=== PATIENT | female | born 1995 | race Caucasian/White ===

== ENCOUNTER 2023-06-30 10:10 | Outpatient (CLI) | payer OTHER, SELFPAY ==
[2023-06-30 13:11] LABS: Bacterial Vaginosis* NEGATIVE (No Detected); Candida glab/krus NOT DETECTED (No Detected); Candida species NOT DETECTED (No Detected); Trichomonas vaginalis NOT DETECTED (No Detected)
[2023-06-30 13:41] LABS: Chlamydia DNA Amplified* NOT DETECTED (No Detected); GC DNA Amplified* NOT DETECTED (No Detected)
== END 2023-06-30 10:11 | disposition home or self-care (01) ==
PROVIDERS: Visit Provider Registered Nurse
DX: N89.8 Other specified noninflammatory disorders of vagina (principal); Z11.3 Encounter for screening for infections with a predominantly sexual mode of transmission
CPT/HCPCS: 81513; 87102; 87481; 87491; 87591; 87661

== ENCOUNTER 2023-08-11 12:14 | Outpatient (CLI) | payer OTHER, SELFPAY ==
--- NOTE | 2023-08-11 12:15 | US_ITS ---
Patient: SANAZ SAINZ Facility:?[facility] Patient ID:?[id number] Site Patient ID:?[id number]. Site :?1995 Study:?US-OB Pelvis OB ANATOMY-08/11/2023 1:25:28 PM Ordering Physician:VARSHA CARPENTER Final Report: INDICATION: Evaluate anatomy. COMPARISON: none TECHNIQUE: Real time roblero scale imaging of the fetus was performed as well as color Doppler analysis of the umbilical vessels. FINDINGS: Sonographic imaging demonstrates a single living intrauterine gestation. Fetus demonstrates a regular cardiac rate of 145 beats per minute. Fetus has a variable position. The placenta lies anteriorly without evidence of placenta previa. Placental edge 7.0 cm from the internal cervical os. Amniotic fluid volume appears normal. Single deepest vertical pocket: 4.1 cm. The cervix is closed and measures 4.5 cm in length. The composite ultrasound gestational age is calculated at 19 weeks 6 days with an estimated sonographic due date of 12/30/2023. The estimated weight is 316 grams which lies at the 13th %. The following biometric measurements were obtained: Biparietal diameter: 4.4 cm/19 weeks 1 day 6th% Head circumference: 17.1 cm/19 weeks 5 day 11th% Abdominal circumference: 15.2 cm/20 weeks 3 days 38th% Femur length: 3.0 cm/19 weeks 2 days 7th% The HC/AC ratio measures: 1.13 range (1.08-1.26) On anatomic survey, there is a normal appearance of the cerebral ventricles, cavum septi pellucidi, cisterna magna and cerebellum. The nose and lips appear normal. The cervical, thoracic and lumbar spine are well visualized and appear normal. Incomplete visualization of the heart structures and profile due to position. The diaphragm and stomach appear normal. The kidneys and bladder also appear normal. There is a normal three-vessel cord. The placental cord insertion is located 1.4 cm from the edge of the placenta. The four extremities appear normal. IMPRESSION: Concordance of clinical and sonographic dating. Incomplete visualization of the profile and heart structures. Remainder of the anatomic survey normal. Short-term follow-up recommended. Marginal placental cord insertion located 1.4 cm from the placental edge Dictated by Dinesh Cardenas MD @ 08/11/2023 1:35:14 PM Signed by:?Dinesh Cardenas MD @08/11/2023 1:35:14 PM (Electronic Signature)
== END 2023-08-11 12:15 | disposition home or self-care (01) ==
LOC: US 12:14
PROVIDERS: Visit Provider Obstetrics & Gynecology
DX: Z34.92 Encounter for supervision of normal pregnancy, unspecified, second trimester (principal); Z3A.19 19 weeks gestation of pregnancy
CPT/HCPCS: 76805

== ENCOUNTER 2023-09-08 13:00 | Outpatient (CLI) | payer OTHER, SELFPAY ==
--- NOTE | 2023-09-08 13:00 | US_ITS ---
Patient: SANAZ SAINZ Facility:?[facility] Patient ID:?[id number] Site Patient ID:?[id number]. Site :?1995 Study:?US-OB Pelvis OB F/U SUBOPTIMAL VIEWS-09/08/2023 10:24:32 AM Ordering Physician:?RAMO TIPTON M.D. Final Report: INDICATION: Follow-up missed anatomy COMPARISON: 08/11/2023 TECHNIQUE: Real time roblero scale imaging of the fetus was performed as well as color Doppler analysis of the umbilical vessels. FINDINGS: Sonographic imaging demonstrates a single living intrauterine gestation. Fetus demonstrates a regular cardiac rate of 154 beats per minute. Fetus has a transverse/breech position. The placenta lies anteriorly. Amniotic fluid volume appears normal. Single deepest vertical pocket: 4.6 cm. Adequate diastolic flow within the umbilical artery with the SD ratio measuring 3.5. Respiratory activity not visualized, of doubtful significance at this gestational age. The composite ultrasound gestational age is calculated at 23 weeks 0 days with an estimated sonographic due date of 01/05/2024. The estimated weight is 500 grams which lies at the less than 3rd %. The following biometric measurements were obtained: Biparietal diameter: 5.8 cm/23 weeks 5 days 17th% Head circumference: 22.2 cm/24 weeks 2 days 19th% Abdominal circumference: 17.1 cm/22 weeks 0 days less than 3rd% Femur length: 3.8 cm/22 weeks 1 day less than 3rd% The HC/AC ratio measures: 1.30 range (1.05-1.21) Normal LVOT, RVOT, three-vessel view and four-chamber heart. Normal profile. Placental cord insertion 2.2 cm from the placental edge. IMPRESSION: Sonographic gestational age 23 weeks 0 days and sonographic due date 01/05/2024. Sonographic age 11 days behind the clinical age. Estimated weight less than 3rd percentile. AC and FL less than 3rd percentile. Cord insertion into the placenta is located 2.2 cm from the placental edge. Normal profile and heart views. Dictated by Dinesh Cardenas MD @ 09/14/2023 3:41:52 PM Signed by:?Dinesh Cardenas MD @09/14/2023 3:41:52 PM (Electronic Signature)
== END 2023-09-08 13:01 | disposition home or self-care (01) ==
LOC: US 13:01
PROVIDERS: Visit Provider Obstetrics & Gynecology
DX: Z34.92 Encounter for supervision of normal pregnancy, unspecified, second trimester (principal); Z3A.23 23 weeks gestation of pregnancy
CPT/HCPCS: 76816; 76820

== ENCOUNTER 2023-10-01 09:52 | Outpatient (CLI) | payer OTHER, SELFPAY | END 2023-10-01 09:53 | disposition home or self-care (01) | PROVIDERS: Visit Provider Obstetrics & Gynecology | DX: Z34.82 Encounter for supervision of other normal pregnancy, second trimester (principal) | CPT/HCPCS: 86592 ==

== ENCOUNTER 2023-11-05 14:37 | Outpatient (CLI) | payer OTHER, SELFPAY ==
--- OUTSIDE RECORDS SUMMARY | 2023-11-05 14:39 | XMS_ITS | Clinical Summary ---
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 Name Role Phone Evi Colmenares RD Unavailable Cristobal Becerril PA-C Primary Care Provider Cristobal Becerril PA-C Unavailable [phone] Elisa Yoo MD Unavailable [phone] Allergies Active Allergy Reactions Criticality Noted Date Comments Seasonal Allergies Low 06/17/2022 Other reaction(s): Eye Redness Medications Medication Sig Dispensed Refills Start Date End Date Status Vit-Fe Fumarate-FA ( MULTIVITAMIN W/IRON) 27-0.8 MG tabletIndications : Take 1 tablet by mouth daily Active acetaminophen (TYLENOL) 325 MG tabletIndications :Delivery of by section Take 3 tablets (975 mg) by mouth every 6 hours 2 Active ibuprofen (ADVIL/MOTRIN) 800 MG tabletIndications :Delivery of by section Take 1 tablet (800 mg) by mouth every 6 hours 2 Active valACYclovir (VALTREX) 1000 mg tabletIndications :Herpes simplex virus infection Take 1 tablet (1,000 mg) by mouth daily 90 tablet 1 3 Active ondansetron (ZOFRAN) 4 MG tabletIndications :Nausea Take 1 tablet (4 mg) by mouth every 8 hours as needed for nausea 30 tablet 3 Active metFORMIN (GLUCOPHAGE) 500 MG tabletIndications :Morbid obesity (H),Hx of gestational diabetes mellitus, not currently TAKE 1 TABLET BY MOUTH TWICE A DAY WITH FOOD 180 tablet 4 Active insulin aspart (NOVOLOG PEN) 100 UNIT/ML pen Inject 18 Units Subcutaneous At Bedtime 12/27/19 22 Discontinued Active Problems Problem Noted Date Diagnosed Date Morbid obesity 06/17/2022 Indication for care in labor or delivery 022 Encounter for triage in patient 022 Impaired glucose tolerance 05/21/2021 Retained intrauterine contraceptive device (IUD) 09/30/2020 Overview: One arm of copper IUD lateral left of lower uterine segment, could not be removed via D&C w/ hysteroscopy. See operative report 12/11/2019. HSV (herpes simplex virus) anogenital infection 04/13/2018 Overview: Takes acyclovir with outbreaks Takes acyclovir with outbreaks Seasonal allergies Estimated Date of Delivery Comme nts Yes 12/25/2023 Based on last me nstrual period of 03/20/2023 Resolved Problems Problem Noted Date Diagnosed Date Resolved Date Blood in stool 07/01/2013 07/01/2013 Pain in joint, pelvic region and thigh 08/13/2009 06/17/2022 Encounters Date Type Department Care Team Description 11/03/2023 8:30 AM CDT Office Visit [facility] [address] [place] [address] Mike Joseph MD growth restriction antepartum 11/03/2023 7:59 AM CDT - 11/03/2023 11:59 PM CDT Hospital Encounter [facility] Medicine [facility] [address] [facility] [address] [place] [address] Mike Joseph MD growth restriction antepartum Discharge Disposition: Home or Self Care 11/03/2023 Travel 10/29/2023 2:31 PM CDT - 10/29/2023 11:59 PM CDT Hospital Encounter [facility] Maternal Medicine [address] [phone] Mike Joseph MD growth restriction antepartum Discharge Disposition: Home or Self Care 10/29/2023 2:30 PM CDT Office Visit [facility] Medicine [address] [phone] Mike Joseph MD growth restriction antepartum 10/29/2023 Travel 10/20/2023 9:00 AM CDT Office Visit [facility] Maternal Medicine [place] [address] [place] [address] Elisa Yoo MD Rauk, Phillip Neil, MD growth restriction antepartum (Primary Dx) 10/20/2023 8:58 AM CDT - 10/20/2023 11:59 PM CDT Hospital Encounter [facility] [address] [place] [address] Elisa Yoo MD Rauk, Phillip Neil, MD growth restriction antepartum Discharge Disposition: Home or Self Care 10/20/2023 Travel 10/15/2023 3:15 PM CDT - 10/15/2023 11:59 PM CDT Hospital Encounter [facility] [address] [place] [address] Mark Garcia MD growth restriction antepartum Discharge Disposition: Home or Self Care 10/15/2023 3:00 PM CDT Office Visit [facility] Medicine [facility] [address] [place] [address] Mark Garcia MD growth restriction antepartum (Primary Dx) 10/15/2023 Travel 10/12/2023 3:00 PM CDT Office Visit [facility] [address] [place] [address] Mark Garcia MD growth restriction antepartum (Primary Dx) 10/12/2023 2:59 PM CDT - 10/12/2023 11:59 PM CDT Hospital Encounter [facility] Medicine [facility] [address] [facility] [address] [place] [address] Mark Garcia MD growth restriction antepartum Discharge Disposition: Home or Self Care 10/12/2023 Travel 10/08/2023 8:30 AM CDT Office Visit [facility] Maternal Medicine [place] [address] [address] [place] [phone] Kenton Jasso MD growth restriction antepartum (Primary Dx) 10/08/2023 7:58 AM CDT - 10/08/2023 11:59 PM CDT Hospital Encounter [facility] Maternal Medicine [place] [address] [place] [phone] Kenton Jasso MD growth restriction antepartum Discharge Disposition: Home or Self Care 10/08/2023 Travel 10/01/2023 2:30 PM CDT Office Visit [facility] Medicine [place] [address] [place] [phone] Elisa Yoo MD growth restriction antepartum (Primary Dx); Obesity in , antepartum; BMI 40.0-44.9, adult (H) 10/01/2023 2:28 PM CDT - 10/01/2023 11:59 PM CDT Hospital Encounter [facility] Maternal Medicine [place] [address] [place] [phone] Elisa Yoo MD growth restriction antepartum Discharge Disposition: Home or Self Care 10/01/2023 Travel 09/28/2023 Travel 09/22/2023 1:45 PM CDT Office Visit [facility] M[facility] Medicine [place] [address] [place] [phone] Mark Garcia MD growth restriction antepartum (Primary Dx) 09/22/2023 1:42 PM CDT - 09/22/2023 11:59 PM CDT Hospital Encounter [facility] Medicine [place] [address] [facility] [address] [place] [phone] Mark Garcia MD growth restriction antepartum Discharge Disposition: Home or Self Care 09/22/2023 Travel 09/15/2023 3:00 PM CDT Office Visit [facility] Medicine [place] [address] [facility] [address] [place] [phone] Mark Garcia MD growth restriction antepartum (Primary Dx) 09/15/2023 2:54 PM CDT - 09/15/2023 11:59 PM CDT Hospital Encounter [facility] Maternal Medicine [place] [address] [facility] [address] [place] [phone] Mark Garcia MD growth restriction antepartum Discharge Disposition: Home or Self Care 09/15/2023 Travel 09/10/2023 11:30 AM CDT Office Visit [facility] Maternal Medicine [address] [phone] Ghislaine Encinas MD Sabol, Bethany, MD growth restriction antepartum (Primary Dx) 09/10/2023 10:57 AM CDT - 09/10/2023 11:59 PM CDT Hospital Encounter [facility] Maternal Medicine [address] [address] Ghislaine Encinas MD Sabol, Bethany, MD related condition, antepartum Discharge Disposition: Home or Self Care 09/10/2023 Travel 09/09/2023 Medical Correspondence [facility] [address] [phone] Scan, Non-Provider 09/09/2023 PRE VISIT [facility] Maternal Medicine [address] [place] [phone] Bianca Kimball RN Ultrasound (L2: FGR seen on outside [place]) 09/08/2023 Transcribe Orders [facility] Maternal Medicine [place] [address] [address] [place] [phone] Ghislaine Encinas MD related condition, antepartum (Primary Dx) from Last 3 Months Immunizations Name Administration Dates Next Due COVID-19 MONOVALENT 12+ (Pfizer) 07/04/2020,12/2020 HEPA 10/24/2014,03/30/2011 HEPATITIS A (PEDS 12M-18Y) 03/30/2011 HPV Quadrivalent 04/02/2016,10/18/2015 HPV9 04/13/2018 Influenza (IIV3) PF 06/04/2014,04/06/2008,2006 Influenza Vaccine >6 months,quad, PF 06/17/2022, 03/20/2020,03/27/2019 Influenza,INJ,MDCK,PF,Quad >6mo(Flucelvax) 05/21 Meningococcal (Menomune??) 03/30/2011,01/19/2005 Meningococcal ACWY (Menactra??) 01/19/2005 Meningococcal ACWY (Menveo??) 03/30/2011 TD,PF 7+ (Tenivac) 01/19/2005 TDAP (Adacel,Boostrix) 10/22/2021,09/30/2020, Td (Adult), Adsorbed 01/19/2005 Family History Medical History Relation Comments Breast Cancer Mother Relation Status Comments Father Alive Mother Alive Social History Tobacco Use Types Packs/Day Years Used Date Smoking Tobacco: Never Passive Smoke Exposure: Never Smokeless Tobacco: Never Tobacco Cessation:Counseling Given: Not Answered Alcohol Use Standard Drinks/Week Comments Yes 5 (1 standard drink = 0.6 oz pur e alcohol) PHQ-2 Answer Date Recorded PHQ-2 Score 0 06/17/2022 [place] Depression Scale Answer Date Recorded Last EPDS Total Score Not on file 12/26/2021 The thought of harming myself has occurred to me . Never 12/26/2021 Adolescent Education Answer Date Record ed Getting School Help Needed Not on file 03/12 Estimated Date of Delivery Comme nts Yes 12/25/2023 Based on last me nstrual period of 03/20/2023 Sex and Gender Information Value Date Recorded Sex Assigned at Female 08/20/2021 9:26 AM CDT Gender Identity Female 08/20/2021 9:26 AM CDT Sexual Orientation Straight 08/20/2021 9: 26 AM CDT Last Filed Vital Signs Vital Sign Reading Time Taken Comments Blood Pressure 111/67 11/03/2023 8:40 AM CDT Pulse 90 11/03/2023 8:40 AM CDT Temperature 36.8 ??C (98.2 ??F) 06/17/2022 1 0:24 AM PHARMACOVIGILANCE SAFETY EXPERT Respiratory Rate 16 11/03/2023 8:40 AM CDT Oxygen Saturation 97% 10/15/2023 3:50 PM CDT Inhaled Oxygen Concentration - - Weight 100.2 kg (220 lb 12.8 oz) 2022 10:24 AM PHARMACOVIGILANCE SAFETY EXPERT Height 157.5 cm (5' 2) 06/17/2022 10:2 4 AM PHARMACOVIGILANCE SAFETY EXPERT Body Mass Index 40.38 06/17/2022 10:24 AM PHARMACOVIGILANCE SAFETY EXPERT Plan of Treatment Upcoming Encounters Date Type Department Care Team (Late st Contact Info) Description 11/12/2023 10:30 AM CDT Office Visit [facility] [address] [facility] [address] [place] [phone] Mark Garcia MD [address] [place] [address] Kenton Jasso MD [address] [place], [place] [phone] 11/12/2023 11:00 AM CDT Appointment [facility] [place] [address] [place] [address] Mark Garcia MD [address] [place], [place] [address] Kenton Jasso MD [address] [place], [place] [address] 11/19/2023 10:30 AM CDT Office Visit [facility] [address] [place] [phone] Mark Garcia MD [address] [place] [address] 11/19/2023 11:00 AM CDT Appointment [facility] [address] [place] [address] Mark Garcia MD [address] [place], [place] [phone] Health Maintenance Due Date Last Done Comments HEPATITIS B IMMUNIZATION (1 of 3 - 19+ 3-dose series) 2012 MATERNAL SCREENING DISCUSSION 05/29/2023 PHQ-2 (once per calendar year) 2023 06/17/2022, 11/01/2018 ANNUAL REVIEW OF HM ORDERS 06/17/2023 06/17/2022 OBGCT (OB) 09/04/2023 PAP 10/01/2023 09/30/2020, 12/2019, 04/13/2018, Additional history exists YEARLY PREVENTIVE VISIT 03/24/2024 03/24/20, 06/17/2022, 09/30/2020, Additional history exists ADVANCE CARE PLANNING 06/17/2027 06/17/2022 DTAP/TDAP/TD IMMUNIZATION (6 - Td or Tdap) 10/17/2033 10/18/2023, 10/22/2021, 09/30/2020, Additional history exists MENINGITIS IMMUNIZATION Completed 03/30/20 11, 03/30/2011, 01/19/2005, Additional history exists HPV IMMUNIZATION Completed 04/13/2018, , 10/18/2015 INFLUENZA VACCINE Completed 03/24/2023, , 06/17/2022, Additional history exists HEPATITIS C SCREENING Completed 05/19/2023, 022 HIV SCREENING Completed 05/19/2023, 06/07, 11/01/2018 COVID-19 Vaccine Completed 08/11/2023, 09/2021, 07/04/2020, Additional history exists IPV IMMUNIZATION Aged Out No longer e ligible based on patient's age to complete this topic Pneumococcal Vaccine: Pediatrics (0 to 5 Years) and At-Risk Patients (6 to 64 Years) Aged Out No longer eligible based on patient's age to complete this topic RSV MONOCLONAL ANTIBODY Aged Out No l onger eligible based on patient's age to complete this topic RSV VACCINE ( & 60+) (No Doses Required) Completed Procedures Procedure Name Priority Date/Time Associated Diagnosis Comments [facility] OB LIMITED SINGLE/MULTIPLE Routine 11/03/2023 9:36 AM CDT growth restriction antepartum [facility] OB LIMITED SINGLE/MULTIPLE Routine 10/29/2023 3:15 PM CDT growth restriction antepartum [facility] COMPREHENSIVE SINGLE F/U Routine 10/20/2023 10:05 AM CDT growth restriction antepartum NON-STRESS TEST - HIM SCAN 10/20/2023 12:00 AM CDT [facility] OB LIMITED SINGLE/MULTIPLE Routine 10/15/2023 4:10 PM CDT growth restriction antepartum [facility] OB LIMITED SINGLE/MULTIPLE Routine 10/12/2023 4:02 PM CDT growth restriction antepartum [facility] OB LIMITED SINGLE/MULTIPLE Routine 10/08/2023 9:09 AM CDT growth restriction antepartum [facility] US COMPREHENSIVE SINGLE F/U Routine 10/01/2023 4:11 PM CDT growth restriction antepartum [facility] US OB LIMITED SINGLE/MULTIPLE Routine 09/22/2023 2:13 PM CDT growth restriction antepartum [facility] US OB LIMITED SINGLE/MULTIPLE Routine 09/15/2023 4:05 PM CDT growth restriction antepartum [facility] US COMPREHENSIVE SINGLE Routine 09/10/2023 12:00 PM CDT related condition, antepartum HIV ANTIGEN ANTIBODY COMBO Routine 05/19/2023 10:29 AM PHARMACOVIGILANCE SAFETY EXPERT 8 weeks gestation of HEPATITIS C ANTIBODY Routine 05/19/2023 10:29 AM PHARMACOVIGILANCE SAFETY EXPERT 8 weeks gestation of ABSTRACT PAP (HIM EXTERNAL RESULT) Routine 09/30/2020 10:30 AM CDT from Last 3 Months or Most Recently Relevant to Health Maintenance Results * [facility] US OB Limited Single/Multiple (11/03/2023 9:36 AM CDT) Only the most recent of7 resultswithin the time period is included. Anatomical Region Laterality Modality Ultrasound 11/03/2023 8:01 AM CDT Impressions 11/03/2023 9:19 AM CDT IMPRESSION ----- 1. Springer at 32w 4d with growth restriction (EFW 8% on 10/20/23). 2. The amniotic fluid volume appeared normal. 3. The umbilical artery Dopplers were abnormal: Elevated PI but there was no evidence of absent or reversed end diastolic flow. 4. The heart rate monitoring was appropriate for gestational age. Narrative 11/03/2023 9:19 AM CDT ?Limited ----- Pat. Name: SANAZ SAINZ ? Study Date: ??11/03/2023 8:01am Pat. NO: ??[id number] ?Referring ??MD: GHISLAINE ENCINAS Site: ??[facility] ? Publicity Agent: Suzy Hester RDMS : ??1995 ?Age: ?? 28 ----- INDICATION ----- growth restriction (FGR) with abnormal UA Doppler resistance METHOD ----- Transabdominal ultrasound examination. View: Sufficient ----- Springer . Number of fetuses: 1 DATING ----- ? Date ?Details ?Gest. age ?CLARIBEL LMP ?03/20/2023 ? 32 w + 4 d ? 12/25/2023 Prior assessment ? 05/19/2023 ? GA: 8 w + 0 d ?32 w + 0 d ? 12/29/2023 Assigned dating ?Dating performed on 11/03/2023, based on the LMP ?32 w + 4 d ? 12/25/2023 GENERAL EVALUATION ----- Cardiac activity present. FHR 142 bpm. movements visualized. Presentation breech. Placenta Anterior. Umbilical cord previously studied. Amniotic fluid Amount of AF: normal. MVP 8.6 cm. AVIVA 20.6 cm. Q1 3.8 cm, Q2 8.1 cm, Q3 3.9 cm, Q4 4.8 cm. DOPPLER ----- Umbilical Artery: abnormal, Elevated PI but there was no evidence of absent or reversed end diastolic flow PI ?1.38 ?>99% ?Penny HR ?142 ? bpm NON STRESS TEST ----- NST interpretation: reactive. Test duration 30 min. Baseline FHR 145 bpm. Baseline variability: moderate. Accelerations: present. Decelerations: absent. Uterine activity: absent RECOMMENDATION ----- Thank-you for referring your patient for surveillance in the setting of growth restriction. Continue weekly surveillance/UA Dopplers and growth evaluation every 3 weeks. Return to primary provider for continued care. If UA Doppler resistance remains elevated, delivery is recommended at 37 weeks. If you have questions regarding today's evaluation or if we can be of further service, please contact the Maternal- Medicine Center. anomalies may be present but not detected Procedure Note Mike Joseph MD - 11/03/2023 Limited ----- Pat. Name: SANAZ SAINZ Study Date: 11/03/2023 8:01am Pat. NO: [id number] Referring MD: GHISLAINE ENCINAS Site: [facility] Publicity Agent: Suzy Hester RDMS : 1995 Age: 28 ----- INDICATION ----- growth restriction (FGR) with abnormal UA Doppler resistance METHOD ----- Transabdominal ultrasound examination. View: Sufficient ----- Springer . Number of fetuses: 1 DATING ----- DateDetailsGest. age CLARIBEL LMP w + 4 d 12/25/2023 Prior assessment 05/19/2023 GA: 8 w +0 d32 w + 0 d 12/29/2023 Assigned dating Dating performed on 11/03/2023, based onthe LMP 32 w +4 d 12/25/2023 GENERAL EVALUATION ----- Cardiac activity present. FHR 142 bpm. movements visualized. Presentation breech. Placenta Anterior. Umbilical cord previously studied. Amniotic fluid Amount of AF: normal. MVP 8.6 cm. AVIVA 20.6 cm. Q1 3.8 cm,Q2 8.1 cm, Q3 3.9 cm, Q4 4.8 cm. DOPPLER ----- Umbilical Artery: abnormal, Elevated PI but there was no evidence ofabsent or reversed end diastolic flow PI 1.38>99% Penny HR 142 bpm NON STRESS TEST ----- NST interpretation: reactive. Test duration 30 min. Baseline FHR 145 bpm.Baseline variability: moderate. Accelerations: present. Decelerations:absent. Uterine activity: absent RECOMMENDATION ----- Thank-you for referring your patient for surveillance in thesetting of growth restriction. Continue weekly surveillance/UA Dopplers and growth evaluationevery 3 weeks. Return to primary provider for continued care. If UA Doppler resistance remains elevated, delivery is recommended at 37weeks. If you have questions regarding today's evaluation or if we can be offurther service, please contact the Maternal- Medicine Center. anomalies may be present but not detected IMPRESSION ----- 1. Springer at 32w 4d with growth restriction (EFW 8% on10/20/23). 2. The amniotic fluid volume appeared normal. 3. The umbilical artery Dopplers were abnormal: Elevated PI but there wasno evidence of absent or reversed end diastolic flow. 4. The heart rate monitoring was appropriate for gestational age. Mark Garcia MD [place] [facility] US ORDERABL ES * [facility] US Comprehensive Single F/U (10/20/2023 10:05 AM CDT) Only the most recent of2 resultswithin the time period is included. Anatomical Region Laterality Modality Ultrasound 10/20/2023 9:27 AM CDT Impressions 10/20/2023 10:25 AM CDT IMPRESSION ----- 1. Springer at 30w 4d with growth restriction (EFW 3% on 10/01/23). 2. None of the anomalies commonly detected by ultrasound were evident in the limited anatomic survey as described above. 3. EFW was at the 8%ile on today?s ultrasound. Appropriate interval growth was noted. 4. The amniotic fluid volume appeared normal. 5. The umbilical artery Dopplers were abnormal: Elevated PI but there was no evidence of absent or reversed end diastolic flow. 6. Reactive NST without decelerations. Narrative 10/20/2023 10:25 AM CDT ?Comp Follow Up ----- Pat. Name: DOC SAINZICA ? Study Date: ??10/20/2023 9:27am Pat. NO: ??[id number] ?Referring ??: GHISLAINE ENCINAS Site: ??[facility] ? Publicity Agent: Miky Malone RDMS : ??1995 ?Age: ?? 28 ----- INDICATION ----- Growth Restriction (FGR) Elevated Dopplers METHOD ----- Transabdominal ultrasound examination. View: Sufficient ----- Springer . Number of fetuses: 1 DATING ----- ? Date ?Details ?Gest. age ?CLARIBEL LMP ?03/20/2023 ? 30 w + 4 d ? 12/25/2023 Prior assessment ? 05/19/2023 ? GA: 8 w + 0 d ?30 w + 0 d ? 12/29/2023 U/S ? 10/20/2023 ? based upon AC, BPD, Femur, HC ?29 w + 5 d ? 12/31/2023 Assigned dating ?Dating performed on 10/20/2023, based on the LMP ?30 w + 4 d ? 12/25/2023 GENERAL EVALUATION ----- Cardiac activity present. FHR 150 bpm. movements present. Presentation transverse with head to maternal right. Placenta Anterior. Umbilical cord previously studied. Amniotic fluid Amount of AF: normal. MVP 7.2 cm. BIOMETRY ----- Main Biometry: BPD ?75.9 ?mm ? 30w 3d ?Hadlock OFD ?101.9 ?mm ? 30w 0d ? Nicolaides HC ?283.2 ?mm ?31w 0d ?Hadlock Cerebellum tr ?38.0 ? mm ?32w 4d ?Nicolaides AC ?250.4 ?mm ?29w 2d ?12% ?Hadlock Femur ?53.3 ? mm ?28w 2d ?Hadlock Humerus ?48.9 ?mm ? 28w 5d ?Kapil Weight Calculation: EFW ? 1,351 ?g ? 8% ? Hadlock EFW (lb,oz) ? 3 lb 0 ?oz EFW by ?Hadlock ([id number]) Head / Face / Neck Biometry: Leaf Stamper ? 7.8 ? mm CM ?4.3 ? mm ANATOMY ----- The following structures appear normal: Head / Neck ? Cranium. Head size. Head shape. Lateral ventricles. Midline falx. Cavum septi pellucidi. Cerebellum. Cisterna magna. Thalami. Face ? Lips. Profile. Nose. Heart / Thorax ?RVOT view. LVOT view. ? Diaphragm. Abdomen ? Stomach. Kidneys. Bladder. The following structures were documented previously: Heart / Thorax ?4-chamber view. [id number]-wpkjvde view. Spine ?Cervical spine. Thoracic spine. Lumbar spine. Sacral spine. Gender: female. DOPPLER ----- Umbilical Artery: abnormal, Elevated PI but there was no evidence of absent or reversed end diastolic flow PI ?1.43 ?>99% ? Penny HR ?140 ? bpm MATERNAL STRUCTURES ----- Cervix ?Not examined Right Ovary ?Not examined Left Ovary ?Not examined NON STRESS TEST ----- NST interpretation: reactive. Test duration 20 min. Baseline FHR 130 bpm. Baseline variability: moderate. Accelerations: present. Decelerations: absent. Uterine activity: absent. Acoustic stimulation: no RECOMMENDATION ----- We discussed the findings on today's ultrasound with the patient. We will continue weekly FGR surveillance and reassess growth in 3 weeks. Return to primary provider for continued care. Thank-you for the opportunity to participate in the care of this patient. If you have questions regarding today's evaluation or if we can be of further service, please contact the M[facility] Center. anomalies may be present but not detected Procedure Note Mark Garcia MD - 10/20/2023 Comp Follow Up ----- Pat. Name: SANAZ SAINZ Study Date: 10/20/2023 9:27am Pat. NO: [id number] Referring MD: GHISLAINE ENCINAS Site: [facility] Publicity Agent: Miky Malone RDMS : 1995 Age: 28 ----- INDICATION ----- Growth Restriction (FGR) Elevated Dopplers METHOD ----- Transabdominal ultrasound examination. View: Sufficient ----- Springer . Number of fetuses: 1 DATING ----- DateDetailsGest. age CLARIBEL LMP w + 4 d 12/25/2023 Prior assessment 05/19/2023 GA: 8 w +0 d30 w + 0 d 12/29/2023 U/S 10/20/2023ased upon AC, BPD, Femur, HC29 w + 5 d 12/31/2023 Assigned dating Dating performed on 10/20/2023, based onthe LMP 30 w +4 d 12/25/2023 GENERAL EVALUATION ----- Cardiac activity present. FHR 150 bpm. movements present. Presentation transverse with head to maternal right. Placenta Anterior. Umbilical cord previously studied. Amniotic fluid Amount of AF: normal. MVP 7.2 cm. BIOMETRY ----- Main Biometry: BPD 75.9 mm30w 3d Hadlock OFD 101.9 mm30w 0d Nicolaides HC 283.2 mm31w 0d Hadlock Cerebellum tr 38.0 mm32w 4d Nicolaides AC 250.4 mm29w 2d 12% Hadlock Femur 53.3 mm28w 2d Hadlock Humerus 48.9 mm28w 5d Kapil Weight Calculation: EFW 1,351 g8% Hadlock EFW (lb,oz) 3 lb 0 oz EFW by Hadlock ([id number]) Head / Face / Neck Biometry: Leaf Stamper 7.8 mm CM 4.3 mm ANATOMY ----- The following structures appear normal: Head / Neck Cranium. Head size. Head shape.Lateral ventricles. Midline falx. Cavum septi pellucidi. Cerebellum.Cisterna magna. Thalami. Face Lips. Profile. Nose. Heart / Thorax RVOT view. LVOT view. Diaphragm. Abdomen Stomach. Kidneys. Bladder. The following structures were documented previously: Heart / Thorax 4-chamber view. 0-[id number]-uncaccfhhiu. Spine Cervical spine. Thoracic spine.Lumbar spine. Sacral spine. Gender: female. DOPPLER ----- Umbilical Artery: abnormal, Elevated PI but there was no evidence ofabsent or reversed end diastolic flow PI 1.43>99% Penny HR 140 bpm MATERNAL STRUCTURES ----- Cervix Not examined Right Ovary Not examined Left Ovary Not examined NON STRESS TEST ----- NST interpretation: reactive. Test duration 20 min. Baseline FHR 130 bpm.Baseline variability: moderate. Accelerations: present. Decelerations:absent. Uterine activity: absent. Acoustic stimulation: no RECOMMENDATION ----- We discussed the findings on today's ultrasound with the patient. We will continue weekly FGR surveillance and reassess growth in 3weeks. Return to primary provider for continued care. Thank-you for the opportunity to participate in the care of this patient.If you have questions regarding today's evaluation or if we can be offurther service, please contact the [facility]. anomalies may be present but not detected IMPRESSION ----- 1. Springer at 30w 4d with growth restriction (EFW 3% on10/01/23). 2. None of the anomalies commonly detected by ultrasound were evident inthe limited anatomic survey as described above. 3. EFW was at the 8%ile on today?s ultrasound. Appropriate interval growthwas noted. 4. The amniotic fluid volume appeared normal. 5. The umbilical artery Dopplers were abnormal: Elevated PI but there wasno evidence of absent or reversed end diastolic flow. 6. Reactive NST without decelerations. Elisa Yoo MD [facility] US ORDERABLE S * Non-Stress Test - HIM Scan (10/20/2023 12:00 AM CDT) 10/20/2023 Provider Outside PROCEDURES * [facility] Comprehensive Single (09/10/2023 12:00 PM CDT) Anatomical Region Laterality Modality Ultrasound 09/10/2023 10:5 9 AM CDT Impressions 09/10/2023 4:59 PM CDT IMPRESSION ----- 1. Springer at 24w 6d gestational age. 2. No anomalies commonly detected by ultrasound were identified in the detailed anatomic survey within the limits of ultrasound, however some views were suboptimal, as described above. 3. Growth parameters and estimated weight were consistent with a new diagnosis of growth restriction with an EFW at the 3rd% for established dates. 4. The amniotic fluid volume appeared normal. 5. The umbilical artery Dopplers were normal. 6. The heart rate monitoring was appropriate for gestational age. Narrative 09/10/2023 4:59 PM CDT ?Comprehensive ----- Pat. Name: SANAZ SAINZ ? Study Date: ??09/10/2023 10:59am Pat. NO: ??[id number] ?Referring ??MD: GHISLAINE ENCINAS Site: ??[facility] ? Publicity Agent: Margaret Colvin RDMS : ??[id number] ?Age: ?? 28 ----- INDICATION ----- growth restriction (FGR) on outside exam, Low risk NIPT METHOD ----- Transabdominal ultrasound examination. View: Sufficient ----- Springer . Number of fetuses: 1 DATING ----- ? Date ?Details ?Gest. age ?CLARIBEL LMP ?03/20/2023 ? 24 w + 6 d ? 12/25/2023 U/S ? 09/10/2023 ?based upon AC, BPD, Femur, HC ? 23 w + 3 d ? 01/04/2024 Assigned dating ?Dating performed on 09/10/2023, based on the LMP ?24 w + 6 d ? 12/25/2023 GENERAL EVALUATION ----- Cardiac activity present. FHR 157 bpm. movements present. Presentation tranverse with head to maternal left. Placenta Placental site: anterior. No Previa, > 2 cm from internal os. Umbilical cord 3 vessel cord. Amniotic fluid Amount of AF: normal. MVP 5.6 cm. BIOMETRY ----- Main Biometry: BPD ?57.0 ?mm ? 23w 3d ?Hadlock OFD ?79.2 ?mm ? 24w 0d ?Nicolaides HC ?218.4 ?mm ?23w 6d ?Hadlock Cerebellum tr ?28.3 ? mm ?25w 2d ?Nicolaides AC ?182.1 ?mm ?23w 0d ?4% ?Hadlock Femur ?40.7 ? mm ?23w 1d ?Hadlock Humerus ?38.4 ?mm ? 23w 4d ?Kapil Weight Calculation: EFW ? 571 ? g ? 3% ?Hadlock EFW (lb,oz) ? 1 lb 4 ?oz EFW by ?Hadlock ([id number]) Head / Face / Neck Biometry: Leaf Stamper ? 7.3 ? mm CM ?5.9 ? mm Nasal bone ? 7.2 ? mm ANATOMY ----- The following structures appear normal: Head / Neck ? Cranium. Head size. Head shape. Lateral ventricles. Choroid plexus. Midline falx. Cavum septi pellucidi. Cerebellum. Cisterna magna. ? Parenchyma. Thalami. Vermis. ? Neck. Face ? Lips. Profile. Nose. Maxilla. Mandible. Orbits. Lens. Heart / Thorax ?4-chamber view. RVOT view. LVOT view. Situs. Bicaval view. Ductal arch view. Superior vena cava. Inferior vena cava. Cardiac position. Cardiac ? size. Cardiac rhythm. ? Right lung. Left lung. Diaphragm. Abdomen ? Abdominal wall. Cord insertion. Stomach. Bladder. Liver. Bowel. Genitals. Spine ?Cervical spine. Thoracic spine. Extremities / Skeleton ?Right arm. Right hand. Left arm. Left hand. Right leg. Right foot. Left leg. Left foot. The following structures could not be adequately visualized: Heart / Thorax ?Aortic arch view. 3-vessel view. 7-qqmttq-huqwwje view. Abdomen ? Kidneys. Spine ?Lumbar spine. Sacral spine. Gender: female. DOPPLER ----- Umbilical Artery: normal PI ?1.31 ?84% ?Penny HR ?140 ? bpm MATERNAL STRUCTURES ----- Cervix ?Visualized ? Appearance: Appears Closed Right Ovary ?Not visualized Left Ovary ?Not visualized NON STRESS TEST ----- Test duration 20 min. Baseline FHR 145 bpm. Baseline variability: moderate. Accelerations: present. Decelerations: absent. Uterine activity: absent RECOMMENDATION ----- Thank-you for referring your patient for a comprehensive ultrasound. I discussed the findings on today's ultrasound with the patient. The findings on today's ultrasound are consistent with growth restriction (FGR). We reviewed that we consider a to be affected by FGR when the overall EFW is <10th% or if the abdominal circumference (AC) is < 10th% as they have been found to be equally predictive of SGA. We discussed the potential etiologies of FGR including incorrect dating, constitutional, infectious etiologies (specifically CMV), genetic and structural abnormalities as well as placental and umbilical cord abnormalities. Her dating was reviewed (LMP c/w 8 week ultrasound). She had low risk cell free DNA for genetic screening. She is otherwise healthy and has no significant medical problems. There is no family history of congential anomalies or genetic syndromes. Her previous child was followed for FGR and was 5lb9oz at 38 weeks. Her child is now growing normally and meeting all milestones. She denies experiencing any viral symptoms this . Her blood pressure today was 124/79 mmHg. We reviewed the possible/recommended work up for FGR. I reviewed the limitations of ultrasound and we discussed the availability of amniocentesis for the precise diagnosis of chromosomal abnormalities as well as infectious studies including the associated procedure-related risk of loss of approximately 1/400. We also reviewed the availability of cell free DNA. After counseling the patient declined invasive testing but may consider this in the future. CMV serologies are not recommended in the absence of risk factors/ultrasound findings but CMV PCR could be sent if amniocentesis is pursued. Additionally, if a patient delivers at <34 weeks for placental insufficiency, including FGR, testing for antiphospholipid antibody syndrome is recommended with beta 2 glycoprotein IgG & IgM, cardiolipin antibody IgG & IgM and lupus anticoagulant. Lastly, we reviewed that regardless of the etiology of FGR, we recommend additional monitoring due to the increased risk for stillbirth and that the ultimate goal of management rests on balancing the risk of stillbirth with the risks of prematurity. The recommended surveillance and management of pregnancies complicated by FGR includes serial assessment of growth (every 3 weeks) in addition to weekly UA Dopplers and surveillance. Timing of delivery will depend on Doppler findings, amniotic fluid, monitoring, and interval growth; we will make specific recommendations as the progresses. We reviewed kick counts and calling guidelines., Finally, I reviewed the limitations of ultrasound both in detecting aneuploidy and structural abnormalities. Ultrasound can routinely detect 80-90% of structural abnormalities. Follow-up has been scheduled weekly with our office for surveillance/UA Dopplers. We will plan to re-evaluate the suboptimally visualized anatomy and growth in 3 weeks. Return to primary provider for continued care. If you have questions regarding today's evaluation or if we can be of further service, please contact the [facility]. anomalies may be present but not detected I spent a total of 30 minutes on the date of this encounter including preparing to see the patient (reviewing medical records/tests), counseling and discussing the plan of care, documenting the visit in the electronic medical record, and communicating with other health neonatal critical care nurse and/or care coordination. Please see note for details. Procedure Note Elisa Yoo MD - 09/10/2023 Comprehensive ----- Pat. Name: SANAZ SAINZ Study Date: 09/10/2023 10:59am Pat. NO: [id number] Referring MD: GHISLAINE ENCINAS Site: [facility] Publicity Agent: Margaret Colvin RDMS : 1995 Age: 28 ----- INDICATION ----- growth restriction (FGR) on outside exam, Low risk NIPT METHOD ----- Transabdominal ultrasound examination. View: Sufficient ----- Springer . Number of fetuses: 1 DATING ----- DateDetailsGest. age CLARIBEL LMP w + 6 d 12/25/2023 U/S 09/10/2023ased upon AC, BPD, Femur, HC23 w + 3 d 01/04/2024 Assigned dating Dating performed on 09/10/2023, based onthe LMP 24 w+ 6 d 12/25/2023 GENERAL EVALUATION ----- Cardiac activity present. FHR 157 bpm. movements present. Presentation tranverse with head to maternal left. Placenta Placental site: anterior. No Previa, > 2 cm from internal os. Umbilical cord 3 vessel cord. Amniotic fluid Amount of AF: normal. MVP 5.6 cm. BIOMETRY ----- Main Biometry: BPD 57.0 mm23w 3d Hadlock OFD 79.2 mm24w 0d Nicolaides HC 218.4 mm23w 6d Hadlock Cerebellum tr 28.3 mm25w 2d Nicolaides AC 182.1 mm23w 0d 4% Hadlock Femur 40.7 mm23w 1d Hadlock Humerus 38.4 mm23w 4d Kapil Weight Calculation: EFW 571 g3% Hadlock EFW (lb,oz) 1 lb 4 oz EFW by Hadlock ([id number]) Head / Face / Neck Biometry: Leaf Stamper 7.3 mm CM 5.9 mm Nasal bone 7.2 mm ANATOMY ----- The following structures appear normal: Head / Neck Cranium. Head size. Head shape.Lateral ventricles. Choroid plexus. Midline falx. Cavum septi pellucidi.Cerebellum. Cisterna magna. Parenchyma. Thalami. Vermis. Neck. Face Lips. Profile. Nose. Maxilla.Mandible. Orbits. Lens. Heart / Thorax 4-chamber view. RVOT view. LVOT view.Situs. Bicaval view. Ductal arch view. Superior vena cava. Inferior venacava. Cardiac position. Cardiac size. Cardiac rhythm. Right lung. Left lung.Diaphragm. Abdomen Abdominal wall. Cord insertion.Stomach. Bladder. Liver. Bowel. Genitals. Spine Cervical spine. Thoracic spine. Extremities / Skeleton Right arm. Right hand. Left arm. Lefthand. Right leg. Right foot. Left leg. Left foot. The following structures could not be adequately visualized: Heart / Thorax Aortic arch view. 3-vessel view.3-aaldma-cwadhfn view. Abdomen Kidneys. Spine Lumbar spine. Sacral spine. Gender: female. DOPPLER ----- Umbilical Artery: normal PI 1.3184% Penny HR 140 bpm MATERNAL STRUCTURES ----- Cervix Visualized Appearance: Appears Closed Right Ovary Not visualized Left Ovary Not visualized NON STRESS TEST ----- Test duration 20 min. Baseline FHR 145 bpm. Baseline variability:moderate. Accelerations: present. Decelerations: absent. Uterine activity:absent RECOMMENDATION ----- Thank-you for referring your patient for a comprehensive ultrasound. I discussed the findings on today's ultrasound with the patient. Thefindings on today's ultrasound are consistent with growthrestriction (FGR). We reviewed that we consider a to be affected by FGR when the overall EFW is <10th%or if the abdominal circumference (AC) is < 10th% as they have been foundto be equally predictive of SGA. We discussed the potential etiologies of FGR includingincorrect dating, constitutional, infectious etiologies (specificallyCMV), genetic and structural abnormalities as well as placental and umbilical cordabnormalities. Her dating was reviewed (LMP c/w 8 week ultrasound). She had low risk cellfree DNA for genetic screening. She is otherwise healthy and has nosignificant medical problems. There is no family history of congential anomalies or geneticsyndromes. Her previous child was followed for FGR and was 5lb9oz at 38weeks. Her child is now growing normally and meeting all milestones. She denies experiencing anyviral symptoms this . Her blood pressure today was 124/79 mmHg. We reviewed the possible/recommended work up for FGR. I reviewed thelimitations of ultrasound and we discussed the availability ofamniocentesis for the precise diagnosis of chromosomal abnormalities as well as infectious studiesincluding the associated procedure-related risk of loss ofapproximately 1/400. We also reviewed the availability of cell free DNA. After counseling the patientdeclined invasive testing but may consider this in the future. CMVserologies are not recommended in the absence of risk factors/ultrasound findings but CMV PCR could be sentif amniocentesis is pursued. Additionally, if a patient delivers at <34weeks for placental insufficiency, including FGR, testing for antiphospholipid antibodysyndrome is recommended with beta 2 glycoprotein IgG & IgM, cardiolipinantibody IgG & IgM and lupus anticoagulant. Lastly, we reviewed that regardless of the etiology of FGR, we recommendadditional monitoring due to the increased risk for stillbirth and thatthe ultimate goal of management rests on balancing the risk of stillbirth with the risks ofprematurity. The recommended surveillance and management of pregnanciescomplicated by FGR includes serial assessment of growth (every 3 weeks) in addition toweekly UA Dopplers and surveillance. Timing of delivery willdepend on Doppler findings, amniotic fluid, monitoring, and interval growth; we will makespecific recommendations as the progresses. We reviewed fetalkick counts and calling guidelines., Finally, I reviewed the limitations of ultrasound both in detectinganeuploidy and structural abnormalities. Ultrasound can routinely [id number]% of structural abnormalities. Follow-up has been scheduled weekly with our office for antenatalsurveillance/UA Dopplers. We will plan to re-evaluate the suboptimallyvisualized anatomy and growth in 3 weeks. Return to primary provider for continued care. If you have questions regarding today's evaluation or if we can be offurther service, please contact the [facility]. anomalies may be present but not detected I spent a total of 30 minutes on the date of this encounter includingpreparing to see the patient (reviewing medical records/tests), counselingand discussing the plan of care, documenting the visit in the electronic medical record, andcommunicating with other health neonatal critical care nurse and/or carecoordination. Please see note for details. IMPRESSION ----- 1. Springer at 24w 6d gestational age. 2. No anomalies commonly detected by ultrasound were identified inthe detailed anatomic survey within the limits of prenatalultrasound, however some views were suboptimal, as described above. 3. Growth parameters and estimated weight were consistent with a newdiagnosis of growth restriction with an EFW at the 3rd% forestablished dates. 4. The amniotic fluid volume appeared normal. 5. The umbilical artery Dopplers were normal. 6. The heart rate monitoring was appropriate for gestational age. Ghislaine Encinas MD [facility] US O RDERABLES * HIV Antigen Antibody Combo [place] (05/19/2023 10:29 AM PHARMACOVIGILANCE SAFETY EXPERT) HIV Antigen Antibody Combo Nonreactive Nonreactive 05/19/2023 6:15 PM PHARMACOVIGILANCE SAFETY EXPERT [facility] DO Comment:HIV-1 p24 Ag & HIV-1 /HIV-2 Ab Not Detected Blood BLOOD SPECIMEN / Unknown Client Draw / Unknown 05/19/2023 10:29 AM PHARMACOVIGILANCE SAFETY EXPERT 05/19/2023 1:09 PM PHARMACOVIGILANCE SAFETY EXPERT Yulia Galvan TANK TRUCK LOADER ORIGINATION SPECIALIST LAB - BLO OD ORDERABLES [facility]ENDO [facility]Endo [address] [facility], [address] [phone] * Hepatitis C antibody (05/19/2023 10:29 AM PHARMACOVIGILANCE SAFETY EXPERT) Hepatitis C Antibody Nonreactive Nonreactive 05/19/2023 5:06 PM PHARMACOVIGILANCE SAFETY EXPERT [facility] DO Blood BLOOD SPECIMEN / Unknown Client Draw / Unknown 05/19/2023 10:29 AM PHARMACOVIGILANCE SAFETY EXPERT 05/19/2023 1:10 PM PHARMACOVIGILANCE SAFETY EXPERT Narrative [facility] - 05/19/2023 5:06 PM PHARMACOVIGILANCE SAFETY EXPERT Assay performance characteristics have not been established for newborns, infants, and children. Yulia Galvan APRN ORIGINATION SPECIALIST LAB - BLO OD ORDERABLES Performing Organization Address City/[facility]/ZIP Co de Phone Number [facility]ENDO Specialty Core/Prot/Endo [address] [facility], [address] [phone] * Abstract PAP (HIM External Result) (09/30/2020 10:30 AM CDT) PAP-ABSTRACT See Scanned Document [facility] 09/30/2020 10:[address] [facility] - 09/30/2020 10:30 AM CDT PAP info from chart and care everywhere Patient Reported LAB - HIM EXTERNAL R ESULT [facility] [address] [place] [address], [facility] from Last 3 Months or Most Recently Relevant to Health Maintenance Advance Directives For more information, please contact: [phone] * Full Code (Latest Code Status on File) Date Activated Date Inactivated Comments 12/25/2021 8:30 AM 12/26/2021 3:14 PM All basic an d advanced life-sustaining interventions are performed as appropriate Question Answer Comments Code status determined by: Discussion with patie nt/ legal decision maker * Full Code Date Activated Date Inactivated Comments 12/22/2021 8:07 PM 12/23/2021 5:34 PM All basic an d advanced life-sustaining interventions are performed as appropriate Question Answer Comments Code status determined by: Discussion with patie nt/ legal decision maker Care Teams Motorcycle Engine Assembler Relationship Specialty Start Date End Date Cristobal Becerril PA-C [id number] [id number] PCP - General Family Medicine 06/17/[address] [id number] Lamps Tester And Inspector Dietitian, Registered 10/29/21 Cristobal Becerril PA-C [id number] [address] [id number] Assigned PCP 06/27/22 Elisa Yoo MD [address] [address] Assigned OBGYN Provider 09/28/23
--- OUTSIDE RECORDS SUMMARY | 2023-11-05 14:39 | XMS_ITS | Referral Summary ---
Author Organization [facility] Address [address] [place] [address]. [place] [address] Care Team Providers Care End Packer Name Role Phone Evi Colmenares RD Unavailable Cristobal Becerril PA-C Primary Care Provider Cristobal Becerril PA-C Unavailable [phone] Elisa Yoo MD Unavailable [phone] Encounters Date Type Department Care Team Description 11/03/2023 Travel 11/03/2023 7:59 AM CDT - 11/03/2023 11:59 PM CDT Hospital Encounter [facility] M[facility] Medicine [facility] [address] [place] [phone] Mike Joseph MD growth restriction antepartum Discharge Disposition: Home or Self Care 11/03/2023 8:30 AM CDT Office Visit [facility] [address] [place] [phone] Mike Joseph MD growth restriction antepartum 10/29/2023 Travel 10/29/2023 2:31 PM CDT - 10/29/2023 11:59 PM CDT Hospital Encounter [facility] [place] [address] [place] [phone] Mike Joseph MD growth restriction antepartum Discharge Disposition: Home or Self Care 10/29/2023 2:30 PM CDT Office Visit [facility] [place] [address] [place] [phone] Mike Joseph MD growth restriction antepartum 10/20/2023 Travel 10/20/2023 8:58 AM CDT - 10/20/2023 11:59 PM CDT Hospital Encounter [facility] [place] [address] [place] [phone] Elisa Yoo MD Rauk, Phillip Neil, MD growth restriction antepartum Discharge Disposition: Home or Self Care 10/20/2023 9:00 AM CDT Office Visit [facility] [place] [address] [place] [phone] Elisa Yoo MD Rauk, Phillip Neil, MD growth restriction antepartum (Primary Dx) 10/15/2023 Travel 10/15/2023 3:15 PM CDT - 10/15/2023 11:59 PM CDT Hospital Encounter [facility] [place] [address] [place] [phone] Mark Garcia MD growth restriction antepartum Discharge Disposition: Home or Self Care 10/15/2023 3:00 PM CDT Office Visit [facility] [place] [address] [place] [phone] Mark Garcia MD growth restriction antepartum (Primary Dx) 10/12/2023 Travel 10/12/2023 2:59 PM CDT - 10/12/2023 11:59 PM CDT Hospital Encounter [facility] [place] [address] [place] [phone] Mark Garcia MD growth restriction antepartum Discharge Disposition: Home or Self Care 10/12/2023 3:00 PM CDT Office Visit [facility] Medicine [facility] [address] [place] [address] Mark Garcia MD growth restriction antepartum (Primary Dx) 10/08/2023 Travel 10/08/2023 7:58 AM CDT - 10/08/2023 11:59 PM CDT Hospital Encounter [facility] [place] [address] [place] [phone] Kenton Jasso MD growth restriction antepartum Discharge Disposition: Home or Self Care 10/08/2023 8:30 AM CDT Office Visit [facility] Medicine [place] [address] [place] [phone] Kenton Jasso MD growth restriction antepartum (Primary Dx) 10/01/2023 Travel 10/01/2023 2:28 PM CDT - 10/01/2023 11:59 PM CDT Hospital Encounter [facility] Medicine [place] [address] [place] [phone] Elisa Yoo MD growth restriction antepartum Discharge Disposition: Home or Self Care 10/01/2023 2:30 PM CDT Office Visit [facility] Medicine [place] [address] [place] [phone] Elisa Yoo MD growth restriction antepartum (Primary Dx); Obesity in , antepartum; BMI 40.0-44.9, adult (H) 09/28/2023 Travel 09/22/2023 Travel 09/22/2023 1:42 PM CDT - 09/22/2023 11:59 PM CDT Hospital Encounter [facility] [address] [place] [address] Mark Garcia MD growth restriction antepartum Discharge Disposition: Home or Self Care 09/22/2023 1:45 PM CDT Office Visit [facility] [place] [address] [place] [address] Mark Garcia MD growth restriction antepartum (Primary Dx) 09/15/2023 Travel 09/15/2023 2:54 PM CDT - 09/15/2023 11:59 PM CDT Hospital Encounter [facility] [place] [address] [place] [address] Mark Garcia MD growth restriction antepartum Discharge Disposition: Home or Self Care 09/15/2023 3:00 PM CDT Office Visit [facility] [place] [address] [place] [address] Mark Garcia MD growth restriction antepartum (Primary Dx) 09/10/2023 Travel 09/10/2023 11:30 AM CDT Office Visit [facility] [place] [address] [place] [phone] Ghislaine Encinas MD Sabol, Bethany, MD growth restriction antepartum (Primary Dx) 09/10/2023 10:57 AM CDT - 09/10/2023 11:59 PM CDT Hospital Encounter [facility] [place] [address] [place] [phone] Ghislaine Encinas MD Sabol, Bethany, MD related condition, antepartum Discharge Disposition: Home or Self Care 09/09/2023 Medical Correspondence [facility] [address] [facility] [place] [address] Scan, Non-Provider 09/09/2023 PRE VISIT [facility] [place] [address] [place] [phone] Bianca Kimball RN Ultrasound (L2: FGR seen on outside [place]) 09/08/2023 Transcribe Orders [facility] [address] [place] [phone] Ghislaine Encinas MD related condition, antepartum (Primary Dx) from Last 3 Months Allergies Active Allergy Reactions Criticality Noted Date [...] joint, pelvic region and thigh 08/13/2009 06/17/2022 Immunizations Name Administration Dates Next Due COVID-19 MONOVALENT 12+ (Pfizer) 07/04/2020,12/2020 HEPA 10/24/2014,03/30/2011 HEPATITIS A (PEDS 12M-18Y) 03/30/2011 HPV Quadrivalent 04/02/2016,10/18/2015 HPV9 04/13/2018 Influenza (IIV3) PF 06/04/2014,04/06/2008,2006 Influenza Vaccine >6 months,quad, PF 06/17/2022, 03/20/2020,03/27/2019 Influenza,INJ,MDCK,PF,Quad >6mo(Flucelvax) 05/21 Meningococcal (Menomune??) 03/30/2011,01/19/2005 Meningococcal ACWY (Menactra??) 01/19/2005 Meningococcal ACWY (Menveo??) 03/30/2011 TD,PF 7+ (Tenivac) 01/19/2005 TDAP (Adacel,Boostrix) 10/22/2021,09/30/2020, Td (Adult), Adsorbed 01/19/2005 Social History Tobacco Use Types Packs/Day Years Used Date Smoking Tobacco: Never Passive Smoke Exposure: Never Smokeless Tobacco: Never Tobacco Cessation:Counseling Given: Not Answered Alcohol Use Standard Drinks/Week Comments Yes 5 (1 standard drink = 0.6 oz pur e alcohol) PHQ-2 Answer Date Recorded PHQ-2 Score 0 06/17/2022 [place] Depression Scale Answer Date Recorded Last EPDS [...] ??C (98.2 ??F) 06/17/2022 1 0:24 AM [facility] Respiratory Rate 16 11/03/2023 8:40 AM CDT Oxygen Saturation 97% 10/15/2023 3:50 PM CDT Inhaled Oxygen Concentration - - Weight 100.2 kg (220 lb 12.8 oz) 2022 10:24 AM [facility] Height 157.5 cm (5' 2) 06/17/2022 10:2 4 AM [facility] Body Mass Index 40.38 06/17/2022 10:24 AM [facility] Plan of Treatment Upcoming Encounters Date Type Department Care Team (Late st Contact Info) Description 11/12/2023 10:30 AM CDT Office Visit [facility] Medicine [facility] [address] [place] [address] Mark Garcia MD [address] [place] [address] Kenton Jasso MD [address] [place], [place] [phone] 11/12/2023 11:00 AM CDT Appointment [facility] [address] [place] [address] Mark Garcia MD [address] [place] [address] Kenton Jasso MD [address] [place] [address] 11/19/2023 10:30 AM CDT Office Visit [facility] [address] [facility] [address] [facility] [place] [phone] Mark Garcia MD [address] [place] [address] 11/19/2023 11:00 AM CDT Appointment [facility] Medicine [facility] [address] [place] [phone] Mark Garcai MD [address] [place] [address] Procedures Procedure Name Priority Date/Time Associated Diagnosis Comments [facility] OB LIMITED SINGLE/MULTIPLE Routine 11/03/2023 9:36 AM CDT growth restriction antepartum [facility] US OB LIMITED SINGLE/MULTIPLE Routine 10/29/2023 3:15 PM CDT growth restriction antepartum [facility] COMPREHENSIVE SINGLE F/U Routine 10/20/2023 10:05 AM CDT growth restriction antepartum NON-STRESS TEST - HIM SCAN 10/20/2023 12:00 AM CDT [facility] US OB LIMITED SINGLE/MULTIPLE Routine 10/15/2023 4:10 PM CDT growth restriction antepartum [facility] OB LIMITED SINGLE/MULTIPLE Routine 10/12/2023 4:02 PM CDT growth restriction antepartum [facility] US OB LIMITED SINGLE/MULTIPLE Routine 10/08/2023 9:09 AM CDT growth restriction antepartum [facility] US COMPREHENSIVE SINGLE F/U Routine 10/01/2023 4:11 PM CDT growth restriction antepartum [facility] US OB LIMITED SINGLE/MULTIPLE Routine 09/22/2023 2:13 PM CDT growth restriction antepartum [facility] US OB LIMITED SINGLE/MULTIPLE Routine 09/15/2023 4:05 PM CDT growth restriction antepartum [facility] US COMPREHENSIVE SINGLE Routine 09/10/2023 12:00 PM CDT related condition, antepartum HIV ANTIGEN ANTIBODY COMBO Routine 05/19/2023 10:29 AM [facility] 8 weeks gestation of HEPATITIS C ANTIBODY Routine 05/19/2023 10:29 AM [facility] 8 weeks gestation of ABSTRACT PAP (HIM EXTERNAL RESULT) Routine 09/30/2020 10:30 AM CDT from Last 3 Months or Most Recently Relevant to Health Maintenance Results * [facility] US OB Limited Single/Multiple (11/03/2023 9:36 [...] ? Study Date: ??11/03/2023 8:01am Pat. NO: ??[id number] ?Referring ??MD: GHISLAINE ENCINAS Site: ??[facility] ? Commercial Property Administrator: Suzy Hester RDMS : ??1995 ?Age: ?? [...] SAINZ Study Date: 11/03/2023 8:01am Pat. NO: [id number] Referring MD: GHISLAINE ENCINAS Site: [facility] Commercial Property Administrator: Suzy HesterNAEEM : 1995 Age: 28 ----- INDICATION ----- [...] 32w 4d with growth restriction (EFW 8% 10/20/23). 2. The amniotic fluid volume appeared normal. 3. The umbilical artery Dopplers were abnormal: Elevated PI but there wasno evidence of absent or reversed end diastolic flow. 4. The heart rate monitoring was appropriate for gestational age. Mark Garcia MD [place] [facility] US ORDERABL ES * [facility] US Comprehensive Single F/U (10/20/2023 10:05 [...] CDT ?Comp Follow Up ----- Pat. Name: SANAZ SAINZ ? Study Date: ??10/20/2023 9:27am Pat. NO: ??[id number] ?Referring ??MD: GHISLAINE ENCINAS Site: ??[facility] ? Commercial Property Administrator: Miky Malone RDMS : ??1995 ?Age: ?? [...] 3 lb 0 ?oz EFW by ?Hadlock ([id number]) Head / Face / Neck Biometry: Register Of Wills ? 7.8 ? mm CM ?4.3 ? [...] documented previously: Heart / Thorax ?4-chamber view. 9-hxfygm-liauxww view. Spine ?Cervical spine. Thoracic spine. Lumbar [...] SAINZ Study Date: 10/20/2023 9:27am Pat. NO: [id number] Referring MD: GHISLAINE ENCINAS Site: [facility] Commercial Property Administrator: Miky Malone RDMS : 1995 Age: 28 [...] 3 lb 0 oz EFW by Hadlock ([id number]-FL) Head / Face / Neck Biometry: Register Of Wills 7.8 mm CM 4.3 mm ANATOMY ----- The following structures appear normal: Head / Neck Cranium. Head size. Head shape.Lateral ventricles. Midline falx. Cavum septi pellucidi. Cerebellum.Cisterna magna. Thalami. Face Lips. Profile. Nose. Heart / Thorax RVOT view. LVOT view. Diaphragm. Abdomen Stomach. Kidneys. Bladder. The following structures were documented previously: Heart / Thorax 4-chamber view. 4-fcthmr-rxrurzsveoa. Spine Cervical spine. Thoracic spine.Lumbar spine. Sacral [...] Reactive NST without decelerations. Elisa Yoo MD [facility] US ORDERABLE S * Non-Stress Test - HIM Scan (10/20/2023 12:00 AM CDT) 10/20/2023 Provider Outside PROCEDURES * [facility] Single (09/10/2023 12:00 PM CDT) Anatomical Region [...] 4:59 PM CDT ?Comprehensive ----- Pat. Name: ALISTAIR SANAZ ? Study Date: ??09/10/2023 10:59am Pat. NO: ??[id number] ?Referring ??: GHISLAINE ENCINAS Site: ??[facility] ? Commercial Property Administrator: Margaret Colvin RDMS : ??1995 ?Age: ?? [...] ? 1 lb 4 ?oz EFW by ?Pete ([id number]) Head / Face / Neck Biometry: Register Of Wills ? 7.3 ? mm CM ?5.9 ? [...] / Thorax ?Aortic arch view. 3-vessel view. 2-kxiprh-xgsztby view. Abdomen ? Kidneys. Spine ?Lumbar spine. [...] medical record, and communicating with other health career technical education instructor and/or care coordination. Please see note for details. Procedure Note Elisa Yoo MD - 09/10/2023 Comprehensive ----- Pat. Name: SANZA SAINZ Study Date: 09/10/2023 10:59am Pat. NO: [id number] Referring MD: GHISLAINE ENCINAS Site: [facility] Commercial Property Administrator: Margaret Colvin RDMS : 1995 Age: 28 [...] 1 lb 4 oz EFW by Hadlock ([id number]) Head / Face / Neck Biometry: Register Of Wills 7.3 mm CM 5.9 mm Nasal bone [...] Heart / Thorax Aortic arch view. 3-vessel view.4-rergwq-swygcpa view. Abdomen Kidneys. Spine Lumbar spine. Sacral [...] detectinganeuploidy and structural abnormalities. Ultrasound can routinely wpepmh23-02% of structural abnormalities. Follow-up has been scheduled [...] electronic medical record, andcommunicating with other health career technical education instructor and/or carecoordination. Please see note for details. [...] appropriate for gestational age. Ghislaine Encinas MD [facility] US O RDERABLES * HIV Antigen Antibody Combo [place] (05/19/2023 10:29 AM [facility]) HIV Antigen Antibody Combo Nonreactive Nonreactive 05/19/2023 6:15 PM [facility]EN DO Comment:HIV-1 p24 Ag & HIV-1 /HIV-2 Ab Not Detected Blood BLOOD SPECIMEN / Unknown Client Draw / Unknown 05/19/2023 10:29 AM [facility] 05/19/2023 1:09 PM [facility] Yulia Galvan EPILEPSY PHYSICIAN REAL ESTATE SALES AGENT LAB - BLO OD ORDERABLES [facility]/ENDO [facility]/Prot/Endo [address] [facility], [address] [phone] * Hepatitis C antibody (05/19/2023 10:29 AM [facility]) Pathologist [facility] Hepatitis C Antibody Nonreactive Nonreactive 05/19/2023 5:06 PM [facility]PROT/EN DO Blood BLOOD SPECIMEN / Unknown Client Draw / Unknown 05/19/2023 10:29 AM [facility] 05/19/2023 1:10 PM [facility] Narrative [facility]/ENDO - 05/19/2023 5:06 PM [facility] Assay performance characteristics have not been established for newborns, infants, and children. Yulia Galvan EPILEPSY PHYSICIAN REAL ESTATE SALES AGENT LAB - BLO OD ORDERABLES [facility]/PROT/ENDO [facility]/Prot/Endo [address] [facility], [address] [phone] * Abstract PAP (HIM External Result) (09/30/2020 10:30 AM CDT) Pathologist [facility] PAP-ABSTRACT See Scanned Document [facility] [employer] [facility] 09/30/2020 10:3 0 AM CDT Narrative [facility] - 09/30/2020 10:30 AM CDT PAP info from chart and care everywhere Patient Reported LAB - HIM EXTERNAL R ESULT [facility] [place] [facility] [address] [place] [address], [facility] from Last 3 Months or Most Recently Relevant to Health Maintenance Advance Directives For more information, please contact: [phone] * Full Code (Latest Code Status on File) Date Activated Date Inactivated Comments 12/25/2021 8:30 AM 12/26/2021 3:14 PM All basic an d advanced life-sustaining interventions are performed as appropriate Question Answer Comments Code status determined by: Discussion with natalie nt/ legal decision maker * Full Code Date Activated Date Inactivated Comments 12/22/2021 8:07 PM 12/23/2021 5:34 PM All basic an d advanced life-sustaining interventions are performed as appropriate Question Answer Comments Code status determined by: Discussion with natalie nt/ legal decision maker Care Teams End Packer Relationship Specialty Start Date End Date Cristobal Becerril PA-C [phone] [place] [address] PCP - General Family Medicine 06/17/[address] [place] [address] Powertrain Engineer Dietitian, Registered 10/29/21 Cristoabl Becerril PA-C [id number] [address] [place] [address] Assigned PCP 06/27/22 Elisa Yoo MD [address] [id number] Assigned OBGYN Provider 09/28/23
--- OUTSIDE RECORDS SUMMARY | 2023-11-05 14:40 | XMS_ITS | Encounter Summary ---
Author Organization [place] Address [facility]ly [facility], [facility] [place] [address] Care Team Providers Care Senior Field Service Engineer Name Role Phone Evi Colmenares RD Unavailable Cristobal Becerril PA-C Primary Care Provider Cristobal Becerril PA-C Unavailable [phone] Elisa Yoo MD Unavailable [phone] Reason for Referral * Diagnostic Imaging Ultrasound (Routine) - Pending Review Specialty Diagnoses / Procedures Referred By Contac t Referred To Contact Radiology. Diagnoses growth restriction antepartum Procedures [facility] US OB Limited Single/Multiple Elisa Yoo MD [address] [place] [address] Referral ID Status Reason Start Date Expiration Date V isits Requested Visits Authorized [id number] Pending Review 10/01/2023 09/30/2024 1 1 Reason for Visit * Diagnostic Imaging Ultrasound (Routine) - Pending Review Specialty Diagnoses / Procedures Referred By Contac t Referred To Contact Radiology. Diagnoses growth restriction antepartum Procedures [facility] US OB Limited Single/Multiple Elisa Yoo MD [address] [place] [address] Referral ID Status Reason Start Date Expiration Date V isits Requested Visits Authorized [id number] Pending Review 10/01/2023 09/30/2024 1 1 Encounter Details Date Type Department Care Team (Latest Contact Info) Description 10/15/2023 3:15 PM CDT - 10/15/2023 11:59 PM CDT Hospital Encounter [facility] [place] [address] [facility] [address] [place] [address] Mark Garcia MD [address] [place] [address] growth restriction antepartum Discharge Disposition: Home or Self Care Social History Tobacco Use Types Packs/Day Years Used Date Smoking Tobacco: Never Passive Smoke Exposure: Never Smokeless Tobacco: Never Alcohol Use Standard Drinks/Week Comments Yes 5 (1 standard drink = 0.6 oz pur e alcohol) PHQ-2 Answer Date Recorded PHQ-2 Score 0 06/17/2022 [place] Depression Scale Answer Date Recorded Last EPDS [...] Orientation Straight 08/20/2021 9: 26 AM CDT documented as of this encounter Medications at Time of Discharge Medication Sig Dispensed Refills Start Date End Date acetaminophen (TYLENOL) 325 MG tabletIndications:Deliver y of by section Take 3 tablets (975 mg) by mouth every 6 hours 12/26/2021 ibuprofen (ADVIL/MOTRIN) 800 MG tabletIndications:Deliver y of by section Take 1 tablet (800 mg) by mouth every 6 hours 12/26/2021 metFORMIN (GLUCOPHAGE) 500 MG tabletIndications:Morbid obesity (H),Hx of gestational diabetes mellitus, not currently TAKE 1 TABLET BY MOUTH TWICE A DAY WITH FOOD 180 tablet 06/14/2023 ondansetron (ZOFRAN) 4 MG tabletIndications:Nausea Take 1 tablet (4 mg) by mouth every 8 hours as needed for nausea 30 tablet 08/28/2022 Vit-Fe Fumarate-FA ( MULTIVITAMIN W/IRON) 27-0.8 MG tabletIndications:Pregnan cy Take 1 tablet by mouth daily valACYclovir (VALTREX) 1000 mg tabletIndications:Herpes simplex virus infection Take 1 tablet (1,000 mg) by mouth daily 90 tablet 1 06/17/2022 documented as of this encounter Plan of Treatment Upcoming Encounters Date Type Department Care Team (Late st Contact Info) Description 11/12/2023 10:30 AM CDT Office Visit [facility] [place] [address] [facility] [address] [place] [address] [phone] Mark Garcia MD [address] [place] [address] [phone] Kenton Jasso MD [address] [place] [address] [phone] 11/12/2023 11:00 AM CDT Appointment [facility] [place] [address] [facility] [address] [place] [phone] Mark Garcia MD [address] [place] [address] [phone] Kenton Jasso MD [address] [place] [address] [phone] 11/19/2023 10:30 AM CDT Office Visit [facility] [place] [address] [facility] [address] [place] [phone] Mark Garcia MD [address] [place], [place] [address] 11/19/2023 11:00 AM CDT Appointment [facility] [place] [address] [facility] [address] [place] [address] Mark Garcia MD [address] [place], [place] [phone] documented as of this encounter Procedures Procedure Name Priority Date/Time Associated Diagnosis Comments MFM US OB LIMITED SINGLE/MULTIPLE Routine 10/15/2023 4:10 PM CDT growth restriction antepartum documented in this encounter Results * MFM US OB Limited Single/Multiple (10/15/2023 4:10 PM CDT) Anatomical Region Laterality Modality Ultrasound 10/15/2023 3:47 PM CDT Impressions 10/15/2023 4:18 PM CDT IMPRESSION ----- 1. Springer at 29w 6d with growth restriction. 2. The amniotic fluid volume appeared normal. 3. The umbilical artery Dopplers were abnormal: Elevated PI but there was no evidence of absent or reversed end diastolic flow. 4. Reactive NST without decelerations. Narrative 10/15/2023 4:18 PM CDT ?Limited ----- Pat. Name: SANAZ SAINZ ? Study Date: ??10/15/2023 3:47pm Pat. NO: ??[id number] ?Referring ??MD: NICHOLE GANN Site: ??[place] ? Boat Patcher Plastic: Elissa Fritz [facility] : ??1995 ?Age: ?? 28 ----- INDICATION ----- growth restriction (FGR) METHOD ----- Transabdominal ultrasound examination. View: Sufficient ----- Springer . Number of fetuses: 1 DATING ----- ? Date ?Details ?Gest. age ?CLARIBEL LMP ?03/20/2023 ? 29 w + 6 d ? 12/25/2023 Prior assessment ? 05/19/2023 ? GA: 8 w + 0 d ?29 w + 2 d ? 12/29/2023 Assigned dating ?Dating performed on 10/12/2023, based on the LMP ?29 w + 6 d ? 12/25/2023 GENERAL EVALUATION ----- Cardiac activity present. FHR 143 bpm. movements visualized. Presentation cephalic. Placenta Anterior. Umbilical cord previously studied. Amniotic fluid Amount of AF: normal. MVP 6.5 cm. DOPPLER ----- Umbilical Artery: abnormal, Elevated PI but there was no evidence of absent or reversed end diastolic flow PI ?1.35 ?97% ? Penny HR ?144 ? bpm MATERNAL STRUCTURES ----- Right Ovary ?Not examined Left Ovary ?Not examined NON STRESS TEST ----- NST interpretation: reactive. Test duration 20 min. Baseline FHR 140 bpm. Baseline variability: moderate. Accelerations: present. Decelerations: absent. Uterine activity: absent. Acoustic stimulation: no RECOMMENDATION ----- We discussed the findings on today's ultrasound with the patient. The patient is scheduled to return to [facility] on 10/20/23 for FGR surveillance and growth assessment. Return to primary provider for continued care. Thank-you for the opportunity to participate in the care of this patient. If you have questions regarding today's evaluation or if we can be of further service, please contact the Maternal- Medicine Center. anomalies may be present but not detected Procedure Note Mark Garcia MD - 10/15/2023 Limited ----- Pat. Name: SANAZ SAINZ Study Date: 10/15/2023 3:47pm Pat. NO: [id number] Referring MD: NICHOLE GANN Site: [facility] Boat Patcher Plastic: Elissa Fritz RDMS : 1995 Age: 28 ----- INDICATION ----- growth restriction (FGR) METHOD ----- Transabdominal ultrasound examination. View: Sufficient ----- Springer . Number of fetuses: 1 DATING ----- DateDetailsGest. age CLARIBEL LMP w + 6 d 12/25/2023 Prior assessment 05/19/2023 GA: 8 w +0 d29 w + 2 d 12/29/2023 Assigned dating Dating performed on 10/12/2023, based onthe LMP 29 w+ 6 d 12/25/2023 GENERAL EVALUATION ----- Cardiac activity present. FHR 143 bpm. movements visualized. Presentation cephalic. Placenta Anterior. Umbilical cord previously studied. Amniotic fluid Amount of AF: normal. MVP 6.5 cm. DOPPLER ----- Umbilical Artery: abnormal, Elevated PI but there was no evidence ofabsent or reversed end diastolic flow PI 1.3597% Penny HR 144 bpm MATERNAL STRUCTURES ----- Right Ovary Not examined Left Ovary Not examined NON STRESS TEST ----- NST interpretation: reactive. Test duration 20 min. Baseline FHR 140 bpm.Baseline variability: moderate. Accelerations: present. Decelerations:absent. Uterine activity: absent. Acoustic stimulation: no RECOMMENDATION ----- We discussed the findings on today's ultrasound with the patient. The patient is scheduled to return to [facility] on 10/20/23 for FGR surveillanceand growth assessment. Return to primary provider for continued care. Thank-you for the opportunity to participate in the care of this patient.If you have questions regarding today's evaluation or if we can be offurther service, please contact the Maternal- Medicine Center. anomalies may be present but not detected IMPRESSION ----- 1. Springer at 29w 6d with growth restriction. 2. The amniotic fluid volume appeared normal. 3. The umbilical artery Dopplers were abnormal: Elevated PI but there wasno evidence of absent or reversed end diastolic flow. 4. Reactive NST without decelerations. Elisa Yoo MD [facility] documented in this encounter Visit Diagnoses Diagnosis growth restriction antepartum documented in this encounter Care Teams Senior Field Service Engineer Relationship Specialty Start Date End Date Cristobal Becerril PA-C [address] [facility] [place] [address] PCP - General Family Medicine 06/17/[address] [facility] [place] [address] Retanner Dietitian, Registered 10/29/21 Cristobal Becerril PA-C [address] [place] [address] Assigned PCP 06/27/22 Elisa Yoo MD [address] [id number] Assigned OBGYN Provider 09/28/23 documented as of this encounter
--- OUTSIDE RECORDS SUMMARY | 2023-11-05 14:40 | XMS_ITS | Encounter Summary ---
Author Organization [place] Address [address] [place] [address]. [place] [address] Care Team Providers Care Porcelain Turner Name Role Phone Evi Colmenares RD Unavailable Cristobal Becerril PA-C Primary Care Provider Cristobal Becerril PA-C Unavailable [phone] Elisa Yoo MD Unavailable [phone] Encounter Details Date Type Department Care Team (Latest Contact Info) Description 10/08/2023 Travel Social History Tobacco Use Types Packs/Day Years Used Date Smoking Tobacco: Never Passive Smoke Exposure: Never Smokeless Tobacco: Never Alcohol Use Standard Drinks/Week Comments Yes 5 (1 standard drink = 0.6 oz pur e alcohol) PHQ-2 Answer Date Recorded PHQ-2 Score 0 06/17/2022 [place] Depression Scale Answer Date Recorded Last EPDS [...] AM CDT documented as of this encounter Plan of Treatment Upcoming Encounters Date Type Department Care Team (Late st Contact Info) Description 11/12/2023 10:30 AM CDT Office Visit [facility] [place] [address] [facility] [address] [place] [phone] Mark Garcia MD [address] [place], [place] [address] [phone] Kenton Jasso MD [address] [place], [place] [address] 11/12/2023 11:00 AM CDT Appointment [facility] [place] [address] [address] [facility] [address] [place] [phone] Mrak Garcia MD [address] [place], [place] [address] [phone] Kenton Jasso MD [address] [place], [place] [address] 11/19/2023 10:30 AM CDT Office Visit [facility] [place] [address] [address] [facility] [address] [place] [phone] Mark Garcia MD [address] [place], [place] [address] 11/19/2023 11:00 AM CDT Appointment [facility] [place] [address] [address] [facility] [address] [place] [phone] Mark Garcia MD [address] [place], [place] 3[address] documented as of this encounter Visit Diagnoses Not on filedocumented in this encounter Care Teams Porcelain Turner Relationship Specialty Start Date End Date Cristobal Becerril PA-C [address] [place] [address] PCP - General Family Medicine 06/17/[address] [place] [address] Orchid Grower Dietitian, Registered 10/29/21 Cristobal Becerril PA-C [address] [place] [address] Assigned PCP 06/27/22 Elsia Yoo MD [address] 103444 Assigned OBGYN Provider 09/28/23 documented as of this encounter
--- OUTSIDE RECORDS SUMMARY | 2023-11-05 14:40 | XMS_ITS | Encounter Summary ---
Author Organization [place] Address [address] [place] [address]. [place] [address] Care Team Providers Care Door Patcher Name Role Phone Evi Colmenares RD Unavailable Cristobal Becerril PA-C Primary Care Provider Cristobal Becerril PA-C Unavailable [phone] Elisa Yoo MD Unavailable [phone] Encounter Details Date Type Department Care Team (Latest Contact Info) Description 10/20/2023 Travel Social History Tobacco Use Types Packs/Day Years Used Date Smoking Tobacco: Never Passive Smoke Exposure: Never Smokeless Tobacco: Never Alcohol Use Standard Drinks/Week Comments Yes 5 (1 standard drink = 0.6 oz pur e alcohol) PHQ-2 Answer Date Recorded PHQ-2 Score 0 06/17/2022 [place] Depression Scale Answer Date Recorded Last EPDS [...] Description 11/12/2023 10:30 AM CDT Office Visit [facility] [place] [address] [address] [facility] [address] [place] [phone] Mrak Garcia MD [address] [place], [place] [address] [phone] Kenton Jasso MD [address] [place], [place] [address] 11/12/2023 11:[address] [facility] [place] [address] [facility] [address] [place] [phone] Mark Garcia MD [address] [place], [place] [address] [phone] Kenton Jasso MD [address] [place], [place] [address] 11/19/2023 10:30 AM CDT Office Visit [facility] [place] [address] [facility] [address] [place] [phone] Mark Garcia MD [address] [place], [place] [address] 11/19/2023 11:[address] [facility] [place] [address] [facility] [address] [place] [phone] Mark Garcia MD [address] [place], [place] [address] documented as of this encounter Visit Diagnoses Not on filedocumented in this encounter Care Teams Door Patcher Relationship Specialty Start Date End Date Cristobal Becerril PA-C [address] [place] [address] PCP - General Family Medicine 06/17/[address] [place] [address] Grinding And Spraying Supervisor Dietitian, Registered 10/29/21 Cristobal Becerril PA-C [address] [place] [address] Assigned PCP 06/27/22 Elisa Yoo MD [address] 873234 Assigned OBGYN Provider 09/28/23 documented as of this encounter
--- OUTSIDE RECORDS SUMMARY | 2023-11-05 14:40 | XMS_ITS | Encounter Summary ---
Author Organization [place] Address [facility] [place] [address] Care Team Providers Care Bead Flipper Name Role Phone Evi Colmenares RD Unavailable Cristobal Becerril PA-C Primary Care Provider Cristobal Becerril PA-C Unavailable [phone] Elisa Yoo MD Unavailable [phone] Reason for Referral * Diagnostic Imaging Ultrasound (Routine) - Pending Review Specialty Diagnoses / Procedures Referred By Contac t Referred To Contact Radiology. Diagnoses growth restriction antepartum Procedures [facility] US OB Limited Single/Multiple Elisa Yoo MD [address] [place] [address] Referral ID Status Reason Start Date Expiration Date V isits Requested Visits Authorized [id number] Pending Review 10/01/2023 09/30/2024 1 1 Reason for Visit * Diagnostic Imaging Ultrasound (Routine) - Pending Review Specialty Diagnoses / Procedures Referred By Contac t Referred To Contact Radiology. Diagnoses growth restriction antepartum Procedures [facility] US OB Limited Single/Multiple Elisa Yoo MD [address] [place] [address] Referral ID Status Reason Start Date Expiration Date V isits Requested Visits Authorized [id number] Pending Review 10/01/2023 09/30/2024 1 1 Encounter Details Date Type Department Care Team (Latest Contact Info) Description 10/29/2023 2:31 PM CDT - 10/29/2023 11:59 PM CDT Hospital Encounter [facility] [address] [place] [phone] Mike Joseph MD [address] [place] [address] growth restriction antepartum Discharge Disposition: Home or Self Care Social History Tobacco Use Types Packs/Day Years Used Date Smoking Tobacco: Never Passive Smoke Exposure: Never Smokeless Tobacco: Never Alcohol Use Standard Drinks/Week Comments Yes 5 (1 standard drink = 0.6 oz pur e alcohol) PHQ-2 Answer Date Recorded PHQ-2 Score 0 06/17/2022 [place] Depression Scale Answer Date Recorded Last EPDS [...] AM CDT Office Visit [facility] [place] [address] [address] [facility] [address] [place] [phone] Mark Garcia MD [address] [place], [place] [address] Kenton Jasso MD [address] [place], [place] [address] 11/12/2023 11:00 AM CDT Appointment [facility] [place] [address] [facility] [address] [place] [phone] Mark Garcia MD [address] [place], [place] [address] [phone] Kenton Jasso MD [address] [place], [place] [address] 11/19/2023 10:30 AM CDT Office Visit [facility] [place] [address] [address] [facility] [address] [place] [phone] Mark Garcia MD [address] [place], [place] [address] 11/19/2023 11:00 AM CDT Appointment [facility] [place] [address] [facility] [address] [place] [address] Mark Garcia MD [address] [place], [place] [address] documented as of this encounter Procedures Procedure Name Priority Date/Time Associated Diagnosis Comments MFM US OB LIMITED SINGLE/MULTIPLE Routine 10/29/2023 3:15 PM CDT growth restriction antepartum documented in this encounter Results * MFM US OB Limited Single/Multiple (10/29/2023 3:15 PM CDT) Anatomical Region Laterality Modality Ultrasound 10/29/2023 3:06 PM CDT Impressions 10/29/2023 3:21 PM CDT IMPRESSION ----- 1. Springer at 31w 6d with growth restriction (EFW 8% on 10/20/23). 2. The amniotic fluid volume appeared normal. 3. The umbilical artery Dopplers were abnormal: Elevated PI but there was no evidence of absent or reversed end diastolic flow. This is a stable finding over the last 3 weeks. 4. The heart rate monitoring was appropriate for gestational age. Narrative 10/29/2023 3:21 PM CDT ?Limited ----- Pat. Name: SANAZ SAINZ ? Study Date: ??10/29/2023 3:06pm Pat. NO: ??[id number] ?Referring ??MD: NICHOLE GANN Site: ??[place] ? Gear Changer: Meg Stallworth RDMS : ??1995 ?Age: ?? 28 ----- INDICATION ----- growth restriction (FGR) METHOD ----- Transabdominal ultrasound examination. View: Sufficient ----- [place] . Number of fetuses: 1 DATING ----- ? Date ?Details ?Gest. age ?CLARIBEL LMP ?03/20/2023 ? 31 w + 6 d ? 12/25/2023 Prior assessment ? 05/19/2023 ? GA: 8 w + 0 d ?31 w + 2 d ? 12/29/2023 Assigned dating ?Dating performed on 10/20/2023, based on the LMP ?31 w + 6 d ? 12/25/2023 GENERAL EVALUATION ----- Cardiac activity present. FHR 146 bpm. movements visualized. Presentation dian breech. Placenta Anterior. Umbilical cord previously studied. Amniotic fluid Amount of AF: normal. MVP 8.7 cm. AVIVA 15.2 cm. Q1 8.5 cm, Q2 0.0 cm, Q3 0.9 cm, Q4 5.8 cm. DOPPLER ----- Umbilical Artery: abnormal, Elevated PI but there was no evidence of absent or reversed end diastolic flow. Sampling site: midcord PI ?1.67 ?>99% ?Penny HR ?146 ? bpm MATERNAL STRUCTURES ----- Right Ovary ?Not examined Left Ovary ?Not examined NON STRESS TEST ----- NST interpretation: reactive. Test duration 30 min. Baseline FHR 135 bpm. Baseline variability: moderate. Accelerations: present. Decelerations: absent. Uterine activity: absent RECOMMENDATION ----- Thank-you for referring your patient for surveillance in the setting of growth restriction. I discussed the findings on today's ultrasound with the patient. Continue weekly surveillance/UA Dopplers and growth evaluation every 3 weeks. Return to primary provider for continued care. If you have questions regarding today's evaluation or if we can be of further service, please contact the Maternal- Medicine Center. anomalies may be present but not detected Procedure Note Mike Joseph MD - 10/29/2023 Limited ----- Pat. Name: SANAZ SAINZ Study Date: 10/29/2023 3:06pm Pat. NO: [id number] Referring MD: NICHOLE GANN Site: [facility] Gear Changer: Meg Stallworth RDMS : 1995 Age: 28 ----- INDICATION ----- growth restriction (FGR) METHOD ----- Transabdominal ultrasound examination. View: Sufficient ----- Springer . Number of fetuses: 1 DATING ----- DateDetailsGest. age CLARIBEL LMP w + 6 d 12/25/2023 Prior assessment 05/19/2023 GA: 8 w +0 d31 w + 2 d 12/29/2023 Assigned dating Dating performed on 10/20/2023, based onthe LMP 31 w +6 d 12/25/2023 GENERAL EVALUATION ----- Cardiac activity present. FHR 146 bpm. movements visualized. Presentation dian breech. Placenta Anterior. Umbilical cord previously studied. Amniotic fluid Amount of AF: normal. MVP 8.7 cm. AVIVA 15.2 cm. Q1 8.5 cm,Q2 0.0 cm, Q3 0.9 cm, Q4 5.8 cm. DOPPLER ----- Umbilical Artery: abnormal, Elevated PI but there was no evidence ofabsent or reversed end diastolic flow. Sampling site: midcord PI 1.67>99% Penny HR 146 bpm MATERNAL STRUCTURES ----- Right Ovary Not examined Left Ovary Not examined NON STRESS TEST ----- NST interpretation: reactive. Test duration 30 min. Baseline FHR 135 bpm.Baseline variability: moderate. Accelerations: present. Decelerations:absent. Uterine activity: absent RECOMMENDATION ----- Thank-you for referring your patient for surveillance in thesetting of growth restriction. I discussed the findings on today'sultrasound with the patient. Continue weekly surveillance/UA Dopplers and growth evaluationevery 3 weeks. Return to primary provider for continued care. If you have questions regarding today's evaluation or if we can be offurther service, please contact the [facility] Center. anomalies may be present but not detected IMPRESSION ----- 1. Springer at 31w 6d with growth restriction (EFW 8% on10/20/23). 2. The amniotic fluid volume appeared normal. 3. The umbilical artery Dopplers were abnormal: Elevated PI but there wasno evidence of absent or reversed end diastolic flow. This is a stablefinding over the last 3 weeks. 4. The heart rate monitoring was appropriate for gestational age. Elisa Yoo MD [facility] US ORDERABLE S documented in this encounter Visit Diagnoses Diagnosis growth restriction antepartum documented in this encounter Care Teams Bead Flipper Relationship Specialty Start Date End Date Cristobal Becerril PA-C [address] [address] [place], [place] [phone] PCP - General Family Medicine 06/17/[address] [facility] [place] [place], [place] [address] Associate Field Service Engineer Dietitian, Registered 10/29/21 Cristobal Becerril PA-C [address] [place] [address] Assigned PCP 06/27/22 Elisa Yoo MD [address] [address] Assigned OBGYN Provider 09/28/23 documented as of this encounter
--- OUTSIDE RECORDS SUMMARY | 2023-11-05 14:40 | XMS_ITS | Encounter Summary ---
Author Organization [place] Address [facility] [place] [address] Care Team Providers Care Employment Specialist/Program Manager Name Role Phone Evi Colmenares RD Unavailable Cristobal Becerril PA-C Primary Care Provider Cristobal Becerril PA-C Unavailable [phone] Elisa Yoo MD Unavailable [phone] Reason for Visit * Reason Comments Ultrasound Limited/UAR/NST: fet al growth restriction * Consultation (Routine: Next available opening) - Pending Review Specialty Diagnoses / Procedures Referred By Contac t Referred To Contact Diagnoses growth restriction antepartum Mark Garcia MD [address] [place] [address] Referral ID Status Reason Start Date Expiration Date V isits Requested Visits Authorized [id number] Pending Review 10/20/2023 10/19/2024 5 5 Encounter Details Date Type Department Care Team (Late st Contact Info) Description 11/03/2023 8:30 AM CDT Office Visit [facility] [place] [address] [facility] [address] [place] [phone] Mike Joseph MD [phone] [place] [address] growth restriction antepartum Social History Tobacco Use Types Packs/Day Years Used Date Smoking Tobacco: Never Passive Smoke Exposure: Never Smokeless Tobacco: Never Alcohol Use Standard Drinks/Week Comments Yes 5 (1 standard drink = 0.6 oz pur e alcohol) PHQ-2 Answer Date Recorded PHQ-2 Score 0 06/17/2022 [place] Depression Scale Answer Date Recorded Last EPDS [...] AM CDT documented as of this encounter Last Filed Vital Signs Vital Sign Reading Time Taken Comments Blood Pressure 111/67 11/03/2023 8:40 AM CDT Pulse 90 11/03/2023 8:40 AM CDT Temperature - - Respiratory Rate 16 11/03/2023 8:40 AM CDT Oxygen Saturation - - Inhaled Oxygen Concentration - - Weight - - Height - - Body Mass Index - - documented in this encounter Progress Notes * Mike Joseph MD - 11/03/2023 8:30 AM CDT Please see full imaging report from ViewPoint program under imaging tab. Mike Joseph MD Maternal Medicine documented in this encounter Nursing Notes * Bianca Kimball RN - 11/03/2023 8:30 AM CDT Patient presents to [facility] for Limited/UAR at 32w4d due to growth restriction. Positive movement. Denies LOF, vaginal bleeding or cramping/contractions. SBAR given to MFM MD, see their note in Epic. NST performed. Dr. Joseph reviewed efm tracing. See NST/BPP Doc Flowsheet tab. Continue weekly surveillance with MFM. documented in this encounter Plan of Treatment Upcoming Encounters Date Type Department Care Team (Late st Contact Info) Description 11/12/2023 10:30 AM CDT Office Visit [facility] [place] [address] [place] [phone] Mark Garcia MD [address] [place], [place] 8[address]84 Kenton Jasso MD [address] [place], [place] [address] 11/12/2023 11:00 AM CDT Appointment [facility] Medicine [place] [address] [place] [phone] Mark Garcia MD [address] [place], [place] [address] Kenton Jasso MD [address] [place], [place] [address] 11/19/2023 10:30 AM CDT Office Visit [facility] [place] [address] [place] [phone] Mark Garcia MD [address] [place] [address] 11/19/2023 11:00 AM CDT Appointment [facility] [place] [address] [place] [phone] Mark Garcia MD [address] [place], [place] [address] documented as of this encounter Visit Diagnoses Diagnosis growth restriction antepartum documented in this encounter Care Teams Employment Specialist/Program Manager Relationship Specialty Start Date End Date Cristobal Becerril PA-C [address] [address] [address] PCP - General Family Medicine 06/17/[address] [facility] [place] [address] Boot And Shoe Repairman Dietitian, Registered 10/29/21 Cristobal Becerril PA-C [address] [address] [address] Assigned PCP 06/27/22 Elisa Yoo MD [address] [place], [place] [address] Assigned OBGYN Provider 09/28/23 documented as of this encounter
--- OUTSIDE RECORDS SUMMARY | 2023-11-05 14:40 | XMS_ITS | Encounter Summary ---
Author Organization [place] Address [address] [place] [address]. [place] [address] Care Team Providers Care Ash Handler Name Role Phone Evi Colmenares RD Unavailable Cristobal Becerril PA-C Primary Care Provider Cristobal Becerril PA-C Unavailable [phone] Elisa Yoo MD Unavailable [phone] Encounter Details Date Type Department Care Team (Latest Contact Info) Description 10/15/2023 Travel Social History Tobacco Use Types Packs/Day Years Used Date Smoking Tobacco: Never Passive Smoke Exposure: Never Smokeless Tobacco: Never Alcohol Use Standard Drinks/Week Comments Yes 5 (1 standard drink = 0.6 oz pur e alcohol) PHQ-2 Answer Date Recorded PHQ-2 Score 0 06/17/2022 [place] Depression Scale Answer Date Recorded Last EPDS [...] Description 11/12/2023 10:30 AM CDT Office Visit [facility] [place] [address] [facility] [address] [place] [phone] Mark Garcia MD [address] [place], [place] [address]249 [phone] Kenton Jasso MD [address] [place], [place] [address] 11/12/2023 11:00 AM CDT Appointment [facility] [place] [address] [facility] [address] [place] [phone] Mark Garcia MD [address] [place], [place] 6[address]77 [phone] Kenton Jasso MD [address] [place], [place] [address] 11/19/2023 10:30 AM CDT Office Visit [facility] [place] [address] [facility] [address] [place] [phone] Mark Garcia MD [address] [place], [place] [address] 11/19/2023 11:00 AM CDT Appointment [facility] Medicine [place] [address] [facility] [address] [place] [phone] Mark Garcia MD [address] [place], [place] [address] documented as of this encounter Visit Diagnoses Not on filedocumented in this encounter Care Teams Ash Handler Relationship Specialty Start Date End Date Cristobal Becerril PA-C [address] [place] [address] PCP - General Family Medicine 06/17/[address] [place] [address] Lead Generator Dietitian, Registered 10/29/21 Cristobal Becerril PA-C [address] [place] [address] Assigned PCP 06/27/22 Elisa Yoo MD [address] 750[address] Assigned OBGYN Provider 09/28/23 documented as of this encounter
--- OUTSIDE RECORDS SUMMARY | 2023-11-05 14:40 | XMS_ITS | Encounter Summary ---
Author Organization [place] Address [facility] [place] [address] Care Team Providers Care Travel Counselor Name Role Phone Evi Colmenares RD Unavailable Cristobal Becerril PA-C Primary Care Provider Cristobal Becerril PA-C Unavailable [phone] Elisa Yoo MD Unavailable [phone] Reason for Visit * Reason Comments Ultrasound NST/Limited/UAR: fet al growth restriction * Consultation (Routine: Next available opening) - Pending Review Specialty Diagnoses / Procedures Referred By Contac t Referred To Contact Diagnoses growth restriction antepartum Elisa Yoo MD [address] [place] [address] Referral ID Status Reason Start Date Expiration Date V isits Requested Visits Authorized [id number] Pending Review 10/01/2023 09/30/2024 10 10 Encounter Details Date Type Department Care Team (Late st Contact Info) Description 10/29/2023 2:30 PM CDT Office Visit [facility] [address] [phone] Mike Joseph MD [address] [place] [address] growth restriction antepartum Social History Tobacco Use Types Packs/Day Years Used Date Smoking Tobacco: Never Passive Smoke Exposure: Never Smokeless Tobacco: Never Alcohol Use Standard Drinks/Week Comments Yes 5 (1 standard drink = 0.6 oz pur e alcohol) PHQ-2 Answer Date Recorded PHQ-2 Score 0 06/17/2022 [place] Depression Scale Answer Date Recorded Last EPDS [...] Sign Reading Time Taken Comments Blood Pressure 117/75 10/29/2023 2:40 PM CDT Pulse 74 10/29/2023 2:40 PM CDT Temperature - - Respiratory Rate 16 10/29/2023 2:40 PM CDT Oxygen Saturation - - Inhaled Oxygen Concentration - - Weight - - Height - - Body Mass Index - - documented in this encounter Progress Notes * Mike Joseph MD - 10/29/2023 2:30 PM CDT Please see full imaging report from ViewPoint program under imaging tab. Mike Joseph MD Maternal Medicine documented in this encounter Nursing Notes * Bianca Kimball, RN - 10/29/2023 2:30 PM CDT Patient presents to [facility] for Limited/UAR at 31w6d due to growth restriction. Positive movement. Denies LOF, vaginal bleeding or cramping/contractions. SBAR given to ARSENIO BASS, see their note in Epic. NST performed. Dr. Joseph reviewed efm tracing. See NST/BPP Doc Flowsheet tab. Continue weekly surveillance with [facility]. documented in this encounter Plan of Treatment Upcoming Encounters Date Type Department Care Team (Late st Contact Info) Description 11/12/2023 10:30 AM CDT Office Visit [facility] [place] [address] [place] [phone] Mark Garcia MD [address] [place], [place] [phone] Kenton Jasso MD [address] [place], [place] [address] 11/12/2023 11:00 AM CDT Appointment [facility] Medicine [place] [address] [place] [phone] Mark Garcia MD [address] [place], [place] [address]198 [phone] Kenton Jasso MD [address] [place], [place] [address] 11/19/2023 10:30 AM CDT Office Visit [facility] [place] [address] [place] [phone] Mark Garcia MD [address] [place], [place] [address] 11/19/2023 11:00 AM CDT Appointment [facility] [place] [address] [place] [phone] Mark Garcia MD [address] [place], [place] [phone] documented as of this encounter Visit Diagnoses Diagnosis growth restriction antepartum documented in this encounter Care Teams Travel Counselor Relationship Specialty Start Date End Date Cristobal Becerril PA-C [address] [place] [address] PCP - General Family Medicine 06/17/[address] [place] [address] Brim Shaper Dietitian, Registered 10/29/21 Cristobal Becerril PA-C [address] [place] [address] Assigned PCP 06/27/22 Elisa Yoo MD [address] [place], [place] [address] Assigned OBGYN Provider 09/28/23 documented as of this encounter
--- OUTSIDE RECORDS SUMMARY | 2023-11-05 14:40 | XMS_ITS | Encounter Summary ---
Author Organization [place] Address [address] [place] [address]. [place] [address] Care Team Providers Care Choral Director Name Role Phone Evi Colmenares RD Unavailable Cristobal Becerril PA-C Primary Care Provider Cristobal Becerril PA-C Unavailable [phone] Elisa Yoo MD Unavailable [phone] Encounter Details Date Type Department Care Team (Latest Contact Info) Description 10/12/2023 Travel Social History Tobacco Use Types Packs/Day Years Used Date Smoking Tobacco: Never Passive Smoke Exposure: Never Smokeless Tobacco: Never Alcohol Use Standard Drinks/Week Comments Yes 5 (1 standard drink = 0.6 oz pur e alcohol) PHQ-2 Answer Date Recorded PHQ-2 Score 0 06/17/2022 [place] Depression Scale Answer Date Recorded Last EPDS [...] Description 11/12/2023 10:30 AM CDT Office Visit [facility] [place] [address] [place] [phone] Mark Garcia MD [address] [place], [place] [address]67[address] [phone] Kenton Jasso MD [address] [place], [place] [address] 11/12/2023 11:00 AM CDT Appointment [facility] [place] [address] [place] [phone] Mark Garcia MD [address] [place], [place] 036541 [phone] Kenton Jasso MD [address] [place], [place] [address] 11/19/2023 10:30 AM CDT Office Visit [facility] [place] [address] [place] [phone] Mark Garcia MD [address] [place], [place] [address] 11/19/2023 11:00 AM CDT Appointment [facility] [place] [address] [place] [phone] Mark Garcia MD [address] [place], [place] [address] documented as of this encounter Visit Diagnoses Not on filedocumented in this encounter Care Teams Choral Director Relationship Specialty Start Date End Date Cristobal Becerril PA-C [address] [place] [address] PCP - General Family Medicine 06/17/[address] [place] [address] Guardian Ad Litem Dietitian, Registered 10/29/21 Cristobal Becerril PA-C [address] [place] [address] Assigned PCP 06/27/22 Elisa Yoo MD [address] 953684 Assigned OBGYN Provider 09/28/23 documented as of this encounter
--- OUTSIDE RECORDS SUMMARY | 2023-11-05 14:40 | XMS_ITS | Encounter Summary ---
Author Organization [place] Address [address] [place] [address]. [place] [address] Care Team Providers Care Mine Inspector Federal Name Role Phone Evi Colmenares RD Unavailable Cristobal Becerril PA-C Primary Care Provider Cristobal Becerril PA-C Unavailable [phone] Elisa Yoo MD Unavailable [phone] Encounter Details Date Type Department Care Team (Latest Contact Info) Description 10/29/2023 Travel Social History Tobacco Use Types Packs/Day Years Used Date Smoking Tobacco: Never Passive Smoke Exposure: Never Smokeless Tobacco: Never Alcohol Use Standard Drinks/Week Comments Yes 5 (1 standard drink = 0.6 oz pur e alcohol) PHQ-2 Answer Date Recorded PHQ-2 Score 0 06/17/2022 [place] Depression Scale Answer Date Recorded Last EPDS [...] 10:30 AM CDT Office Visit [facility] Medicine [place] [address] [facility] [address] [place] [phone] Mark Garcia MD [address] [place], [place] 8[address] [phone] Kenton Jasso MD [address] [place], [place] [address] 11/12/2023 11:00 AM CDT Appointment [facility] Medicine [place] [address] [facility] [address] [place] [phone] Mark Garcia MD [address] [place], [place] 0[address]165 [phone] Kenton Jasso MD [address] [place], [place] [address] 11/19/2023 10:30 AM CDT Office Visit [facility] Medicine [place] [address] [facility] [address] [place] [phone] Mark Garcia MD [address] [place], [place] [address] 11/19/2023 11:00 AM CDT Appointment [facility] Medicine [place] [address] [facility] [address] [place] [phone] Mark Garcia MD [address] [place], [place] [address] documented as of this encounter Visit Diagnoses Not on filedocumented in this encounter Care Teams Mine Inspector Federal Relationship Specialty Start Date End Date Cristobal Becerril PA-C [address] [place] [address] PCP - General Family Medicine 06/17/[address] [place] [address] Pegger Dobby Looms Dietitian, Registered 10/29/21 Cristobal Becerril PA-C [address] [place] [address] Assigned PCP 06/27/22 Elisa Yoo MD [address] 259[address] Assigned OBGYN Provider 09/28/23 documented as of this encounter
--- OUTSIDE RECORDS SUMMARY | 2023-11-05 14:40 | XMS_ITS | Encounter Summary ---
Author Organization [place] Address [facility] [place] [address] Care Team Providers Care Service Specialist Name Role Phone Evi Colmenares RD Unavailable Cristobal Becerril PA-C Primary Care Provider Cristobal Becerril PA-C Unavailable [phone] Elisa Yoo MD Unavailable [phone] Reason for Referral * Diagnostic Imaging Ultrasound (Routine) - Pending Review Specialty Diagnoses / Procedures Referred By Contac t Referred To Contact Radiology. Diagnoses growth restriction antepartum Procedures [facility] US OB Limited Single/Multiple Kenton Jasso MD [address] [place] [address] Referral ID Status Reason Start Date Expiration Date V isits Requested Visits Authorized [id number] Pending Review 10/08/2023 10/07/2024 1 1 Reason for Visit * Diagnostic Imaging Ultrasound (Routine) - Pending Review Specialty Diagnoses / Procedures Referred By Contac t Referred To Contact Radiology. Diagnoses growth restriction antepartum Procedures [facility] US OB Limited Single/Multiple Kenton Jasso MD [address] [place] [address] Referral ID Status Reason Start Date Expiration Date V isits Requested Visits Authorized [id number] Pending Review 10/08/2023 10/07/2024 1 1 Encounter Details Date Type Department Care Team (Latest Contact Info) Description 10/12/2023 2:59 PM CDT - 10/12/2023 11:59 PM CDT Hospital Encounter [facility] [place] [address] [facility] [address] [place] [address] Mark Garcia MD [address] [place] [address] growth restriction antepartum Discharge Disposition: Home or Self Care Social History Tobacco Use Types Packs/Day Years Used Date Smoking Tobacco: Never Passive Smoke Exposure: Never Smokeless Tobacco: Never Alcohol Use Standard Drinks/Week Comments Yes 5 (1 standard drink = 0.6 oz pur e alcohol) PHQ-2 Answer Date Recorded PHQ-2 Score 0 06/17/2022 [place] Depression Scale Answer Date Recorded Last EPDS [...] Description 11/12/2023 10:30 AM CDT Office Visit [facility] Medicine [place] [address] [facility] [address] [place] [phone] Mark Garcia MD [address] [place] [address] Kenton Jasso MD [address] [place] [phone] 11/12/2023 11:00 AM CDT Appointment [facility] Medicine [facility] [address] [facility] [address] [place] [phone] Mark Garcia MD [address] [place] [address] Kenton Jasso MD [address] [place] [address] 11/19/2023 10:30 AM CDT Office Visit [facility] Medicine [place] [address] [facility] [address] [place] [phone] Mark Garcia MD [address] [place], [place] [address] 11/19/2023 11:00 AM CDT Appointment [facility] [place] [address] [address] [place] [address] Mark Garcia MD [address] [place], [place] [address] documented as of this encounter Procedures Procedure Name Priority Date/Time Associated Diagnosis Comments MFM US OB LIMITED SINGLE/MULTIPLE Routine 10/12/2023 4:02 PM CDT growth restriction antepartum documented in this encounter Results * MFM US OB Limited Single/Multiple (10/12/2023 4:02 PM CDT) Anatomical Region Laterality Modality Ultrasound 10/12/2023 3:35 PM CDT Impressions 10/12/2023 4:06 PM CDT IMPRESSION ----- 1. The amniotic fluid volume appeared normal. 2. The umbilical artery Dopplers were normal. 3. Reactive NST without decelerations. Narrative 10/12/2023 4:06 PM CDT ?Limited ----- Pat. Name: SANAZ SAINZ ? Study Date: ??10/12/2023 3:35pm Pat. NO: ??[id number] ?Referring ??MD: NICHOLE GANN Site: ??[facility] ? Stencil Sprayer: Suzy Hester : ??1995 ?Age: ?? 28 ----- INDICATION ----- growth restriction (FGR) METHOD ----- Transabdominal ultrasound examination. View: Sufficient ----- Springer . Number of fetuses: 1 DATING ----- ? Date ?Details ?Gest. age ?CLARIBEL LMP ?03/20/2023 ? 29 w + 3 d ? 12/25/2023 Prior assessment ? 05/19/2023 ? GA: 8 w + 0 d ?28 w + 6 d ? 12/29/2023 Assigned dating ?Dating performed on 10/12/2023, based on the LMP ?29 w + 3 d ? 12/25/2023 GENERAL EVALUATION ----- Cardiac activity present. FHR 141 bpm. movements visualized. Presentation cephalic. Placenta Anterior. Umbilical cord previously studied. Amniotic fluid Amount of AF: normal. MVP 5.3 cm. DOPPLER ----- Umbilical Artery: normal PI ?1.20 ?87% ? Penny HR ?141 ? bpm NON STRESS TEST ----- NST interpretation: reactive. Test duration 20 min. Baseline FHR 135 bpm. Baseline variability: moderate. Accelerations: present. Decelerations: absent. Uterine activity: absent. Acoustic stimulation: no RECOMMENDATION ----- We discussed the findings on today's ultrasound with the patient. The patient is scheduled to return to [facility] on Wednesday for FGR surveillance. Return to primary provider for continued care. Thank-you for the opportunity to participate in the care of this patient. If you have questions regarding today's evaluation or if we can be of further service, please contact the Maternal- Medicine Center. anomalies may be present but not detected Procedure Note Mark Garcia MD - 10/12/2023 Limited ----- Pat. Name: SANAZ SAINZ Study Date: 10/12/2023 3:35pm Pat. NO: [id number] Referring MD: NICHOLE GANN Site: [facility] Stencil Sprayer: Suzy Hester RDMS : 1995 Age: 28 ----- INDICATION ----- growth restriction (FGR) METHOD ----- Transabdominal ultrasound examination. View: Sufficient ----- Springer . Number of fetuses: 1 DATING ----- DateDetailsGest. age CLARIBEL LMP w + 3 d 12/25/2023 Prior assessment 05/19/2023 GA: 8 w +0 d28 w + 6 d 12/29/2023 Assigned dating Dating performed on 10/12/2023, based onthe LMP 29 w+ 3 d 12/25/2023 GENERAL EVALUATION ----- Cardiac activity present. FHR 141 bpm. movements visualized. Presentation cephalic. Placenta Anterior. Umbilical cord previously studied. Amniotic fluid Amount of AF: normal. MVP 5.3 cm. DOPPLER ----- Umbilical Artery: normal PI 1.2087% Penny HR 141 bpm NON STRESS TEST ----- NST interpretation: reactive. Test duration 20 min. Baseline FHR 135 bpm.Baseline variability: moderate. Accelerations: present. Decelerations:absent. Uterine activity: absent. Acoustic stimulation: no RECOMMENDATION ----- We discussed the findings on today's ultrasound with the patient. The patient is scheduled to return to [facility] on Wednesday for FGRsurveillance. Return to primary provider for continued care. Thank-you for the opportunity to participate in the care of this patient.If you have questions regarding today's evaluation or if we can be offurther service, please contact the Maternal- Medicine Center. anomalies may be present but not detected IMPRESSION ----- 1. The amniotic fluid volume appeared normal. 2. The umbilical artery Dopplers were normal. 3. Reactive NST without decelerations. Kenton Jasso MD [facility] US ORDERABLE S documented in this encounter Visit Diagnoses Diagnosis growth restriction antepartum documented in this encounter Care Teams Service Specialist Relationship Specialty Start Date End Date Cristobal Becerril PA-C [address] [place] [address] PCP - General Family Medicine 06/17/[address] [facility] [place], [place] [address] Solid Waste Facility Supervisor Dietitian, Registered 10/29/21 Cristobal Becerril PA-C [address] [place] [address] Assigned PCP 06/27/22 Elisa Yoo MD [address] 200494 Assigned OBGYN Provider 09/28/23 documented as of this encounter
--- OUTSIDE RECORDS SUMMARY | 2023-11-05 14:40 | XMS_ITS | Encounter Summary ---
Author Organization [place] Address [facility] [place] [address] Care Team Providers Care Child Care Director Name Role Phone Evi Colmenares RD Unavailable Cristobal Becerril PA-C Primary Care Provider Cristobal Becerril PA-C Unavailable [phone] Elisa Yoo MD Unavailable [phone] Reason for Visit * Reason Comments Ultrasound NST/Limited/UAR-FGR * Consultation (Routine: Next available opening) - Pending Review Specialty Diagnoses / Procedures Referred By Contac t Referred To Contact Diagnoses growth restriction antepartum Elisa Yoo MD [address] [place] [address] Referral ID Status Reason Start Date Expiration Date V isits Requested Visits Authorized [id number] Pending Review 10/01/2023 09/30/2024 10 10 Encounter Details Date Type Department Care Team (Late st Contact Info) Description 10/15/2023 3:00 PM CDT Office Visit [facility] Maternal Medicine Center [place] [address] [facility] [address] [place] [phone] Mark Garcia MD [phone] [address] growth restriction antepartum (Primary Dx) Social History Tobacco Use Types Packs/Day Years [...] Sign Reading Time Taken Comments Blood Pressure 123/78 10/15/2023 3:50 PM CDT Pulse 94 10/15/2023 3:50 PM CDT Temperature - - Respiratory Rate - - Oxygen Saturation 97% 10/15/2023 3:50 PM CDT Inhaled Oxygen Concentration - - Weight - - Height - - Body Mass Index - - documented in this encounter Progress Notes * Mark Garcia MD - 10/15/2023 3:00 PM CDT Please see Imaging tab under Chart Review for details of today's US at the [facility]. Mark Garcia MD Maternal- Medicine documented in this encounter Nursing Notes * Simi Wild RN - 10/15/2023 3:00 PM CDT Patient reports good movement, denies contractions, leaking of fluid, or bleeding. SBAR givento [facility] , see their note in Epic. NST Performed due to FGR. reviewed efm tracing. See NST/BPP Doc Flowsheet tab. documented in this encounter Plan of Treatment Upcoming Encounters Date Type Department Care Team (Late st Contact Info) Description 11/12/2023 10:30 AM CDT Office Visit [facility] Maternal Medicine [place] [address] [facility] [address] [place] [phone] Mark Garcia MD [address] [place] [address] Kenton Jasso MD [address] [place], [place] [address] 11/12/2023 11:00 AM CDT Appointment [facility] Medicine [place] [address] [facility] [address] [place] [phone] Mark Garcia MD [address] [place], [place] [phone] Kenton Jasso MD [address] [place], [place] [address] 11/19/2023 10:30 AM CDT Office Visit [facility] Maternal Medicine [place] [address] [place] [phone] Mark Garcia MD [address] [place], [place] [address] 11/19/2023 11:00 AM CDT Appointment [facility] Maternal Medicine [place] [address] [place] [phone] Mark Garcia MD [address] [place], [place] [address] documented as of this encounter Visit Diagnoses Diagnosis growth restriction antepartum- Primary documented in this encounter Care Teams Child Care Director Relationship Specialty Start Date End Date Cristobal Becerril PA-C [address] [place] [address] PCP - General Family Medicine 06/17/[address] [facility] [place] [place] [address] Retail Assistant Store Manager Dietitian, Registered 10/29/21 Cristobal Becerril PA-C [address] [place] [address] Assigned PCP 06/27/22 Elisa Yoo MD [address] [place], [place] [address] Assigned OBGYN Provider 09/28/23 documented as of this encounter
--- OUTSIDE RECORDS SUMMARY | 2023-11-05 14:40 | XMS_ITS | Encounter Summary ---
Author Organization [place] [facility] [place] [address] Care Team Providers Care Mechanical Apprentice Name Role Phone Evi Colmenares RD Unavailable Cristobal Becerril PA-C Primary Care Provider Cristobal Becerril PA-C Unavailable [phone] Elisa Yoo MD Unavailable [phone] Reason for Referral * Consultation (Routine: Next available opening) - Pending Review Specialty Diagnoses / Procedures Referred By Contac t Referred To Contact Diagnoses growth restriction antepartum Mark Garcia MD [phone] [place] [address] Referral ID Status Reason Start Date Expiration Date V isits Requested Visits Authorized [id number] Pending Review 10/20/2023 10/19/2024 5 5 Question Answer CTG/NST Yes Comments Estimated Date of Delivery: Dec 25, 2023 For FGR * Diagnostic Imaging Ultrasound (Routine) - Pending Review Specialty Diagnoses / Procedures Referred By Contac t Referred To Contact Radiology. Diagnoses growth restriction antepartum Procedures MFM US OB Limited Single/Multiple Mark Garcia MD [address] [place] [address] Referral ID Status Reason Start Date Expiration Date V isits Requested Visits Authorized [id number] Pending Review 10/20/2023 10/19/2024 1 1 * Diagnostic Imaging Ultrasound (Routine) - Pending Review Specialty Diagnoses / Procedures Referred By Contac t Referred To Contact Radiology. Diagnoses growth restriction antepartum Procedures M US Comprehensive Single F/U Mark Garcia MD [address] [place] [address] Referral ID Status Reason Start Date Expiration Date V isits Requested Visits Authorized [id number] Pending Review 10/20/2023 10/19/2024 1 1 * Diagnostic Imaging Ultrasound (Routine) - Pending Review Specialty Diagnoses / Procedures Referred By Contac t Referred To Contact Radiology. Diagnoses growth restriction antepartum Procedures M US OB Limited Single/Multiple Mark Garcia MD [address] [place] [address] Referral ID Status Reason Start Date Expiration Date V isits Requested Visits Authorized [id number] Pending Review 10/20/2023 10/19/2024 1 1 Reason for Visit * Reason Comments Ultrasound RL2/UAR/NST: g rowth restriciton, elevated UAR's * Consultation (Routine: Next available opening) - Pending Review Specialty Diagnoses / Procedures Referred By Contac t Referred To Contact Diagnoses growth restriction antepartum Elisa Yoo MD [address] [place] [address] Referral ID Status Reason Start Date Expiration Date V isits Requested Visits Authorized [id number] Pending Review 09/10/2023 09/09/2024 5 5 Encounter Details Date Type Department Care Team (Late st Contact Info) Description 10/20/2023 9:00 AM CDT Office Visit [facility] Maternal Medicine Center [place] [address] [facility] [address] [place] [address] Elisa Yoo MD [address] [place] [address] Mark Garcia MD [address] [place] [address] growth restriction antepartum (Primary Dx) Social History Tobacco Use Types Packs/Day Years Used Date Smoking Tobacco: Never Passive Smoke Exposure: Never Smokeless Tobacco: Never Alcohol Use Standard Drinks/Week Comments Yes 5 (1 standard drink = 0.6 oz pur e alcohol) PHQ-2 Answer Date Recorded PHQ-2 Score 0 06/17/2022 [place] Depression Scale Answer Date Recorded Last EPDS [...] Sign Reading Time Taken Comments Blood Pressure 116/74 10/20/2023 9:00 AM CDT Pulse 69 10/20/2023 9:00 AM CDT Temperature - - Respiratory Rate 16 10/20/2023 9:00 AM CDT Oxygen Saturation - - Inhaled Oxygen Concentration - - Weight - - Height - - Body Mass Index - - documented in this encounter Progress Notes * Mark Garcia MD - 10/20/2023 9:00 AM CDT Please see Imaging tab under Chart Review for details of today's US at the [facility]. Mark Garcia MD Maternal- Medicine documented in this encounter Nursing Notes * Bianca Kimball RN - 10/20/2023 9:00 AM CDT Patient presents to [facility] for RL2/UAR at 30w4d due to growth restriction. Positive movement. Denies LOF, vaginal bleeding or cramping/contractions. SBAR given to [facility] MD, see their note in Epic. NST performed. Dr. Garcia reviewed efm tracing. See NST/BPP Doc Flowsheet tab. documented in this encounter Plan of Treatment Upcoming Encounters Date Type Department Care Team (Late st Contact Info) Description 11/12/2023 10:30 AM CDT Office Visit [facility] Medicine [facility] [address] [facility] [address] [place] [address] Mark Garcia MD [address] [place], [place] [phone] Kenton Jasso MD [address] [place], [place] [address] 11/12/2023 11:00 AM CDT Appointment [facility] Medicine [facility] [address] [facility] [address] [place] [phone] Mark Garcia MD [address] [place], [place] [address] Kenton Jasso MD [address] [place], [place] [id number] 11/19/2023 10:30 AM CDT Office Visit [facility] Maternal Medicine [facility] [address] [facility] [address] [place] [phone] Mark Garcia MD [address] [place], [place] [address] 11/19/2023 11:00 AM CDT Appointment [facility] Maternal Medicine [facility] [address] [facility] [address] [place] [phone] Mark Garcia MD [address] [place], [place] [address] Scheduled Orders Name Type Priority Associated Diagnoses Orde r Schedule [facility] US Comprehensive Single F/U Imaging Routine growth restriction antepartum Expected: 11/10/2023 (Approximate), Expires: 10/19/2024 MFM US OB Limited Single/Multiple Imaging Routine growth restriction antepartum Expected: 11/17/2023 (Approximate), Expires: 08/19/2024 Nonstress Test (MFM Order Only} OB Routine growth restriction antepartum 5 Occurrences starting 10/20/2023 until 10/19/2024 Scheduled Referrals Name Type Priority Associated Diagnoses Orde r Schedule MFM Office Visit Referral Routine: Next available opening growth restriction antepartum Weekly for 5 Occurrences starting 10/20/2023 until 10/19/2024 documented as of this encounter Results * MFM US OB Limited Single/Multiple (11/03/2023 9:36 AM CDT) Anatomical Region Laterality Modality Ultrasound 11/03/2023 8:01 [...] ? Study Date: ??11/03/2023 8:01am Pat. NO: ??[id number] ?Referring ??MD: NICHOLE GANN Site: ??[facility] ? Guest Relations Agent: Suzy Hester RDMS : ??1995 ?Age: [...] SAINZ Study Date: 11/03/2023 8:01am Pat. NO: [id number] Referring MD: NICHOLE GANN Site: [facility] Guest Relations Agent: Suzy Hester RDMS : 1995 Age: [...] appropriate for gestational age. Mark Garcia MD IMG [facility] US ORDERABL ES documented in this encounter Visit Diagnoses Diagnosis growth restriction antepartum- Primary growth restriction antepartum documented in this encounter Care Teams Mechanical Apprentice Relationship Specialty Start Date End Date Cristobal Becerril PA-C [address] [place] [address] PCP - General Family Medicine 06/17/[address] [facility] [place] [place] [address] Roping Tender Dietitian, Registered 10/29/21 Cristoabl Becerril PA-C [address] [place] [address] Assigned PCP 06/27/22 Elisa Yoo MD [address] [address] Assigned OBGYN Provider 09/28/23 documented as of this encounter
--- OUTSIDE RECORDS SUMMARY | 2023-11-05 14:40 | XMS_ITS | Encounter Summary ---
Author Organization [place] Address [facility] [place] [address] Care Team Providers Care Community Service Worker Name Role Phone Evi Colmenares RD Unavailable Cristobal Becerril PA-C Primary Care Provider Cristobal Becerril PA-C Unavailable [phone] Elisa Yoo MD Unavailable [phone] Reason for Referral * Diagnostic Imaging Ultrasound (Routine) - Pending Review Specialty Diagnoses / Procedures Referred By Contac t Referred To Contact Radiology. Diagnoses growth restriction antepartum Procedures [facility] US Comprehensive Single F/U Elisa Yoo MD [address] [place] [address] Referral ID Status Reason Start Date Expiration Date V isits Requested Visits Authorized [id number] Pending Review 10/01/2023 09/30/2024 1 1 Reason for Visit * Diagnostic Imaging Ultrasound (Routine) - Pending Review Specialty Diagnoses / Procedures Referred By Contac t Referred To Contact Radiology. Diagnoses growth restriction antepartum Procedures [facility] US Comprehensive Single F/U Elisa oYo MD [address] [place] [address] Referral ID Status Reason Start Date Expiration Date V isits Requested Visits Authorized [id number] Pending Review 10/01/2023 09/30/2024 1 1 Encounter Details Date Type Department Care Team (Latest Contact Info) Description 10/20/2023 8:58 AM CDT - 10/20/2023 11:59 PM CDT Hospital Encounter [facility] Maternal Medicine Center [place] [address] [facility] [address] [place] [address] Elisa Yoo MD [address] [place] [address] Mark Garcia MD [address] [place] [address] growth restriction antepartum Discharge Disposition: Home or Self Care Social History Tobacco Use Types Packs/Day Years Used Date Smoking Tobacco: Never Passive Smoke Exposure: Never Smokeless Tobacco: Never Alcohol Use Standard Drinks/Week Comments Yes 5 (1 standard drink = 0.6 oz pur e alcohol) PHQ-2 Answer Date Recorded PHQ-2 Score 0 06/17/2022 [place] Depression Scale Answer Date Recorded Last EPDS [...] Office Visit [facility] Maternal Medicine [facility] [address] [facility] [address] [place] [phone] Mark Garcia MD [address] [place] [address] Kenton Jasso MD [address] [place] [address] 11/12/2023 11:00 AM CDT Appointment [facility] Medicine [facility] [address] [facility] [address] [place] [phone] Mark Garcia MD [address] [place], [place] [address] Kenton Jasso MD [address] [place] [address] 11/19/2023 10:30 AM CDT Office Visit [facility] Medicine [facility] [address] [place] [address] Mark Garcia MD [address] [place], [place] [address] 11/19/2023 11:00 AM CDT Appointment [facility] Medicine [facility] [address] [place] [address] Mark Garcia MD [address] [place] [address] documented as of this encounter Procedures Procedure Name Priority Date/Time Associated Diagnosis Comments [facility] US COMPREHENSIVE SINGLE F/U Routine 10/20/2023 10:05 AM CDT growth restriction antepartum NON-STRESS TEST - HIM SCAN 10/20/2023 12:00 AM CDT documented in this encounter Results * [facility] US Comprehensive Single F/U (10/20/2023 10:05 AM CDT) Anatomical Region Laterality Modality Ultrasound 10/20/2023 9:27 [...] ? Study Date: ??10/20/2023 9:27am Pat. NO: ??[id number] ?Referring ??MD: NICHOLE GANN Site: ??[facility] ? Digital Service Engineer: Miky Malone RDMS : ??1995 ?Age: ?? [...] 3 lb 0 ?oz EFW by ?Hadlock ([id number]) Head / Face / Neck Biometry: Child Protection Specialist ? 7.8 ? mm CM ?4.3 ? [...] documented previously: Heart / Thorax ?4-chamber view. 7-jeqwyn-gmlvejn view. Spine ?Cervical spine. Thoracic spine. Lumbar [...] SAINZ Study Date: 10/20/2023 9:27am Pat. NO: [id number] Referring MD: NICHOLE GANN Site: [facility] Digital Service Engineer: Miky Malone RDMS : 1995 Age: 28 [...] 3 lb 0 oz EFW by Hadlock ([id number]) Head / Face / Neck Biometry: Child Protection Specialist 7.8 mm CM 4.3 mm ANATOMY ----- The following structures appear normal: Head / Neck Cranium. Head size. Head shape.Lateral ventricles. Midline falx. Cavum septi pellucidi. Cerebellum.Cisterna magna. Thalami. Face Lips. Profile. Nose. Heart / Thorax RVOT view. LVOT view. Diaphragm. Abdomen Stomach. Kidneys. Bladder. The following structures were documented previously: Heart / Thorax 4-chamber view. 3-hqfgfg-kpbikgdauuw. Spine Cervical spine. Thoracic spine.Lumbar spine. Sacral [...] Reactive NST without decelerations. Elisa Yoo MD [facility] US ORDERABLE S * Non-Stress Test - HIM Scan (10/20/2023 12:00 AM CDT) 10/20/2023 Provider Outside PROCEDURES documented in this encounter Visit Diagnoses Diagnosis growth restriction antepartum documented in this encounter Care Teams Community Service Worker Relationship Specialty Start Date End Date Cristobal Becerril PA-C [address] [place] [address] PCP - General Family Medicine 06/17/[address] [facility] [place] [address] Fiscal Services Director Dietitian, Registered 10/29/21 Cristobal Becerril PA-C [address] [place] [address] Assigned PCP 06/27/22 Elisa Yoo MD [address] [address] Assigned OBGYN Provider 09/28/23 documented as of this encounter
--- OUTSIDE RECORDS SUMMARY | 2023-11-05 14:40 | XMS_ITS | Encounter Summary ---
Author Organization [place] Address [facility]0 [facility] [place] [address] Care Team Providers Care Awning Maker And Installer Name Role Phone Evi Colmenares RD Unavailable Cristobal Becerril PA-C Primary Care Provider Cristobal Becerril PA-C Unavailable [phone] Elisa Yoo MD Unavailable [phone] Reason for Visit * Reason Comments Ultrasound NST/Limited/UAR-FGR * Consultation (Routine: Next available opening) - Pending Review Specialty Diagnoses / Procedures Referred By Contac t Referred To Contact Diagnoses growth restriction antepartum Elisa Yoo MD [address] [place] [address] Referral ID Status Reason Start Date Expiration Date V isits Requested Visits Authorized [id number] Pending Review 10/01/2023 09/30/2024 10 10 Encounter Details Date Type Department Care Team (Late st Contact Info) Description 10/12/2023 3:00 PM CDT Office Visit [facility] Maternal Medicine Center [place] [address] [facility] [address] [place] [phone] Mark Garcia MD [address] [address] growth restriction antepartum (Primary Dx) Social History Tobacco Use Types Packs/Day Years Used Date Smoking Tobacco: Never Passive Smoke Exposure: Never Smokeless Tobacco: Never Alcohol Use Standard Drinks/Week Comments Yes 5 (1 standard drink = 0.6 oz pur e alcohol) PHQ-2 Answer Date Recorded PHQ-2 Score 0 06/17/2022 [place] Depression Scale Answer Date Recorded Last EPDS [...] Sign Reading Time Taken Comments Blood Pressure 130/81 10/12/2023 3:23 PM CDT Pulse 89 10/12/2023 3:23 PM CDT Temperature - - Respiratory Rate - - Oxygen Saturation 97% 10/12/2023 3:23 PM CDT Inhaled Oxygen Concentration - - Weight - - Height - - Body Mass Index - - documented in this encounter Progress Notes * Mark Garcia MD - 10/12/2023 3:00 PM CDT Please see Imaging tab under Chart Review for details of today's US at the [facility]. Mark Garcia MD Maternal- Medicine documented in this encounter Nursing Notes * Simi Wild RN - 10/12/2023 3:00 PM CDT Patient reports good movement, denies contractions, leaking of fluid, or bleeding. SBAR givento [facility] , see their note in Epic. NST Performed due to FGR. reviewed efm tracing. See NST/BPP Doc Flowsheet tab. documented in this encounter Plan of Treatment Upcoming Encounters Date Type Department Care Team (Late st Contact Info) Description 11/12/2023 10:30 AM CDT Office Visit [facility] Maternal Medicine [place] [address] [facility] [address] [place] [phone] Mark Garcia MD [address] [place] [address] Kenton Jasso MD [address] [place], [place] [address] 11/12/2023 11:[address] [facility] Medicine [place] [address] [facility] [address] [place] [phone] Mark Garcia MD [address] [place], [place] [phone] Kenton Jasso MD [address] [place], [place] [address] 11/19/2023 10:30 AM CDT Office Visit [facility] Maternal Medicine [place] [address] [place] [phone] Mark Garcia MD [address] [place], [place] [address] 11/19/2023 11:00 AM CDT Appointment [facility] Maternal Medicine [place] [address] [place] [phone] Mark Garcia MD [address] [place], [place] [address] documented as of this encounter Visit Diagnoses Diagnosis growth restriction antepartum- Primary documented in this encounter Care Teams Awning Maker And Installer Relationship Specialty Start Date End Date Cristobal Becerril PA-C [address] [place] [address] PCP - General Family Medicine 06/17/[address] [place] [address] Coagulating Bath Mixer Dietitian, Registered 10/29/21 Cristobal Becerril PA-C [address] [place] [address] Assigned PCP 06/27/22 Elisa Yoo MD [address] [place], [place] [address] Assigned OBGYN Provider 09/28/23 documented as of this encounter
--- OUTSIDE RECORDS SUMMARY | 2023-11-05 14:40 | XMS_ITS | Encounter Summary ---
Author Organization [place] Address [address] [place] [address] Care Team Providers Care Etl Analyst Name Role Phone Evi Colmenares RD Unavailable Cristobal Becerril PA-C Primary Care Provider Cristobal Becerril PA-C Unavailable [phone] Elisa Yoo MD Unavailable [phone] Reason for Referral * Diagnostic Imaging Ultrasound (Routine) - Pending Review Specialty Diagnoses / Procedures Referred By Contac t Referred To Contact Radiology. Diagnoses growth restriction antepartum Procedures [facility] US OB Limited Single/Multiple Mark Garcia MD [address] [place] [address] Referral ID Status Reason Start Date Expiration Date V isits Requested Visits Authorized [id number] Pending Review 10/20/2023 10/19/2024 1 1 Reason for Visit * Diagnostic Imaging Ultrasound (Routine) - Pending Review Specialty Diagnoses / Procedures Referred By Contac t Referred To Contact Radiology. Diagnoses growth restriction antepartum Procedures [facility] US OB Limited Single/Multiple Mark Garcia MD [phone] [place] [address] Referral ID Status Reason Start Date Expiration Date V isits Requested Visits Authorized [id number] Pending Review 10/20/2023 10/19/2024 1 1 Encounter Details Date Type Department Care Team (Latest Contact Info) Description 11/03/2023 7:59 AM CDT - 11/03/2023 11:59 PM CDT Hospital Encounter [facility] Maternal Medicine Center [place] [address] [place] [address] Mike Joseph MD 606 [facility] [address] [place] [address] growth restriction antepartum Discharge Disposition: Home or Self Care Social History Tobacco Use Types Packs/Day Years Used Date Smoking Tobacco: Never Passive Smoke Exposure: Never Smokeless Tobacco: Never Alcohol Use Standard Drinks/Week Comments Yes 5 (1 standard drink = 0.6 oz pur e alcohol) PHQ-2 Answer Date Recorded PHQ-2 Score 0 06/17/2022 [place] Depression Scale Answer Date Recorded Last EPDS [...] Description 11/12/2023 10:30 AM CDT Office Visit [facility] Medicine [place] [address] [address] [facility] [address] [place] [address] [phone] Mark Garcia MD [address] [place] [address]444 Kenton Jasso MD [address] [place] [address] 812894 11/12/2023 11:00 AM CDT Appointment [facility] Maternal Medicine [facility] [address] [facility] [address] [place] [phone] Mark Garcia MD [address] [place] [address] [phone] Kenton Jasso MD [address] [place], [place] 5539[address] 11/19/2023 10:30 AM CDT Office Visit [facility] Maternal Medicine [place] [address] [address] [facility] [address] [place] [phone] Mark Garcia MD [address] [place] [address] 11/19/2023 11:00 AM CDT Appointment [facility] M[facility] Medicine [facility] [place] [address] [facility] [address] [place] [address] Mark Garcia MD [address] [place] [address] documented as of this encounter Procedures Procedure Name Priority Date/Time Associated Diagnosis Comments MFM US OB LIMITED SINGLE/MULTIPLE Routine 11/03/2023 9:36 AM CDT growth restriction antepartum documented in this [...] ? Study Date: ??11/03/2023 8:01am Pat. NO: ??[id number] ?Referring ??MD: NICHOLE GNAN Site: ??[facility] ? Die Designer: Suzy Hester RDMS : ??1995 ?Age: ?? [...] SAINZ Study Date: 11/03/2023 8:01am Pat. NO: [id number] Referring MD: NICHOLE GANN Site: [facility] Die Designer: Suzy Hester RDMS : 1995 Age: 28 [...] today's evaluation or if we can be offpeak behavioral health servicesher service, please contact the Maternal- Medicine Center. [...] appropriate for gestational age. Mark Garcia MD [facility] US ORDERABL ES documented in this encounter Visit Diagnoses Diagnosis growth restriction antepartum documented in this encounter Care Teams Etl Analyst Relationship Specialty Start Date End Date Cristobal Becerril PA-C [address] [place] [address] PCP - General Family Medicine 06/17/[address] [id number] [employer] Network Engineer Dietitian, Registered 10/29/21 Cristobal Becerril PA-C [address] [address] Assigned PCP 06/27/22 Elisa Yoo MD [address] [address] [address] Assigned OBGYN Provider 09/28/23 documented as of this encounter
--- OUTSIDE RECORDS SUMMARY | 2023-11-05 14:40 | XMS_ITS | Encounter Summary ---
Author Organization [place] Address [address] [place] [address]. [place] [address] Care Team Providers Care Enterprise Architect Manager Name Role Phone Evi Colmenares RD Unavailable Cristobal Becerril PA-C Primary Care Provider Cristobal Becerril PA-C Unavailable [phone] Elisa Yoo MD Unavailable [phone] Encounter Details Date Type Department Care Team (Latest Contact Info) Description 11/03/2023 Travel Social History Tobacco Use Types Packs/Day Years Used Date Smoking Tobacco: Never Passive Smoke Exposure: Never Smokeless Tobacco: Never Alcohol Use Standard Drinks/Week Comments Yes 5 (1 standard drink = 0.6 oz pur e alcohol) PHQ-2 Answer Date Recorded PHQ-2 Score 0 06/17/2022 [place] Depression Scale Answer Date Recorded Last EPDS [...] Description 11/12/2023 10:30 AM CDT Office Visit [facility] Medicine [place] [address] [address] [facility] [address] [place] [phone] Mark Garcia MD [address] [place], [place] 340932 [phone] Kenton Jasso MD [address] [place], [place] [address]604 11/12/2023 11:00 AM CDT Appointment [facility] Medicine [place] [address] [address] [facility] [address] [place] [phone] Mark Garcia MD [address] [place], [place] 476761 [phone] Kenton Jasso MD [address] [place], [place] 953504 11/19/2023 10:30 AM CDT Office Visit [facility] Medicine [place] [address] [address] [facility] [address] [place] [phone] Mark Garcia MD [address] [place], [place] 305474 11/19/2023 11:00 AM CDT Appointment [facility] Medicine [place] [address] [address] [facility] [address] [place] [phone] Mark Garcia MD [address] [place], [place] 096814 documented as of this encounter Visit Diagnoses Not on filedocumented in this encounter Care Teams Enterprise Architect Manager Relationship Specialty Start Date End Date Cristobal Becerril PA-C [address] [place] [address] PCP - General Family Medicine 06/17/[address] [place] [address] Chiller Operator Dietitian, Registered 10/29/21 Cristobal Becerril PA-C [address] [place] [address] Assigned PCP 06/27/22 Elisa Yoo MD [address] 064604 Assigned OBGYN Provider 09/28/23 documented as of this encounter
--- OUTSIDE RECORDS SUMMARY | 2023-11-05 14:41 | XMS_ITS | Encounter Summary ---
Author Organization [place] Address [address] [place] [address]. [place] [address] Care Team Providers Care Toddler Teacher Name Role Phone Evi Colmenares RD Unavailable Cristobal Becerril PA-C Primary Care Provider Cristobal Becerril PA-C Unavailable [phone] Elisa Yoo MD Unavailable [phone] Encounter Details Date Type Department Care Team (Latest Contact Info) Description 09/28/2023 Travel Social History Tobacco Use Types Packs/Day Years Used Date Smoking Tobacco: Never Passive Smoke Exposure: Never Smokeless Tobacco: Never Alcohol Use Standard Drinks/Week Comments Yes 5 (1 standard drink = 0.6 oz pur e alcohol) PHQ-2 Answer Date Recorded PHQ-2 Score 0 06/17/2022 [place] Depression Scale Answer Date Recorded Last EPDS [...] CDT Office Visit [facility] Medicine [place] [address] [address] [facility] [address] [place] [phone] Mark Garcia MD [address] [place], [place] 195759 [phone] Kenton Jasso MD [address] [place], [place] 448994 11/12/2023 11:00 AM CDT Appointment [facility] Medicine [place] [address] [facility] [address] [place] [phone] Mark Garcia MD [address] [place], [place] 659071 [phone] Kenton Jasso MD [address] [place], [place] 896984 11/19/2023 10:30 AM CDT Office Visit [facility] Medicine [place] [address] [facility] [address] [place] [phone] Mark Garcia MD [address] [place], [place] 519634 11/19/2023 11:00 AM CDT Appointment [facility] Medicine [place] [address] [address] [facility] [address] [place] [phone] Mark Garcia MD [address] [place], [place] 472954 documented as of this encounter Visit Diagnoses Not on filedocumented in this encounter Care Teams Toddler Teacher Relationship Specialty Start Date End Date Cristobal Becerril PA-C [address] [place] [address] PCP - General Family Medicine 06/17/[address] [place] [address] Silk Soaker Dietitian, Registered 10/29/21 Cristobal Becerril PA-C [address] [place] [address] Assigned PCP 06/27/22 Elisa Yoo MD [address] 564[address] Assigned OBGYN Provider 09/28/23 documented as of this encounter
--- OUTSIDE RECORDS SUMMARY | 2023-11-05 14:41 | XMS_ITS | Encounter Summary ---
Author Organization [place] Address [address] [place] [address]. [place] [address] Care Team Providers Care Edge Runner Name Role Phone DarrianEvi RD Unavailable Crisotbal Becerril PA-C Primary Care Provider Cristobal Becerril PA-C Unavailable [phone] Reason for Visit * Reason Comments Ultrasound L2: FGR seen on outs anahi US Encounter Details Date Type Department Care Team (Late st Contact Info) Description 09/09/2023 PRE VISIT [facility] Maternal Medicine Center [address] [phone] Bianca Kimball RN Ultrasound (L2: FGR seen on outside US) Social History Tobacco Use Types Packs/Day Years Used Date Smoking Tobacco: Never Passive Smoke Exposure: Never Smokeless Tobacco: Never Alcohol Use Standard Drinks/Week Comments Yes 5 (1 standard drink = 0.6 oz pur e alcohol) PHQ-2 Answer Date Recorded PHQ-2 Score 0 06/17/2022 [place] Depression Scale Answer Date Recorded Last EPDS [...] Description 11/12/2023 10:30 AM CDT Office Visit [facility] Maternal Medicine [facility] [address] [place] [phone] Mark Garcia MD [address] [place], [place] [phone] Kenton Jasso MD [address] [place] [address] 11/12/2023 11:00 AM CDT Appointment [facility] Maternal Medicine [place] [address] [place] [phone] Mark Garcia MD [address] [place], [place] 131544 Kenton Jasso MD [address] [place], [place] 213264 11/19/2023 10:30 AM CDT Office Visit [facility] Maternal Medicine [place] [address] [place] [phone] Mark Garcia MD [address] [place] [address] 11/19/2023 11:00 AM CDT Appointment [facility] Maternal Medicine [facility] [address] [place] [phone] Mark Garcia MD [address] [address] documented as of this encounter Visit Diagnoses Not on filedocumented in this encounter Care Teams Edge Runner Relationship Specialty Start Date End Date Cristobal Becerril PA-C [address] [place] [address] PCP - General Family Medicine 06/17/[address] [facility] [place] [address] Commercial Census Taker Dietitian, Registered 10/29/21 Cristobal Becerril PA-C [address] [place] [address] Assigned PCP 06/27/22 documented as of this encounter
--- OUTSIDE RECORDS SUMMARY | 2023-11-05 14:41 | XMS_ITS | Encounter Summary ---
Author Organization [place] Address [address] [place] [address] Care Team Providers Care Energy Project Engineer Name Role Phone Evi Colmenares RD Unavailable Cristobal Becerril PA-C Primary Care Provider Cristobal Becerril PA-C Unavailable [phone] Reason for Referral * Diagnostic Imaging Ultrasound (Routine) - Pending Review Specialty Diagnoses / Procedures Referred By Lulu lozoya Referred To Contact Radiology. Diagnoses related condition, antepartum Procedures [facility] Ghislaine Arriaga MD [address] [place] [address] Referral ID Status Reason Start Date Expiration Date V isits Requested Visits Authorized [id number] Pending Review 09/08/2023 09/07/2024 1 1 Reason for Visit * Diagnostic Imaging Ultrasound (Routine) - Pending Review Specialty Diagnoses / Procedures Referred By Lulu lozoya Referred To Contact Radiology. Diagnoses related condition, antepartum Procedures [facility] US Ghislaine Arriaga MD [address] [place] [address] Referral ID Status Reason Start Date Expiration Date V isits Requested Visits Authorized [id number] Pending Review 09/08/2023 09/07/2024 1 1 Encounter Details Date Type Department Care Team (Latest Contact Info) Description 09/10/2023 10:57 AM CDT - 09/10/2023 11:59 PM CDT Hospital Encounter [facility] Maternal Medicine Center [address] [place] [phone] Ghislaine Gann MD [address] [place] [address] Elisa Yoo MD [address] [place] [address] 400 [place] [address] related condition, antepartum Discharge Disposition: Home or Self Care Social History Tobacco Use Types Packs/Day Years Used Date Smoking Tobacco: Never Passive Smoke Exposure: Never Smokeless Tobacco: Never Alcohol Use Standard Drinks/Week Comments Yes 5 (1 standard drink = 0.6 oz pur e alcohol) PHQ-2 Answer Date Recorded PHQ-2 Score 0 06/17/2022 [place] Depression Scale Answer Date Recorded Last EPDS [...] Description 11/12/2023 10:30 AM CDT Office Visit [facility] Medicine [place] [address] [facility] [address] [place] [phone] Mark Garcia MD [address] [place], [place] [address] Kenton Jasso MD [address] [place], [place] [address] 11/12/2023 11:00 AM CDT Appointment [facility] Medicine [place] [address] [facility] [address] [place] [phone] Mark Garcia MD [address] [place], [place] 7[address] Kenton Jasso MD [address] [place] [address] 11/19/2023 10:30 AM CDT Office Visit [facility] Medicine [place] [address] [facility] [address] [place] [phone] Mark Garcia MD [address] [place], [place] [address] 11/19/2023 11:00 AM CDT Appointment [facility] Maternal Medicine Center [place] [address] [facility] [address] [place] [address] Mark Garica MD [address] [place], [place] 647[address] documented as of this encounter Procedures Procedure Name Priority Date/Time Associated Diagnosis Comments [facility] US COMPREHENSIVE SINGLE Routine 09/10/2023 12:00 PM CDT related condition, antepartum documented in this encounter Results * [facility] US Comprehensive Single (09/10/2023 12:00 PM CDT) Anatomical [...] ? Study Date: ??09/10/2023 10:59am Pat. NO: ??[id number] ?Referring ??MD: GHISLAINE GANN Site: ??[place] ? Photocomposing Keyboard Operator: Margaret Colvin RDMS : ??1995 ?Age: ?? [...] 1 lb 4 ?oz EFW by ?Hadlock ([id number]) Head / Face / Neck Biometry: Machine Lead Burner ? 7.3 ? mm CM ?5.9 ? [...] / Thorax ?Aortic arch view. 3-vessel view. 1-hdqgsj-admtwpz view. Abdomen ? Kidneys. Spine ?Lumbar spine. [...] medical record, and communicating with other health wound care nurse and/or care coordination. Please see note for details. Procedure Note Elisa Yoo MD - 09/10/2023 Comprehensive ----- Pat. Name: SANAZ SAINZ Study Date: 09/10/2023 10:59am Pat. NO: [id number] Referring MD: GHISLAINE GANN Site: [facility] Photocomposing Keyboard Operator: Margaret Colvin RDMS : 1995 Age: 28 [...] 1 lb 4 oz EFW by Hadlock ([id number]) Head / Face / Neck Biometry: Machine Lead Burner 7.3 mm CM 5.9 mm Nasal bone [...] Heart / Thorax Aortic arch view. 3-vessel view.2-oyuupl-biuhyme view. Abdomen Kidneys. Spine Lumbar spine. Sacral [...] detectinganeuploidy and structural abnormalities. Ultrasound can routinely hszyer24-40% of structural abnormalities. Follow-up has been scheduled [...] electronic medical record, andcommunicating with other health wound care nurse and/or carecoordination. Please see note [...] monitoring was appropriate for gestational age. Ghislaine Gann MD IMG MFM US O RDERABLES documented in this encounter Visit Diagnoses Diagnosis related condition, antepartum documented in this encounter Care Teams Energy Project Engineer Relationship Specialty Start Date End Date Cristobal Becerril PA-C [address] [address] PCP - General Family Medicine 06/17/[address] [address] Hog Cooler Dietitian, Registered 10/29/21 Cristobal Becerril PA-C [address] [address] Assigned PCP 06/27/22 documented as of this encounter
--- OUTSIDE RECORDS SUMMARY | 2023-11-05 14:41 | XMS_ITS | Encounter Summary ---
Author Organization [facility] Address [facility] [place] [address] Care Team Providers Care Snaker [employer] Name Role Phone Evi Colmenares RD Unavailable Cristobal Becerril PA-C Primary Care Provider Cristobal Becerril PA-C Unavailable [phone] Reason for Referral * Diagnostic Imaging Ultrasound (Routine) - Pending Review Specialty Diagnoses / Procedures Referred By Lulu lozoya Referred To Contact Radiology. Diagnoses growth restriction antepartum Procedures MF US OB Limited Single/Multiple Elisa Yoo MD [address] [place] [address] Referral ID Status Reason Start Date Expiration Date V isits Requested Visits Authorized [id number] Pending Review 09/10/2023 09/09/2024 1 1 Reason for Visit * Diagnostic Imaging Ultrasound (Routine) - Pending Review Specialty Diagnoses / Procedures Referred By Lulu lozoya Referred To Contact Radiology. Diagnoses growth restriction antepartum Procedures MF US OB Limited Single/Multiple Elisa Yoo MD [address] [place] [address] Referral ID Status Reason Start Date Expiration Date V isits Requested Visits Authorized [id number] Pending Review 09/10/2023 09/09/2024 1 1 Encounter Details Date Type Department Care Team (Latest Contact Info) Description 09/22/2023 1:42 PM CDT - 09/22/2023 11:59 PM CDT Hospital Encounter [facility] [place] [address] [address] [place] [phone] Mark Garcia MD [address] [facility] [address] [place] [address] growth restriction antepartum Discharge Disposition: Home or Self Care Social History Tobacco Use Types Packs/Day Years Used Date Smoking Tobacco: Never Passive Smoke Exposure: Never Smokeless Tobacco: Never Alcohol Use Standard Drinks/Week Comments Yes 5 (1 standard drink = 0.6 oz pur e alcohol) PHQ-2 Answer Date Recorded PHQ-2 Score 0 06/17/2022 Lee Depression Scale Answer Date Recorded Last EPDS [...] 10:30 AM CDT Office Visit [facility] [place] [address] [facility] [address] [place] [phone] Mark Garcia MD [address] [place], [place] [phone] Kenotn Jasso MD [address] [place], [place] [id number] 11/12/2023 11:[address] [facility] [place] [address] [facility] [address] [place] [phone] Mark Garcia MD [address] [place] [address] [phone] Kenton Jasso MD [address] [place], [place] [id number] 11/19/2023 10:30 AM CDT Office Visit [facility] [place] [address] [facility] [address] [place] [phone] Mark Garcia MD [address] [place] [phone] 11/19/2023 11:00 AM CDT Appointment [facility] [address] [facility] [address] [place] [address] Mark Garcia MD [address] [place] [address] documented as of this encounter Procedures Procedure Name Priority Date/Time Associated Diagnosis Comments MFM US OB LIMITED SINGLE/MULTIPLE Routine 09/22/2023 2:13 PM CDT growth restriction antepartum documented in this encounter Results * MFM US OB Limited Single/Multiple (09/22/2023 2:13 PM CDT) Anatomical Region Laterality Modality Ultrasound 09/22/2023 1:40 PM CDT Impressions 09/22/2023 2:56 PM CDT IMPRESSION ----- 1) Normal amniotic fluid volume. 2) Normal UAR doppler PI. 3) tracing with a single deceleration. Narrative 09/22/2023 2:56 PM CDT ?Limited ----- Pat. Name: SANAZ SAINZ ? Study Date: ??09/22/2023 1:40pm Pat. NO: ??[id number] ?Referring ??MD: NICHOLE GANN Site: [facility] ? Screwhead Polisher: Richa Shaw RDMS : ??1995 ?Age: ?? 28 ----- INDICATION ----- growth restriction (FGR) ----- Springer . Number of fetuses: 1 DATING ----- ? Date ?Details ?Gest. age ?CLARIBEL LMP ?03/20/2023 ? 26 w + 4 d ? 12/25/2023 Prior assessment ? 05/19/2023 ? GA: 8 w + 0 d ?26 w + 0 d ? 12/29/2023 Assigned dating ?Dating performed on 09/15/2023, based on the LMP ?26 w + 4 d ? 12/25/2023 GENERAL EVALUATION ----- Cardiac activity present. FHR 142 bpm. movements visualized. Presentation cephalic. Placenta Anterior. Umbilical cord Cord vessels: 3 vessel cord. Amniotic fluid Amount of AF: normal. MVP 5.5 cm. DOPPLER ----- Umbilical Artery: PI ?1.16 ?71% ? Penny HR ?153 ? bpm NON STRESS TEST ----- NST interpretation: Appropriate for gestational age. Test duration 30 min. Baseline FHR 150 bpm. Baseline variability: moderate. Accelerations: absent. Decelerations: present, Single short duration variable deceleration. Uterine activity: absent RECOMMENDATION ----- We discussed the findings on today's ultrasound with the patient. The patient is scheduled to continue weekly FGR surveillance. Return to primary provider for continued care. Thank-you for the opportunity to participate in the care of this patient. If you have questions regarding today's evaluation or if we can be of further service, please contact the [facility]. anomalies may be present but not detected Procedure Note Mark Garcia MD - 09/22/2023 Limited ----- Pat. Name: SANAZ SAINZ Study Date: 09/22/2023 1:40pm Pat. NO: [id number] Referring MD: NICHOLE GANN Site: [facility] Screw[employer] Polisher: Richa Shaw RDMS : 1995 Age: 28 ----- INDICATION ----- growth restriction (FGR) ----- Springer . Number of fetuses: 1 DATING ----- DateDetailsGest. age CLARIBEL LMP w + 4 d 12/25/2023 Prior assessment 05/19/2023 GA: 8 w +0 d26 w + 0 d 12/29/2023 Assigned dating Dating performed on 09/15/2023, based onthe LMP 26 w +4 d 12/25/2023 GENERAL EVALUATION ----- Cardiac activity present. FHR 142 bpm. movements visualized. Presentation cephalic. Placenta Anterior. Umbilical cord Cord vessels: 3 vessel cord. Amniotic fluid Amount of AF: normal. MVP 5.5 cm. DOPPLER ----- Umbilical Artery: PI 1.1671% Penny HR 153 bpm NON STRESS TEST ----- NST interpretation: Appropriate for gestational age. Test duration 30 min.Baseline FHR 150 bpm. Baseline variability: moderate. Accelerations:absent. Decelerations: present, Single short duration variable deceleration. Uterine activity:absent RECOMMENDATION ----- We discussed the findings on today's ultrasound with the patient. The patient is scheduled to continue weekly FGR surveillance. Return to primary provider for continued care. Thank-you for the opportunity to participate in the care of this patient.If you have questions regarding today's evaluation or if we can be offurther service, please contact the [facility]. anomalies may be present but not detected IMPRESSION ----- 1) Normal amniotic fluid volume. 2) Normal UAR doppler PI. 3) tracing with a single deceleration. Elisa Yoo MD [facility] US ORDERABLE S documented in this encounter Visit Diagnoses Diagnosis growth restriction antepartum documented in this encounter Care Teams Sn[employer] D[employer] Relationship Specialty Start Date End Date Cristobal Becerril PA-C [phone] [id number] PCP - General Family Medicine 06/17/[address] [id number] Senior Writer Dietitian, Registered 10/29/21 Cristobal Becerril PA-C [id number] [phone] Assigned PCP 06/27/22 documented as of this encounter
--- OUTSIDE RECORDS SUMMARY | 2023-11-05 14:41 | XMS_ITS | Encounter Summary ---
Author Organization [place] Address Formerly [facility], [id number] [facility] [place] [address] Care Team Providers Care Cost Analyst Name Role Phone DarrianEvi RD Unavailable Cristobal Becerril PA-C Primary Care Provider Cristobal Becerril PA-C Unavailable [phone] Reason for Referral * Consultation (Routine: Next available opening) - Pending Review Specialty Diagnoses / Procedures Referred By Lulu lozoya Referred To Contact Diagnoses growth restriction antepartum Elisa Yoo MD [address] [place] [address] Referral ID Status Reason Start Date Expiration Date V isits Requested Visits Authorized [id number] Pending Review 09/10/2023 09/09/2024 5 5 Question Answer CTG/NST Yes * Diagnostic Imaging Ultrasound (Routine) - Pending Review Specialty Diagnoses / Procedures Referred By Lulu lozoya Referred To Contact Radiology. Diagnoses growth restriction antepartum Procedures MFM US OB Limited Single/Multiple Elisa Yoo MD [address] [place] [address] Referral ID Status Reason Start Date Expiration Date V isits Requested Visits Authorized [id number] Pending Review 09/10/2023 09/09/2024 1 1 * Diagnostic Imaging Ultrasound (Routine) - Pending Review Specialty Diagnoses / Procedures Referred By Contac t Referred To Contact Radiology. Diagnoses growth restriction antepartum Procedures [facility] US Comprehensive Single F/U Elisa Yoo MD [address] [place] [address] Referral ID Status Reason Start Date Expiration Date V isits Requested Visits Authorized [id number] Pending Review 09/10/2023 09/09/2024 1 1 * Diagnostic Imaging Ultrasound (Routine) - Pending Review Specialty Diagnoses / Procedures Referred By Contac t Referred To Contact Radiology. Diagnoses growth restriction antepartum Procedures [facility] US OB Limited Single/Multiple Elisa Yoo MD [address] [place] [address] Referral ID Status Reason Start Date Expiration Date V isits Requested Visits Authorized [id number] Pending Review 09/10/2023 09/09/2024 1 1 * Diagnostic Imaging Ultrasound (Routine) - Pending Review Specialty Diagnoses / Procedures Referred By Contac t Referred To Contact Radiology. Diagnoses growth restriction antepartum Procedures [facility] US OB Limited Single/Multiple Elisa Yoo MD [address] [place] [address] Referral ID Status Reason Start Date Expiration Date V isits Requested Visits Authorized [id number] Pending Review 09/10/2023 09/09/2024 1 1 Reason for Visit * Reason Comments Ultrasound L2: growth res triction on outside US Encounter Details Date Type Department Care Team (Late st Contact Info) Description 09/10/2023 11:30 AM CDT Office Visit [facility] [address] [place] [address] Ghislaine Encinas MD [address] [place], [place] [id number] Elisa Yoo MD [address] [place] [address] [address] [place] [address] growth restriction antepartum (Primary Dx) Social History Tobacco Use Types Packs/Day Years Used Date Smoking Tobacco: Never Passive Smoke Exposure: Never Smokeless Tobacco: Never Alcohol Use Standard Drinks/Week Comments Yes 5 (1 standard drink = 0.6 oz pur e alcohol) PHQ-2 Answer Date Recorded PHQ-2 Score 0 06/17/2022 [place] Depression Scale Answer Date Recorded Last EPDS [...] Sign Reading Time Taken Comments Blood Pressure 124/79 09/10/2023 12:20 PM CDT Pulse 86 09/10/2023 12:20 PM CDT Temperature - - Respiratory Rate 16 09/10/2023 12:20 PM CDT Oxygen Saturation - - Inhaled Oxygen Concentration - - Weight - - Height - - Body Mass Index - - documented in this encounter Progress Notes * Elisa Yoo MD - 09/10/2023 11:30 AM CDT The patient was seen for an ultrasound in the Maternal- Medicine Center at the [facility] today. For a detailed report of the ultrasound examination, please see the ultrasound report whichcan be found under the imaging tab. If you have questions regarding today's evaluation or if we can be of further service, please contact the Maternal- Medicine Center. Elisa Yoo MD [employer], [employer] M[facility] [phone] (Pager) documented in this encounter Nursing Notes * Bianca Kimball RN - 09/10/2023 11:30 AM CDT Patient presents to [facility] for L2US at 24w6d due to growth restriction on outside US. Positive movement. Denies LOF, vaginal bleeding or cramping/contractions. SBAR given to M MD, see their note in Epic. NST performed due to newly diagnosed growth restriction with our M office. Dr. Yoo reviewed efm tracing. See NST/BPP Doc Flowsheet tab. Will start weekly surveillance with [facility]. documented in this encounter Plan of Treatment Upcoming Encounters Date Type Department Care Team (Late st Contact Info) Description 11/12/2023 10:30 AM CDT Office Visit [facility] Medicine [facility] [address] [facility] [address] [place] [phone] Mark Garcia MD [address] [place], [place] [address] Kenton Jasso MD [address] [place], [place] [address] 11/12/2023 11:00 AM CDT Appointment [facility] Medicine [facility] [address] [facility] [address] [place] [phone] Mark Garcia MD [address] [place] [address] Kenton Jasso MD [address] [place], [place] [address] 11/19/2023 10:30 AM CDT Office Visit [facility] Maternal Medicine [facility] [address] [facility] [address] [place] [phone] Mark Garcia MD [address] [place], [place] [id number] 11/19/2023 11:00 AM CDT Appointment [facility] Maternal Medicine [facility] [address] [facility] [address] [place] [phone] Mark Garcia MD [address] [place], [place] [address] Scheduled Orders Name Type Priority Associated Diagnoses Orde r Schedule Nonstress Test (MFM Order Only} OB Routine growth restriction antepartum 5 Occurrences starting 09/10/2023 until 09/09/2024 Scheduled Referrals Name Type Priority Associated Diagnoses Orde r Schedule MFM Office Visit Referral Routine: Next available opening growth restriction antepartum Weekly for 5 Occurrences starting 09/10/2023 until 09/09/2024 documented as of this encounter Results * MFM US OB Limited Single/Multiple (10/08/2023 9:09 AM CDT) Anatomical Region Laterality Modality Ultrasound 10/08/2023 7:57 AM CDT Impressions 10/08/2023 9:00 AM CDT IMPRESSION ----- 1) Springer intrauterine at 28w 6d gestational age. 2) The NST is reactive. 3) The amniotic fluid volume appeared normal. 4) The UA Doppler demonstrates increased resistance to flow. Narrative 10/08/2023 9:00 AM CDT ?Limited ----- Pat. Name: SANAZ SAINZ ? Study Date: ??10/08/2023 7:57am Pat. NO: ??[id number] ?Referring ??MD: GHISLAINE ENCINAS Site: ??[facility] ? Student Development Dean: Meg Stallwotrh RDMS : ??1995 ?Age: ?? 28 ----- INDICATION ----- growth restriction (FGR) METHOD ----- Transabdominal ultrasound examination. View: Sufficient ----- Springer . Number of fetuses: 1 DATING ----- ? Date ?Details ?Gest. age ?CLARIBEL LMP ?03/20/2023 ? 28 w + 6 d ? 12/25/2023 Prior assessment ? 05/19/2023 ? GA: 8 w + 0 d ?28 w + 2 d ? 12/29/2023 Assigned dating ?Dating performed on 10/01/2023, based on the LMP ?28 w + 6 d ? 12/25/2023 GENERAL EVALUATION ----- Cardiac activity present. FHR 142 bpm. movements visualized. Presentation tranverse with head to maternal left. Placenta Anterior. Umbilical cord previously studied. Amniotic fluid Amount of AF: normal. MVP 5.8 cm. DOPPLER ----- Umbilical Artery: abnormal, Elevated PI but there was no evidence of absent or reversed end diastolic flow. Sampling site: midcord PI ?1.48 ?>99% ?Penny HR ?151 ? bpm MATERNAL STRUCTURES ----- Right Ovary ?Not examined Left Ovary ?Not examined NON STRESS TEST ----- NST interpretation: reactive. Test duration 28 min. Baseline FHR 140 bpm. Baseline variability: moderate. Accelerations: present. Decelerations: absent. Uterine activity: absent RECOMMENDATION ----- We discussed the findings on today's ultrasound with the patient. We reviewed that increased resistance to flow in the UA Doppler was noted today; will plan repeat assessment on Wednesday given borderline severe FGR and if stable and CTG is reactive and reassuring will plan to continue weekly surveillance Q Wednesday. Return to primary provider for continued care. Thank-you for the opportunity to participate in the care of this patient. If you have questions regarding today's evaluation or if we can be of further service, please contact the Maternal- Medicine Center. anomalies may be present but not detected I spent a total of 10 minutes on the date of this encounter including preparing to see the patient (reviewing medical records/tests), in direct vhxe-ic-zlgk contact with the patient during her visit with the majority spent counseling and discussing the plan of care and documenting the visit in the electronic medical record. Please see note for details. Procedure Note Kenton Jasso MD - 10/08/2023 Limited ----- Pat. Name: SANAZ SAINZ Study Date: 10/08/2023 7:57am Pat. NO: [id number] Referring MD: GHISLAINE ENCINAS Site: [facility] Student Development Dean: Meg Stallworth RDMS : 1995 Age: 28 ----- INDICATION ----- growth restriction (FGR) METHOD ----- Transabdominal ultrasound examination. View: Sufficient ----- Springer . Number of fetuses: 1 DATING ----- DateDetailsGest. age CLARIBEL LMP w + 6 d 12/25/2023 Prior assessment 05/19/2023 GA: 8 w +0 d28 w + 2 d 12/29/2023 Assigned dating Dating performed on 10/01/2023, based onthe LMP 28 w +6 d 12/25/2023 GENERAL EVALUATION ----- Cardiac activity present. FHR 142 bpm. movements visualized. Presentation tranverse with head to maternal left. Placenta Anterior. Umbilical cord previously studied. Amniotic fluid Amount of AF: normal. MVP 5.8 cm. DOPPLER ----- Umbilical Artery: abnormal, Elevated PI but there was no evidence ofabsent or reversed end diastolic flow. Sampling site: midcord PI 1.48>99% Penny HR 151 bpm MATERNAL STRUCTURES ----- Right Ovary Not examined Left Ovary Not examined NON STRESS TEST ----- NST interpretation: reactive. Test duration 28 min. Baseline FHR 140 bpm.Baseline variability: moderate. Accelerations: present. Decelerations:absent. Uterine activity: absent RECOMMENDATION ----- We discussed the findings on today's ultrasound with the patient. We reviewed that increased resistance to flow in the UA Doppler was noted; will plan repeat assessment on Wednesday given borderline severe FGRand if stable and CTG is reactive and reassuring will plan to continue weekly surveillance QFriday. Return to primary provider for continued care. Thank-you for the opportunity to participate in the care of this patient.If you have questions regarding today's evaluation or if we can be offurther service, please contact the Maternal- Medicine Center. anomalies may be present but not detected I spent a total of 10 minutes on the date of this encounter includingpreparing to see the patient (reviewing medical records/tests), in bmriahyqyd-fn-ujuo contact with the patient during her visit with the majority spent counseling and discussingthe plan of care and documenting the visit in the electronic medicalrecord. Please see note for details. IMPRESSION ----- 1) Springer intrauterine at 28w 6d gestational age. 2) The NST is reactive. 3) The amniotic fluid volume appeared normal. 4) The UA Doppler demonstrates increased resistance to flow. Elisa Yoo MD [facility] US ORDERABLE S * [facility] US Comprehensive Single F/U (10/01/2023 4:11 PM CDT) Anatomical Region Laterality Modality Ultrasound 10/01/2023 3:24 PM CDT Impressions 10/01/2023 4:20 PM CDT IMPRESSION ----- 1. Springer at 27w 6d with growth restriction (EFW 3rd% on 09/09). 2. None of the anomalies commonly detected by ultrasound were evident in the limited anatomic survey as described above. Specifically, anatomy that was suboptimally visualized was seen today and appeared normal. 3. EFW was at the 3rd%ile on today?s ultrasound. Appropriate interval growth was noted. 4. The amniotic fluid volume appeared normal. 5. The umbilical artery Dopplers were normal. 6. The heart rate monitoring was appropriate for gestational age and overall reassuring. Narrative 10/01/2023 4:20 PM CDT ?Comp Follow Up ----- Pat. Name: SANAZ SAINZ ? Study Date: ??10/01/2023 3:24pm Pat. NO: ??[id number] ?Referring ??MD: GHISLAINE ENCINAS Site: ??[facility] ? Student Development Dean: Miky Malone RDMS : ??1995 ?Age: ?? 28 ----- INDICATION ----- Growth Restriction (FGR) METHOD ----- Transabdominal ultrasound examination. View: Sufficient ----- Springer . Number of fetuses: 1 DATING ----- ? Date ?Details ?Gest. age ?CLARIBEL LMP ?03/20/2023 ? 27 w + 6 d ? 12/25/2023 Prior assessment ? 05/19/2023 ? GA: 8 w + 0 d ?27 w + 2 d ? 12/29/2023 U/S ? 10/01/2023 ? based upon AC, BPD, Femur, HC ?26 w + 5 d ? 01/02/2024 Assigned dating ?Dating performed on 10/01/2023, based on the LMP ?27 w + 6 d ? 12/25/2023 GENERAL EVALUATION ----- Cardiac activity present. FHR 150 bpm. movements present. Presentation cephalic. Placenta Anterior. Umbilical cord 3 vessel cord. Amniotic fluid Amount of AF: normal. MVP 5.5 cm. BIOMETRY ----- Main Biometry: BPD ?68.7 ?mm ? 27w 4d ?Hadlock OFD ?89.8 ?mm ? 26w 5d ?Nicolaides HC ?252.0 ?mm ?27w 3d ?Hadlock Cerebellum tr ?33.2 ? mm ?29w 1d ?Nicolaides AC ?213.7 ?mm ?25w 6d ?3% ?Hadlock Femur ?47.5 ? mm ?25w 6d ?Hadlock Humerus ?41.5 ?mm ? 25w 0d ?Kapil Weight Calculation: EFW ? 894 ? g ? 3% ?Hadlock EFW (lb,oz) ? 2 lb 0 ?oz EFW by ?Hadlock ([id number]) Head / Face / Neck Biometry: Spa Associate ? 3.6 ? mm CM ?6.3 ? mm Extremities / Bony Struc Biometry: Radius ? 33.6 ?mm ? 7% ?Thomas Ulna ?37.9 ?mm ? <1% ? Thomas Tibia ?39.0 ?mm ? 1% ?Thomas Fibula ?37.9 ?mm ? 5% ?Thomas ANATOMY ----- The following structures appear normal: Head / Neck ? Cranium. Head size. Head shape. Lateral ventricles. Midline falx. Cavum septi pellucidi. Cerebellum. Cisterna magna. Thalami. Heart / Thorax ?Aortic arch view. 3-vessel view. 9-rogzxl-xdhnomy view. ? Diaphragm. Abdomen ? Stomach. Kidneys. Bladder. Spine ?Cervical spine. Thoracic spine. Lumbar spine. Sacral spine. The following structures were documented previously: Face ? Lips. Profile. Nose. Heart / Thorax ?4-chamber view. RVOT view. LVOT view. Gender: female. DOPPLER ----- Umbilical Artery: normal PI ?1.32 ?93% ?Penny HR ?150 ? bpm MATERNAL STRUCTURES ----- Cervix ?Not examined Right Ovary ?Not examined Left Ovary ?Not examined NON STRESS TEST ----- NST interpretation: reactive. Test duration 38 min. Baseline FHR 145 bpm. Baseline variability: moderate. Accelerations: present. Decelerations: present, single spontaneous deceleration. Uterine activity: absent RECOMMENDATION ----- Thank-you for referring your patient for ultrasound assessment. I discussed the findings on today's ultrasound with the patient. Continue weekly surveillance/UA Dopplers and growth evaluation every 3 weeks. Return to primary provider for continued care. If you have questions regarding today's evaluation or if we can be of further service, please contact the Maternal- Medicine Center. anomalies may be present but not detected Procedure Note Elisa Yoo MD - 10/01/2023 Comp Follow Up ----- Pat. Name: SANAZ SAINZ Study Date: 10/01/2023 3:24pm Pat. NO: [id number] Referring MD: GHISLAINE ENCINAS Site: [facility] Student Development Dean: Miky Malone RDMS : 1995 Age: 28 ----- INDICATION ----- Growth Restriction (FGR) METHOD ----- Transabdominal ultrasound examination. View: Sufficient ----- Springer . Number of fetuses: 1 DATING ----- DateDetailsGest. age CLARIBEL LMP w + 6 d 12/25/2023 Prior assessment 05/19/2023 GA: 8 w +0 d27 w + 2 d 12/29/2023 U/S 10/01/2023ased upon AC, BPD, Femur, HC26 w + 5 d 01/02/2024 Assigned dating Dating performed on 10/01/2023, based onthe LMP 27 w +6 d 12/25/2023 GENERAL EVALUATION ----- Cardiac activity present. FHR 150 bpm. movements present. Presentation cephalic. Placenta Anterior. Umbilical cord 3 vessel cord. Amniotic fluid Amount of AF: normal. MVP 5.5 cm. BIOMETRY ----- Main Biometry: BPD 68.7 mm27w 4d Hadlock OFD 89.8 mm26w 5d Nicolaides HC 252.0 mm27w 3d Hadlock Cerebellum tr 33.2 mm29w 1d Nicolaides AC 213.7 mm25w 6d 3% Hadlock Femur 47.5 mm25w 6d Hadlock Humerus 41.5 mm25w 0d Kapil Weight Calculation: EFW 894 g3% Hadlock EFW (lb,oz) 2 lb 0 oz EFW by Hadlock ([id number]) Head / Face / Neck Biometry: Spa Associate 3.6 mm CM 6.3 mm Extremities / Bony Struc Biometry: Radius 33.6 mm7% Thomas Ulna 37.9 mm<1% Thomas Tibia 39.0 mm1% Thomas Fibula 37.9 mm5% Thomas ANATOMY ----- The following structures appear normal: Head / Neck Cranium. Head size. Head shape.Lateral ventricles. Midline falx. Cavum septi pellucidi. Cerebellum.Cisterna magna. Thalami. Heart / Thorax Aortic arch view. 3-vessel view.3-xmpqda-xfkuprs view. Diaphragm. Abdomen Stomach. Kidneys. Bladder. Spine Cervical spine. Thoracic spine.Lumbar spine. Sacral spine. The following structures were documented previously: Face Lips. Profile. Nose. Heart / Thorax 4-chamber view. RVOT view. LVOTview. Gender: female. DOPPLER ----- Umbilical Artery: normal PI 1.3293% Penny HR 150 bpm MATERNAL STRUCTURES ----- Cervix Not examined Right Ovary Not examined Left Ovary Not examined NON STRESS TEST ----- NST interpretation: reactive. Test duration 38 min. Baseline FHR 145 bpm.Baseline variability: moderate. Accelerations: present. Decelerations:present, single spontaneous deceleration. Uterine activity: absent RECOMMENDATION ----- Thank-you for referring your patient for ultrasound assessment. Idiscussed the findings on today's ultrasound with the patient. Continue weekly surveillance/UA Dopplers and growth evaluationevery 3 weeks. Return to primary provider for continued care. If you have questions regarding today's evaluation or if we can be offurther service, please contact the [facility]aternal[facility] Center. anomalies may be present but not detected IMPRESSION ----- 1. Springer at 27w 6d with growth restriction (EFW 3rd%on 09/09). 2. None of the anomalies commonly detected by ultrasound were evident inthe limited anatomic survey as described above. Specifically,anatomy that was suboptimally visualized was seen today and appeared normal. 3. EFW was at the 3rd%ile on today?s ultrasound. Appropriate intervalgrowth was noted. 4. The amniotic fluid volume appeared normal. 5. The umbilical artery Dopplers were normal. 6. The heart rate monitoring was appropriate for gestational age andoverall reassuring. Elisa OSBORN [facility] US ORDERABLE S * [facility] US OB Limited Single/Multiple (09/22/2023 2:13 PM CDT) Anatomical Region Laterality Modality Ultrasound 09/22/2023 1:40 PM CDT Impressions 09/22/2023 2:56 PM CDT IMPRESSION ----- 1) Normal amniotic fluid volume. 2) Normal UAR doppler PI. 3) tracing with a single deceleration. Narrative 09/22/2023 2:56 PM CDT ?Limited ----- Pat. Name: SANAZ SAINZ ? Study Date: ??09/22/2023 1:40pm Pat. NO: ??[id number] ?Referring ??MD: GHISLAINE ENCINAS Site: ??[facility] ? Student Development Dean: Richa Shaw RDMS : ??1995 ?Age: ?? [...] SAINZ Study Date: 09/22/2023 1:40pm Pat. NO: [id number] Referring MD: GHISLAINE ENCINAS Site: [facility] Student Development Dean: Richa Shaw RDMS : 1995 Age: 28 [...] with a single deceleration. Elisa Yoo MD [facility] US ORDERABLE S * [facility] US OB Limited Single/Multiple (09/15/2023 4:05 PM CDT) Anatomical Region Laterality Modality Ultrasound 09/15/2023 3:55 PM CDT Impressions 09/15/2023 4:17 PM CDT IMPRESSION ----- 1) Normal amniotic fluid volume. 2) Normal UAR doppler PI. 3) monitoring without repetitive decelerations. Narrative 09/15/2023 4:17 PM CDT ?Limited ----- Pat. Name: SANAZ SAINZ ? Study Date: ??09/15/2023 3:55pm Pat. NO: ??[id number] ?Referring ??MD: GHISLAINE ENCINAS Site: ??[facility] ? Student Development Dean: Janelle Marinelli RDMS : ??1995 ?Age: ?? 28 ----- INDICATION ----- growth restriction (FGR) METHOD ----- Transabdominal ultrasound examination. View: Sufficient ----- Springer . Number of fetuses: 1 DATING ----- ? Date ?Details ?Gest. age ?CLARIBEL LMP ?03/20/2023 ? 25 w + 4 d ? 12/25/2023 Prior assessment ? 05/19/2023 ? GA: 8 w + 0 d ?25 w + 0 d ? 12/29/2023 Assigned dating ?Dating performed on 09/15/2023, based on the LMP ?25 w + 4 d ? 12/25/2023 GENERAL EVALUATION ----- Cardiac activity present. FHR 153 bpm. movements visualized. Presentation transverse with head to maternal right. Placenta Anterior. Umbilical cord previously studied. Amniotic fluid Amount of AF: normal. MVP 7.2 cm. DOPPLER ----- Umbilical Artery: normal PI ?1.24 ?78% ? Penny HR ?151 ? bpm MATERNAL STRUCTURES ----- Right Ovary ?Not examined Left Ovary ?Not examined NON STRESS TEST ----- NST interpretation: Appropriate for gestational age. Test duration 35 min. Baseline FHR 150 bpm. Baseline variability: moderate. Accelerations: absent. Decelerations: present, Single variable deceleration. Uterine activity: present. Acoustic stimulation: no RECOMMENDATION ----- We discussed the findings on today's ultrasound with the patient. The patient is scheduled for weekly FGR surveillance. Return to primary provider for continued care. Thank-you for the opportunity to participate in the care of this patient. If you have questions regarding today's evaluation or if we can be of further service, please contact the [facility]. anomalies may be present but not detected Procedure Note aMrk Garcia MD - 09/15/2023 Limited ----- Pat. Name: SANAZ SAINZ Study Date: 09/15/2023 3:55pm Pat. NO: [id number] Referring MD: GHISLAINE ENCINAS Site: [facility] Student Development Dean: Janelle Marinelli RDMS : 1995 Age: 28 ----- INDICATION ----- growth restriction (FGR) METHOD ----- Transabdominal ultrasound examination. View: Sufficient ----- Springer . Number of fetuses: 1 DATING ----- DateDetailsGest. age CLARIBEL LMP w + 4 d 12/25/2023 Prior assessment 05/19/2023 GA: 8 w +0 d25 w + 0 d 12/29/2023 Assigned dating Dating performed on 09/15/2023, based onthe LMP 25 w +4 d 12/25/2023 GENERAL EVALUATION ----- Cardiac activity present. FHR 153 bpm. movements visualized. Presentation transverse with head to maternal right. Placenta Anterior. Umbilical cord previously studied. Amniotic fluid Amount of AF: normal. MVP 7.2 cm. DOPPLER ----- Umbilical Artery: normal PI 1.2478% Penny HR 151 bpm MATERNAL STRUCTURES ----- Right Ovary Not examined Left Ovary Not examined NON STRESS TEST ----- NST interpretation: Appropriate for gestational age. Test duration 35 min.Baseline FHR 150 bpm. Baseline variability: moderate. Accelerations:absent. Decelerations: present, Single variable deceleration. Uterine activity: present. Acousticstimulation: no RECOMMENDATION ----- We discussed the findings on today's ultrasound with the patient. The patient is scheduled for weekly FGR surveillance. Return to primary provider for continued care. Thank-you for the opportunity to participate in the care of this patient.If you have questions regarding today's evaluation or if we can be offurther service, please contact the [facility] Center. anomalies may be present but not detected IMPRESSION ----- 1) Normal amniotic fluid volume. 2) Normal UAR doppler PI. 3) monitoring without repetitive decelerations. Elisa Yoo MD [facility] US ORDERABLE S documented in this encounter Visit Diagnoses Diagnosis growth restriction antepartum- Primary growth restriction antepartum growth restriction antepartum growth restriction antepartum growth restriction antepartum documented in this encounter Care Teams Cost Analyst Relationship Specialty Start Date End Date Cristobal Becreril PA-C [address] [address] [address] PCP - General Family Medicine 06/17/[address] [address] Heavy Mobile Equipment Operator Dietitian, Registered 10/29/21 Cristobal Becerril PA-C 09724 [address] [address] Assigned PCP 06/27/22 documented as of this encounter
--- OUTSIDE RECORDS SUMMARY | 2023-11-05 14:41 | XMS_ITS | Encounter Summary ---
Author Organization [place] Address [address] [place] [address]. [place] [address] Care Team Providers Care Watch Mechanic Name Role Phone Evi Colmenares RD Unavailable Cristobal Becerril PA-C Primary Care Provider Cristobal Becerril PA-C Unavailable [phone] Encounter Details Date Type Department Care Team (Late st Contact Info) Description 09/09/2023 Medical Correspondence [facility] Info Mgmt Srvcs [address] [place] [phone] Scan, Non-Provider Social History Tobacco Use Types Packs/Day Years Used Date Smoking Tobacco: Never Passive Smoke Exposure: Never Smokeless Tobacco: Never Alcohol Use Standard Drinks/Week Comments Yes 5 (1 standard drink = 0.6 oz pur e alcohol) PHQ-2 Answer Date Recorded PHQ-2 Score 0 06/17/2022 [place] Depression Scale Answer Date Recorded Last EPDS [...] Description 11/12/2023 10:30 AM CDT Office Visit [facility] Medicine [place] [address] [address] [facility] [address] [place] [phone] Mark Garcia MD [address] [place], [place] [address] Kenton Jasso MD [address] [place], [place] [address] 11/12/2023 11:00 AM CDT Appointment [facility] Medicine [place] [address] [address] [facility] [address] [place] [phone] Mark Garcia MD [address] [place], [place] [address] Kenton Jasso MD [address] [place], [place] [address] 11/19/2023 10:30 AM CDT Office Visit [facility] Medicine [place] [address] [address] [facility] [address] [place] [phone] Mark Garcia MD [address] [place], [place] [address] 11/19/2023 11:00 AM CDT Appointment [facility] Medicine [place] [address] [address] [facility] [address] [place] [phone] Mark Garcia MD [address] [place] [address] documented as of this encounter Visit Diagnoses Not on filedocumented in this encounter Care Teams Watch Mechanic Relationship Specialty Start Date End Date Cristobal Becerril PA-C [address] [place] [address] PCP - General Family Medicine 06/17/[address] [facility] [place] [address] County Coroner Dietitian, Registered 10/29/21 Cristobal Becerril PA-C 02456 [address] [address] Assigned PCP 06/27/22 documented as of this encounter
--- OUTSIDE RECORDS SUMMARY | 2023-11-05 14:41 | XMS_ITS | Encounter Summary ---
Author Organization [place] Address [facility] [place] [address] Care Team Providers Care Cooler Tender Name Role Phone Evi Colmenares RD Unavailable Cristobal Becerril PA-C Primary Care Provider Cristobal Becerril PA-C Unavailable [phone] Elisa Yoo MD Unavailable [phone] Reason for Referral * Diagnostic Imaging Ultrasound (Routine) - Pending Review Specialty Diagnoses / Procedures Referred By Contac t Referred To Contact Radiology. Diagnoses growth restriction antepartum Procedures MFM US OB Limited Single/Multiple Kenton Jasso MD [address] [place] [address] Referral ID Status Reason Start Date Expiration Date V isits Requested Visits Authorized [id number] Pending Review 10/08/2023 10/07/2024 1 1 Reason for Visit * Reason Comments Ultrasound Limited/UAR/NST- FGR * Consultation (Routine: Next available opening) - Pending Review Specialty Diagnoses / Procedures Referred By Contac t Referred To Contact Diagnoses growth restriction antepartum Elisa Yoo MD [address] [place] [address] Referral ID Status Reason Start Date Expiration Date V isits Requested Visits Authorized [id number] Pending Review 09/10/2023 09/09/2024 5 5 Encounter Details Date Type Department Care Team (Late st Contact Info) Description 10/08/2023 8:30 AM CDT Office Visit [facility] Maternal Medicine Center [address] [place] [address] Kenton Jasso MD [address] [facility] [address] [place] [address] growth restriction antepartum (Primary Dx) Social History Tobacco Use Types Packs/Day Years Used Date Smoking Tobacco: Never Passive Smoke Exposure: Never Smokeless Tobacco: Never Alcohol Use Standard Drinks/Week Comments Yes 5 (1 standard drink = 0.6 oz pur e alcohol) PHQ-2 Answer Date Recorded PHQ-2 Score 0 06/17/2022 [place] Depression Scale Answer Date Recorded Last EPDS [...] Sign Reading Time Taken Comments Blood Pressure 122/80 10/08/2023 9:04 AM CDT Pulse 95 10/08/2023 9:04 AM CDT Temperature - - Respiratory Rate - - Oxygen Saturation - - Inhaled Oxygen Concentration - - Weight - - Height - - Body Mass Index - - documented in this encounter Progress Notes * Kenton Jasso MD - 10/08/2023 8:30 AM CDT Please see Imaging tab under Chart Review for details of today's visit. Kenton Jasso documented in this encounter Nursing Notes * Selma Walker RN - 10/08/2023 8:30 AM CDT Patient reports positive movement, no pain, no contractions, leaking of fluid, or bleeding. NST Performed due to FGR. Dr. Jasso reviewed efm tracing. See NST/BPP Doc Flowsheet tab. documented in this encounter Plan of Treatment Upcoming Encounters Date Type Department Care Team (Late st Contact Info) Description 11/12/2023 10:30 AM CDT Office Visit [facility] Medicine [place] [address] [address] [facility] [address] [place] [address] [phone] Mark Garcia MD [address] [place], [place] [address] Kenton Jasso MD [address] [place], [place] [address] 11/12/2023 11:00 AM CDT Appointment [facility] Medicine [facility] [address] [facility] [address] [place] [phone] Mark Garcia MD [address] [place], [place] [address]200 [phone] Kenton Jasso MD [address] [place], [place] [address] 11/19/2023 10:30 AM CDT Office Visit [facility] Medicine [place] [address] [address] [facility] [address] [place] [address] [phone] Mark Garcia MD [address] [place] [address] 11/19/2023 11:00 AM CDT Appointment [facility] Maternal Medicine [facility] [address] [facility] [address] [place] [address] Mark Garcia MD [address] [place], [place] [phone] documented as of this encounter Results * MFM US OB Limited Single/Multiple (10/12/2023 4:02 PM CDT) Anatomical Region Laterality Modality Ultrasound 10/12/2023 3:35 PM CDT Impressions 10/12/2023 4:06 PM CDT IMPRESSION ----- 1. The amniotic fluid volume appeared normal. 2. The umbilical artery Dopplers were normal. 3. Reactive NST without decelerations. Narrative 10/12/2023 4:06 PM CDT ?Limited ----- Pat. Name: TEEBO, SANAZ ? Study Date: ??10/12/2023 3:35pm Pat. NO: ??[id number] ?Referring ??: NICHOLE GANN Site: ??[facility] ? Aircraft Engine Dismantler: Suzy Hester [facility] : ??1995 ?Age: ?? 28 [...] The patient is scheduled to return to [facility] on Wednesday for FGR surveillance. Return to [...] SAINZ Study Date: 10/12/2023 3:35pm Pat. NO: [id number] Referring MD: NICHOLE GANN Site: [facility] Aircraft Engine Dismantler: Suzy Hester RDMS : 1995 Age: 28 [...] The patient is scheduled to return to [facility] on Wednesday for FGRsurveillance. Return to primary [...] Reactive NST without decelerations. Kenton Jasso MD IMG MFM US ORDERABLE S documented in this encounter Visit Diagnoses Diagnosis growth restriction antepartum- Primary growth restriction antepartum documented in this encounter Care Teams Cooler Tender Relationship Specialty Start Date End Date Cristobal Becerril PA-C [address] [address] PCP - General Family Medicine 06/17/[address] [place] [address] Machine Fancy Stitcher Dietitian, Registered 10/29/21 Cristobal Becerril PA-C [address] [address] [place] [address] Assigned PCP 06/27/22 Elisa Yoo MD [address] [id number] Assigned OBGYN Provider 09/28/23 documented as of this encounter
--- OUTSIDE RECORDS SUMMARY | 2023-11-05 14:41 | XMS_ITS | Encounter Summary ---
Author Organization [place] Address [address] [place] [address]. [place] [address] Care Team Providers Care Ground Crew Lines Person Name Role Phone DarrianEvi RD Unavailable Cristobal Becerril PA-C Primary Care Provider Cristobal Becerril PA-C Unavailable [phone] Encounter Details Date Type Department Care Team (Latest Contact Info) Description 09/10/2023 Travel Social History Tobacco Use Types Packs/Day Years Used Date Smoking Tobacco: Never Passive Smoke Exposure: Never Smokeless Tobacco: Never Alcohol Use Standard Drinks/Week Comments Yes 5 (1 standard drink = 0.6 oz pur e alcohol) PHQ-2 Answer Date Recorded PHQ-2 Score 0 06/17/2022 [place] Depression Scale Answer Date Recorded Last EPDS [...] Description 11/12/2023 10:30 AM CDT Office Visit [facility] Maternal Medicine [place] [address] [address] [facility] [address] [place] [phone] Mark Garcia MD [address] [place] [address] Kenton Jasso MD [address] [place], [place] [address] 11/12/2023 11:00 AM CDT Appointment [facility] Medicine [place] [address] [address] [facility] [address] [place] [phone] Mark Garcia MD [address] [place], [place] [address] [phone] Kenton Jasso MD [address] [place], [place] [address] 11/19/2023 10:30 AM CDT Office Visit [facility] Medicine [place] [address] [address] [facility] [address] [place] [phone] Mark Garcia MD [address] [place], [place] [address] 11/19/2023 11:00 AM CDT Appointment [facility] Maternal Medicine [place] [address] [address] [facility] [address] [place] [phone] Mark Garcia MD [address] [place], [place] [address] documented as of this encounter Visit Diagnoses Not on filedocumented in this encounter Care Teams Ground Crew Lines Person Relationship Specialty Start Date End Date Cristobal Becerril PA-C [address] [address] [address] PCP - General Family Medicine 06/17/[address] 254415 Cvicu Rn Dietitian, Registered 10/29/21 Cristobal Becerril PA-C 81346 [address] [address] Assigned PCP 06/27/22 documented as of this encounter
--- OUTSIDE RECORDS SUMMARY | 2023-11-05 14:41 | XMS_ITS | Encounter Summary ---
Author Organization [place] Address [facility] [place] [address] Care Team Providers Care Supervisor Sewing Department Name Role Phone Evi Colmenares RD Unavailable Cristobal Becerril PA-C Primary Care Provider Cristobal Becerril PA-C Unavailable [phone] Reason for Referral * Diagnostic Imaging Ultrasound (Routine) - Pending Review Specialty Diagnoses / Procedures Referred By Lulu lozoya Referred To Contact Radiology. Diagnoses growth restriction antepartum Procedures MF US OB Limited Single/Multiple Elisa Yoo MD [address] [place] [address] Referral ID Status Reason Start Date Expiration Date V isits Requested Visits Authorized [id number] Pending Review 09/10/2023 09/09/2024 1 1 Reason for Visit * Diagnostic Imaging Ultrasound (Routine) - Pending Review Specialty Diagnoses / Procedures Referred By Lulu lozoya Referred To Contact Radiology. Diagnoses growth restriction antepartum Procedures MF US OB Limited Single/Elisa Maldonado MD [address] [place] [address] Referral ID Status Reason Start Date Expiration Date V isits Requested Visits Authorized [id number] Pending Review 09/10/2023 09/09/2024 1 1 Encounter Details Date Type Department Care Team (Latest Contact Info) Description 09/15/2023 2:54 PM CDT - 09/15/2023 11:59 PM CDT Hospital Encounter [facility] Maternal Medicine Center [place] [address] [place] [phone] Mark Garcia MD [address] [place] [address] growth restriction antepartum Discharge Disposition: Home or Self Care Social History Tobacco Use Types Packs/Day Years Used Date Smoking Tobacco: Never Passive Smoke Exposure: Never Smokeless Tobacco: Never Alcohol Use Standard Drinks/Week Comments Yes 5 (1 standard drink = 0.6 oz pur e alcohol) PHQ-2 Answer Date Recorded PHQ-2 Score 0 06/17/2022 [place] Depression Scale Answer Date Recorded Last EPDS [...] Visit [facility] Medicine [place] [address] [address] [facility] [address] [place] [phone] Mark Garcia MD [address] [place], [place] [address] Kenton Jasso MD [address] [place], [place] [address] 11/12/2023 11:00 AM CDT Appointment [facility] Medicine [place] [address] [address] [facility] [address] [place] [phone] Mark Garcia MD [address] [place], [place] [address] [phone] Kenton Jasso MD [address] [place], [place] [address] 11/19/2023 10:30 AM CDT Office Visit [facility] Medicine [place] [address] [address] [facility] [address] [place] [phone] Mark Garcia MD [address] [place], [place] [address] 11/19/2023 11:00 AM CDT Appointment [facility] Maternal Medicine [facility] [address] [place] [address] Mark Garcia MD [address] [place] [address] documented as of this encounter Procedures Procedure Name Priority Date/Time Associated Diagnosis Comments MFM US OB LIMITED SINGLE/MULTIPLE Routine 09/15/2023 4:05 PM CDT growth restriction antepartum documented in this encounter Results * MFM US OB Limited Single/Multiple (09/15/2023 4:05 PM CDT) Anatomical Region Laterality Modality Ultrasound 09/15/2023 3:55 PM CDT Impressions 09/15/2023 4:17 PM CDT IMPRESSION ----- 1) Normal amniotic fluid volume. 2) Normal UAR doppler PI. 3) monitoring without repetitive decelerations. Narrative 09/15/2023 4:17 PM CDT ?Limited ----- Pat. Name: SANAZ SAINZ ? Study Date: ??09/15/2023 3:55pm Pat. NO: ??[id number] ?Referring ??MD: NICHOLE GANN Site: ??[facility] ? Cabinet Builder: Janelle Marinelli RDMS : ??1995 ?Age: ?? [...] detected Procedure Note Mark Garcia MD - 09/15/2023 Limited ----- Pat. Name: SANAZ SAINZ Study Date: 09/15/2023 3:55pm Pat. NO: [id number] Referring MD: NICHOLE GANN Site: [facility] Cabinet Builder: Janelle Marinelli RDMS : 1995 Age: 28 ----- INDICATION ----- growth restriction (FGR) METHOD ----- Transabdominal ultrasound examination. View: Sufficient ----- Springer . Number of fetuses: 1 DATING ----- DateDetailsGshauna. age CLARIBEL LMP w + 4 d [...] PI. 3) monitoring without repetitive decelerations. Elisa Fredo MD IMG MFM US ORDERABLE S documented in this encounter Visit Diagnoses Diagnosis growth restriction antepartum documented in this encounter Care Teams Supervisor Sewing Department Relationship Specialty Start Date End Date Cristobal Becerril PA-C [address] [address] [address] PCP - General Family Medicine 06/17/[address] [address] Speeder Tender Dietitian, Registered 10/29/21 Cristobal Becerril PA-C 35831 [address] [address] Assigned PCP 06/27/22 documented as of this encounter
--- OUTSIDE RECORDS SUMMARY | 2023-11-05 14:41 | XMS_ITS | Encounter Summary ---
Author Organization [place] Address [facility] [place] [address] Care Team Providers Care Celery Cutter Name Role Phone DarrianIsa chaidezmichael LOWERY Unavailable Cristobal Becerril PA-C Primary Care Provider Cristobal Becerril PA-C Unavailable [phone] Reason for Visit * Reason Comments Ultrasound NST/Limited/UAR-FGR * Consultation (Routine: Next available opening) - Pending Review Specialty Diagnoses / Procedures Referred By Contray t Referred To Contact Diagnoses growth restriction antepartum Elisa Yoo MD [address] [place] [address] Referral ID Status Reason Start Date Expiration Date V isits Requested Visits Authorized [id number] Pending Review 09/10/2023 09/09/2024 5 5 Encounter Details Date Type Department Care Team (Late st Contact Info) Description 09/22/2023 1:45 PM CDT Office Visit [facility] Maternal Medicine Center [place] [address] [facility] [address] [place] [address] Mark Garcia MD [address] [place] [address] growth restriction antepartum (Primary Dx) Social History Tobacco Use Types Packs/Day Years Used Date Smoking Tobacco: Never Passive Smoke Exposure: Never Smokeless Tobacco: Never Alcohol Use Standard Drinks/Week Comments Yes 5 (1 standard drink = 0.6 oz pur e alcohol) PHQ-2 Answer Date Recorded PHQ-2 Score 0 06/17/2022 [place] Depression Scale Answer Date Recorded Last EPDS [...] Sign Reading Time Taken Comments Blood Pressure 114/77 09/22/2023 2:35 PM CDT Pulse 87 09/22/2023 2:35 PM CDT Temperature - - Respiratory Rate - - Oxygen Saturation 97% 09/22/2023 2:35 PM CDT Inhaled Oxygen Concentration - - Weight - - Height - - Body Mass Index - - documented in this encounter Progress Notes * Mark Garcia MD - 09/22/2023 1:45 PM CDT Please see Imaging tab under Chart Review for details of today's US at the [facility]. Mark Garcia MD Maternal- Medicine documented in this encounter Nursing Notes * Amanda Aragon RN - 09/22/2023 1:45 PM CDT Patient reports active movement, denies pain, contractions, leaking of fluid, or bleeding. Patient denies headache, visual changes, nausea/vomiting, epigastric pain related to preeclampsia. SBAR given to ARSENIO BASS, see their note in Epic. NST Performed due to FGR. reviewed efm tracing. See NST/BPP Doc Flowsheet tab. documented in this encounter Plan of Treatment Upcoming Encounters Date Type Department Care Team (Late st Contact Info) Description 11/12/2023 10:30 AM CDT Office Visit [facility] Maternal Medicine [place] [address] [place] [address] [phone] Mark Garcia MD [address] [place], [place] [address] Kenton Jasso MD [address] [place], [place] [address] 11/12/2023 11:00 AM CDT Appointment [facility] Medicine [place] [address] [place] [phone] Mark Garcia MD [address] [place], [place] [address] [phone] Kenton Jasso MD [address] [place], [place] [address] 11/19/2023 10:30 AM CDT Office Visit [facility] Maternal Medicine [place] [address] [place] [phone] Mark Garcia MD [address] [place] [address] 11/19/2023 11:00 AM CDT Appointment [facility] Maternal Medicine [place] [address] [place] [phone] Mark Garcia MD [address] [address] 742884 documented as of this encounter Visit Diagnoses Diagnosis growth restriction antepartum- Primary documented in this encounter Care Teams Celery Cutter Relationship Specialty Start Date End Date Cristobal Becerril PA-C [address] [address] [address] PCP - General Family Medicine 06/17/[address] [facility] [place] [address] Hotel Front Desk Agent Dietitian, Registered 10/29/21 Cristobal Becerril PA-C 56755 [address] [address] Assigned PCP 06/27/22 documented as of this encounter
--- OUTSIDE RECORDS SUMMARY | 2023-11-05 14:41 | XMS_ITS | Encounter Summary ---
Author Organization [place] Address [address] [place] [address]. [place] [address] Care Team Providers Care Community Affairs Director Name Role Phone DarrianEvi RD Unavailable Cristobal Becerril PA-C Primary Care Provider Cristobal Becerril PA-C Unavailable [phone] Encounter Details Date Type Department Care Team (Latest Contact Info) Description 09/22/2023 Travel Social History Tobacco Use Types Packs/Day Years Used Date Smoking Tobacco: Never Passive Smoke Exposure: Never Smokeless Tobacco: Never Alcohol Use Standard Drinks/Week Comments Yes 5 (1 standard drink = 0.6 oz pur e alcohol) PHQ-2 Answer Date Recorded PHQ-2 Score 0 06/17/2022 [place] Depression Scale Answer Date Recorded Last EPDS [...] Description 11/12/2023 10:30 AM CDT Office Visit [facility] Maternal Medicine [place] [address] [address] [facility] [address] [place] [phone] Mark Garcia MD [address] [place] [address] Kenton Jasso MD [address] [place], [place] [address] 11/12/2023 11:00 AM CDT Appointment [facility] Medicine [place] [address] [address] [facility] [address] [place] [phone] Mark Garcia MD [address] [place], [place] 2[address] [phone] Kenton Jasso MD [address] [place], [place] [address] 11/19/2023 10:30 AM CDT Office Visit [facility] Medicine [place] [address] [address] [facility] [address] [place] [phone] Mark Garcia MD [address] [place], [place] [address] 11/19/2023 11:00 AM CDT Appointment [facility] Maternal Medicine [place] [address] [address] [facility] [address] [place] [address] [phone] Mark Garcia MD [address] [place], [place] 46[address] documented as of this encounter Visit Diagnoses Not on filedocumented in this encounter Care Teams Community Affairs Director Relationship Specialty Start Date End Date Cristobal Becerril PA-C [address] [address] PCP - General Family Medicine 06/17/[address] 6648[address] Warehouse Clerk Dietitian, Registered 10/29/21 Cristobal Becerril PA-C 64485 [address] [address] Assigned PCP 06/27/22 documented as of this encounter
--- OUTSIDE RECORDS SUMMARY | 2023-11-05 14:41 | XMS_ITS | Encounter Summary ---
Author Organization [place] Address [facility] [place] [address] Care Team Providers Care Form Carpenter Name Role Phone Evi Colmenares RD Unavailable Cristobal Becerril PA-C Primary Care Provider Cristobal Becerril PA-C Unavailable [phone] Elisa Yoo MD Unavailable [phone] Reason for Referral * Diagnostic Imaging Ultrasound (Routine) - Pending Review Specialty Diagnoses / Procedures Referred By Contac t Referred To Contact Radiology. Diagnoses growth restriction antepartum Procedures [facility] US OB Limited Single/Multiple Elisa Yoo MD [address] [place] [address] Referral ID Status Reason Start Date Expiration Date V isits Requested Visits Authorized [id number] Pending Review 09/10/2023 09/09/2024 1 1 Reason for Visit * Diagnostic Imaging Ultrasound (Routine) - Pending Review Specialty Diagnoses / Procedures Referred By Contac t Referred To Contact Radiology. Diagnoses growth restriction antepartum Procedures [facility] US OB Limited Single/Multiple Elisa Yoo MD [address] [place] [address] Referral ID Status Reason Start Date Expiration Date V isits Requested Visits Authorized [id number] Pending Review 09/10/2023 09/09/2024 1 1 Encounter Details Date Type Department Care Team (Latest Contact Info) Description 10/08/2023 7:58 AM CDT - 10/08/2023 11:59 PM CDT Hospital Encounter [facility] [address] [place] [address] Kenton Jasso MD [address] [place] [address] growth restriction antepartum Discharge Disposition: Home or Self Care Social History Tobacco Use Types Packs/Day Years Used Date Smoking Tobacco: Never Passive Smoke Exposure: Never Smokeless Tobacco: Never Alcohol Use Standard Drinks/Week Comments Yes 5 (1 standard drink = 0.6 oz pur e alcohol) PHQ-2 Answer Date Recorded PHQ-2 Score 0 06/17/2022 [place] Depression Scale Answer Date Recorded Last EPDS [...] CDT Office Visit [facility] Medicine [place] [address] [address] [facility] [address] [place] [phone] Mark Garcia MD [address] [place], [place] [address] Kenton Jasso MD [address] [place], [place] [address] 11/12/2023 11:00 AM CDT Appointment [facility] Medicine [place] [address] [facility] [address] [place] [phone] Mark Garcia MD [address] [place], [place] [address] [phone] Kenton Jasso MD [address] [place], [place] [address] 11/19/2023 10:30 AM CDT Office Visit [facility] Medicine [place] [address] [facility] [address] [place] [phone] Mark Garcia MD [address] [place], [place] [address] 11/19/2023 11:00 AM CDT Appointment [facility] [place] [address] [facility] [address] [place] [address] Mark Garcia MD [address] [place] [address] documented as of this encounter Procedures Procedure Name Priority Date/Time Associated Diagnosis Comments MFM US OB LIMITED SINGLE/MULTIPLE Routine 10/08/2023 9:09 AM CDT growth restriction antepartum documented in [...] ? Study Date: ??10/08/2023 7:57am Pat. NO: ??[id number] ?Referring ??MD: NICHOLE GANN Site: ??[place] ? [employer] Production Line: Meg Stallworth RDMS : ??1995 ?Age: ?? [...] the patient (reviewing medical records/tests), in direct mlkn-xn-exti contact with the patient during her visit with the majority spent counseling and discussing the plan of care and documenting the visit in the electronic medical record. Please see note for details. Procedure Note Kenton Jasso MD - 10/08/2023 Limited ----- Pat. Name: SANAZ SAINZ Study Date: 10/08/2023 7:57am Pat. NO: [id number] Referring MD: NICHOLE GANN Site: [facility] [employer] Production Line: Meg Stallworth RDMS : 1995 Age: 28 [...] to flow in the UA Doppler was notedtoday; will plan repeat assessment on Wednesday given [...] see the patient (reviewing medical records/tests), in ijadiowhhj-qq-khmx contact with the patient during her visit [...] increased resistance to flow. Elisa Yoo MD [facility] US ORDERABLE S documented in this encounter Visit Diagnoses Diagnosis growth restriction antepartum documented in this encounter Care Teams Form Carpenter Relationship Specialty Start Date End Date Cristobal Becerril PA-C [address] [address] PCP - General Family Medicine 06/17/[address] [address] Pool Table Mechanic Dietitian, Registered 10/29/21 Cristobal Becerril PA-C [address] [address] Assigned PCP 06/27/22 Elisa Yoo MD [address] [address] Assigned OBGYN Provider 09/28/23 documented as of this encounter
--- OUTSIDE RECORDS SUMMARY | 2023-11-05 14:41 | XMS_ITS | Encounter Summary ---
Author Organization [place] Address [address] [place] [address]. [place] [address] Care Team Providers Care Wire Bound Box Machine Helper Name Role Phone DarrianEvi RD Unavailable Cristobal Becerril PA-C Primary Care Provider Cristobal Becerril PA-C Unavailable [phone] Encounter Details Date Type Department Care Team (Latest Contact Info) Description 09/15/2023 Travel Social History Tobacco Use Types Packs/Day Years Used Date Smoking Tobacco: Never Passive Smoke Exposure: Never Smokeless Tobacco: Never Alcohol Use Standard Drinks/Week Comments Yes 5 (1 standard drink = 0.6 oz pur e alcohol) PHQ-2 Answer Date Recorded PHQ-2 Score 0 06/17/2022 [place] Depression Scale Answer Date Recorded Last EPDS [...] Description 11/12/2023 10:30 AM CDT Office Visit [facility] Maternal Medicine [place] [address] [address] [facility] [address] [place] [phone] Mark Garcia MD [address] [place] [address] Kenton Jasso MD [address] [place], [place] [address] 11/12/2023 11:00 AM CDT Appointment [facility] Medicine [place] [address] [address] [facility] [address] [place] [phone] Mark Garcia MD [address] [place], [place] [address] [phone] Kenton Jasso MD [address] [place], [place] [address] 11/19/2023 10:30 AM CDT Office Visit [facility] Medicine [place] [address] [address] [facility] [address] [place] [phone] Mark Garcia MD [address] [place], [place] [address] 11/19/2023 11:00 AM CDT Appointment [facility] Maternal Medicine [place] [address] [address] [facility] [address] [place] [phone] Mark Garcia MD [address] [place], [place] [address] documented as of this encounter Visit Diagnoses Not on filedocumented in this encounter Care Teams Wire Bound Box Machine Helper Relationship Specialty Start Date End Date Cristobal Becerril PA-C [address] [address] PCP - General Family Medicine 06/17/[address] [address] Rivet Flunky Dietitian, Registered 10/29/21 Cristobal Becerril PA-C [address] [address] Assigned PCP 06/27/22 documented as of this encounter
--- OUTSIDE RECORDS SUMMARY | 2023-11-05 14:41 | XMS_ITS | Encounter Summary ---
Author Organization [place] Address [facility] [place] [address] Care Team Providers Care Tin Roller Hot Mill Name Role Phone Evi Colmenares RD Unavailable Cristobal Becerril PA-C Primary Care Provider Cristobal Becerril PA-C Unavailable [phone] Elisa Yoo MD Unavailable [phone] Reason for Referral * Consultation (Routine: Next available opening) - Pending Review Specialty Diagnoses / Procedures Referred By Contac t Referred To Contact Diagnoses growth restriction antepartum Elisa Yoo MD [address] [place] [address] Referral ID Status Reason Start Date Expiration Date V isits Requested Visits Authorized [id number] Pending Review 10/01/2023 09/30/2024 10 10 Question Answer CTG/NST Yes Comments Estimated Date of Delivery: Dec 25, 2023 For FGR * Diagnostic Imaging Ultrasound (Routine) - Pending Review Specialty Diagnoses / Procedures Referred By Contac t Referred To Contact Radiology. Diagnoses growth restriction antepartum Procedures MFM US OB Limited Single/Multiple Elisa Yoo MD [address] [place] [address] Referral ID Status Reason Start Date Expiration Date V isits Requested Visits Authorized [id number] Pending Review 10/01/2023 09/30/2024 1 1 * Diagnostic Imaging Ultrasound (Routine) - Pending Review Specialty Diagnoses / Procedures Referred By Contac t Referred To Contact Radiology. Diagnoses growth restriction antepartum Procedures MFM US Comprehensive Single F/U Elisa Yoo MD [address] [place] [address] Referral ID Status Reason Start Date Expiration Date V isits Requested Visits Authorized [id number] Pending Review 10/01/2023 09/30/2024 1 1 * Diagnostic Imaging Ultrasound (Routine) - Pending Review Specialty Diagnoses / Procedures Referred By Contac t Referred To Contact Radiology. Diagnoses growth restriction antepartum Procedures MFM US OB Limited Single/Multiple Elisa Yoo MD [address] [place] [address] Referral ID Status Reason Start Date Expiration Date V isits Requested Visits Authorized [id number] Pending Review 10/01/2023 09/30/2024 1 1 Reason for Visit * Reason Comments Ultrasound RL2/UAR/NST: g rowth restriction * Consultation (Routine: Next available opening) - Pending Review Specialty Diagnoses / Procedures Referred By Contac t Referred To Contact Diagnoses growth restriction antepartum Elisa Yoo MD [address] [place] [address] Referral ID Status Reason Start Date Expiration Date V isits Requested Visits Authorized [id number] Pending Review 09/10/2023 09/09/2024 5 5 Encounter Details Date Type Department Care Team (Late st Contact Info) Description 10/01/2023 2:30 PM CDT Office Visit [facility] Maternal Medicine Center [address] [place] [address] Elisa Yoo MD [address] [place] [address] growth restriction antepartum (Primary Dx); Obesity in , antepartum; BMI 40.0-44.9, adult (H) Social History Tobacco Use Types Packs/Day Years Used Date Smoking Tobacco: Never Passive Smoke Exposure: Never Smokeless Tobacco: Never Alcohol Use Standard Drinks/Week Comments Yes 5 (1 standard drink = 0.6 oz pur e alcohol) PHQ-2 Answer Date Recorded PHQ-2 Score 0 06/17/2022 [place] Depression Scale Answer Date Recorded Last EPDS [...] Sign Reading Time Taken Comments Blood Pressure 127/77 10/01/2023 3:34 PM CDT Pulse 87 10/01/2023 3:34 PM CDT Temperature - - Respiratory Rate 16 10/01/2023 3:34 PM CDT Oxygen Saturation - - Inhaled Oxygen Concentration - - Weight - - Height - - Body Mass Index - - documented in this encounter Progress Notes * Elisa Yoo MD - 10/01/2023 2:30 PM CDT The patient was seen for an ultrasound in the Maternal- Medicine Center at the [facility] today. For a detailed report of the ultrasound examination, please see the ultrasound report whichcan be found under the imaging tab. If you have questions regarding today's evaluation or if we can be of further service, please contact the Maternal- Medicine Center. Elisa Yoo MD Assistant Professor Of History, [employer] Maternal- Medicine [phone] (Pager) documented in this encounter Nursing Notes * Bianca Kimball RN - 10/01/2023 2:30 PM CDT Patient presents to [facility] for RL2/UAR at 27w6d due to growth restriction. Positive movement. Denies LOF, vaginal bleeding or cramping/contractions. SBAR given to [facility] MD, see their note in Epic. NST performed. Dr. Yoo reviewed efm tracing. See NST/BPP Doc Flowsheet tab. documented in this encounter Plan of Treatment Upcoming Encounters Date Type Department Care Team (Late st Contact Info) Description 11/12/2023 10:30 AM CDT Office Visit [facility] Medicine [place] [address] [address] [facility] [address] [place] [phone] Mark Garcia MD [address] [place], [place] [phone] Kenton Jasso MD [address] [place], [place] [address] 11/12/2023 11:00 AM CDT Appointment [facility] Medicine [facility] [address] [facility] [address] [place] [phone] Mark Garcia MD [address] [place], [place] [phone] Kenton Jasso MD [address] [place], [place] [address] 11/19/2023 10:30 AM CDT Office Visit [facility] Maternal Medicine [facility] [address] [place] [phone] Mark Garcia MD [address] [place], [place] [address] 11/19/2023 11:00 AM CDT Appointment [facility] Maternal Medicine [facility] [address] [facility] [address] [place] [phone] Mark Garcia MD [address] [place], [place] [phone] Scheduled Orders Name Type Priority Associated Diagnoses Orde r Schedule Nonstress Test (MFM Order Only} OB Routine growth restriction antepartum 10 Occurrences starting 10/01/2023 until 09/30/2024 Scheduled Referrals Name Type Priority Associated Diagnoses Orde r Schedule MFM Office Visit Referral Routine: Next available opening growth restriction antepartum Weekly for 10 Occurrences starting 10/01/2023 until 09/30/2024 documented as of this encounter Results * [...] ? Study Date: ??10/29/2023 3:06pm Pat. NO: ??[id number] ?Referring ??MD: NICHOLE GANN Site: ??[place] ? [employer] Doll Wigs: Meg Stallworth RDMS : ??1995 ?Age: ?? [...] SAINZ Study Date: 10/29/2023 3:06pm Pat. NO: [id number] Referring MD: NICHOLE GANN Site: [facility] Hackler Doll Wigs: Meg Stallworth RDMS : 1995 Age: 28 [...] appropriate for gestational age. Elisa Yoo MD [facility] US ORDERABLE S * [facility] Comprehensive Single F/U (10/20/2023 10:05 AM CDT) [...] ? Study Date: ??10/20/2023 9:27am Pat. NO: ??[id number] ?Referring ??: NICHOLE GANN Site: ??[place] ? Hack[employer] Doll Wigs: Miky Malone RDMS : ??1995 ?Age: ?? [...] 3 lb 0 ?oz EFW by ?Hadlock (WVB-LC-ES-FL) Head / Face / Neck Biometry: Government Instructor ? 7.8 ? mm CM ?4.3 ? [...] documented previously: Heart / Thorax ?4-chamber view. 2-fapqsw-alywfth view. Spine ?Cervical spine. Thoracic spine. Lumbar [...] SAINZ Study Date: 10/20/2023 9:27am Pat. NO: [id number] Referring MD: NICHOLE GANN Site: [facility] Hackler Doll Wigs: Miky Malone RDMS : 1995 Age: 28 [...] 3 lb 0 oz EFW by Hadlock ([id number]-TV-SD-FL) Head / Face / Neck Biometry: Government Instructor 7.8 mm CM 4.3 mm ANATOMY ----- The following structures appear normal: Head / Neck Cranium. Head size. Head shape.Lateral ventricles. Midline falx. Cavum septi pellucidi. Cerebellum.Cisterna magna. Thalami. Face Lips. Profile. Nose. Heart / Thorax RVOT view. LVOT view. Diaphragm. Abdomen Stomach. Kidneys. Bladder. The following structures were documented previously: Heart / Thorax 4-chamber view. 3-mqlzbq-avkzpqgrvte. Spine Cervical spine. Thoracic spine.Lumbar spine. Sacral [...] Reactive NST without decelerations. Elisa Yoo MD G [facility] US ORDERABLE S * [facility] US OB Limited Single/Multiple (10/15/2023 4:10 PM [...] ? Study Date: ??10/15/2023 3:47pm Pat. NO: ??[id number] ?Referring ??MD: NICHOLE GANN Site: ??[place] ? [employer] Doll Wigs: Elissa Fritz RDMS : ??1995 ?Age: ?? 28 ----- [...] The patient is scheduled to return to [facility] on 10/20/23 for FGR surveillance and growth [...] SAINZ Study Date: 10/15/2023 3:47pm Pat. NO: [id number] Referring MD: NICHOLE GANN Site: [facility] Hackler Doll Wigs: Elissa Fritz RDMS : 1995 Age: 28 [...] The patient is scheduled to return to [facility] on 10/20/23 for FGR surveillanceand growth assessment. [...] Reactive NST without decelerations. Elisa Yoo MD [facility] US ORDERABLE S documented in this encounter Visit Diagnoses Diagnosis growth restriction antepartum- Primary Obesity in , antepartum Obesity complicating , childbirth, or the puerperium, antepartum condition or complication BMI 40.0-44.9, adult (H) Body Mass Index 40.0-44.9, adult growth restriction antepartum growth restriction antepartum growth restriction antepartum documented in this encounter Care Teams Tin Roller Hot Mill Relationship Specialty Start Date End Date Cristobal Becerril PA-C [address] [address] PCP - General Family Medicine 06/17/[address] [address] Registered Nurses Dietitian, Registered 10/29/21 Cristobal Becerril PA-C [address] [address] Assigned PCP 06/27/22 Elisa Yoo MD [address] [place] [address] Assigned OBGYN Provider 09/28/23 documented as of this encounter
--- OUTSIDE RECORDS SUMMARY | 2023-11-05 14:41 | XMS_ITS | Encounter Summary ---
Author Organization [place] Address [facility] [place] [address] Care Team Providers Care Bridge Maintenance Worker Name Role Phone Evi Colmenares RD Unavailable Cristobal Becerril PA-C Primary Care Provider Cristobal Becerril PA-C Unavailable [phone] Elisa Yoo MD Unavailable [phone] Reason for Referral * Diagnostic Imaging Ultrasound (Routine) - Pending Review Specialty Diagnoses / Procedures Referred By Contac t Referred To Contact Radiology. Diagnoses growth restriction antepartum Procedures [facility] US Comprehensive Single F/U Elisa Yoo MD [address] [place] [address] Referral ID Status Reason Start Date Expiration Date V isits Requested Visits Authorized [id number] Pending Review 09/10/2023 09/09/2024 1 1 Reason for Visit * Diagnostic Imaging Ultrasound (Routine) - Pending Review Specialty Diagnoses / Procedures Referred By Contac t Referred To Contact Radiology. Diagnoses growth restriction antepartum Procedures [facility] US Comprehensive Single F/U Elisa Yoo MD [address] [place] [address] Referral ID Status Reason Start Date Expiration Date V isits Requested Visits Authorized [id number] Pending Review 09/10/2023 09/09/2024 1 1 Encounter Details Date Type Department Care Team (Latest Contact Info) Description 10/01/2023 2:28 PM CDT - 10/01/2023 11:59 PM CDT Hospital Encounter [facility] Maternal Medicine Center [address] [place] [address] Elisa Yoo MD [address] [place] [address] growth restriction antepartum Discharge Disposition: Home or Self Care Social History Tobacco Use Types Packs/Day Years Used Date Smoking Tobacco: Never Passive Smoke Exposure: Never Smokeless Tobacco: Never Alcohol Use Standard Drinks/Week Comments Yes 5 (1 standard drink = 0.6 oz pur e alcohol) PHQ-2 Answer Date Recorded PHQ-2 Score 0 06/17/2022 [place] Depression Scale Answer Date Recorded Last EPDS [...] Description 11/12/2023 10:30 AM CDT Office Visit [facility] Medicine [place] [address] [facility] [address] [place] [phone] Mark Garcia MD [address] [place] [address] Kenton Jasso MD [address] [place], [place] [address] 11/12/2023 11:00 AM CDT Appointment [facility] Medicine [facility] [address] [facility] [address] [place] [phone] Mark Garcia MD [address] [place] [address] Kenton Jasso MD [address] [place], [place] [address] 11/19/2023 10:30 AM CDT Office Visit [facility] Medicine [place] [address] [facility] [address] [place] [phone] Mark Garcia MD [address] [place], [place] [address] 11/19/2023 11:00 AM CDT Appointment [facility] Maternal Medicine Center [place] [address] [place] [address] Mark Garcia MD [address] [place], [place] [address] documented as of this encounter Procedures Procedure Name Priority Date/Time Associated Diagnosis Comments [facility] US COMPREHENSIVE SINGLE F/U Routine 10/01/2023 4:11 PM CDT growth restriction antepartum documented in this encounter Results * [facility] US Comprehensive Single F/U (10/01/2023 4:11 [...] ? Study Date: ??10/01/2023 3:24pm Pat. NO: ??[id number] ?Referring ??MD: NICHOLE GANN [facility] [address] [employer] [address]: Miky Malone RDMS : ??1995 ?Age: ?? [...] Biometry: BPD ?68.7 ?mm ? 27w 4d ?Pete STOUT ?89.8 ?mm ? 26w 5d ?Nicolaides HC ?252.0 ?mm ?27w 3d ?Hadlock Cerebellum tr ?33.2 ? mm ?29w 1d ?Nicolaides AC ?213.7 ?mm ?25w 6d ?3% ?Hadlock Femur ?47.5 ? mm ?25w 6d ?Hadlock Humerus ?41.5 ?mm ? 25w 0d ?Kapil Weight Calculation: EFW ? 894 ? g ? 3% ?Hadlock EFW (lb,oz) ? 2 lb 0 ?oz EFW by ?Hadlock ([id number]-UV-[id number]-FL) Head / Face / Neck Biometry: Harp Regulator ? 3.6 ? mm CM ?6.3 ? mm Extremities / Bony Struc Biometry: Radius ? 33.6 ?mm ? 7% ?Thmoas Ulna ?37.9 ?mm ? <1% ? Thomas Tibia ?39.0 ?mm ? 1% ?Thomas Fibula ?37.9 ?mm ? 5% ?Thomas ANATOMY ----- The following structures appear normal: Head / Neck ? Cranium. Head size. Head shape. Lateral ventricles. Midline falx. Cavum septi pellucidi. Cerebellum. Cisterna magna. Thalami. Heart / Thorax ?Aortic arch view. 3-vessel view. 6-gdijym-idutzbe view. ? Diaphragm. Abdomen ? Stomach. Kidneys. [...] SAINZ Study Date: 10/01/2023 3:24pm Pat. NO: [id number] Referring MD: NICHOLE GANN Site: [facility] [address]: Miky Malone RDMS : 1995 Age: 28 ----- INDICATION ----- Growth Restriction (FGR) METHOD ----- Transabdominal ultrasound examination. View: Sufficient ----- Springer . Number of fetuses: 1 DATING ----- DateDetailsGest. age CLARIBEL LMP w + 6 d 12/25/2023 Prior assessment 05/19/2023 GA: 8 w +0 d27 w + 2 d 12/29/2023 U/S 4based upon AC, BPD, Femur, HC26 w + [...] 2 lb 0 oz EFW by Hadlock (TGE-RX-TI-FL) Head / Face / Neck Biometry: Harp Regulator 3.6 mm CM 6.3 mm Extremities / Bony Struc Biometry: Radius 33.6 mm7% Thomas Ulna 37.9 mm<1% Thomas Tibia 39.0 mm1% Thomas Fibula 37.9 mm5% Thomas ANATOMY ----- The following structures appear normal: Head / Neck Cranium. Head size. Head shape.Lateral ventricles. Midline falx. Cavum septi pellucidi. Cerebellum.Cisterna magna. Thalami. Heart / Thorax Aortic arch view. 3-vessel view.0-acklde-qqxwlum view. Diaphragm. Abdomen Stomach. Kidneys. Bladder. Spine [...] appropriate for gestational age andoverall reassuring. Elisa Yoo MD [facility] US ORDERABLE S documented in this encounter Visit Diagnoses Diagnosis growth restriction antepartum documented in this encounter Care Teams Bridge Maintenance Worker Relationship Specialty Start Date End Date Cristobal Becerril [place]-C [address] [place] [address] PCP - General Family Medicine 06/17/[address] [facility] [place] [address] Biological Inspector Dietitian, Registered 10/29/21 Cristobal Becerril PA-C [address] [place] [address] Assigned PCP 06/27/22 Elisa Yoo MD [address] [address] Assigned OBGYN Provider 09/28/23 documented as of this encounter
--- OUTSIDE RECORDS SUMMARY | 2023-11-05 14:41 | XMS_ITS | Encounter Summary ---
Author Organization [place] Address [address] [place] [address]. [place] [address] Care Team Providers Care Single Needle Tufting Machine Operator Name Role Phone Evi Colmenares RD Unavailable Cristobal Becerril PA-C Primary Care Provider Cristobal Becerril PA-C Unavailable [phone] Elisa Yoo MD Unavailable [phone] Encounter Details Date Type Department Care Team (Latest Contact Info) Description 10/01/2023 Travel Social History Tobacco Use Types Packs/Day Years Used Date Smoking Tobacco: Never Passive Smoke Exposure: Never Smokeless Tobacco: Never Alcohol Use Standard Drinks/Week Comments Yes 5 (1 standard drink = 0.6 oz pur e alcohol) PHQ-2 Answer Date Recorded PHQ-2 Score 0 06/17/2022 [place] Depression Scale Answer Date Recorded Last EPDS [...] Description 11/12/2023 10:30 AM CDT Office Visit [facility] [place] [address] [address] [facility] [address] [place] [phone] Mark Garcia MD [address] [place], [place] [address] [phone] Kenton Jasso MD [address] [place], [place] [address] 11/12/2023 11:00 AM CDT Appointment [facility] Medicine [place] [address] [address] [facility] [address] [place] [phone] Mark Garcia MD [address] [place], [place] [address] [phone] Kenton Jasso MD [address] [place], [place] [address] 11/19/2023 10:30 AM CDT Office Visit [facility] Medicine [place] [address] [address] [facility] [address] [place] [phone] Mark Garcia MD [address] [place], [place] [address] 11/19/2023 11:00 AM CDT Appointment [facility] Medicine [place] [address] [address] [facility] [address] [place] [phone] Mark Garcia MD [address] [place], [place] [address] documented as of this encounter Visit Diagnoses Not on filedocumented in this encounter Care Teams Single Needle Tufting Machine Operator Relationship Specialty Start Date End Date Cristobal Becerril PA-C [address] [place] [address] PCP - General Family Medicine 06/17/[address] [place] [address] Cosmetics And Toiletries Salesperson Dietitian, Registered 10/29/21 Cristobal Becerril PA-C [address] [place] [address] Assigned PCP 06/27/22 Elisa Yoo MD [address] [address] Assigned OBGYN Provider 09/28/23 documented as of this encounter
--- OUTSIDE RECORDS SUMMARY | 2023-11-05 14:41 | XMS_ITS | Encounter Summary ---
Author Organization [place] Address [facility] [place] [address] Care Team Providers Care Animal Assisted Therapist Name Role Phone DarrianIsa chaidezmichael LOWERY Unavailable Cristobal Becerrli PA-C Primary Care Provider Cristobal Becerril PA-C Unavailable [phone] Reason for Visit * Reason Comments Ultrasound NST/Limited/UAR-FGR * Consultation (Routine: Next available opening) - Pending Review Specialty Diagnoses / Procedures Referred By Contray t Referred To Contact Diagnoses growth restriction antepartum Elisa Yoo MD [id number] [place] [address] Referral ID Status Reason Start Date Expiration Date V isits Requested Visits Authorized [id number] Pending Review 09/10/2023 09/09/2024 5 5 Encounter Details Date Type Department Care Team (Late st Contact Info) Description 09/15/2023 3:00 PM CDT Office Visit [facility] [place] [address] [facility] [address] [place] [address] Mark Garcia MD [address] [place] [address] growth restriction antepartum (Primary Dx) Social History Tobacco Use Types Packs/Day Years Used Date Smoking Tobacco: Never Passive Smoke Exposure: Never Smokeless Tobacco: Never Alcohol Use Standard Drinks/Week Comments Yes 5 (1 standard drink = 0.6 oz pur e alcohol) PHQ-2 Answer Date Recorded PHQ-2 Score 0 06/17/2022 [place] Depression Scale Answer Date Recorded Last EPDS [...] Sign Reading Time Taken Comments Blood Pressure 124/83 09/15/2023 3:50 PM CDT Pulse 105 09/15/2023 3:50 PM CDT Temperature - - Respiratory Rate - - Oxygen Saturation 98% 09/15/2023 3:50 PM CDT Inhaled Oxygen Concentration - - Weight - - Height - - Body Mass Index - - documented in this encounter Progress Notes * Mark Garcia MD - 09/15/2023 3:00 PM CDT Please see Imaging tab under Chart Review for details of today's US at the [facility]. Mark Garcia MD Maternal- Medicine documented in this encounter Nursing Notes * Amanda Aragon RN - 09/15/2023 3:00 PM CDT Patient reports active movement, denies pain, contractions, leaking of fluid, or bleeding. Patient does have a headache tonight. Denies visual changes, nausea/vomiting, epigastric pain related to preeclampsia. SBAR given to ARSENIO BASS, see their note in Epic. NST Performed due to FGR. reviewed efm tracing. See NST/BPP Doc Flowsheet tab. documented in this encounter Plan of Treatment Upcoming Encounters Date Type Department Care Team (Late st Contact Info) Description 11/12/2023 10:30 AM CDT Office Visit [facility] [place] [address] [facility] [address] [place] [phone] Mark Garcia MD [address] [place], [place] [address] Kenton Jasso MD [address] [place], [place] [address] 11/12/2023 11:00 AM CDT Appointment [facility] [place] [address] [facility] [address] [place] [phone] Mark Garcia MD [address] [place], [place] [address] [phone] Kenton Jasso MD [address] [place], [place] [address] 11/19/2023 10:30 AM CDT Office Visit [facility] [place] [address] [address] [facility] [address] [place] [phone] Mark Garcia MD [address] [place] [address] 11/19/2023 11:00 AM CDT Appointment [facility] [place] [address] [address] [facility] [address] [place] [phone] Mark Garcia MD [address] [place] [address] documented as of this encounter Visit Diagnoses Diagnosis growth restriction antepartum- Primary documented in this encounter Care Teams Animal Assisted Therapist Relationship Specialty Start Date End Date Cristobal Becerril PA-C [address] [address] PCP - General Family Medicine 06/17/[address] [facility] [address] Instructor Bus Trolley [employer] Taxi Dietitian, Registered 10/29/21 Cristobal Becerril PA-C [address] [address] Assigned PCP 06/27/22 documented as of this encounter
--- OUTSIDE RECORDS SUMMARY | 2023-11-05 14:42 | XMS_ITS | Clinical Summary ---
Author Organization [facility] Address [place], [place] [address] Care Team Providers Care Decontaminator Name Role Phone Eri Villalta MD Primary Care Provider Allergies No known active allergies Medications Medication Sig Dispensed Refills Start Date End Date Status vit 28/iron fum/folic (MULTIVITAMIN FOLIC ACID 1 MG) Take 1 tablet by mouth once daily. 0 08/01/2020 Active clobetasol 0.05% TOPICAL (TEMOVATE) 0.05 % external solutionIndications: Scalp irritation Apply topically to affected area(s) 2 times daily. Apply to scalp 1 Bottle 08/01/2020 Active desonide 0.05% (TRIDESILON 0.05% CREAM) 0.05 % creamIndications:Demarco h Apply topically to affected area(s) 2 times daily. Apply to neck and face 60 g 08/01/2020 Active valACYclovir (VALTREX) 500 mg tabletIndications:Ge nital herpes simplex, unspecified site Take 1 Tablet (500 mg) by mouth once daily. In case of outbreak, increase to 500 mg THREE times daily for 5-7 days. 90 Tablet 6 12/30/2020 Active Active Problems Problem Noted Date Diagnosed Date Retained intrauterine contraceptive device (IUD) 09/30/2020 Overview: One arm of copper IUD lateral left of lower uterine segment, could not be removed via D&C w/ hysteroscopy. See operative report 12/11/2019. HSV (herpes simplex virus) anogenital infection 04/13/2018 Overview: Takes acyclovir with outbreaks Seasonal allergies 04/13/2018 Resolved Problems Problem Noted Date Diagnosed Date Resolved Date HSV (herpes simplex virus) a nogenital infection 04/13/2018 09/30/2020 Overview: Takes acyclovir with outbreaks Immunizations Name Administration Dates Next Due COVID-19 vaccine (Liquid X NTPeopleString 30mcg/0.3mL) PF, MDV 07/04/2020,06/13/2020 HPV 9 (Gardasil 9) 04/13/2018 Hepatitis A (Peds) 03/30/2011 Hepatitis A, Unspecified 10/24/2014,03/30/2011 Human Papilloma Virus Vaccine 04/02/2016, 016 Influenza, IIV3 (Age >=3 years) 04/06/2008,07/24 Influenza, IIV4 03/20/2020,03/27/2019 Influenza,CCIIV4 PRESERV FREE 05/21/2021 Meningococcal Vaccine (Menactra) 01/19/2005 Meningococcal Vaccine (Menveo) 03/30/2011 Td (Age >=7 Years) 01/19/2005 Tdap 10/22/2021,09/30/2020,03/30/2011 Family History Medical History Relation Name Comments Alcoholism Father Good Health Father Stroke Maternal Grandfather Atrial fibrillation Maternal Grandmother Cancer-breast Mother Depression Mother Good Health Mother Relation Name Status Comments Brother Alive Father Alive Maternal Grandfather Alive Maternal Grandmother Alive Mother Alive Paternal Grandfather Alive Paternal Grandmother Social History Tobacco Use Types Packs/Day Years Used Date Smoking Tobacco: Never Smokeless Tobacco: Never Tobacco Cessation:Counseling Given: Yes Alcohol Use Standard Drinks/Week Comments Not Currently 0 (1 standard drink = 0.6 oz pur e alcohol) sccial PHQ-2 Answer Date Recorded PHQ-2 TOTAL SCORE 1 09/30/2020 Social Connections Answer Date Recorded Frequency of Communication with Friends and Fami ly Not on file 05/28/2021 Financial Resource Strain Answer Date R ecorded Difficulty of Paying Living Expenses Not on file 05/28/2021 Difficulty of Paying Living Expenses Not on file 05/28/2021 Sex and Gender Information Value Date Recorded Sex Assigned at Not on file Gender Identity Not on file Sexual Orientation Not on file Obstetrics History Para Term AB IAB SAB Ectopic Multiple Livin g Live Births 0 0 0 0 0 0 0 0 0 0 Last Filed Vital Signs Vital Sign Reading Time Taken Comments Blood Pressure 130/74 07/01/2022 12:44 PM PLASTER MACHINE TENDER Pulse 84 07/01/2022 12:44 PM PLASTER MACHINE TENDER Temperature 36.2 ??C (97.2 ??F) 05/28/2021 8:35 AM CS T Respiratory Rate 16 12/11/2019 1:50 PM CDT Oxygen Saturation 98% 04/01/2022 1:41 PM CDT Inhaled Oxygen Concentration - - Weight 100.2 kg (221 lb) 07/01/2022 12:44 PM PLASTER MACHINE TENDER Height 160 cm (5' 2.99) 07/01/2022 12:44 PM PLASTER MACHINE TENDER Body Mass Index 39.16 07/01/2022 12:44 PM PLASTER MACHINE TENDER Plan of Treatment Health Maintenance Due Date Last Done Comments HIV for age 15-65 2008 Hepatitis C screening for age 18-79 2011 Depression screening for age 12+ 09/30/2021 09/30/2020, 12/11/2019, 12/09/2019, Additional history exists COVID-19 vaccine series ( season) 2023 07/11/2021, 07/04/2020, 06/13/2020 BMI (ht and wt on same day) for age 18+ 07/01/2023 07/01/2022, 04/08/2022, 04/01/2022, Additional history exists Pap test for age 21-65 10/01/2023 09/30/2020 Influenza for age 9-49 02/06/2024 , 03/20/2020, 03/27/2019, Additional history exists Tetanus booster 10/23/2031 10/22/2021, 09/06, 03/30/2011, Additional history exists Tdap Completed 10/22/2021, 09/06, 03/30/2011 Pneumococcal series for age 6-64 Aged Out No longer eligible based on patient's age to complete this topic Procedures Procedure Name Priority Date/Time Associated Diagnosis Comments LAUNDRY TECH THIN PREP PAP SCREEN IMAGED Routine 09/30/2020 10:30 AM CDT Pap smear for cervical cancer screening from Last 3 Months or Most Recently Relevant to Health Maintenance Results * LAUNDRY TECH THIN PREP PAP SCREEN IMAGED (09/30/2020 10:30 AM CDT) Case Report Gynecologic Cytology Report ? Case: [id number] ? Authorizing Provider: ??Yusuf Hwang, ?Collected: ? 09/30/2020 1030 ? CNM ? Ordering Location: ? [facility] Received: ?09/30/2020 1417 ? Clinic ? First Screen: ?Kip Sue ? Specimen: ?LAUNDRY TECH ThinPrep Vial Screening, Cervical ? 10/09/2020 11:19 AM CDT [facility] INTERPRETATION/ RESULT NEGATIVE FOR INTRAEPITHELIAL LESION OR MALIGNANCY (NIL) (none) 10/09/2020 11:19 AM CDT [facility] [employer] [facility] EN[facility]AL LAB[facility] IMEN ADEQUACY Satisfactory for evaluation Endocervical component present 10/09/2020 11:19 AM CDT [facility] [employer] [facility] HPV REQUEST HPV if ASCUS 10/09/2020 11:19 AM CDT [facility] [employer] [facility] Date of LMP 09/23/2020 10/09/2020 11:19 AM CDT [facility] [employer] [facility] Last Pap Date 2018 10/09/2020 11:19 AM CDT [facility] [employer] [facility] Last Pap Result NIL 11:19 AM CDT [facility] [employer] [facility] Abnormal Pap or Carpenter Bx in last 5 years No 10/09/2020 11:19 AM CDT [facility] [employer] [facility] Menstrual Status Regular Periods 10/09/2020 11:19 AM CDT [facility] [employer] [facility] Carpenter Bx Done Today No 10/09/2020 11:19 AM CDT [facility] [employer] [facility] EN[facility] Additional Information None given 10/09/2020 11:19 AM CDT [facility] [employer] [facility]AL LAB[facility] Comment: Cytology is screened at [facility], Central Laboratory - [address], [place] [address] and [facility] - [address] [place] [address] and [facility] - [address] [place] [address] Interpreted at [facility], Central Laboratory - [address], [place] [address] Automated Review Successful 10/09/2020 11:19 AM CDT [facility] Comment:Specimen processed s uccessfully by automated application tester device, [employer] Imaging System, [employer] Note The pap test is a screening technique, not a diagnostic procedure. It is used primarily to screen for squamous cancers and precursor lesions. Published studies have shown that it is subject to both false negative and false positive results. The pap test should not be used as the sole means to diagnose or exclude pre-malignant and malignant lesions. 10/09/2020 11:19 AM CDT [facility] Other (Cervical) Non-Blood / Unknown 09/30/2020 10:30 AM CDT 09/30/2020 2:17 PM CDT Yusuf Hwang CNM PATHOLOGY/CYTO LOGY [facility] [address] [place] [address], from Last 3 Months or Most Recently Relevant to Health Maintenance Care Teams Decontaminator Relationship Specialty [place] [address] [place] [address] PCP - General Family Practice 05/03/23
--- OUTSIDE RECORDS SUMMARY | 2023-11-05 14:42 | XMS_ITS | Encounter Summary ---
Author Organization [place] Address [address] [place] [address]. [place] [address] Care Team Providers Care Automatic Pattern Edger Name Role Phone Reanna Ortega PA-C Primary Care Pr ovider Reanna Ortega PA-C Unavailable Mark Garcia MD Unavailable [phone] Unavailable Selma Lomeli APRN MACHINE STONECUTTER Primary Care Provider Cristobal Becerril PA-C Primary Care Provider Cristobal Becerril PA-C Unavailable [phone] Elisa Yoo MD Unavailable [phone] Encounter Details Date Type Department Care Team (Late st Contact Info) Description 10/29/2021 MyC Medical Advice [facility] [address] [place] [phone] Dinorah Flores Social History Tobacco Use Types Packs/Day Years Used Date Smoking Tobacco: Never Smokeless Tobacco: Never Alcohol Use Standard Drinks/Week Comments Yes 5 (1 standard drink = 0.6 oz pur e alcohol) PHQ-2 Answer Date Recorded PHQ-2 Score 0 11/01/2018 Comments Yes Sex and Gender Information Value Date Recorded Sex Assigned at Female 08/20/2021 9:26 AM CDT Gender Identity Female 08/20/2021 9:26 AM CDT Sexual Orientation Straight 08/20/2021 9: 26 AM CDT documented as of this encounter Plan of Treatment Upcoming Encounters Date Type Department Care Team (Late st Contact Info) Description 11/12/2023 10:30 AM CDT Office Visit [facility] Maternal Medicine [place] [address] [place] [phone] Mark Garcia MD [address] [place], [place] [address] Kenton Jasso MD [address] [place], [place] [address] 11/12/2023 11:00 AM CDT Appointment [facility] Maternal Medicine [place] [address] [place] [phone] Mark Garcia MD [address] [place], [place] [address] Kenton Jasso MD [address] [place], [place] [address] 11/19/2023 10:30 AM CDT Office Visit [facility] Maternal Medicine [place] [address] [place] [phone] Mark Garcia MD [address] [place] [address] 11/19/2023 11:00 AM CDT Appointment [facility] Maternal Medicine [place] [address] [place] [phone] Mark Garcia MD [address] [place] [address] [address] [place], [place] [address] documented as of this encounter Visit Diagnoses Not on filedocumented in this encounter Care Teams Automatic Pattern Edger Relationship Specialty Start Date End Date Reanna Ortega PA-C [address] [place] [address] PCP - General Physician Fundraising Coordinator 11/01/18 12/02/21 Selma Lomeli APRN CNP [address] [facility] [address] [place] [address] PCP - General resident engineer 12/03/21 06/16/22 Cristobal Becerril PA-C [address] [place] [address] PCP - General Family Medicine 06/17/22 Reanna Ortega PA-C [address] [place] [address] Assigned PCP 11/06/18 11/07/21 Mark Garcia MD [address] [address] [place] [address] Assigned OBGYN Provider 09/07/[address] [place] [address] Ebay Reseller Dietitian, Registered 10/29/21 Cristobal Becerril PA-C [address] [place] [address] Assigned PCP 06/27/22 Elisa Yoo MD [address] [facility] [address] [place] [address] Assigned OBGYN Provider 09/28/23 documented as of this encounter
--- OUTSIDE RECORDS SUMMARY | 2023-11-05 14:42 | XMS_ITS | Encounter Summary ---
Author Organization [facility] Address [address] [place] [address]. [place] [address] Care Team Providers Care Proofing Machine Operator Name Role Phone Mark Garcia MD Unavailable [phone] Unavailable Selma Lomeli APRN AUTO SERVICE STATION ATTENDANT Primary Care Provider Cristobal Becerril PA-C Primary Care Provider Cristobal Becerril PA-C Unavailable [phone] Elisa Yoo MD Unavailable [phone] Encounter Details Date Type Department Care Team (Late st Contact Info) Description 12/17/2021 Orders Only [facility] Centralized Scheduling [facility] [place] [phone] Amos De Souza MD [address] [place] [address] Encounter for laboratory testing for COVID-19 virus Social History Tobacco Use Types Packs/Day Years [...] Orientation Straight 08/20/2021 9: 26 AM CDT COVID-19 Exposure Response Date Recorded In the last 10 days, have yo u been in contact with someone who was confirmed or suspected to have Coronavirus/COVID-19? No / Unsure 12/18/2021 11:38 AM CDT documented as of this encounter Plan of Treatment Upcoming Encounters Date Type Department Care Team (Late st Contact Info) Description 11/12/2023 10:30 AM CDT Office Visit [facility] Maternal Medicine [place] [address] [address] [facility] [address] [place] [address] [phone] Mark Garcia MD [address] [place], [place] [phone] Kenton Jasso MD [address] [place], [place] [address] 11/12/2023 11:00 AM CDT Appointment [facility] Medicine [place] [address] [address] [facility] [address] [place] [address] [phone] Mark Garcia MD [address] [place], [place] [phone] Kenton Jasso MD [address] [place], [place] [address] 11/19/2023 10:30 AM CDT Office Visit [facility] Medicine [place] [address] [address] [facility] [address] [place] [address] [phone] Mark Garcia MD [address] [place], [place] [address] 11/19/2023 11:00 AM CDT Appointment [facility] Maternal Medicine [facility] [place] [address] [place] [address] Mark Garcia MD [address] [place] [address] documented as of this encounter Results * Asymptomatic COVID-19 Virus (Coronavirus) by PCR Nose (12/18/2021 11:43 AM CDT) SARS CoV2 PCR Negative Negative, Testing sent to reference lab. Results will be returned via unsolicited result 12/19/2021 11:53 AM CDT [facility] Comment:NEGATIVE: SARS-CoV-2 (COVID-19) RNA not detected, presumed negative. Swab NASAL STRUCTURE / Unknown Non-blood Collection / Unknown 12/18/2021 11:43 AM CDT 12/18/2021 11:43 AM CDT Narrative [facility] - 12/19/2021 11:53 AM CDT Testing was performed using the davidson SARS-CoV-2 assay on the davidson 6800 System. This test should be ordered for the detection of SARS-CoV-2 in individuals who meet SARS-CoV-2 clinical and/or epidemiological criteria. Test performance is unknown in asymptomatic patients. This test is for in vitro diagnostic use under the FDA EUA for laboratories certified under CLIA to perform high and/or moderate complexity testing. This test has not been FDA cleared or approved. A negative result does not rule out the presence of PCR inhibitors in the specimen or target RNA in concentration below the limit of detection for the assay. The possibility of a false negative should be considered if the patient's recent exposure or clinical presentation suggests COVID-19. This test was validated by the [facility]. This laboratory is certified under the Clinical Laboratory Improvement Amendments of 1988 (CLIA-88) as qualified to perform high and/or moderate complexity laboratory testing. Amos De Souza MD LAB - MICRO GENERAL ORDERABLES [facility] Inf. Diseases Di[facility]. Lab [address] [facility][1], Room [address] [place] [address], [facility] [phone] documented in this encounter Visit Diagnoses Diagnosis Encounter for laboratory testing for COVID-19 virus documented in this encounter Care Teams Proofing Machine Operator Relationship Specialty Start Date End Date Selma Lomeli APRN CNP [address] [place] [phone] PCP - General senior storage engineer 12/03/21 06/16/22 Cristobal Becerril PA-C [address] [place] [address] PCP - General Family Medicine 06/17/22 Mark Garcia MD [address] [facility] [address] [place], [place] [address] Assigned OBGYN Provider 09/07/[address] [facility] [address] Legal Technician Dietitian, Registered 10/29/21 Cristobal Becerril PA-C [address] [place] [address] Assigned PCP 06/27/22 Elisa Yoo MD [address] [place], [place] [address] Assigned OBGYN Provider 09/28/23 documented as of this encounter
--- OUTSIDE RECORDS SUMMARY | 2023-11-05 14:42 | XMS_ITS ---
Author Organization [facility] Address [address] [place] [address]. [place] [address] Care Team Providers Care Group Marketing Vp Name Role Phone Evi Colmenares RD Unavailable Cristobal Becerril PA-C Primary Care Provider Cristobal Becerril PA-C Unavailable [phone] Elisa Yoo MD Unavailable [phone] Diabetes Self-Management Education Status:Enrolled (Active) Start date:10/29/2021 Enrollment date:10/29/2021 Case Team Name Relationship Phone Evi Colmenares RD Funeral Workers(Responsible Staff) [phone] Continued Care and Services Coordination
--- OUTSIDE RECORDS SUMMARY | 2023-11-05 14:42 | XMS_ITS | Encounter Summary ---
Author Organization [facility] Address [address] [place] [address]. [place] [address] Care Team Providers Care Grave Digger Name Role Phone Evi Colmenares RD Unavailable Cristobal Becerril PA-C Primary Care Provider Cristobal Becerril PA-C Unavailable [phone] Elisa Yoo MD Unavailable [phone] Encounter Details Date Type Department Care Team (Late st Contact Info) Description 06/29/2022 [facility] Medical Advice [address] [address] Viky Vázquez RN Social History Tobacco Use Types Packs/Day Years Used Date Smoking Tobacco: Never Smokeless Tobacco: Never Alcohol Use Standard Drinks/Week Comments Yes 5 (1 standard drink = 0.6 oz pur e alcohol) PHQ-2 Answer Date Recorded PHQ-2 Score 0 06/17/2022 [place] Depression Scale Answer Date Recorded Last EPDS Total Score Not on file 12/26/2021 The thought of harming myself has occurred to me . Never 12/26/2021 Sex and Gender Information Value Date Recorded Sex Assigned at Female 08/20/2021 9:26 AM CDT Gender Identity Female 08/20/2021 9:26 AM CDT Sexual Orientation Straight 08/20/2021 9: 26 AM CDT COVID-19 Exposure Response Date Recorded In the last 10 days, have yo u been in contact with someone who was confirmed or suspected to have Coronavirus/COVID-19? No / Unsure 06/17/2022 10:09 AM REEL CUTTER documented as of this encounter Plan of Treatment Upcoming Encounters Date Type Department Care Team (Late st Contact Info) Description 11/12/2023 10:30 AM CDT Office Visit [facility] Maternal Medicine [place] [address] [facility] [address] [place] [phone] Mark Garcia MD [address] [place], [place] [phone] Kenton Jasso MD [address] [place], [place] [address] 11/12/2023 11:00 AM CDT Appointment [facility] Medicine [place] [address] [address] [facility] [address] [place] [phone] Mark Garcia MD [address] [place], [place] [address] Kenton Jasso MD [address] [place], [place] [address] 11/19/2023 10:30 AM CDT Office Visit [facility] Medicine [place] [address] [facility] [address] [place] [phone] Mark Garcia MD [address] [place], [place] [address] 11/19/2023 11:00 AM CDT Appointment [facility] Maternal Medicine [place] [address] [address] [facility] [address] [place] [phone] Mark Garcia MD [address] [place], [place] [address] documented as of this encounter Visit Diagnoses Not on filedocumented in this encounter Care Teams Grave Digger Relationship Specialty Start Date End Date Cristobal Becerril PA-C [address] [place] [address] PCP - General Family Medicine 06/17/[address] [place] [address] Audiometric Technician Dietitian, Registered 10/29/21 Cristobal Becerril PA-C [address] [place] [address] Assigned PCP 06/27/22 Elisa Yoo MD [address] [place], [place] [address] Assigned OBGYN Provider 09/28/23 documented as of this encounter
--- OUTSIDE RECORDS SUMMARY | 2023-11-05 14:42 | XMS_ITS | Encounter Summary ---
Author Organization [facility] Address [address] [place] [address] Care Team Providers Care Checker Cashier Name Role Phone Reanna Ortega PA-C Primary Care Pr ovider Reanna Ortega PA-C Unavailable Mark Garcia MD Unavailable [phone] Unavailable Selma Lomeli APRN POLICE STENOGRAPHER Primary Care Provider Cristobal Becerril PA-C Primary Care Provider Cristobal Becerril PA-C Unavailable [phone] Elisa Yoo MD Unavailable [phone] Reason for Visit * Reason Onset Date Comments Diabetes Education 10/17/2021 Gestational Diabetes 10/17/2021 Encounter Details Date Type Department Care Team (Late st Contact Info) Description 10/17/[address] [address] Dara Tamayo APRN CNM [address] [place] [address] Diabetes Education; Gestational Diabetes Social History Tobacco Use Types Packs/Day Years [...] suspected to have Coronavirus/COVID-19? No / Unsure 09/17/2021 9:24 AM CDT documented as of this encounter Miscellaneous Notes * Telephone Encounter - Martin Mathews - 10/17/2021 9:55 AM CDT Diabetes Education Scheduling Outreach #1: Call to patient to schedule. Left message with phone number to call to schedule. Plan for 2nd outreach attempt within 1 business day. Martin Mathews [facility] Sched[facility] documented in this encounter Plan of Treatment Upcoming Encounters Date Type Department Care Team (Late st Contact Info) Description 11/12/2023 10:30 AM CDT Office Visit [facility] Maternal Medicine [facility] [address] [facility] [address] [place] [phone] Mark Garcia MD [address] [place], [place] [address] Kenton Jasso MD [address] [place], [place] [address] 11/12/2023 11:00 AM CDT Appointment [facility] Maternal Medicine [facility] [address] [facility] [address] [place] [phone] Mark Garcia MD [address] [place] [address] Kenton Jasso MD [address] [place] [address] 11/19/2023 10:30 AM CDT Office Visit [facility] Maternal Medicine [facility] [address] [facility] [address] [place] [phone] Mark Garcia MD [address] [facility] [address] [place], [place] [address] 11/19/2023 11:00 AM CDT Appointment [facility] Maternal Medicine [facility] [address] [facility] [address] [place] [phone] Mark Garcia MD [address] [facility] [address] [place], [place] [address] documented as of this encounter Visit Diagnoses Not on filedocumented in this encounter Care Teams Checker Cashier Relationship Specialty Start Date End Date Reanna Ortega PA-C [address] [place] [address] PCP - General Physician Electro Mechanical Assembler 11/01/18 12/02/21 Selma Lomeli APRN CNP [address] [place] [address] PCP - General snath handle assembler 12/03/21 06/16/22 Cristobal Becerril [place]-C [address] [facility] [place] [address] PCP - General Family Medicine 06/17/22 Reanna Ortega PA-C [address] [place] [address] Assigned PCP 11/06/18 11/07/21 Mark Garcia MD [address] [place] [address] Assigned OBGYN Provider 09/07/[address] [place] [address] Abstractor Dietitian, Registered 10/29/21 Cristobal Becerril PA-C [address] [place] [address] Assigned PCP 06/27/22 Elisa Yoo MD [address] [place], [place] [address] Assigned OBGYN Provider 09/28/23 documented as of this encounter
--- OUTSIDE RECORDS SUMMARY | 2023-11-05 14:42 | XMS_ITS | Encounter Summary ---
Author Organization [facility] Address [address] [place] [address]. [place] [address] Care Team Providers Care Cook Specialty Name Role Phone Reanna Ortega PA-C Primary Care Pr ovider Reanna Ortega PA-C Unavailable Mark Garcia MD Unavailable [phone] Unavailable Selma Lomeli APRN SOLUTIONS MANAGER Primary Care Provider Cristobal Becerril PA-C Primary Care Provider Cristobal Becerril PA-C Unavailable [phone] Elisa Yoo MD Unavailable [phone] Encounter Details Date Type Department Care Team (Late st Contact Info) Description 10/08/2021 External Order Results [facility] [address] [place] [address] Outside, Provider Social History Tobacco Use Types Packs/Day Years [...] 11/12/2023 10:30 AM CDT Office Visit [facility] Maternal Medicine [place] [address] [address] [facility] [address] [place] [phone] Mark Garcia MD [address] [place] [address] Kenton Jasso MD [address] [place], [place] [id number] 11/12/2023 11:00 AM CDT Appointment [facility] Medicine [place] [address] [address] [facility] [address] [place] [phone] Mark Garcia MD [address] [place], [place] [phone] Kenton Jasso MD [address] [place], [place] [address] [phone] 11/19/2023 10:30 AM CDT Office Visit [facility] Medicine [place] [address] [address] [facility] [address] [place] [address] [phone] Mark Garcia MD [address] [place], [place] [address] 11/19/2023 11:[address] [facility] Maternal Medicine [facility] [address] [place] [address] Mark Garcia MD [address] [place] [address] documented as of this encounter Procedures Procedure Name Priority Date/Time Associated Diagnosis Comments TREPONEMA PALLIDUM ANTIBODY (RPR) (EXTERNAL RESULT) Routine 10/08/2021 11:12 AM CDT HEMOGLOBIN (EXTERNAL RESULT) Routine 10/08/2021 11:12 AM CDT GLUCOSE Routine 10/08/2021 11:12 AM CDT documented in this encounter Results * (ABNORMAL) Glucose (10/08/2021 11:12 AM CDT) Glucose (External) 175(H) 65 - 139 mg/dL NON-INTERFACED (ONBASE SCANS) Comment:GEST. DIABETES 1-HR SCREEN Blood 10/08/2021 11:1 2 AM CDT Triny GARLAND PFT - 10/17/2021 7:41 AM CDT Verified by Chitra Casanova on 10/17/2021. Dara NIXON LAB - BLOOD ORDE BENJAMÍN [facility] PFT NON-INTERFACED (ONBASE SCANS) * Treponema Pallidum Antibody (RPR) (External Result) (10/08/2021 11:12 AM CDT) Treponema Palldum Antibody (External) Non Reactive NON REACTIVE NON-INTERFAC ED (ONBASE SCANS) 10/08/2021 11:1 2 AM CDT Narrative TYRELLEZE PFT - 10/17/2021 7:41 AM CDT Verified by Chitra Casanova on 10/17/2021. Dara Tamayo APRN, CNM LAB - HIM DELIVERY MGR AL RESULT [facility] PFT NON-INTERFACED (ONBASE SCANS) * Hemoglobin (External Result) (10/08/2021 11:12 AM CDT) Hemoglobin (External) 11.3 11.1 - 15.9 g/dL NON-INTERFACED (ONBASE SCANS) Blood 10/08/2021 11:1 2 AM CDT Narrative [facility] - 10/17/2021 7:40 AM CDT Verified by Chitra Casanova on 10/17/2021. Dara Tamayo APRN, CNM LAB - HIM DELIVERY MGR AL RESULT Performing Organization Address City/[facility]/ZIP Co de Phone Number B[facility] PFT NON-INTERFACED (ONBASE SCANS) documented in this encounter Visit Diagnoses Not on filedocumented in this encounter Care Teams Cook Specialty Relationship Specialty Start Date End Date Reanna Ortega PA-C [address] [place] [address] PCP - General Physician Newsroom Intern 11/01/18 12/02/21 Selma Lomeli APRN CNP [address] [address] PCP - General antisqueak filler 12/03/21 06/16/22 Cristobal Becerril PA-C [address] [facility] [place] [address] PCP - General Family Medicine 06/17/22 Reanna Ortega PA-C [address] [place] [address] Assigned PCP 11/06/18 11/07/21 Mark Garcia MD [address] [place], [place] [address] Assigned OBGYN Provider 09/07/[address] [place] [address] Transportation Dispatch Manager Dietitian, Registered 10/29/21 Cristobal Becerril PA-C [address] [place] [address] Assigned PCP 06/27/22 Elisa Yoo MD [address] [place], [place] [address] Assigned OBGYN Provider 09/28/23 documented as of this encounter
--- OUTSIDE RECORDS SUMMARY | 2023-11-05 14:42 | XMS_ITS | Encounter Summary ---
Author Organization [facility] Address [address] [place] [address]. [place] [address] Care Team Providers Care Oiler Helper Name Role Phone Mark Garcia MD Unavailable [phone] Unavailable Selma Lomeli APRN LUMBER KILN OPERATOR Primary Care Provider Cristobal Becerril PA-C Primary Care Provider Cristobal Becerril PA-C Unavailable [phone] Elisa Yoo MD Unavailable [phone] Encounter Details Date Type Department Care Team (Late st Contact Info) Description 12/04/2021 External Order Results [facility] [address] [place] [address] Outside, Provider Social History Tobacco Use Types [...] Description 11/12/2023 10:30 AM CDT Office Visit [facility] Medicine [place] [address] [address] [facility] [address] [place] [phone] Mark Garcia MD [address] [place], [place] [address] Kenton Jasso MD [address] [place], [place] [address] 11/12/2023 11:00 AM CDT Appointment [facility] Medicine [place] [address] [address] [facility] [address] [place] [phone] Mark Garcia MD [address] [place], [place] [phone] Kenton Jasso MD [address] [place], [place] [address] 11/19/2023 10:30 AM CDT Office Visit [facility] Medicine [place] [address] [address] [facility] [address] [place] [phone] Mark Garcia MD [address] [place], [place] [address] 11/19/2023 11:00 AM CDT Appointment [facility] Medicine [place] [address] [address] [facility] [address] [place] [address] [phone] Mark Garcia MD [address] [place], [place] [address] documented as of this encounter Procedures Procedure Name Priority Date/Time Associated Diagnosis Comments GROUP B STREPTOCOCCUS (EXTERNAL RESULT) Routine 12/04/2021 4:03 AM CDT HEMOGLOBIN Routine 12/04/2021 4:03 AM CDT documented in this encounter Results * (ABNORMAL) Hemoglobin (12/04/2021 4:03 AM CDT) Hemoglobin (External) 11.4(L) 12.0 - 15.0 G/DL NON-INTERFACE D (ONBASE SCANS) Blood 12/04/2021 4:03 AM CDT Narrative [facility] - 12/11/2021 9:35 AM CDT Verified by Hebert Serrano on 12/11/2021. Provider Outside LAB - BLOOD ORDERABL ES Performing Organization Address City/[facility]/ZIP Co de Phone Number [facility] PFT NON-INTERFACED (ONBASE SCANS) * (ABNORMAL) Group B Streptococcus (External Result) (12/04/2021 4:03 AM CDT) Group B Streptococcus (External) Positive( A) NEGATIVE NON-INTERFACE D (ONBASE SCANS) 12/04/2021 4:03 AM CDT Narrative [facility] - 12/11/2021 9:35 AM CDT Verified by Hebert Serrano on 12/11/2021. Provider Outside LAB - HIM EXTERNAL R ESULT [facility] PFT NON-INTERFACED (ONBASE SCANS) documented in this encounter Visit Diagnoses Not on filedocumented in this encounter Care Teams Oiler Helper Relationship Specialty Start Date End Date Selma Lomeli APRN CNP [address] [address] PCP - General sales special agent 12/03/21 06/16/22 Cristobal Becerril PA-C [address] [place] [address] PCP - General Family Medicine 06/17/22 Mark Garcia MD [address] [place], [place] [address] Assigned OBGYN Provider 09/07/[address] [place] [address] Aggregate Conveyor Operator Dietitian, Registered 10/29/21 Cristobal Becerril PA-C [address] [place] [address] Assigned PCP 06/27/22 Elisa Yoo MD [address] [place], [place] [address] Assigned OBGYN Provider 09/28/23 documented as of this encounter
--- OUTSIDE RECORDS SUMMARY | 2023-11-05 14:42 | XMS_ITS | Encounter Summary ---
Author Organization [place] Address [address] [place] [address]. [place] [address] Care Team Providers Care Garment Manufacturing Supervisor Name Role Phone Reanna Ortega PA-C Primary Care Pr ovider Reanna Ortega PA-C Unavailable Mark Garcia MD Unavailable [phone] Unavailable Selma Lomeli APRN BURR MACHINE OPERATOR Primary Care Provider Cristobal Becerril PA-C Primary Care Provider Cristobal Becerril PA-C Unavailable [phone] Elisa Yoo MD Unavailable [phone] Encounter Details Date Type Department Care Team (Late st Contact Info) Description 06/18/2021 External Order Results [facility] [address] [place] [address] Outside, Provider Social History Tobacco Use Types Packs/Day Years Used Date Smoking Tobacco: Never Smokeless Tobacco: Never Alcohol Use Standard Drinks/Week Comments Yes 5 (1 standard drink = 0.6 oz pur e alcohol) PHQ-2 Answer Date Recorded PHQ-2 Score 0 11/01/2018 Sex and Gender Information Value Date Recorded Sex Assigned at Female 08/20/2021 9:26 AM CDT Gender Identity Female 08/20/2021 9:26 AM CDT Sexual Orientation Straight 08/20/2021 9: 26 AM CDT documented as of this encounter Plan of Treatment Upcoming Encounters Date Type Department Care Team (Late st Contact Info) Description 11/12/2023 10:30 AM CDT Office Visit [facility] Maternal Medicine [place] [address] [place] [phone] Mark Garcia MD [address] [place], [place] [phone] Kenton Jasso MD [address] [place], [place] [address] 11/12/2023 11:00 AM CDT Appointment [facility] Medicine [place] [address] [place] [phone] Mark Garcia MD [address] [place], [place] [address] Kenton Jasso MD [address] [place], [place] [address] 11/19/2023 10:30 AM CDT Office Visit [facility] Maternal Medicine [place] [address] [place] [phone] Mark Garcia MD [address] [place], [place] [address] 11/19/2023 11:00 AM CDT Appointment [facility] Maternal Medicine [place] [address] [place] [phone] Mark Garcia MD [address] [facility] [address] [place] [address] documented as of this encounter Procedures Procedure Name Priority Date/Time Associated Diagnosis Comments URINE CULTURE (OB EXTERNAL RESULT) Routine 06/18/2021 10:45 AM BLEACH RANGE OPERATOR GONORRHEA (EXTERNAL RESULT) Routine 06/18/2021 10:45 AM BLEACH RANGE OPERATOR CHLAMYDIA TRACHOMATIS PCR (EXTERNAL RESULT) Routine 06/18/2021 10:45 AM BLEACH RANGE OPERATOR HEPATITIS C ANTIBODY Routine 06/18/2021 10:45 AM BLEACH RANGE OPERATOR GLUCOSE Routine 06/18/2021 10:45 AM BLEACH RANGE OPERATOR TREPONEMA PALLIDUM ANTIBODY (RPR) (EXTERNAL RESULT) Routine 06/18/2021 10:43 AM BLEACH RANGE OPERATOR RUBELLA ANTIBODY IGG (EXTERNAL RESULT) Routine 06/18/2021 10:43 AM BLEACH RANGE OPERATOR HIV ANTIGEN ANTIBODY COMBO Routine 06/18/2021 10:43 AM BLEACH RANGE OPERATOR CBC WITH PLATELETS & DIFFERENTIAL Routine 06/18/2021 10:43 AM BLEACH RANGE OPERATOR HEPATITIS B SURFACE ANTIGEN Routine 06/18/2021 10:43 AM BLEACH RANGE OPERATOR ABO AND RH Routine 06/18/2021 10:43 AM BLEACH RANGE OPERATOR documented in this encounter Results * Gonorrhea (External Result) (06/18/2021 10:45 AM BLEACH RANGE OPERATOR) N Gonorrhea PCR Negative Negative NON-INTERFACE D (ONBASE SCANS) 06/18/2021 10:4 5 AM BLEACH RANGE OPERATOR Triny GARLAND PFT - 06/29/2021 10:26 AM BLEACH RANGE OPERATOR Verified by Sarah Johns on 06/29/2021. Patient Reported LAB - HIM EXTERNAL R ESULT Performing Organization Address [facility]/ZIP Co de Phone Number BREEZE PFT NON-INTERFACED (ONBASE SCANS) * Chlamydia Trachomatis PCR (External Result) (06/18/2021 10:45 AM BLEACH RANGE OPERATOR) Chlamydia Trachomatis PCR Negative Negative NON-INTERFAC E D (ONBASE SCANS) 06/18/2021 10:4 5 AM BLEACH RANGE OPERATOR Narrative BREEZE PFT - 06/29/2021 10:26 AM BLEACH RANGE OPERATOR Verified by Sarah Johns on 06/29/2021. Patient Reported LAB - HIM EXTERNAL R ESULT Performing Organization Address [facility] de Phone Number BREEZE PFT NON-INTERFACED (ONBASE SCANS) * Glucose (06/18/2021 10:45 AM BLEACH RANGE OPERATOR) Glucose (External) 120 65 - 139 mg/dL NON-INTERFACED (ONBASE SCANS) Comment:GESTATIONAL DIABETES SCREEN Blood 06/18/2021 10:4 5 AM BLEACH RANGE OPERATOR Narrative BREEZE PFT - 06/29/2021 10:26 AM BLEACH RANGE OPERATOR Verified by Sarah Johns on 06/29/2021. Patient Reported LAB - BLOOD ORDERABL ES Performing Organization Address [facility] de Phone Number BREEZE PFT NON-INTERFACED (ONBASE SCANS) * Urine Culture (OB External Result) (06/18/2021 10:45 AM BLEACH RANGE OPERATOR) Urine Culture OB Nurse Interpretation (External Result) Mixed urogenital carla NON-INTERFAC ED (ONBASE SCANS) 06/18/2021 10:4 5 AM BLEACH RANGE OPERATOR Narrative BREEZE PFT - 06/29/2021 10:25 AM BLEACH RANGE OPERATOR Verified by Sarah Johns on 06/29/2021. Patient Reported LAB - HIM EXTERNAL R ESULT Performing Organization Address [place]/[facility] Co de Phone Number BREEZE PFT NON-INTERFACED (ONBASE SCANS) * Hepatitis C antibody (06/18/2021 10:45 AM BLEACH RANGE OPERATOR) Hepatitis C Antibody (External) <0.1 0.0 - 0.9 Ratio NON-INTERFACED (ONBASE SCANS) Blood 06/18/2021 10:4 5 AM BLEACH RANGE OPERATOR Narrative DADA PFT - 06/29/2021 10:25 AM BLEACH RANGE OPERATOR Verified by Sarah Johns on 06/29/2021. Patient Reported LAB - BLOOD ORDERABL ES DADA PFT NON-INTERFACED (ONBASE SCANS) * CBC with Platelets & Differential (06/18/2021 10:43 AM BLEACH RANGE OPERATOR) Pathologist [facility] WBC Count (External) 8.5 3.4 - 10.8 x10E3/uL NON-INTERFACE D (ONBASE SCANS) RBC Count (External) 4.41 3.77 - 5.28 x10E6/uL NON-INTERFACE D (ONBASE SCANS) Hemoglobin (External) 12.0 11.1 - 15.9 g/dL NON-INTERFACE D (ONBASE SCANS) Hematocrit (External) 36.8 34.0 - 46.6 % NON-INTERFACE D (ONBASE SCANS) MCV (External) 83 79 - 97 fL NON- INTERFACE D (ONBASE SCANS) MCH (External) 27.2 26.6 - 33.0 pg NON-INTERFACE D (ONBASE SCANS) MCHC (External) 32.6 31.5 - 35.7 g/dL NON-INTERFACE D (ONBASE SCANS) RDW (External) 13.0 11.7 - 15.4 % NON-INTERFACE D (ONBASE SCANS) Platelet Count (External) 298 150 - 450 x10E3/uL NON-INTERFACE D (ONBASE SCANS) % Neutrophils (External) 66 % NON-INTERFACE D (ONBASE SCANS) % Lymphocytes (External) 26 % NON-INTERFACE D (ONBASE SCANS) % Monocytes (External) 4 % NON-INTERFACE D (ONBASE SCANS) % Eosinophils (External) 1 % NON-INTERFACE D (ONBASE SCANS) % Basophils (External) 1 % NON-INTERFACE D (ONBASE SCANS) Absolute Neutrophils (External) 5.7 1.4 - 7.0 x10E3/uL NON-INTERFACE D (ONBASE SCANS) Absolute Lymphocytes (External) 2.2 0.7 - 3.1 x10E3/uL NON-INTERFACE D (ONBASE SCANS) Absolute Monocytes (External) 0.4 0.1 - 0.9 x10E3/uL NON-INTERFACE D (ONBASE SCANS) Absolute Eosinophils (External) 0.1 0.0 - 0.4 x10E3/uL NON-INTERFACE D (ONBASE SCANS) Absolute Basophils (External) 0.1 0.0 - 0.2 x10E3/uL NON-INTERFACE D (ONBASE SCANS) % Immature Granulocytes (External) 2 % NON-INTERFACE D (ONBASE SCANS) Absolute Immature Granulocytes (External) 0.1 0.0 - 0.1 x10E3/uL NON-INTERFACE D (ONBASE SCANS) Blood 06/18/2021 10:4 3 AM BLEACH RANGE OPERATOR Narrative BREEZE PFT - 06/29/2021 10:33 AM BLEACH RANGE OPERATOR Verified by Sarah Johns on 06/29/2021. Patient Reported LAB - BLOOD ORDERABL ES BREEZE PFT NON-INTERFACED (ONBASE SCANS) * HIV Antigen Antibody Combo (06/18/2021 10:43 AM BLEACH RANGE OPERATOR) HIV 1&2 Antibody (External) Non Reactive Non Reactive NON-INTERFAC ED (ONBASE SCANS) Blood 06/18/2021 10:4 3 AM BLEACH RANGE OPERATOR Narrative BREEZE PFT - 06/29/2021 10:33 AM BLEACH RANGE OPERATOR Verified by Sarah Johns on 06/29/2021. Patient Reported LAB - BLOOD ORDERABL ES BREEZE PFT NON-INTERFACED (ONBASE SCANS) * ABO and Rh (06/18/2021 10:43 AM BLEACH RANGE OPERATOR) ABO (External) A NON-I NTERFACE D (ONBASE SCANS) Rh (External) Positive NON-IN TERFACE D (ONBASE SCANS) Scan Lab Results (External) See Scanned Report NON-INTERFACE D (ONBASE SCANS) Comment:ANTIBODY SCREEN Nega tive Blood BLOOD SPECIMEN / Unknown 06/18/2021 10:43 AM BLEACH RANGE OPERATOR Narrative BREEZE PFT - 06/29/2021 10:33 AM BLEACH RANGE OPERATOR Verified by Sarah Johns on 06/29/2021. Patient Reported LAB - BLOOD BANK CELINE T ORDER BREEZE PFT NON-INTERFACED (ONBASE SCANS) * Treponema Pallidum Antibody (RPR) (External Result) (06/18/2021 10:43 AM BLEACH RANGE OPERATOR) Treponema Palldum Antibody (External) Non Reactive NON REACTIVE NON-INTERFAC ED (ONBASE SCANS) 06/18/2021 10:4 3 AM BLEACH RANGE OPERATOR Narrative BREEZE PFT - 06/29/2021 10:33 AM BLEACH RANGE OPERATOR Verified by Sarah Johns on 06/29/2021. Patient Reported LAB - HIM EXTERNAL R ESULT Performing Organization Address [facility] Co de Phone Number BREEZE PFT NON-INTERFACED (ONBASE SCANS) * Rubella Antibody IgG (External Result) (06/18/2021 10:43 AM BLEACH RANGE OPERATOR) Rubella Antibody IgG (External) 1.73 Immune>0.9 9 index NON-INTERFACED (ONBASE SCANS) 06/18/2021 10:4 3 AM BLEACH RANGE OPERATOR Narrative BREEZE PFT - 06/29/2021 10:33 AM BLEACH RANGE OPERATOR Verified by Sarah Johns on 06/29/2021. Patient Reported LAB - HIM EXTERNAL R ESULT Performing Organization Address [place]/[facility]/ZIP Co de Phone Number BREEZE PFT NON-INTERFACED (ONBASE SCANS) * Hepatitis B surface antigen (06/18/2021 10:43 AM BLEACH RANGE OPERATOR) Hep B Surface Agn (External) Negative Negative NON-INTERFACE D (ONBASE SCANS) Blood 06/18/2021 10:4 3 AM BLEACH RANGE OPERATOR Narrative DADA PFT - 06/29/2021 10:33 AM BLEACH RANGE OPERATOR Verified by Sarah Johns on 06/29/2021. Patient Reported LAB - BLOOD ORDERABL ES DADA PFT NON-INTERFACED (ONBASE SCANS) documented in this encounter Visit Diagnoses Not on filedocumented in this encounter Care Teams Garment Manufacturing Supervisor Relationship Specialty Start Date End Date Reanna Ortega PA-C [address] [place] [address] PCP - General Physician Operating Room Technologist 11/01/18 12/02/21 Selma Lomeli APRN CNP [address] [facility] [address] [place] [address] PCP - General linter tender 12/03/21 06/16/22 Cristobal Becerril PA-C [address] [place] [address] PCP - General Family Medicine 06/17/22 Reanna Orteag PA-C [address] [place] [address] Assigned PCP 11/06/18 11/07/21 Mark Garcia MD [address] [facility] [address] [place], [place] [address] Assigned OBGYN Provider 09/07/[address] [place] [address] Model Maker Apprentice Dietitian, Registered 10/29/21 Cristobal Becerril, EVELINAC [address] [address] [address] Assigned PCP 06/27/22 Elisa Yoo MD [address] [facility] [address] [place], [place] [address] Assigned OBGYN Provider 09/28/23 documented as of this encounter
--- OUTSIDE RECORDS SUMMARY | 2023-11-05 14:42 | XMS_ITS | Encounter Summary ---
Author Organization [place] Address [address] [place] [address]. [place] [address] Care Team Providers Care Ux Interaction Designer Name Role Phone Evi Colmenares RD Unavailable Cristobal Becerril PA-C Primary Care Provider Cristobal Becerril PA-C Unavailable [phone] Reason for Referral * Diagnostic Imaging Ultrasound (Routine) - Pending Review Specialty Diagnoses / Procedures Referred By Lulu lozoya Referred To Contact Radiology. Diagnoses related condition, antepartum Procedures [facility] US Comprehensive [facility] Ghislaine Gann MD [address] [place] [address] Referral ID Status Reason Start Date Expiration Date V isits Requested Visits Authorized [id number] Pending Review 09/08/2023 09/07/2024 1 1 * Consultation (Routine: Next available opening) - Pending Review Specialty Diagnoses / Procedures Referred By Lulu lozoya Referred To Contact Diagnoses related condition, antepartum Ghislaine Gann MD [address] [place] [address] Maternal Med [address] [place] [phone] Referral ID Status Reason Start Date Expiration Date V isits Requested Visits Authorized [id number] Pending Review 09/08/2023 09/07/2024 1 1 Question Answer Preferred Location: [facility] [place] [facility] 12/25/2023 Ultrasound Comprehensive US (>than 18 weeks GA) US PROC NONE MFM Issue Abnormal Ultrasound Findings (enter details in Comments) - severe IUGR-less than 3% MFM MD Consultation (unrelated to Ultrasound findings): No Chronic Kidney Disease: Joint MFM and Nephrology Consultation No Genetic Counseling Consultation: No fax [facility] Ghislaine Colby [phone] Comments There is no height or weight on file to calculate BMI. >> Patient may proceed with recommendations for further testing as directed by the Maternal Medicine Specialist >> >> If requesting Echo: MFM will determine appropriate location for exam due to indication. Please be aware that coverage of these services is subject to the terms and limitations of your health insurance plan. Call member services at your health plan with any benefit or coverage questions. Encounter Details Date Type Department Care Team (Latest Contact Info) Description 09/08/2023 Transcribe Orders [facility] Maternal Medicine Center [address] [place] [address] Ghislaine Gann MD [address] [place] [phone] related condition, antepartum (Primary Dx) Social History Tobacco Use Types Packs/Day Years Used Date Smoking Tobacco: Never Passive Smoke Exposure: Never Smokeless Tobacco: Never Alcohol Use Standard Drinks/Week Comments Yes 5 (1 standard drink = 0.6 oz pur e alcohol) PHQ-2 Answer Date Recorded PHQ-2 Score 0 06/17/2022 [place] Depression Scale Answer Date Recorded Last EPDS Total Score Not on file 12/26/2021 The thought of harming myself has occurred to me . Never 12/26/2021 Adolescent Education Answer Date Record ed Getting School Help Needed Not on file 03/12 Sex and Gender Information Value Date Recorded Sex Assigned at Female 08/20/2021 9:26 AM CDT Gender Identity Female 08/20/2021 9:26 AM CDT Sexual Orientation Straight 08/20/2021 9: 26 AM CDT documented as of this encounter Plan of Treatment Upcoming Encounters Date Type Department Care Team (Late st Contact Info) Description 11/12/2023 10:30 AM CDT Office Visit [facility] Maternal Medicine [place] [address] [place] [phone] Mark Garcia MD [address] [place], [place] [address] Kenton Jasso MD [address] [place], [place] [address] 11/12/2023 11:00 AM CDT Appointment [facility] Medicine [place] [address] [place] [phone] Mark Garcia MD [address] [place], [place] [address] Kenton Jasso MD [address] [place], [place] [address] 11/19/2023 10:30 AM CDT Office Visit [facility] Maternal Medicine [place] [address] [place] [phone] Mark Garcia MD [address] [place], [place] [address] 11/19/2023 11:00 AM CDT Appointment [facility] Maternal Medicine [place] [address] [place] [phone] Mark Garcia MD [address] [place] [address] Scheduled Referrals Name Type Priority Associated Diagnoses Orde r Schedule Mat Med Ctr Referral - Referral Routine: Next available opening related condition, antepartum Expected: 09/10/2023 (Approximate), Expires: 03/06/2024 documented as of this encounter Results * [facility] US Comprehensive Single (09/10/2023 12:00 PM [...] ? Study Date: ??09/10/2023 10:59am Pat. NO: ??[id number] ?Referring ??MD: GHISLAINE GANN Site: ??[place] ? Dough Puncher: Margaret Colvin RDMS : ??1995 ?Age: ?? [...] 1 lb 4 ?oz EFW by ?Hadlock ([id number]) Head / Face / Neck Biometry: Service Associate ? 7.3 ? mm CM ?5.9 ? [...] / Thorax ?Aortic arch view. 3-vessel view. 9-oqdsib-mlwikiq view. Abdomen ? Kidneys. Spine ?Lumbar spine. [...] medical record, and communicating with other health child daycare worker and/or care coordination. Please see note for details. Procedure Note Elisa Yoo MD - 09/10/2023 Comprehensive ----- Pat. Name: SANAZ SAINZ Study Date: 09/10/2023 10:59am Pat. NO: [id number] Referring MD: GHISLAINE GANN Site: [facility] Dough Puncher: Margaret Colvin RDMS : 1995 Age: 28 [...] 1 lb 4 oz EFW by Hadlock ([id number]) Head / Face / Neck Biometry: Service Associate 7.3 mm CM 5.9 mm Nasal bone [...] Heart / Thorax Aortic arch view. 3-vessel view.2-lgteax-mkawrlt view. Abdomen Kidneys. Spine Lumbar spine. Sacral [...] detectinganeuploidy and structural abnormalities. Ultrasound can routinely qestlo92-80% of structural abnormalities. Follow-up has been scheduled [...] electronic medical record, andcommunicating with other health child daycare worker and/or carecoordination. Please see note for details. [...] Ghislaine Gann MD IMG [facility] US O BC documented in this encounter Visit Diagnoses Diagnosis related condition, antepartum- Primary related condition, antepartum documented in this encounter Care Teams Ux Interaction Designer Relationship Specialty Start Date End Date Cristobal Becerril PA-C [address] [address] [address] PCP - General Family Medicine 06/17/[address] [place] [address] Colorer Dietitian, Registered 10/29/21 Cristobal Becerril PA-C [address] [address] [address] Assigned PCP 06/27/22 documented as of this encounter
--- NOTE | 2023-11-05 14:45 | CRLHL7_ITS ---
For Patients: As a result of the Century Cures Act, medical imaging exams and procedure reports are released immediately into your electronic medical record. You may view this report before your referring provider. If you have questions, please contact your health care provider. INDICATION: Nonreactive stress test, IUGR, gestational diabetes COMPARISON: 09/08/2023 TECHNIQUE: Rivero-scale and color Doppler of the gravid uterus and fetus from a transabdominal approach. FINDINGS: Estimated gestational age: 32 weeks 6 days Single intrauterine gestation in breech position. heart rate is 152 beats per minute and regular. The placenta is anterior. No periplacental hemorrhage. tone: 2/2 movement: 0/2 breathin/2 Amniotic fluid volume: 2/2 The single deepest vertical pocket measures: 4.4 cm. The umbilical artery S/D ratio is 2.9, which is normal for gestational age. Normal umbilical artery waveforms on duplex Doppler imaging. MATERNAL Cervical length is 5 cm. No funneling at the os. Measured transabdominally. IMPRESSION: Biophysical profile score is 4/8. Dictated by Marianna Alva MD @ 11/05/2023 3:43:52 PM (Electronically Signed)
== END 2023-11-05 14:38 | disposition home or self-care (01) ==
PROVIDERS: Visit Provider Obstetrics & Gynecology
DX: O24.419 Gestational diabetes mellitus in pregnancy, unspecified control (principal); Z87.59 Personal history of other complications of pregnancy, childbirth and the puerperium; Z3A.32 32 weeks gestation of pregnancy
CPT/HCPCS: 76819; 76820; 82565; 82570; 84156; 84450; 84460; 84520

== ENCOUNTER 2023-11-05 15:20 | Outpatient (CLI) | payer OTHER, SELFPAY ==
[2023-11-05] VITALS (8 sets, daily range): BP systolic 123–134; BP diastolic 68–81; PULSE 61–85; RESP 18; TEMP 37.1; O2SAT 99–100
--- OUTSIDE RECORDS SUMMARY | 2023-11-05 15:22 | XMS_ITS | Encounter Summary ---
Author Organization [place] Address [facility] [place] [address] Care Team Providers Care Hop Strainer Name Role Phone Evi Colmenares RD Unavailable Cristobal Becerril PA-C Primary Care Provider Cristobal Becerril PA-C Unavailable [phone] Elisa Yoo MD Unavailable [phone] Reason for Visit * Reason Comments Ultrasound Limited/UAR/NST: fet al growth restriction * Consultation (Routine: Next available opening) - Pending Review Specialty Diagnoses / Procedures Referred By Contac t Referred To Contact Diagnoses growth restriction antepartum Mark Garcia MD [address] [place] [address] Referral ID Status Reason Start Date Expiration Date V isits Requested Visits Authorized [id number] Pending Review 10/20/2023 10/19/2024 5 5 Encounter Details Date Type Department Care Team (Late st Contact Info) Description 11/03/2023 8:30 AM CDT Office Visit [facility] Maternal Medicine [facility] [place] [address] [facility] [address] [place] [phone] Mike Joseph MD [address] [place] [address] growth restriction antepartum Social History Tobacco Use Types Packs/Day Years Used Date Smoking Tobacco: Never Passive Smoke Exposure: Never Smokeless Tobacco: Never Alcohol Use Standard Drinks/Week Comments Yes 5 (1 standard drink = 0.6 oz pur e alcohol) PHQ-2 Answer Date Recorded PHQ-2 Score 0 06/17/2022 [place] Depression Scale Answer Date Recorded Last EPDS [...] 11/03/2023 8:30 AM CDT Patient presents to [facility] for Limited/UAR at 32w4d due to [...] Description 11/12/2023 10:30 AM CDT Office Visit [facility] Maternal Medicine [place] [address] [place] [phone] Mark Garcia MD [address] [place], [place] [address] Kenton Jasso MD [address] [place], [place] [address] 11/12/2023 11:00 AM CDT Appointment [facility] Medicine [place] [address] [place] [phone] Mark Garcia MD [address] [place], [place] [address] Kenton Jasso MD [address] [place], [place] [address] 11/19/2023 10:30 AM CDT Office Visit [facility] Maternal Medicine [place] [address] [place] [phone] Mark Garcia MD [address] [place] [address] 11/19/2023 11:00 AM CDT Appointment [facility] Maternal Medicine [place] [address] [place] [phone] Mark Garcia MD [address] [place], [place] [address] documented as of this encounter Visit Diagnoses Diagnosis growth restriction antepartum documented in this encounter Care Teams Hop Strainer Relationship Specialty Start Date End Date Cristobal Becerril PA-C [address] [address] [address] PCP - General Family Medicine 06/17/[address] [facility] [place] [address] [employer]os Bi Administrator Dietitian, Registered 10/29/21 Cristobal Becerril PA-C [address] [address] [address] Assigned PCP 06/27/22 Elisa Yoo MD [address] [place], [place] [address] Assigned OBGYN Provider 09/28/23 documented as of this encounter
--- OUTSIDE RECORDS SUMMARY | 2023-11-05 15:22 | XMS_ITS | Referral Summary ---
Author Organization [facility] Address [address] [place] [address]. [place] [address] Care Team Providers Care Laborer Road Name Role Phone Evi Colmenares RD Unavailable Cristobal Becerril PA-C Primary Care Provider Cristobal Becerril PA-C Unavailable [phone] Elisa Yoo MD Unavailable [phone] Encounters Date Type Department Care Team Description 11/03/2023 Travel 11/03/2023 7:59 AM CDT - 11/03/2023 11:59 PM CDT Hospital Encounter [facility] [address] [facility] [address] [place] [phone] Mike Joseph MD growth restriction antepartum Discharge Disposition: Home or Self Care 11/03/2023 8:30 AM CDT Office Visit [facility] [address] [facility] [address] [place] [phone] Mike Joseph MD growth restriction antepartum 10/29/2023 Travel 10/29/2023 2:31 PM CDT - 10/29/2023 11:59 PM CDT Hospital Encounter [facility] [place] [address] [place] [address] Mike Joseph MD growth restriction antepartum Discharge Disposition: Home or Self Care 10/29/2023 2:30 PM CDT Office Visit [facility] [place] [address] [place] [address] Mike Joseph MD growth restriction antepartum 10/20/2023 Travel 10/20/2023 8:58 AM CDT - 10/20/2023 11:59 PM CDT Hospital Encounter [facility] [place] [address] [place] [phone] Elisa Yoo MD Rauk, Phillip Neil, MD growth restriction antepartum Discharge Disposition: Home or Self Care 10/20/2023 9:00 AM CDT Office Visit [facility] [place] [address] [place] [phone] Elisa Yoo MD Rauk, Phillip Neil, MD growth restriction antepartum (Primary Dx) 10/15/2023 Travel 10/15/2023 3:15 PM CDT - 10/15/2023 11:59 PM CDT Hospital Encounter [facility] [place] [address] [place] [phone] Mark Garcia MD growth restriction antepartum Discharge Disposition: Home or Self Care 10/15/2023 3:00 PM CDT Office Visit [facility] [place] [address] [place] [phone] Mark Garcia MD growth restriction antepartum (Primary Dx) 10/12/2023 Travel 10/12/2023 2:59 PM CDT - 10/12/2023 11:59 PM CDT Hospital Encounter [facility] [place] [address] [place] [phone] Mark Garcia MD growth restriction antepartum Discharge Disposition: Home or Self Care 10/12/2023 3:00 PM CDT Office Visit [facility] Medicine [facility] [address] [facility] [address] [place] [address] Mark Garcia MD growth restriction antepartum (Primary Dx) 10/08/2023 Travel 10/08/2023 7:58 AM CDT - 10/08/2023 11:59 PM CDT Hospital Encounter [facility] [place] [address] [place] [address] Kenton Jasso MD growth restriction antepartum Discharge Disposition: Home or Self Care 10/08/2023 8:30 AM CDT Office Visit [facility] Medicine [place] [address] [place] [phone] Kenton Jasso MD growth restriction antepartum (Primary Dx) 10/01/2023 Travel 10/01/2023 2:28 PM CDT - 10/01/2023 11:59 PM CDT Hospital Encounter [facility] Medicine [place] [address] [place] [phone] Elisa Yoo MD growth restriction antepartum Discharge Disposition: Home or Self Care 10/01/2023 2:30 PM CDT Office Visit [facility] Medicine [place] [address] [place] [phone] Elisa Yoo MD growth restriction antepartum (Primary Dx); Obesity in , antepartum; BMI 40.0-44.9, adult (H) 09/28/2023 Travel 09/22/2023 Travel 09/22/2023 1:42 PM CDT - 09/22/2023 11:59 PM CDT Hospital Encounter [facility] [address] [facility] [address] [place] [address] Mark Garcia MD growth restriction antepartum Discharge Disposition: Home or Self Care 09/22/2023 1:45 PM CDT Office Visit [facility] [place] [address] [facility] [address] [place] [address] Mark Garcia MD growth restriction antepartum (Primary Dx) 09/15/2023 Travel 09/15/2023 2:54 PM CDT - 09/15/2023 11:59 PM CDT Hospital Encounter [facility] [place] [address] [facility] [address] [place] [address] Mark Garcia MD growth restriction antepartum Discharge Disposition: Home or Self Care 09/15/2023 3:00 PM CDT Office Visit [facility] [place] [address] [facility] [address] [place] [address] Mark Garcia MD growth restriction antepartum (Primary Dx) 09/10/2023 Travel 09/10/2023 11:30 AM CDT Office Visit [facility] [place] [address] [place] [address] Ghislaine Encinas MD Sabol, Bethany, MD growth restriction antepartum (Primary Dx) 09/10/2023 10:57 AM CDT - 09/10/2023 11:59 PM CDT Hospital Encounter [facility] [place] [address] [place] [address] Ghislaine Ecninas MD Sabol, Bethany, MD related condition, antepartum Discharge Disposition: Home or Self Care 09/09/2023 Medical Correspondence [facility] [address] [facility] [place] [address] Scan, Non-Provider 09/09/2023 PRE VISIT [facility] [place] [address] [place] [phone] Bianca Kimball RN Ultrasound (L2: FGR seen on outside [place]) 09/08/2023 Transcribe Orders [facility] [address] [place] [phone] Ghislaine Encinas MD related condition, antepartum (Primary [...] Answer Date Recorded PHQ-2 Score 0 06/17/2022 Norton Depression Scale Answer Date Recorded Last EPDS [...] ??C (98.2 ??F) 06/17/2022 1 0:24 AM GENERAL FARMER Respiratory Rate 16 11/03/2023 8:40 AM CDT Oxygen Saturation 97% 10/15/2023 3:50 PM CDT Inhaled Oxygen Concentration - - Weight 100.2 kg (220 lb 12.8 oz) 2022 10:24 AM GENERAL FARMER Height 157.5 cm (5' 2) 06/17/2022 10:2 4 AM GENERAL FARMER Body Mass Index 40.38 06/17/2022 10:24 AM GENERAL FARMER Plan of Treatment Upcoming Encounters Date Type Department Care Team (Late st Contact Info) Description 11/12/2023 10:30 AM CDT Office Visit [facility] [address] [facility] [address] [place] [address] Mark Garcia MD [address] [place] [address] Kenton Jasso MD [address] [place], [place] [phone] 11/12/2023 11:00 AM CDT Appointment [facility] [address] [facility] [address] [place] [address] Mark Garcia MD [address] [place] [address] Kenton Jasso MD [address] [place] [address] 11/19/2023 10:30 AM CDT Office Visit [facility] [address] [facility] [address] [place] [address] Mark Garcia MD [address] [place] [address] 11/19/2023 11:00 AM CDT Appointment [facility] [address] [facility] [address] [place] [phone] Mark Garcia MD [address] [place] [address] Procedures Procedure Name Priority Date/Time Associated Diagnosis Comments [facility] OB LIMITED SINGLE/MULTIPLE Routine 11/03/2023 9:36 AM CDT growth restriction antepartum [facility] US OB LIMITED SINGLE/MULTIPLE Routine 10/29/2023 3:15 PM CDT growth restriction antepartum [facility] COMPREHENSIVE SINGLE F/U Routine 10/20/2023 10:05 AM CDT growth restriction antepartum NON-STRESS TEST - HIM SCAN 10/20/2023 12:00 AM CDT [facility] US OB LIMITED SINGLE/MULTIPLE Routine 10/15/2023 4:10 PM CDT growth restriction antepartum [facility] OB LIMITED SINGLE/MULTIPLE Routine 10/12/2023 4:02 PM CDT growth restriction antepartum [facility] US OB LIMITED SINGLE/MULTIPLE Routine 10/08/2023 9:09 AM CDT growth restriction antepartum [facility] US COMPREHENSIVE SINGLE F/U Routine 10/01/2023 4:11 PM CDT growth restriction antepartum [facility] US OB LIMITED SINGLE/MULTIPLE Routine 09/22/2023 2:13 PM CDT growth restriction antepartum [facility] US OB LIMITED SINGLE/MULTIPLE Routine 09/15/2023 4:05 PM CDT growth restriction antepartum [facility] US COMPREHENSIVE SINGLE Routine 09/10/2023 12:00 PM CDT related condition, antepartum HIV ANTIGEN ANTIBODY COMBO Routine 05/19/2023 10:29 AM GENERAL FARMER 8 weeks gestation of HEPATITIS C ANTIBODY Routine 05/19/2023 10:29 AM GENERAL FARMER 8 weeks gestation of ABSTRACT PAP (HIM EXTERNAL RESULT) Routine 09/30/2020 10:30 AM CDT from Last 3 Months or Most Recently Relevant to Health Maintenance Results * [facility] US OB Limited Single/Multiple (11/03/2023 9:36 [...] ? Study Date: ??11/03/2023 8:01am Pat. NO: ??[id number] ?Referring ??MD: GHISLAINE ENCINAS Site: ??[facility] ? Director Of Payroll: Suzy Hester RDMS : ??1995 ?Age: ?? [...] SAINZ Study Date: 11/03/2023 8:01am Pat. NO: [id number] Referring MD: GHISLAINE ENCINAS Site: [facility] Director Of Payroll: Suzy HesterNAEEM : 1995 Age: 28 ----- [...] for gestational age. Mark Garcia MD [place] [facility] US ORDERABL ES * [facility] US Comprehensive Single F/U (10/20/2023 10:05 [...] ? Study Date: ??10/20/2023 9:27am Pat. NO: ??[id number] ?Referring ??MD: GHISLAINE ENCINAS Site: ??[facility] ? Director Of Payroll: Miky Malone RDMS : ??1995 ?Age: ?? [...] 3 lb 0 ?oz EFW by ?Hadlock ([id number]-FL) Head / Face / Neck Biometry: Drive Shaft And Steering Post Repairer ? 7.8 ? mm CM ?4.3 ? [...] documented previously: Heart / Thorax ?4-chamber view. 2-urjitq-ddvojfu view. Spine ?Cervical spine. Thoracic spine. Lumbar [...] SAINZ Study Date: 10/20/2023 9:27am Pat. NO: [id number] Referring MD: GHISLAINE ENCINAS Site: [facility] Director Of Payroll: Miky Malone RDMS : 1995 Age: 28 [...] 3 lb 0 oz EFW by Hadlock ([id number]-WE-SZ-FL) Head / Face / Neck Biometry: Drive Shaft And Steering Post Repairer 7.8 mm CM 4.3 mm ANATOMY ----- The following structures appear normal: Head / Neck Cranium. Head size. Head shape.Lateral ventricles. Midline falx. Cavum septi pellucidi. Cerebellum.Cisterna magna. Thalami. Face Lips. Profile. Nose. Heart / Thorax RVOT view. LVOT view. Diaphragm. Abdomen Stomach. Kidneys. Bladder. The following structures were documented previously: Heart / Thorax 4-chamber view. 8-cwyjsp-pnfcrdhbzce. Spine Cervical spine. Thoracic spine.Lumbar spine. Sacral [...] Reactive NST without decelerations. Elisa Yoo MD [facility] US ORDERABLE S * Non-Stress Test - HIM Scan (10/20/2023 12:00 AM CDT) 10/20/2023 Provider Outside PROCEDURES * [facility] Single (09/10/2023 12:00 PM CDT) Anatomical Region [...] ? Study Date: ??09/10/2023 10:59am Pat. NO: ??[id number] ?Referring ??: GHISLAINE ENCINAS Site: ??[facility] ? Director Of Payroll: Margaret Colvin RDMS : ??1995 ?Age: ?? [...] 1 lb 4 ?oz EFW by ?Pete ([id number]-[id number]-FL) Head / Face / Neck Biometry: Drive Shaft And Steering Post Repairer ? 7.3 ? mm CM ?5.9 ? [...] / Thorax ?Aortic arch view. 3-vessel view. 7-ynzmnh-wqdzhji view. Abdomen ? Kidneys. Spine ?Lumbar spine. [...] medical record, and communicating with other health life care planner and/or care coordination. Please see note for details. Procedure Note Elisa Yoo MD - 09/10/2023 Comprehensive ----- Pat. Name: SANAZ SAINZ Study Date: 09/10/2023 10:59am Pat. NO: [id number] Referring MD: GHISLAINE ENCINAS Site: [facility] Director Of Payroll: Margaret Colvin RDMS : 1995 Age: 28 [...] 1 lb 4 oz EFW by Hadlock ([id number]) Head / Face / Neck Biometry: Drive Shaft And Steering Post Repairer 7.3 mm CM 5.9 mm Nasal bone [...] Heart / Thorax Aortic arch view. 3-vessel view.2-qhcswa-bbajnfx view. Abdomen Kidneys. Spine Lumbar spine. Sacral [...] detectinganeuploidy and structural abnormalities. Ultrasound can routinely mbfccu91-11% of structural abnormalities. Follow-up has been scheduled [...] electronic medical record, andcommunicating with other health life care planner and/or carecoordination. Please see note for details. [...] appropriate for gestational age. Ghislaine Encinas MD [facility] US O RDERABLES * HIV Antigen Antibody Combo [place] (05/19/2023 10:29 AM GENERAL FARMER) HIV Antigen Antibody Combo Nonreactive Nonreactive 05/19/2023 6:15 PM GENERAL FARMER [facility]/PROT/EN DO Comment:HIV-1 p24 Ag & HIV-1 /HIV-2 Ab Not Detected Blood BLOOD SPECIMEN / Unknown Client Draw / Unknown 05/19/2023 10:29 AM GENERAL FARMER 05/19/2023 1:09 PM GENERAL FARMER Yulia Galvan TETRYL WRINGER OPERATOR TRAFFIC OBSERVER LAB - BLO OD ORDERABLES [facility] SPECIAL[facility] CORE/PROT/ENDO [facility] Specialty Core/Prot/Endo [address] [facility], [address] [phone] * Hepatitis C antibody (05/19/2023 10:29 AM GENERAL FARMER) Pathologist [facility] Hepatitis C Antibody Nonreactive Nonreactive 05/19/2023 5:06 PM GENERAL FARMER UM SPECIALTY CORE/PROT/EN DO Blood BLOOD SPECIMEN / Unknown Client Draw / Unknown 05/19/2023 10:29 AM GENERAL FARMER 05/19/2023 1:10 PM GENERAL FARMER Narrative [facility] SPECIALTY CORE/PROT/ENDO - 05/19/2023 5:06 PM GENERAL FARMER Assay performance characteristics have not been established for newborns, infants, and children. Yulia Galvan TETRYL WRINGER OPERATOR TRAFFIC OBSERVER LAB - BLO OD ORDERABLES UM SPECIALTY CORE/PROT/ENDO UM Specialty Core/Prot/Endo [address] [facility], [address] [phone] * Abstract PAP (HIM External Result) (09/30/2020 10:30 AM CDT) Pathologist [facility] PAP-ABSTRACT See Scanned Document [facility] 09/30/2020 10:3 0 AM CDT Narrative [facility] - 09/30/2020 10:30 AM CDT PAP info from chart and care everywhere Patient Reported LAB - HIM EXTERNAL R ESULT [facility] [address] [place] [address], [facility] from Last 3 Months or Most Recently Relevant to Health Maintenance Advance Directives For more information, please contact: [phone] * Full Code (Latest Code Status on [...] natalie nt/ legal decision maker Care Teams Laborer Road Relationship Specialty Start Date End Date Cristobal Becerril PA-C [phone] [place] [address] PCP - General Family Medicine 06/17/[address] [place] [address] Furnace Combustion Analyst Dietitian, Registered 10/29/21 Cristobal Becerril PA-C [address] [place] [address] Assigned PCP 06/27/22 Elisa Yoo MD [address] [address] Assigned OBGYN Provider 09/28/23
--- OUTSIDE RECORDS SUMMARY | 2023-11-05 15:22 | XMS_ITS | Encounter Summary ---
Author Organization [facility] Address [address] [place] [address] Care Team Providers Care Rug Touch Up Painter Name Role Phone Evi Colmenares RD Unavailable Cristobal Becerril PA-C Primary Care Provider Cristobal Becerril PA-C Unavailable [phone] Elisa Yoo MD Unavailable [phone] Reason for Referral * Diagnostic Imaging Ultrasound (Routine) - Pending Review Specialty Diagnoses / Procedures Referred By Contac t Referred To Contact Radiology. Diagnoses growth restriction antepartum Procedures [facility] US OB Limited Single/Multiple Mark Garcia MD [address] [place] [address] Referral ID Status Reason Start Date Expiration Date V isits Requested Visits Authorized [id number] Pending Review 10/20/2023 10/19/2024 1 1 Reason for Visit * Diagnostic Imaging Ultrasound (Routine) - Pending Review Specialty Diagnoses / Procedures Referred By Contac t Referred To Contact Radiology. Diagnoses growth restriction antepartum Procedures [facility] US OB Limited Single/Multiple Mark Garcia MD [address] [place] [address] Referral ID Status Reason Start Date Expiration Date V isits Requested Visits Authorized [id number] Pending Review 10/20/2023 10/19/2024 1 1 Encounter Details Date Type Department Care Team (Latest Contact Info) Description 11/03/2023 7:59 AM CDT - 11/03/2023 11:59 PM CDT Hospital Encounter [facility] [place] [address] [place] [address] Mike Joseph MD [address] [facility] [address] [place] [address] growth restriction antepartum Discharge Disposition: Home or Self Care Social History Tobacco Use Types Packs/Day Years Used Date Smoking Tobacco: Never Passive Smoke Exposure: Never Smokeless Tobacco: Never Alcohol Use Standard Drinks/Week Comments Yes 5 (1 standard drink = 0.6 oz pur e alcohol) PHQ-2 Answer Date Recorded PHQ-2 Score 0 06/17/2022 [place] Depression Scale Answer Date Recorded Last EPDS [...] [facility] [place] [address] [address] [facility] [address] [place] [phone] Mark Garcia MD [address] [place] [phone] Kenton Jasso MD [address] [place] [id number] 11/12/2023 11:[address] [facility] Maternal Medicine [facility] [address] [facility] [address] [place] [phone] Mark Garcia MD [address] [place] [address] [phone] Kenton Jasso MD [address] [place], [place] [address] 11/19/2023 10:30 AM CDT Office Visit [facility] Maternal Medicine [place] [address] [address] [facility] [address] [place] [phone] Mark Garcia MD [address] [place] [address] 11/19/2023 11:[address] [facility] [place] [address] [facility] [address] [place] [address] Mark Garcia MD [address] [place] [address] documented as of this encounter [...] ? Study Date: ??11/03/2023 8:01am Pat. NO: ??[id number] ?Referring ??MD: NICHOLE GANN Site: ??[facility] ? Seismograph Operator Helper: Suzy Hester RDMS : ??1995 ?Age: ?? [...] SAINZ Study Date: 11/03/2023 8:01am Pat. NO: [id number] Referring MD: NICHOLE GANN Site: [facility] Seismograph Operator Helper: Suzy Hester RDMS : 1995 Age: 28 [...] today's evaluation or if we can be [facility] services[facility] service, please contact the Maternal- Medicine [...] appropriate for gestational age. Mark Garcia MD [facility] US ORDERABL ES documented in this encounter Visit Diagnoses Diagnosis growth restriction antepartum documented in this encounter Care Teams Rug Touch Up Painter Relationship Specialty Start Date End Date Cristobal Becerril PA-C [address] [place] [address] PCP - General Family Medicine 06/17/[address] [place] [address] [employer] Director Dietitian, Registered 10/29/21 Cristobal Becerril PA-C [address] [place] [place] [address] Assigned PCP 06/27/22 Elisa Yoo MD [address] [facility] [address] [address] Assigned OBGYN Provider 09/28/23 documented as of this encounter
--- OUTSIDE RECORDS SUMMARY | 2023-11-05 15:22 | XMS_ITS | Clinical Summary ---
Author Organization [place] Address [address] [place] [address] Care Team Providers Care Ledger Poster Name Role Phone Evi Colmenares RD Unavailable Cristobal Becerril PA-C Primary Care Provider Cristobal Becerril PA-C Unavailable [phone] Elisa Yoo MD Unavailable [phone] Allergies Active Allergy Reactions Criticality Noted [...] Description 11/03/2023 8:30 AM CDT Office Visit [facility] [address] [place] [address] Mike Joseph MD growth restriction antepartum 11/03/2023 7:59 AM CDT - 11/03/2023 11:59 PM CDT Hospital Encounter [facility] [address] [facility] [address] [place] [address] Mike Joseph MD growth restriction antepartum Discharge Disposition: Home or Self Care 11/03/2023 Travel 10/29/2023 2:31 PM CDT - 10/29/2023 11:59 PM CDT Hospital Encounter [facility] [address] [address] Mike Joseph MD growth restriction antepartum Discharge Disposition: Home or Self Care 10/29/2023 2:30 PM CDT Office Visit [facility] [address] [address] Mike Joseph MD growth restriction antepartum 10/29/2023 Travel 10/20/2023 9:00 AM CDT Office Visit [facility] [place] [address] [place] [address] Elisa Yoo MD Rauk, Phillip Neil, MD growth restriction antepartum (Primary Dx) 10/20/2023 8:58 AM CDT - 10/20/2023 11:59 PM CDT Hospital Encounter [facility] [address] [place] [address] Elisa Yoo MD Rauk, Phillip Neil, MD growth restriction antepartum Discharge Disposition: Home or Self Care 10/20/2023 Travel 10/15/2023 3:15 PM CDT - 10/15/2023 11:59 PM CDT Hospital Encounter [facility] [address] [place] [address] Mark Garcia MD growth restriction antepartum Discharge Disposition: Home or Self Care 10/15/2023 3:00 PM CDT Office Visit [facility] [address] [place] [address] Mark Garcia MD growth restriction antepartum (Primary Dx) 10/15/2023 Travel 10/12/2023 3:00 PM CDT Office Visit [facility] [address] [place] [address] Mark Garcia MD growth restriction antepartum (Primary Dx) 10/12/2023 2:59 PM CDT - 10/12/2023 11:59 PM CDT Hospital Encounter [facility] [address] [place] [address] Mark Garcia MD growth restriction antepartum Discharge Disposition: Home or Self Care 10/12/2023 Travel 10/08/2023 8:30 AM CDT Office Visit [facility] [place] [address] [address] Kenton Jasso MD growth restriction antepartum (Primary Dx) 10/08/2023 7:58 AM CDT - 10/08/2023 11:59 PM CDT Hospital Encounter [facility] [place] [address] [place] [phone] Kenton Jasso MD growth restriction antepartum Discharge Disposition: Home or Self Care 10/08/2023 Travel 10/01/2023 2:30 PM CDT Office Visit [facility] [place] [address] [place] [address] Elisa Yoo MD growth restriction antepartum (Primary Dx); Obesity in , antepartum; BMI 40.0-44.9, adult (H) 10/01/2023 2:28 PM CDT - 10/01/2023 11:59 PM CDT Hospital Encounter [facility] [place] [address] [place] [phone] Elisa Yoo MD growth restriction antepartum Discharge Disposition: Home or Self Care 10/01/2023 Travel 09/28/2023 Travel 09/22/2023 1:45 PM CDT Office Visit [facility] [place] [address] [place] [phone] Mark Garcia MD growth restriction antepartum (Primary Dx) 09/22/2023 1:42 PM CDT - 09/22/2023 11:59 PM CDT Hospital Encounter [facility] [place] [address] [facility] [facility] [address] [place] [phone] Mark Garcia MD growth restriction antepartum Discharge Disposition: Home or Self Care 09/22/2023 Travel 09/15/2023 3:00 PM CDT Office Visit [facility] [place] [address] [facility] [address] [place] [phone] Mark Garcia MD growth restriction antepartum (Primary Dx) 09/15/2023 2:54 PM CDT - 09/15/2023 11:59 PM CDT Hospital Encounter [facility] [place] [address] [facility] [address] [place] [phone] Mark Garcia MD growth restriction antepartum Discharge Disposition: Home or Self Care 09/15/2023 Travel 09/10/2023 11:30 AM CDT Office Visit [facility] [address] [address] Ghislaine Encinas MD Sabol, Bethany, MD growth restriction antepartum (Primary Dx) 09/10/2023 10:57 AM CDT - 09/10/2023 11:59 PM CDT Hospital Encounter [facility] [address] [address] Ghislaine Encinas MD Sabol, Bethany, MD related condition, antepartum Discharge Disposition: Home or Self Care 09/10/2023 Travel 09/09/2023 Medical Correspondence [facility] [address] [facility] [address] [phone] Scan, Non-Provider 09/09/2023 PRE VISIT [facility] [address] [place] [phone] Bianca Kimball RN Ultrasound (L2: FGR seen on outside [place]) 09/08/2023 Transcribe Orders [facility] [place] [address] [address] [place] [phone] Ghislaine Encinas MD related condition, antepartum (Primary [...] Answer Date Recorded PHQ-2 Score 0 06/17/2022 [place] Depression Scale Answer Date Recorded Last EPDS [...] ??C (98.2 ??F) 06/17/2022 1 0:24 AM MOSAICIST Respiratory Rate 16 11/03/2023 8:40 AM CDT Oxygen Saturation 97% 10/15/2023 3:50 PM CDT Inhaled Oxygen Concentration - - Weight 100.2 kg (220 lb 12.8 oz) 2022 10:24 AM MOSAICIST Height 157.5 cm (5' 2) 06/17/2022 10:2 4 AM MOSAICIST Body Mass Index 40.38 06/17/2022 10:24 AM MOSAICIST Plan of Treatment Upcoming Encounters Date Type Department Care Team (Late st Contact Info) Description 11/12/2023 10:30 AM CDT Office Visit [facility] [address] [facility] [address] [place] [phone] Mark Garcia MD [address] [place] [address] Kenton Jasso MD [address] [place], [place] [address] 11/12/2023 11:00 AM CDT Appointment [facility] [address] [place] [address] Mark Garcia MD [address] [place], [place] [address] Kneton Jasso MD [address] [place], [place] [address] 11/19/2023 10:30 AM CDT Office Visit [facility] [address] [place] [address] Mark Garcia MD [address] [place] [address] 11/19/2023 11:00 AM CDT Appointment [facility] [address] [place] [address] Mark Garcia MD [address] [place], [place] [phone] Health Maintenance Due Date Last Done Comments [...] Procedure Name Priority Date/Time Associated Diagnosis Comments [facility] OB LIMITED SINGLE/MULTIPLE Routine 11/03/2023 9:36 AM CDT growth restriction antepartum [facility] OB LIMITED SINGLE/MULTIPLE Routine 10/29/2023 3:15 PM CDT growth restriction antepartum [facility] COMPREHENSIVE SINGLE F/U Routine 10/20/2023 10:05 AM CDT growth restriction antepartum NON-STRESS TEST - HIM SCAN 10/20/2023 12:00 AM CDT [facility] OB LIMITED SINGLE/MULTIPLE Routine 10/15/2023 4:10 PM CDT growth restriction antepartum [facility] OB LIMITED SINGLE/MULTIPLE Routine 10/12/2023 4:02 PM CDT growth restriction antepartum [facility] OB LIMITED SINGLE/MULTIPLE Routine 10/08/2023 9:09 AM CDT growth restriction antepartum [facility] US COMPREHENSIVE SINGLE F/U Routine 10/01/2023 4:11 PM CDT growth restriction antepartum [facility] US OB LIMITED SINGLE/MULTIPLE Routine 09/22/2023 2:13 PM CDT growth restriction antepartum [facility] US OB LIMITED SINGLE/MULTIPLE Routine 09/15/2023 4:05 PM CDT growth restriction antepartum [facility] US COMPREHENSIVE SINGLE Routine 09/10/2023 12:00 PM CDT related condition, antepartum HIV ANTIGEN ANTIBODY COMBO Routine 05/19/2023 10:29 AM MOSAICIST 8 weeks gestation of HEPATITIS C ANTIBODY Routine 05/19/2023 10:29 AM MOSAICIST 8 weeks gestation of ABSTRACT PAP (HIM EXTERNAL RESULT) Routine 09/30/2020 10:30 AM CDT from Last 3 Months or Most Recently Relevant to Health Maintenance Results * [facility] US OB Limited Single/Multiple (11/03/2023 9:36 [...] ? Study Date: ??11/03/2023 8:01am Pat. NO: ??[id number] ?Referring ??MD: GHISLAINE ENCINAS Site: ??[facility] ? Office Clinician: Suzy Hester RDMS : ??1995 ?Age: ?? [...] SAINZ Study Date: 11/03/2023 8:01am Pat. NO: [id number] Referring MD: GHISLAINE ENCINAS Site: [facility] Office Clinician: Suzy Hester RDMS : 1995 Age: 28 [...] for gestational age. Mark Garcia MD [place] [facility] US ORDERABL ES * [facility] US Comprehensive Single F/U (10/20/2023 10:05 [...] ? Study Date: ??10/20/2023 9:27am Pat. NO: ??[id number] ?Referring ??: GHISLAINE ENCINAS Site: ??[facility] ? Office Clinician: Miky Malone RDMS : ??1995 ?Age: ?? [...] 3 lb 0 ?oz EFW by ?Hadlock ([id number]) Head / Face / Neck Biometry: Research Physiologist ? 7.8 ? mm CM ?4.3 ? [...] documented previously: Heart / Thorax ?4-chamber view. 6-kqvhda-hshzxoq view. Spine ?Cervical spine. Thoracic spine. Lumbar [...] SAINZ Study Date: 10/20/2023 9:27am Pat. NO: [id number] Referring MD: GHISLAINE ENCINAS Site: [facility] Office Clinician: Miky Malone RDMS : 1995 Age: 28 [...] 3 lb 0 oz EFW by Hadlock ([id number]) Head / Face / Neck Biometry: Research Physiologist 7.8 mm CM 4.3 mm ANATOMY ----- The following structures appear normal: Head / Neck Cranium. Head size. Head shape.Lateral ventricles. Midline falx. Cavum septi pellucidi. Cerebellum.Cisterna magna. Thalami. Face Lips. Profile. Nose. Heart / Thorax RVOT view. LVOT view. Diaphragm. Abdomen Stomach. Kidneys. Bladder. The following structures were documented previously: Heart / Thorax 4-chamber view. 5-yxhlui-fscjlrwavaw. Spine Cervical spine. Thoracic spine.Lumbar spine. Sacral [...] without decelerations. Elisa Yoo MD [facility] US ORDERABLE S * Non-Stress Test - HIM Scan (10/20/2023 12:00 AM CDT) 10/20/2023 Provider Outside PROCEDURES * [facility] Comprehensive Single (09/10/2023 12:00 PM CDT) Anatomical [...] ? Study Date: ??09/10/2023 10:59am Pat. NO: ??[id number] ?Referring ??MD: GHISLAINE ENCINAS Site: ??[facility] ? Office Clinician: Margaret Colvin RDMS : ??1995 ?Age: ?? [...] 1 lb 4 ?oz EFW by ?Hadlock ([id number]) Head / Face / Neck Biometry: Research Physiologist ? 7.3 ? mm CM ?5.9 ? [...] / Thorax ?Aortic arch view. 3-vessel view. 6-kxmcax-lutbozk view. Abdomen ? Kidneys. Spine ?Lumbar spine. [...] medical record, and communicating with other health rn transitional care and/or care coordination. Please see note for details. Procedure Note Elisa Yoo MD - 09/10/2023 Comprehensive ----- Pat. Name: SANAZ SAINZ Study Date: 09/10/2023 10:59am Pat. NO: [id number] Referring MD: GHISLAINE ENCINAS Site: [facility] Office Clinician: Margaret Colvin RDMS : 1995 Age: 28 [...] 1 lb 4 oz EFW by Hadlock ([id number]-FL) Head / Face / Neck Biometry: Research Physiologist 7.3 mm CM 5.9 mm Nasal bone [...] Heart / Thorax Aortic arch view. 3-vessel view.2-fytqck-mopojyl view. Abdomen Kidneys. Spine Lumbar spine. Sacral [...] detectinganeuploidy and structural abnormalities. Ultrasound can routinely erzchp99-12% of structural abnormalities. Follow-up has been scheduled [...] electronic medical record, andcommunicating with other health rn transitional care and/or carecoordination. Please see note for details. [...] gestational age. Ghislaine Encinas MD [facility] US O RDERABLES * HIV Antigen Antibody Combo [place] (05/19/2023 10:29 AM MOSAICIST) HIV Antigen Antibody Combo Nonreactive Nonreactive 05/19/2023 6:15 PM MOSAICIST [facility]/EN DO Comment:HIV-1 p24 Ag & HIV-1 /HIV-2 Ab Not Detected Blood BLOOD SPECIMEN / Unknown Client Draw / Unknown 05/19/2023 10:29 AM MOSAICIST 05/19/2023 1:09 PM MOSAICIST Yulia Galvan SHELL MOLD BONDER DISTILLERY M[facility]ER HEL[facility] LAB - BLO OD ORDERABLES [facility]/PROT/ENDO [facility] Special[facility] Core/Prot/Endo [address] [facility], [address] [phone] * Hepatitis C antibody (05/19/2023 10:29 AM MOSAICIST) Hepatitis C Antibody Nonreactive Nonreactive 05/19/2023 5:06 PM MOSAICIST [facility]/EN DO Blood BLOOD SPECIMEN / Unknown Client Draw / Unknown 05/19/2023 10:29 AM MOSAICIST 05/19/2023 1:10 PM MOSAICIST Narrative [facility]PROT/ENDO - 05/19/2023 5:06 PM MOSAICIST Assay performance characteristics have not been established for newborns, infants, and children. Yulia Galvan APRN DISTILLERY [facility] - BLO OD ORDERABLES Performing Organization Address City/[facility]/ZIP Co de Phone Number [facility]/PROT/ENDO Specialty Core/Prot/Endo [address] [facility], [address] [phone] * Abstract PAP (HIM External Result) (09/30/2020 10:30 AM CDT) PAP-ABSTRACT See Scanned Document [facility] 09/30/2020 10:3 0 AM CDT Narrative [facility] - 09/30/2020 10:30 AM CDT PAP info from chart and care everywhere Patient Reported LAB - HIM EXTERNAL R ESULT [facility] [address] [place] [address], [facility] from Last 3 Months or Most Recently Relevant to Health Maintenance Advance Directives For more information, please contact: [phone] * Full Code (Latest Code Status on [...] patie nt/ legal decision maker Care Teams Ledger Poster Relationship Specialty Start Date End Date Cristobal Becerril PA-C [address] [address] PCP - General Family Medicine 06/17/[address] [address] [employer] Manager Dietitian, Registered 10/29/21 Cristobal Becerril PA-C [address] [address] [address] Assigned PCP 06/27/22 Elisa Yoo MD [address] [address] Assigned OBGYN Provider 09/28/23
--- OUTSIDE RECORDS SUMMARY | 2023-11-05 15:22 | XMS_ITS | Encounter Summary ---
Author Organization [facility] Address [address] [place] [address]. [place] [address] Care Team Providers Care Giver Name Role Phone Evi Colmenares RD Unavailable Cristobal Becerril PA-C Primary Care Provider Cristobal Becerril PA-C Unavailable [phone] Elisa Yoo MD Unavailable [phone] Encounter Details Date Type Department Care Team (Latest Contact Info) Description 11/03/2023 Travel Social History Tobacco Use Types Packs/Day Years Used Date Smoking Tobacco: Never Passive Smoke Exposure: Never Smokeless Tobacco: Never Alcohol Use Standard Drinks/Week Comments Yes 5 (1 standard drink = 0.6 oz pur e alcohol) PHQ-2 Answer Date Recorded PHQ-2 Score 0 06/17/2022 [place] Depression Scale Answer Date Recorded Last EPDS [...] AM CDT Office Visit [facility] Medicine [place] [address] [facility] [address] [place] [phone] Mark Garcia MD [address] [place], [place] [address] [phone] Kenton Jasso MD [address] [place], [place] [address] 11/12/2023 11:00 AM CDT Appointment [facility] Medicine [place] [address] [address] [facility] [address] [place] [phone] Mark Garcia MD [address] [place], [place] [address] [phone] Kenton Jasso MD [address] [place], [place] [address] 11/19/2023 10:30 AM CDT Office Visit [facility] Medicine [place] [address] [facility] [address] [place] [phone] Mark Garcia MD [address] [place], [place] [address] 11/19/2023 11:00 AM CDT Appointment [facility] Medicine [place] [address] [address] [facility] [address] [place] [phone] Mark Garcia MD [address] [place], [place] [address] documented as of this encounter Visit Diagnoses Not on filedocumented in this encounter Care Teams Giver Relationship Specialty Start Date End Date Cristobal Becerril PA-C [address] [place] [address] PCP - General Family Medicine 06/17/[address] [place] [address] Audio Visual Tech Dietitian, Registered 10/29/21 Cristobal Becerril PA-C [address] [place] [address] Assigned PCP 06/27/22 Elisa Yoo MD [address] [address] Assigned OBGYN Provider 09/28/23 documented as of this encounter
--- OUTSIDE RECORDS SUMMARY | 2023-11-05 15:23 | XMS_ITS | Encounter Summary ---
Author Organization [place] Address [facility] [place] [address] Care Team Providers Care Ceo And Founder Name Role Phone Evi Colmenares RD Unavailable Cristobal Becerril PA-C Primary Care Provider Cristobal Becerril PA-C Unavailable [phone] Elisa Yoo MD Unavailable [phone] Reason for Visit * Reason Comments Ultrasound NST/Limited/UAR-FGR * Consultation (Routine: Next available opening) - Pending Review Specialty Diagnoses / Procedures Referred By Contac t Referred To Contact Diagnoses growth restriction antepartum Elisa Yoo MD [address] [place] [address] Referral ID Status Reason Start Date Expiration Date V isits Requested Visits Authorized [id number] Pending Review 10/01/2023 09/30/2024 10 10 Encounter Details Date Type Department Care Team (Late st Contact Info) Description 10/15/2023 3:00 PM CDT Office Visit [facility] [place] [address] [facility] [address] [place] [phone] Mark Garcia MD [address] [address] growth restriction antepartum (Primary Dx) Social History Tobacco Use Types Packs/Day Years Used Date Smoking Tobacco: Never Passive Smoke Exposure: Never Smokeless Tobacco: Never Alcohol Use Standard Drinks/Week Comments Yes 5 (1 standard drink = 0.6 oz pur e alcohol) PHQ-2 Answer Date Recorded PHQ-2 Score 0 06/17/2022 [place] Depression Scale Answer Date Recorded Last EPDS [...] for details of today's US at the [facility]. Mark Garcia MD Maternal- Medicine documented in this encounter Nursing Notes * Simi Wild RN - 10/15/2023 3:00 PM CDT Patient reports good movement, denies contractions, leaking of fluid, or bleeding. SBAR givento [facility] , see their note in Epic. NST Performed due to FGR. reviewed efm tracing. See NST/BPP Doc Flowsheet tab. documented in this encounter Plan of Treatment Upcoming Encounters Date Type Department Care Team (Late st Contact Info) Description 11/12/2023 10:30 AM CDT Office Visit [facility] [place] [address] [facility] [address] [place] [phone] Mark Garcia MD [address] [place] [address] Kenton Jasso MD [address] [place], [place] [address] 11/12/2023 11:00 AM CDT Appointment [facility] Medicine [place] [address] [facility] [facility] [address] [place] [phone] Mark Garcia MD [address] [place], [place] [phone] eKnton Jasso MD [address] [place], [place] [address] 11/19/2023 10:30 AM CDT Office Visit [facility] Medicine [place] [address] [place] [phone] Mark Garcia MD [address] [place], [place] [address] 11/19/2023 11:00 AM CDT Appointment [facility] Medicine [place] [address] [place] [phone] Mark Garcia MD [address] [place], [place] [address] documented as of this encounter Visit Diagnoses Diagnosis growth restriction antepartum- Primary documented in this encounter Care Teams Ceo And Founder Relationship Specialty Start Date End Date Cristobal Becerril PA-[place] [address] [place] [address] PCP - General Family Medicine 06/17/[address] [facility] [place] [address] Petrography Teacher Dietitian, Registered 10/29/21 Cristobal Becerril PA-C [address] [place] [address] Assigned PCP 06/27/22 Elisa Yoo MD [address] [place], [place] [address] Assigned OBGYN Provider 09/28/23 documented as of this encounter
--- OUTSIDE RECORDS SUMMARY | 2023-11-05 15:23 | XMS_ITS | Encounter Summary ---
Author Organization [place] Address [facility] [place] [address] Care Team Providers Care Floorworker Distributor Name Role Phone Evi Colmenares RD Unavailable Cristobal Becerril PA-C Primary Care Provider Cristobal Becerril PA-C Unavailable [phone] Elisa Yoo MD Unavailable [phone] Reason for Referral * Diagnostic Imaging Ultrasound (Routine) - Pending Review Specialty Diagnoses / Procedures Referred By Contac t Referred To Contact Radiology. Diagnoses growth restriction antepartum Procedures [facility] US OB Limited Single/Multiple Kenton Jasso MD [address] [place] [address] Referral ID Status Reason Start Date Expiration Date V isits Requested Visits Authorized [id number] Pending Review 10/08/2023 10/07/2024 1 1 Reason for Visit * Reason Comments Ultrasound Limited/UAR/NST- FGR * Consultation (Routine: Next available opening) - Pending Review Specialty Diagnoses / Procedures Referred By Contac t Referred To Contact Diagnoses growth restriction antepartum Elisa Yoo MD [address] [place] [address] Referral ID Status Reason Start Date Expiration Date V isits Requested Visits Authorized [id number] Pending Review 09/10/2023 09/09/2024 5 5 Encounter Details Date Type Department Care Team (Late st Contact Info) Description 10/08/2023 8:30 AM CDT Office Visit [facility] [address] [place] [address] Kenton Jasso MD [address] [employer] [address] [place] [address] growth restriction antepartum (Primary Dx) Social History Tobacco Use Types Packs/Day Years Used Date Smoking Tobacco: Never Passive Smoke Exposure: Never Smokeless Tobacco: Never Alcohol Use Standard Drinks/Week Comments Yes 5 (1 standard drink = 0.6 oz pur e alcohol) PHQ-2 Answer Date Recorded PHQ-2 Score 0 06/17/2022 [place] Depression Scale Answer Date Recorded Last EPDS [...] Description 11/12/2023 10:30 AM CDT Office Visit [facility] Medicine [place] [address] [address] [facility] [address] [place] [address] [phone] Mark Garcia MD [address] [place], [place] [address] Kenton Jasso MD [address] [place], [place] [address] 11/12/2023 11:00 AM CDT Appointment [facility] Medicine [facility] [address] [facility] [address] [place] [address] [phone] Mark Garcia MD [address] [place], [place] [address] [phone] Kenton Jasso MD [address] [place], [place] [address] 11/19/2023 10:30 AM CDT Office Visit [facility] Medicine [place] [address] [address] [facility] [address] [place] [address] [phone] Mark Garcia MD [address] [place] [address] 11/19/2023 11:00 AM CDT Appointment [facility] Maternal Medicine [facility] [address] [facility] [address] [place] [address] Mark Garcia MD [address] [place], [place] [id number] documented as of this encounter Results * [...] ? Study Date: ??10/12/2023 3:35pm Pat. NO: ??[id number] ?Referring ??: NICHOLE GANN Site: ??[facility] ? Optometrist President/Practice Owner: Suzy Hester [facility] : ??1995 ?Age: ?? 28 ----- INDICATION [...] The patient is scheduled to return to [facility] on Wednesday for FGR surveillance. Return [...] SAINZ Study Date: 10/12/2023 3:35pm Pat. NO: [id number] Referring MD: NICHOLE GANN Site: [facility] Optometrist President/Practice Owner: Suzy Hester RDMS : 1995 Age: 28 [...] The patient is scheduled to return to [facility] on Wednesday for FGRsurveillance. Return to [...] antepartum documented in this encounter Care Teams Floorworker Distributor Relationship Specialty Start Date End Date Cristobal Becerril PA-C [address] [facility] [address] PCP - General Family Medicine 06/17/[address] [place] [id number] Stucco Plasterer Dietitian, Registered 10/29/21 Cristobal Becerril PA-C [address] [facility] [address] Assigned PCP 06/27/22 Elisa Yoo MD [address] 502164 Assigned OBGYN Provider 09/28/23 documented as of this encounter
--- OUTSIDE RECORDS SUMMARY | 2023-11-05 15:23 | XMS_ITS | Encounter Summary ---
Author Organization [place] Address [facility] [place] [address] Care Team Providers Care Reconcilement Clerk Name Role Phone Evi Colmenares RD Unavailable Cristobal Becerril PA-C Primary Care Provider Cristobal Becerril PA-C Unavailable [phone] Elisa Yoo MD Unavailable [phone] Reason for Referral * Diagnostic Imaging Ultrasound (Routine) - Pending Review Specialty Diagnoses / Procedures Referred By Contac t Referred To Contact Radiology. Diagnoses growth restriction antepartum Procedures [facility] US Comprehensive Single F/U Elisa Yoo MD [address] [place] [address] Referral ID Status Reason Start Date Expiration Date V isits Requested Visits Authorized [id number] Pending Review 10/01/2023 09/30/2024 1 1 Reason for Visit * Diagnostic Imaging Ultrasound (Routine) - Pending Review Specialty Diagnoses / Procedures Referred By Contac t Referred To Contact Radiology. Diagnoses growth restriction antepartum Procedures [facility] US Comprehensive Single F/U Elisa Yoo MD [address] [place] [address] Referral ID Status Reason Start Date Expiration Date V isits Requested Visits Authorized [id number] Pending Review 10/01/2023 09/30/2024 1 1 Encounter Details Date Type Department Care Team (Latest Contact Info) Description 10/20/2023 8:58 AM CDT - 10/20/2023 11:59 PM CDT Hospital Encounter [facility] [place] [address] [facility] [address] [place] [address] Elisa Yoo MD [address] [place] [address] Mark Garcia MD [address] [place] [address] growth restriction antepartum Discharge Disposition: Home or Self Care Social History Tobacco Use Types Packs/Day Years Used Date Smoking Tobacco: Never Passive Smoke Exposure: Never Smokeless Tobacco: Never Alcohol Use Standard Drinks/Week Comments Yes 5 (1 standard drink = 0.6 oz pur e alcohol) PHQ-2 Answer Date Recorded PHQ-2 Score 0 06/17/2022 [place] Depression Scale Answer Date Recorded Last EPDS [...] Description 11/12/2023 10:30 AM CDT Office Visit [facility] Maternal Medicine [facility] [address] [facility] [address] [place] [phone] Mark Garcia MD [address] [place] [address] [phone] Kenton Jasso MD [address] [place] [address] 11/12/2023 11:00 AM CDT Appointment [facility] Medicine [facility] [address] [facility] [address] [place] [phone] Mark Garcia MD [address] [place], [place] [address] Kenton Jasso MD [address] [place] [address] 11/19/2023 10:30 AM CDT Office Visit [facility] Medicine [facility] [address] [place] [address] Mark Garcia MD [address] [place], [place] [address] 11/19/2023 11:00 AM CDT Appointment [facility] Medicine [facility] [address] [place] [address] Mark Garcia MD [address] [place] [address] documented as of this encounter Procedures Procedure Name Priority Date/Time Associated Diagnosis Comments [facility] US COMPREHENSIVE SINGLE F/U Routine 10/20/2023 10:05 AM CDT growth restriction antepartum NON-STRESS TEST - HIM SCAN 10/20/2023 12:00 AM CDT documented in this encounter Results * [facility] US Comprehensive Single F/U (10/20/2023 10:05 [...] ? Study Date: ??10/20/2023 9:27am Pat. NO: ??[id number] ?Referring ??MD: NICHOLE GANN Site: ??[facility] ? Police Cadet: Miky Malone RDMS : ??1995 ?Age: ?? [...] 3 lb 0 ?oz EFW by ?Hadlock ([id number]) Head / Face / Neck Biometry: Game Bird Farmer ? 7.8 ? mm CM ?4.3 ? [...] documented previously: Heart / Thorax ?4-chamber view. 9-whydih-ljgbtqs view. Spine ?Cervical spine. Thoracic spine. Lumbar [...] SAINZ Study Date: 10/20/2023 9:27am Pat. NO: [id number] Referring MD: NICHOLE GANN Site: [facility] Police Cadet: Miky Malone RDMS : 1995 Age: 28 [...] 3 lb 0 oz EFW by Hadlock ([id number]) Head / Face / Neck Biometry: Game Bird Farmer 7.8 mm CM 4.3 mm ANATOMY ----- The following structures appear normal: Head / Neck Cranium. Head size. Head shape.Lateral ventricles. Midline falx. Cavum septi pellucidi. Cerebellum.Cisterna magna. Thalami. Face Lips. Profile. Nose. Heart / Thorax RVOT view. LVOT view. Diaphragm. Abdomen Stomach. Kidneys. Bladder. The following structures were documented previously: Heart / Thorax 4-chamber view. 3-ohnxdx-xrbrqntepci. Spine Cervical spine. Thoracic spine.Lumbar spine. Sacral [...] Reactive NST without decelerations. Elisa Yoo MD [facility] US ORDERABLE S * Non-Stress Test - HIM Scan (10/20/2023 12:00 AM CDT) 10/20/2023 Provider Outside PROCEDURES documented in this encounter Visit Diagnoses Diagnosis growth restriction antepartum documented in this encounter Care Teams Reconcilement Clerk Relationship Specialty Start Date End Date Cristobal Becerril PA-C [address] [place] [address] PCP - General Family Medicine 06/17/[address] [facility] [place] [address] Podiatric Foot And Ankle Specialist Dietitian, Registered 10/29/21 Cristobal Becerril PA-C [address] [place] [address] Assigned PCP 06/27/22 Elisa Yoo MD [address] 635844 Assigned OBGYN Provider 09/28/23 documented as of this encounter
--- OUTSIDE RECORDS SUMMARY | 2023-11-05 15:23 | XMS_ITS | Encounter Summary ---
Author Organization [place] Address [address] [place] [address]. [place] [address] Care Team Providers Care Jigger Machine Operator Name Role Phone Evi Colmenares RD Unavailable Cristobal Becerril PA-C Primary Care Provider Cristobal Becerril PA-C Unavailable [phone] Elisa Yoo MD Unavailable Encounter Details Date Type Department Care Team (Latest Contact Info) Description 10/08/2023 Travel Social History Tobacco Use Types Packs/Day Years Used Date Smoking Tobacco: Never Passive Smoke Exposure: Never Smokeless Tobacco: Never Alcohol Use Standard Drinks/Week Comments Yes 5 (1 standard drink = 0.6 oz pur e alcohol) PHQ-2 Answer Date Recorded PHQ-2 Score 0 06/17/2022 [place] Depression Scale Answer Date Recorded Last EPDS [...] Office Visit [facility] Medicine [place] [address] [address] [facility] [address] [place] [phone] Mark Garcia MD [address] [place], [place] [address] [phone] Kenton Jasso MD [address] [place], [place] [address] 11/12/2023 11:00 AM CDT Appointment [facility] Medicine [place] [address] [address] [facility] [address] [place] [phone] Mark Gacria MD [address] [place], [place] [address] [phone] Kenton Jasso MD [address] [place], [place] [address] 11/19/2023 10:30 AM CDT Office Visit [facility] Medicine [place] [address] [address] [facility] [address] [place] [phone] Mark Garcia MD [address] [place], [place] [address] 11/19/2023 11:00 AM CDT Appointment [facility] Medicine [place] [address] [address] [facility] [address] [place] [phone] Mark Garcia MD [address] [place], [place] [address] documented as of this encounter Visit Diagnoses Not on filedocumented in this encounter Care Teams Jigger Machine Operator Relationship Specialty Start Date End Date Cristobal Becerril PA-C [address] [place] [address] PCP - General Family Medicine 06/17/[address] [place] [address] Machine Wiper Dietitian, Registered 10/29/21 Cristobal Becerril PA-C [address] [place] [address] Assigned PCP 06/27/22 Elisa Yoo MD [address] 728104 Assigned OBGYN Provider 09/28/23 documented as of this encounter
--- OUTSIDE RECORDS SUMMARY | 2023-11-05 15:23 | XMS_ITS | Encounter Summary ---
Author Organization [place] Address [address] [place] [address]. [place] [address] Care Team Providers Care Learning Analyst Name Role Phone Evi Colmenares RD Unavailable Cristobal Becerril PA-C Primary Care Provider Cristobal Becerril PA-C Unavailable [phone] Elisa Yoo MD Unavailable [phone] Encounter Details Date Type Department Care Team (Latest Contact Info) Description 10/01/2023 Travel Social History Tobacco Use Types Packs/Day Years Used Date Smoking Tobacco: Never Passive Smoke Exposure: Never Smokeless Tobacco: Never Alcohol Use Standard Drinks/Week Comments Yes 5 (1 standard drink = 0.6 oz pur e alcohol) PHQ-2 Answer Date Recorded PHQ-2 Score 0 06/17/2022 [place] Depression Scale Answer Date Recorded Last EPDS [...] AM CDT Office Visit [facility] Medicine [place] [address] [address] [facility] [address] [place] [phone] Mark Garcia MD [address] [place], [place] 6[address] [phone] Kenton Jasso MD [address] [place], [place] [address] 11/12/2023 11:00 AM CDT Appointment [facility] Medicine [place] [address] [address] [facility] [address] [place] [phone] Mark Garcia MD [address] [place], [place] 8[address] [phone] Kenton Jasso MD [address] [place], [place] [address] 11/19/2023 10:30 AM CDT Office Visit [facility] Medicine [place] [address] [address] [facility] [address] [place] [phone] Mark Garcia MD [address] [place], [place] [address] 11/19/2023 11:00 AM CDT Appointment [facility] Medicine [place] [address] [address] [facility] [address] [place] [phone] Mark Garcia MD [address] [place], [place] [address] documented as of this encounter Visit Diagnoses Not on filedocumented in this encounter Care Teams Learning Analyst Relationship Specialty Start Date End Date Cristobal Becerril PA-C [address] [place] [address] PCP - General Family Medicine 06/17/[address] [place] [address] Soft Top Installer Dietitian, Registered 10/29/21 Cristobal Becerril PA-C [address] [place] [address] Assigned PCP 06/27/22 Elisa Yoo MD [address] [address] Assigned OBGYN Provider 09/28/23 documented as of this encounter
--- OUTSIDE RECORDS SUMMARY | 2023-11-05 15:23 | XMS_ITS | Encounter Summary ---
Author Organization [place] Address [facility] [place] [address] Care Team Providers Care Retail Shift Manager Name Role Phone Evi Colmenares RD Unavailable Cristobal Becerril PA-C Primary Care Provider Cristobal Becerril PA-C Unavailable [phone] Elisa Yoo MD Unavailable [phone] Reason for Referral * Diagnostic Imaging Ultrasound (Routine) - Pending Review Specialty Diagnoses / Procedures Referred By Contac t Referred To Contact Radiology. Diagnoses growth restriction antepartum Procedures [facility] US OB Limited Single/Multiple Elisa Yoo MD [address] [place] [address] Referral ID Status Reason Start Date Expiration Date V isits Requested Visits Authorized [id number] Pending Review 10/01/2023 09/30/2024 1 1 Reason for Visit * Diagnostic Imaging Ultrasound (Routine) - Pending Review Specialty Diagnoses / Procedures Referred By Contac t Referred To Contact Radiology. Diagnoses growth restriction antepartum Procedures [facility] US OB Limited Single/Multiple Elisa Yoo MD [address] [place] [address] Referral ID Status Reason Start Date Expiration Date V isits Requested Visits Authorized [id number] Pending Review 10/01/2023 09/30/2024 1 1 Encounter Details Date Type Department Care Team (Latest Contact Info) Description 10/15/2023 3:15 PM CDT - 10/15/2023 11:59 PM CDT Hospital Encounter [facility] M[facility] Medicine [facility] [place] [address] [facility] [address] [place] [address] Mark Garcia MD [address] [place] [address] growth restriction antepartum Discharge Disposition: Home or Self Care Social History Tobacco Use Types Packs/Day Years Used Date Smoking Tobacco: Never Passive Smoke Exposure: Never Smokeless Tobacco: Never Alcohol Use Standard Drinks/Week Comments Yes 5 (1 standard drink = 0.6 oz pur e alcohol) PHQ-2 Answer Date Recorded PHQ-2 Score 0 06/17/2022 [place] Depression Scale Answer Date Recorded Last EPDS [...] Description 11/12/2023 10:30 AM CDT Office Visit [facility] Medicine [place] [address] [address] [facility] [address] [place] [phone] Mark Garcia MD [address] [place] [address] [phone] Kenton Jasso MD [address] [place] [address]49[address] 11/12/2023 11:00 AM CDT Appointment [facility] Medicine [place] [address] [address] [facility] [address] [place] [phone] Mark Garcia MD [address] [place] [address] [phone] eKnton Jasso MD [address] [place] [address]47004 11/19/2023 10:30 AM CDT Office Visit [facility] Medicine [place] [address] [address] [facility] [address] [place] [phone] Mark Garcia MD [address] [place], [place] [address] 11/19/2023 11:00 AM CDT Appointment [facility] Center [place] [address] [facility] [address] [place] [address] Mark Garcia MD [address] [place], [place] [phone] documented as of this encounter Procedures Procedure [...] ? Study Date: ??10/15/2023 3:47pm Pat. NO: ??[id number] ?Referring ??MD: NICHOLE GANN Site: ??[facility] ? Stock Saw Operator: Elissa Fritz [facility] : ??1995 ?Age: ?? 28 ----- [...] The patient is scheduled to return to [facility] on 10/20/23 for FGR surveillance and [...] SAINZ Study Date: 10/15/2023 3:47pm Pat. NO: [id number] Referring MD: NICHOLE GANN Site: [facility] Stock Saw Operator: Elissa Fritz RDMS : 1995 Age: 28 [...] The patient is scheduled to return to [facility] on 10/20/23 for FGR surveillanceand growth [...] Reactive NST without decelerations. Elisa Yoo MD [facility] ORDERABLE S documented in this encounter Visit Diagnoses Diagnosis growth restriction antepartum documented in this encounter Care Teams Retail Shift Manager Relationship Specialty Start Date End Date Cristobal Becerril PA-C [address] [place] [address] PCP - General Family Medicine 06/17/[address] [facility] [place] [address] Database Coordinator Dietitian, Registered 10/29/21 Cristobal Becerril PA-C [address] [place] [address] Assigned PCP 06/27/22 Elisa Yoo MD [address] 335984 Assigned OBGYN Provider 09/28/23 documented as of this encounter
--- OUTSIDE RECORDS SUMMARY | 2023-11-05 15:23 | XMS_ITS | Encounter Summary ---
Author Organization [place] Address [facility] [place] [address] Care Team Providers Care Deputy Harbormaster Name Role Phone Evi Colmenares RD Unavailable Cristobal Becerril PA-C Primary Care Provider Cristobal Becerril PA-C Unavailable [phone] Elisa Yoo MD Unavailable [phone] Reason for Referral * Diagnostic Imaging Ultrasound (Routine) - Pending Review Specialty Diagnoses / Procedures Referred By Contac t Referred To Contact Radiology. Diagnoses growth restriction antepartum Procedures [facility] US OB Limited Single/Multiple Elisa Yoo MD [address] [place] [address] Referral ID Status Reason Start Date Expiration Date V isits Requested Visits Authorized [id number] Pending Review 09/10/2023 09/09/2024 1 1 Reason for Visit * Diagnostic Imaging Ultrasound (Routine) - Pending Review Specialty Diagnoses / Procedures Referred By Contac t Referred To Contact Radiology. Diagnoses growth restriction antepartum Procedures [facility] US OB Limited Single/Multiple Elisa Yoo MD [address] [place] [address] Referral ID Status Reason Start Date Expiration Date V isits Requested Visits Authorized [id number] Pending Review 09/10/2023 09/09/2024 1 1 Encounter Details Date Type Department Care Team (Latest Contact Info) Description 10/08/2023 7:58 AM CDT - 10/08/2023 11:59 PM CDT Hospital Encounter [facility] [address] [place] [address] Kenton Jasso MD [address] [place] [address] growth restriction antepartum Discharge Disposition: Home or Self Care Social History Tobacco Use Types Packs/Day Years Used Date Smoking Tobacco: Never Passive Smoke Exposure: Never Smokeless Tobacco: Never Alcohol Use Standard Drinks/Week Comments Yes 5 (1 standard drink = 0.6 oz pur e alcohol) PHQ-2 Answer Date Recorded PHQ-2 Score 0 06/17/2022 [place] Depression Scale Answer Date Recorded Last EPDS [...] [facility] Medicine [place] [address] [address] [facility] [address] [place] [phone] Mark Garcia MD [address] [place], [place] [address] Kenton Jasso MD [address] [place], [place] [address] 11/12/2023 11:00 AM CDT Appointment [facility] Medicine [place] [address] [facility] [address] [place] [phone] Mark Garcia MD [address] [place], [place] [address] [phone] Kenton Jasso MD [address] [place], [place] [address] 11/19/2023 10:30 AM CDT Office Visit [facility] Medicine [place] [address] [facility] [address] [place] [phone] Makr Garcia MD [address] [place], [place] [address] 11/19/2023 11:00 AM CDT Appointment [facility] [place] [address] [facility] [address] [place] [address] Mark Garcia MD [address] [place] [address] documented as of this encounter [...] ? Study Date: ??10/08/2023 7:57am Pat. NO: ??[id number] ?Referring ??MD: NICHOLE GANN Site: ??[facility] ? Medical Lab Specialist: Meg Stallworth RDMS : ??1995 ?Age: ?? [...] the patient (reviewing medical records/tests), in direct sdwh-mo-xogn contact with the patient during her visit with the majority spent counseling and discussing the plan of care and documenting the visit in the electronic medical record. Please see note for details. Procedure Note Kenton Jasso MD - 10/08/2023 Limited ----- Pat. Name: SANAZ SAINZ Study Date: 10/08/2023 7:57am Pat. NO: [id number] Referring MD: NICHOLE GANN Site: [facility] Medical Lab Specialist: Meg Stallworth RDMS : 1995 Age: 28 [...] see the patient (reviewing medical records/tests), in wztreasqiy-dy-bhmo contact with the patient during her visit [...] increased resistance to flow. Elisa Yoo MD [facility] US ORDERABLE S documented in this encounter Visit Diagnoses Diagnosis growth restriction antepartum documented in this encounter Care Teams Deputy Harbormaster Relationship Specialty Start Date End Date Cristobal Becerril PA-C [address] [address] PCP - General Family Medicine 06/17/[address] [address] Executive Director Contract Shop Dietitian, Registered 10/29/21 Cristobal Becerril PA-C [address] [address] Assigned PCP 06/27/22 Elisa Yoo MD [address] [address] Assigned OBGYN Provider 09/28/23 documented as of this encounter
--- OUTSIDE RECORDS SUMMARY | 2023-11-05 15:23 | XMS_ITS | Encounter Summary ---
Author Organization [place] Address [facility] [place] [address] Care Team Providers Care Crotch Piece Baster Name Role Phone Evi Colmenares RD Unavailable Cristobal Becerril PA-C Primary Care Provider Cristobal Becerril PA-C Unavailable [phone] Elisa Yoo MD Unavailable [phone] Reason for Visit * Reason Comments Ultrasound NST/Limited/UAR: fet al growth restriction * Consultation (Routine: Next available opening) - Pending Review Specialty Diagnoses / Procedures Referred By Contac t Referred To Contact Diagnoses growth restriction antepartum Elisa Yoo MD [address] [place] [address] Referral ID Status Reason Start Date Expiration Date V isits Requested Visits Authorized [id number] Pending Review 10/01/2023 09/30/2024 10 10 Encounter Details Date Type Department Care Team (Late st Contact Info) Description 10/29/2023 2:30 PM CDT Office Visit [facility] [address] [phone] Mike Joseph MD [address] [place] [address] growth restriction antepartum Social History Tobacco Use Types Packs/Day Years Used Date Smoking Tobacco: Never Passive Smoke Exposure: Never Smokeless Tobacco: Never Alcohol Use Standard Drinks/Week Comments Yes 5 (1 standard drink = 0.6 oz pur e alcohol) PHQ-2 Answer Date Recorded PHQ-2 Score 0 06/17/2022 [place] Depression Scale Answer Date Recorded Last EPDS [...] 10/29/2023 2:30 PM CDT Patient presents to [facility] for Limited/UAR at 31w6d due to growth [...] 10:30 AM CDT Office Visit [facility] Maternal Medicine [place] [address] [place] [phone] Mark Garcia MD [address] [place], [place] [phone] Kenton Jasso MD [address] [place], [place] [address] 11/12/2023 11:00 AM CDT Appointment [facility] Medicine [place] [address] [place] [phone] Mark Garcia MD [address] [place], [place] [address] [phone] Kenton Jasso MD [address] [place], [place] [address] 11/19/2023 10:30 AM CDT Office Visit [facility] Maternal Medicine [place] [address] [place] [phone] Mark Garcia MD [address] [place], [place] [address] 11/19/2023 11:[address] [facility] Maternal Medicine [place] [address] [place] [phone] Mark Garcia MD [address] [place], [place] [phone] documented as of this encounter Visit Diagnoses Diagnosis growth restriction antepartum documented in this encounter Care Teams Crotch Piece Baster Relationship Specialty Start Date End Date Cristobal Becerril PA-C [address] [place] [address] PCP - General Family Medicine 06/17/[address] [facility] [place] [address] Public Health Professor Dietitian, Registered 10/29/21 Cristobal Becerril PA-C [address] [place] [address] Assigned PCP 06/27/22 Elisa Yoo MD [address] [place], [place] [address] Assigned OBGYN Provider 09/28/23 documented as of this encounter
--- OUTSIDE RECORDS SUMMARY | 2023-11-05 15:23 | XMS_ITS | Encounter Summary ---
Author Organization [place] Address [address] [place] [address]. [place] [address] Care Team Providers Care Bilingual Call Center Representative Name Role Phone Evi Colmenares RD Unavailable Cristobal Becerril PA-C Primary Care Provider Cristobal Becerril PA-C Unavailable [phone] Elisa Yoo MD Unavailable [phone] Encounter Details Date Type Department Care Team (Latest Contact Info) Description 10/29/2023 Travel Social History Tobacco Use Types Packs/Day Years Used Date Smoking Tobacco: Never Passive Smoke Exposure: Never Smokeless Tobacco: Never Alcohol Use Standard Drinks/Week Comments Yes 5 (1 standard drink = 0.6 oz pur e alcohol) PHQ-2 Answer Date Recorded PHQ-2 Score 0 06/17/2022 [place] Depression Scale Answer Date Recorded Last EPDS [...] 10:30 AM CDT Office Visit [facility] Medicine [place] [address] [address] [facility] [address] [place] [phone] Mark Garcia MD [address] [place], [place] [address] [phone] Kenton Jasso MD [address] [place], [place] [address] 11/12/2023 11:00 AM CDT Appointment [facility] Medicine [place] [address] [address] [facility] [address] [place] [phone] Mark Garcia MD [address] [place], [place] [address] [phone] Kenton Jasso MD [address] [place], [place] [address] 11/19/2023 10:30 AM CDT Office Visit [facility] Medicine [place] [address] [address] [facility] [address] [place] [phone] Mark Garcia MD [address] [place], [place] [address] 11/19/2023 11:00 AM CDT Appointment [facility] Medicine [place] [address] [address] [facility] [address] [place] [phone] Mark Garcia MD [address] [place], [place] [address] documented as of this encounter Visit Diagnoses Not on filedocumented in this encounter Care Teams Bilingual Call Center Representative Relationship Specialty Start Date End Date Cristobal Becerril PA-C [address] [place] [address] PCP - General Family Medicine 06/17/[address] [place] [address] Surgical Instruments Inspector Dietitian, Registered 10/29/21 Cristobal Becerril PA-C [address] [place] [address] Assigned PCP 06/27/22 Elisa Yoo MD [address] [address] Assigned OBGYN Provider 09/28/23 documented as of this encounter
--- OUTSIDE RECORDS SUMMARY | 2023-11-05 15:23 | XMS_ITS | Encounter Summary ---
Author Organization [place] Address [address] [place] [address]. [place] [address] Care Team Providers Care Thermal Cutting Tracer Machine Operator Name Role Phone Evi Colmenares RD Unavailable Cristobal Becerril PA-C Primary Care Provider Cristobal Becerril PA-C Unavailable [phone] Elisa Yoo MD Unavailable [phone] Encounter Details Date Type Department Care Team (Latest Contact Info) Description 10/12/2023 Travel Social History Tobacco Use Types Packs/Day Years Used Date Smoking Tobacco: Never Passive Smoke Exposure: Never Smokeless Tobacco: Never Alcohol Use Standard Drinks/Week Comments Yes 5 (1 standard drink = 0.6 oz pur e alcohol) PHQ-2 Answer Date Recorded PHQ-2 Score 0 06/17/2022 [place] Depression Scale Answer Date Recorded Last EPDS [...] Description 11/12/2023 10:30 AM CDT Office Visit [facility] Medicine [place] [address] [address] [facility] [address] [place] [phone] Mark Garcia MD [address] [place], [place] [address] [phone] Kenton Jasso MD [address] [place], [place] [address] 11/12/2023 11:00 AM CDT Appointment [facility] Medicine [place] [address] [address] [facility] [address] [place] [phone] Mark Garcia MD [address] [place], [place] [address] [phone] Kenton Jasso MD [address] [place], [place] [address] 11/19/2023 10:30 AM CDT Office Visit [facility] Medicine [place] [address] [address] [facility] [address] [place] [phone] Mark Garcia MD [address] [place], [place] [address] 11/19/2023 11:00 AM CDT Appointment [facility] Medicine [place] [address] [address] [facility] [address] [place] [phone] Mark Garcia MD [address] [place], [place] [address] documented as of this encounter Visit Diagnoses Not on filedocumented in this encounter Care Teams Thermal Cutting Tracer Machine Operator Relationship Specialty Start Date End Date Cristobal Becerril PA-C [address] [place] [address] PCP - General Family Medicine 06/17/[address] [place] [address] Detective Lieutenant Dietitian, Registered 10/29/21 Cristobal Becerril PA-C [address] [place] [address] Assigned PCP 06/27/22 Elisa Yoo MD [address] [address] Assigned OBGYN Provider 09/28/23 documented as of this encounter
--- OUTSIDE RECORDS SUMMARY | 2023-11-05 15:23 | XMS_ITS | Encounter Summary ---
Author Organization [place] Address [facility] [place] [address] Care Team Providers Care Health And Safety Tech Name Role Phone Evi Colmenares RD Unavailable Cristobal Becerril PA-C Primary Care Provider Cristobal Becerril PA-C Unavailable [phone] Elisa Yoo MD Unavailable [phone] Reason for Referral * Consultation (Routine: Next available opening) - Pending Review Specialty Diagnoses / Procedures Referred By Contac t Referred To Contact Diagnoses growth restriction antepartum Elisa Yoo MD [address] [place] [address] Referral ID Status Reason Start Date Expiration Date V isits Requested Visits Authorized [id number] Pending Review 10/01/2023 09/30/2024 10 10 Question Answer CTG/NST Yes Comments Estimated Date of Delivery: Dec 25, 2023 For FGR * Diagnostic Imaging Ultrasound (Routine) - Pending Review Specialty Diagnoses / Procedures Referred By Contac t Referred To Contact Radiology. Diagnoses growth restriction antepartum Procedures [facility] US OB Limited Single/Multiple Elisa Yoo MD [address] [place] [address] Referral ID Status Reason Start Date Expiration Date V isits Requested Visits Authorized [id number] Pending Review 10/01/2023 09/30/2024 1 1 * Diagnostic Imaging Ultrasound (Routine) - Pending Review Specialty Diagnoses / Procedures Referred By Contac t Referred To Contact Radiology. Diagnoses growth restriction antepartum Procedures [facility] US Comprehensive Single F/U Elisa Yoo MD [address] [place] [address] Referral ID Status Reason Start Date Expiration Date V isits Requested Visits Authorized [id number] Pending Review 10/01/2023 09/30/2024 1 1 * Diagnostic Imaging Ultrasound (Routine) - Pending Review Specialty Diagnoses / Procedures Referred By Contac t Referred To Contact Radiology. Diagnoses growth restriction antepartum Procedures [facility] US OB Limited Single/Multiple Elisa Yoo MD [address] [place] [address] Referral ID Status Reason Start Date Expiration Date V isits Requested Visits Authorized [id number] Pending Review 10/01/2023 09/30/2024 1 1 Reason for Visit * Reason Comments Ultrasound RL2/UAR/NST: g rowth restriction * Consultation (Routine: Next available opening) - Pending Review Specialty Diagnoses / Procedures Referred By Contac t Referred To Contact Diagnoses growth restriction antepartum Elisa Yoo MD [address] [place] [address] Referral ID Status Reason Start Date Expiration Date V isits Requested Visits Authorized [id number] Pending Review 09/10/2023 09/09/2024 5 5 Encounter Details Date Type Department Care Team (Late st Contact Info) Description 10/01/2023 2:30 PM CDT Office Visit [facility] Center [address] [place] [address] Elisa Yoo MD [address] [place] [address] growth restriction antepartum (Primary Dx); [...] in the Maternal- Medicine Center at the [facility] today. For a detailed report of the ultrasound examination, please see the ultrasound report whichcan be found under the imaging tab. If you have questions regarding today's evaluation or if we can be of further service, please contact the Maternal- Medicine Center. Elisa Yoo MD Cash Applications Manager, DIRECTOR PRODUCT SAFETY Maternal- Medicine [phone] (Pager) documented in this encounter Nursing Notes * Biacna Kimball RN - 10/01/2023 2:30 PM CDT Patient presents to [facility] for RL2/UAR at 27w6d due to growth restriction. Positive movement. Denies LOF, vaginal bleeding or cramping/contractions. SBAR given to [facility] MD, see their note in Epic. NST performed. Dr. Yoo reviewed efm tracing. See NST/BPP Doc Flowsheet tab. documented in this encounter Plan of Treatment Upcoming Encounters Date Type Department Care Team (Late st Contact Info) Description 11/12/2023 10:30 AM CDT Office Visit [facility] Medicine [place] [address] [address] [facility] [address] [place] [phone] Mark Garcia MD [address] [place], [place] [phone] Kenton Jasso MD [address] [place], [place] [address] 11/12/2023 11:00 AM CDT Appointment [facility] Medicine [facility] [address] [facility] [address] [place] [phone] Mark Garcia MD [address] [place], [place] [phone] Kenton Jasso MD [address] [place], [place] [address] 11/19/2023 10:30 AM CDT Office Visit [facility] Maternal Medicine [facility] [address] [place] [phone] Mark Garcia MD [address] [place], [place] [address] 11/19/2023 11:00 AM CDT Appointment [facility] Maternal Medicine [facility] [address] [facility] [address] [place] [phone] Mark Garcia MD [address] [place], [place] [address] Scheduled Orders Name Type Priority Associated Diagnoses [...] ? Study Date: ??10/29/2023 3:06pm Pat. NO: ??[id number] ?Referring ??MD: NICHOLE GANN Site: ??[facility] ? Registered Nurse Practitioner: Meg Stallworth RDMS : ??1995 ?Age: ?? [...] SAINZ Study Date: 10/29/2023 3:06pm Pat. NO: [id number] Referring MD: NICHOLE GANN Site: [facility] Registered Nurse Practitioner: Meg Stallworth RDMS : 1995 Age: 28 [...] appropriate for gestational age. Elisa Yoo MD [facility] US ORDERABLE S * [facility] Comprehensive Single F/U (10/20/2023 10:05 AM CDT) [...] ? Study Date: ??10/20/2023 9:27am Pat. NO: ??[id number] ?Referring ??: NICHOLE GANN Site: ??[facility] ? Registered Nurse Practitioner: Miky Malone RDMS : ??1995 ?Age: ?? [...] 3 lb 0 ?oz EFW by ?Hadlock ([id number]) Head / Face / Neck Biometry: Roof Tile Layer ? 7.8 ? mm CM ?4.3 ? [...] documented previously: Heart / Thorax ?4-chamber view. 2-xrworn-oqvwaca view. Spine ?Cervical spine. Thoracic spine. Lumbar [...] SAINZ Study Date: 10/20/2023 9:27am Pat. NO: [id number] Referring MD: NICHOLE GANN Site: [facility] Registered Nurse Practitioner: Miky Malone RDMS : 1995 Age: 28 [...] 3 lb 0 oz EFW by Hadlock ([id number]) Head / Face / Neck Biometry: Roof Tile Layer 7.8 mm CM 4.3 mm ANATOMY ----- The following structures appear normal: Head / Neck Cranium. Head size. Head shape.Lateral ventricles. Midline falx. Cavum septi pellucidi. Cerebellum.Cisterna magna. Thalami. Face Lips. Profile. Nose. Heart / Thorax RVOT view. LVOT view. Diaphragm. Abdomen Stomach. Kidneys. Bladder. The following structures were documented previously: Heart / Thorax 4-chamber view. 4-tvqyox-rocijttwebp. Spine Cervical spine. Thoracic spine.Lumbar spine. Sacral [...] NST without decelerations. Elisa Yoo MD [facility] US ORDERABLE S * [facility] US OB Limited Single/Multiple (10/15/2023 4:10 [...] ? Study Date: ??10/15/2023 3:47pm Pat. NO: ??[id number] ?Referring ??MD: NICHOLE GANN Site: ??[facility] ? Registered Nurse Practitioner: Elissa Fritz RDMS : ??1995 ?Age: ?? [...] The patient is scheduled to return to [facility] on 10/20/23 for FGR surveillance and [...] SAINZ Study Date: 10/15/2023 3:47pm Pat. NO: [id number] Referring MD: NICHOLE GANN Site: [facility] Registered Nurse Practitioner: Elissa Fritz RDMS : 1995 Age: 28 [...] The patient is scheduled to return to [facility] on 10/20/23 for FGR surveillanceand growth [...] Reactive NST without decelerations. Elisa Yoo MD [facility] US ORDERABLE S documented in this encounter Visit Diagnoses Diagnosis growth restriction antepartum- Primary Obesity in , antepartum Obesity complicating , childbirth, or the puerperium, antepartum condition or complication BMI 40.0-44.9, adult (H) Body Mass Index 40.0-44.9, adult growth restriction antepartum growth restriction antepartum growth restriction antepartum documented in this encounter Care Teams Health And Safety Tech Relationship Specialty Start Date End Date Cristobal Becerril PA-C [address] [address] PCP - General Family Medicine 06/17/[address] [address] Interior Design Professor Dietitian, Registered 10/29/21 Cristobal Becerril PA-C [address] [address] Assigned PCP 06/27/22 Elisa Yoo MD [address] [place] [address] Assigned OBGYN Provider 09/28/23 documented as of this encounter
--- OUTSIDE RECORDS SUMMARY | 2023-11-05 15:23 | XMS_ITS | Encounter Summary ---
Author Organization [facility] Address [address] [place] [address]. [place] [address] Care Team Providers Care Manager File Name Role Phone Evi Colmenares RD Unavailable Cristobal Becerril PA-C Primary Care Provider Cristobal Becerril PA-C Unavailable [phone] Elisa Yoo MD Unavailable [phone] Encounter Details Date Type Department Care Team (Latest Contact Info) Description 10/15/2023 Travel Social History Tobacco Use Types Packs/Day Years Used Date Smoking Tobacco: Never Passive Smoke Exposure: Never Smokeless Tobacco: Never Alcohol Use Standard Drinks/Week Comments Yes 5 (1 standard drink = 0.6 oz pur e alcohol) PHQ-2 Answer Date Recorded PHQ-2 Score 0 06/17/2022 [place] Depression Scale Answer Date Recorded Last EPDS [...] Office Visit [facility] Medicine [place] [address] [address] [facility] [address] [place] [phone] Mark Garcia MD [address] [place], [place] [address] [phone] Kenton Jasso MD [address] [place], [place] [address] 11/12/2023 11:00 AM CDT Appointment [facility] Medicine [place] [address] [facility] [address] [place] [phone] Mark Garcia MD [address] [place], [place] 235834 [phone] Kenton Jasso MD [address] [place], [place] [address] 11/19/2023 10:30 AM CDT Office Visit [facility] Medicine [place] [address] [facility] [address] [place] [phone] Mark Garcia MD [address] [place], [place] [address] 11/19/2023 11:00 AM CDT Appointment [facility] Medicine [place] [address] [address] [facility] [address] [place] [phone] Mark Garcia MD [address] [place], [place] [address] documented as of this encounter Visit Diagnoses Not on filedocumented in this encounter Care Teams Manager File Relationship Specialty Start Date End Date Cristobal Becerril PA-C [address] [place] [address] PCP - General Family Medicine 06/17/[address] [place] [address] Showroom Manager Dietitian, Registered 10/29/21 Cristobal Becerril PA-C [address] [place] [address] Assigned PCP 06/27/22 Elisa Yoo MD [address] [address] Assigned OBGYN Provider 09/28/23 documented as of this encounter
--- OUTSIDE RECORDS SUMMARY | 2023-11-05 15:23 | XMS_ITS | Encounter Summary ---
Author Organization [facility] Address [facility] [place] [address] Care Team Providers Care Labor Relations Consultant Name Role Phone Evi Colmenares RD Unavailable Cristobal Becerril PA-C Primary Care Provider Cristobal Becerril PA-C Unavailable [phone] Elisa Yoo MD Unavailable [phone] Reason for Visit * Reason Comments Ultrasound NST/Limited/UAR-FGR * Consultation (Routine: Next available opening) - Pending Review Specialty Diagnoses / Procedures Referred By Contac t Referred To Contact Diagnoses growth restriction antepartum Elisa Yoo MD [address] [place] [address] Referral ID Status Reason Start Date Expiration Date V isits Requested Visits Authorized [id number] Pending Review 10/01/2023 09/30/2024 10 10 Encounter Details Date Type Department Care Team (Late st Contact Info) Description 10/12/2023 3:00 PM CDT Office Visit [facility] [place] [address] [facility] [address] [place] [phone] Mark Garcia MD [phone] [address] growth restriction antepartum (Primary Dx) Social History Tobacco Use Types Packs/Day Years Used Date Smoking Tobacco: Never Passive Smoke Exposure: Never Smokeless Tobacco: Never Alcohol Use Standard Drinks/Week Comments Yes 5 (1 standard drink = 0.6 oz pur e alcohol) PHQ-2 Answer Date Recorded PHQ-2 Score 0 06/17/2022 [place] Depression Scale Answer Date Recorded Last EPDS [...] for details of today's US at the [facility]. Mark Garcia MD Maternal- Medicine documented in this encounter Nursing Notes * Simi Wild RN - 10/12/2023 3:00 PM CDT Patient reports good movement, denies contractions, leaking of fluid, or bleeding. SB[facility] givento [facility] , see their note in Epic. NST Performed due to FGR. reviewed efm tracing. See NST/BPP Doc Flowsheet tab. documented in this encounter Plan of Treatment Upcoming Encounters Date Type Department Care Team (Late st Contact Info) Description 11/12/2023 10:30 AM CDT Office Visit [facility] [place] [address] [facility] [address] [place] [phone] Mark Garcia MD [address] [place] [address] Kenton Jasso MD [address] [place], [place] [address] 11/12/2023 11:00 AM CDT Appointment [facility] Medicine [place] [address] [facility] [address] [place] [phone] Mark Garcia MD [address] [place], [place] [phone] Kenton Jasso MD [address] [place], [place] [address] 11/19/2023 10:30 AM CDT Office Visit [facility] Medicine [place] [address] [place] [phone] Mark Garcia MD [address] [place], [place] [address] 11/19/2023 11:00 AM CDT Appointment [facility]aternal Medicine [place] [address] [place] [phone] Mark Garcia MD [address] [place], [place] [address] documented as of this encounter Visit Diagnoses Diagnosis growth restriction antepartum- Primary documented in this encounter Care Teams Labor Relations Consultant Relationship Specialty Start Date End Date Cristobal Becerril PA-C [address] [place] [address] PCP - General Family Medicine 06/17/[address] [facility] [place] [address] Woodyard Crane Operator Dietitian, Registered 10/29/21 Cristobal Becerril PA-C [address] [place] [address] Assigned PCP 06/27/22 Elisa Yoo MD [address] [place], [place] [address] Assigned OBGYN Provider 09/28/23 documented as of this encounter
--- OUTSIDE RECORDS SUMMARY | 2023-11-05 15:23 | XMS_ITS | Encounter Summary ---
Author Organization [place] Address [facility]0 [facility] [place] [address] Care Team Providers Care Boiler Control Room Operator Name Role Phone Evi Colmenares RD Unavailable Cristobal Becerril PA-C Primary Care Provider Cristobal Becerril PA-C Unavailable [phone] Elisa Yoo MD Unavailable [phone] Reason for Referral * Diagnostic Imaging Ultrasound (Routine) - Pending Review Specialty Diagnoses / Procedures Referred By Contac t Referred To Contact Radiology. Diagnoses growth restriction antepartum Procedures [facility] US Comprehensive Single F/U Elisa Yoo MD [address] [place] [address] Referral ID Status Reason Start Date Expiration Date V isits Requested Visits Authorized [id number] Pending Review 09/10/2023 09/09/2024 1 1 Reason for Visit * Diagnostic Imaging Ultrasound (Routine) - Pending Review Specialty Diagnoses / Procedures Referred By Contac t Referred To Contact Radiology. Diagnoses growth restriction antepartum Procedures [facility] US Comprehensive Single F/U Elisa Yoo MD [address] [place] [address] Referral ID Status Reason Start Date Expiration Date V isits Requested Visits Authorized [id number] Pending Review 09/10/2023 09/09/2024 1 1 Encounter Details Date Type Department Care Team (Latest Contact Info) Description 10/01/2023 2:28 PM CDT - 10/01/2023 11:59 PM CDT Hospital Encounter [facility] [address] [place] [address] Elisa Yoo MD [address] [place] [address] growth restriction antepartum Discharge Disposition: Home or Self Care Social History Tobacco Use Types Packs/Day Years Used Date Smoking Tobacco: Never Passive Smoke Exposure: Never Smokeless Tobacco: Never Alcohol Use Standard Drinks/Week Comments Yes 5 (1 standard drink = 0.6 oz pur e alcohol) PHQ-2 Answer Date Recorded PHQ-2 Score 0 06/17/2022 [place] Depression Scale Answer Date Recorded Last EPDS [...] [facility] Medicine [place] [address] [facility] [address] [place] [phone] Mark Garcia MD [address] [place] [address] Kenton Jasso MD [address] [place], [place] [address] 11/12/2023 11:00 AM CDT Appointment [facility] [address] [facility] [address] [place] [phone] Mark Garcia MD [address] [place] [address] Kenton Jasso MD [address] [place], [place] [address] 11/19/2023 10:30 AM CDT Office Visit [facility] [place] [address] [facility] [address] [place] [phone] Mark Garcia MD [address] [place], [place] [address] 11/19/2023 11:00 AM CDT Appointment [facility] [place] [address] [place] [address] Mark Garcia MD [address] [place], [place] [address] documented as of this encounter Procedures Procedure Name Priority Date/Time Associated Diagnosis Comments [facility] US COMPREHENSIVE SINGLE F/U Routine 10/01/2023 4:11 PM CDT growth restriction antepartum documented in this encounter Results * [facility] US Comprehensive Single F/U (10/01/2023 4:11 PM [...] ? Study Date: ??10/01/2023 3:24pm Pat. NO: ??[id number] ?Referring ??MD: NICHOLE GANN [facility] ? Line Fixer: Miky Malone RDMS : ??1995 ?Age: ?? [...] 2 lb 0 ?oz EFW by ?Hadlock ([id number]) Head / Face / Neck Biometry: Gimp Buttonhole Machine Operator ? 3.6 ? mm CM ?6.3 ? [...] / Thorax ?Aortic arch view. 3-vessel view. 7-dbkxyv-ycebwwb view. ? Diaphragm. Abdomen ? Stomach. Kidneys. [...] SAINZ Study Date: 10/01/2023 3:24pm Pat. NO: [id number] Referring MD: NICHOLE GANN Site: [facility] Line Fixer: Miky Malone RDMS : 1995 Age: 28 [...] 2 lb 0 oz EFW by Hadlock ([id number]) Head / Face / Neck Biometry: Gimp Buttonhole Machine Operator 3.6 mm CM 6.3 mm Extremities / Bony Struc Biometry: Radius 33.6 mm7% Thomas Ulna 37.9 mm<1% Thomas Tibia 39.0 mm1% Thomas Fibula 37.9 mm5% Thomas ANATOMY ----- The following structures appear normal: Head / Neck Cranium. Head size. Head shape.Lateral ventricles. Midline falx. Cavum septi pellucidi. Cerebellum.Cisterna magna. Thalami. Heart / Thorax Aortic arch view. 3-vessel view.3-hywlqw-nbfddfm view. Diaphragm. Abdomen Stomach. Kidneys. Bladder. Spine [...] antepartum documented in this encounter Care Teams Boiler Control Room Operator Relationship Specialty Start Date End Date Cristobal Becerril PA-C [address] [place] [address] PCP - General Family Medicine 06/17/[address] [facility] [place] [address] Computer Numerical Control Programmer Dietitian, Registered 10/29/21 Cristobal Becerril PA-C [address] [place] [address] Assigned PCP 06/27/22 Elisa Yoo MD [address] [address] Assigned OBGYN Provider 09/28/23 documented as of this encounter
--- OUTSIDE RECORDS SUMMARY | 2023-11-05 15:23 | XMS_ITS | Encounter Summary ---
Author Organization [place] Address [address] [place] [address]. [place] [address] Care Team Providers Care Phlebotomy Coordinator Name Role Phone Evi Colmenares RD Unavailable Cristobal Becerril PA-C Primary Care Provider Cristobal Becerril PA-C Unavailable [phone] Elisa Yoo MD Unavailable [phone] Encounter Details Date Type Department Care Team (Latest Contact Info) Description 10/20/2023 Travel Social History Tobacco Use Types Packs/Day Years Used Date Smoking Tobacco: Never Passive Smoke Exposure: Never Smokeless Tobacco: Never Alcohol Use Standard Drinks/Week Comments Yes 5 (1 standard drink = 0.6 oz pur e alcohol) PHQ-2 Answer Date Recorded PHQ-2 Score 0 06/17/2022 [place] Depression Scale Answer Date Recorded Last EPDS [...] CDT Office Visit [facility] Medicine [place] [address] [facility] [address] [place] [phone] Mark Garcia MD [address] [place], [place] [address] [phone] Kenton Jasso MD [address] [place], [place] [address] 11/12/2023 11:00 AM CDT Appointment [facility] Medicine [place] [address] [facility] [address] [place] [phone] Mark Garcia MD [address] [place], [place] [address] [phone] Kenton Jasso MD [address] [place], [place] [address] 11/19/2023 10:30 AM CDT Office Visit [facility] Medicine [place] [address] [facility] [address] [place] [phone] Mark Garcia MD [address] [place], [place] [address] 11/19/2023 11:00 AM CDT Appointment [facility] Medicine [place] [address] [facility] [address] [place] [phone] Mark Garcia MD [address] [place], [place] [address] documented as of this encounter Visit Diagnoses Not on filedocumented in this encounter Care Teams Phlebotomy Coordinator Relationship Specialty Start Date End Date Cristobal Becerril PA-C [address] [place] [address] PCP - General Family Medicine 06/17/[address] [place] [address] Magistrate Dietitian, Registered 10/29/21 Cristobal Becerril PA-C [address] [place] [address] Assigned PCP 06/27/22 Elisa Yoo MD [address] [address] Assigned OBGYN Provider 09/28/23 documented as of this encounter
--- OUTSIDE RECORDS SUMMARY | 2023-11-05 15:23 | XMS_ITS | Encounter Summary ---
Author Organization [facility] Address [facility] [place] [address] Care Team Providers Care Aquaculture Director Name Role Phone Evi Colmenares RD Unavailable Cristobal Becerril PA-C Primary Care Provider Cristobal Becerril PA-C Unavailable [phone] Elisa Yoo MD Unavailable [phone] Reason for Referral * Diagnostic Imaging Ultrasound (Routine) - Pending Review Specialty Diagnoses / Procedures Referred By Contac t Referred To Contact Radiology. Diagnoses growth restriction antepartum Procedures [facility] US OB Limited Single/Multiple Kenton Jasso MD [address] [place] [address] Referral ID Status Reason Start Date Expiration Date V isits Requested Visits Authorized [id number] Pending Review 10/08/2023 10/07/2024 1 1 Reason for Visit * Diagnostic Imaging Ultrasound (Routine) - Pending Review Specialty Diagnoses / Procedures Referred By Contac t Referred To Contact Radiology. Diagnoses growth restriction antepartum Procedures [facility] US OB Limited Single/Multiple Kenton Jasso MD [address] [place] [address] Referral ID Status Reason Start Date Expiration Date V isits Requested Visits Authorized [id number] Pending Review 10/08/2023 10/07/2024 1 1 Encounter Details Date Type Department Care Team (Latest Contact Info) Description 10/12/2023 2:59 PM CDT - 10/12/2023 11:59 PM CDT Hospital Encounter [facility] [place] [address] [facility] [address] [place] [address] Mark Garcia MD [address] [place] [address] growth restriction antepartum Discharge Disposition: Home or Self Care Social History Tobacco Use Types Packs/Day Years Used Date Smoking Tobacco: Never Passive Smoke Exposure: Never Smokeless Tobacco: Never Alcohol Use Standard Drinks/Week Comments Yes 5 (1 standard drink = 0.6 oz pur e alcohol) PHQ-2 Answer Date Recorded PHQ-2 Score 0 06/17/2022 [place] Depression Scale Answer Date Recorded Last EPDS [...] Visit [facility] Medicine [place] [address] [facility] [address] [place] [phone] Mark Garcia MD [address] [place] [address] Kenton Jasso MD [address] [place] [address] 11/12/2023 11:00 AM CDT Appointment [facility] Medicine [facility] [address] [facility] [address] [place] [phone] Mark Garcia MD [address] [place] [address] Kenton Jasso MD [address] [place] [address] 11/19/2023 10:30 AM CDT Office Visit [facility] Medicine [place] [address] [facility] [address] [place] [phone] Mark Garcia MD [address] [place], [place] [address] 11/19/2023 11:00 AM CDT Appointment [facility] [place] [address] [facility] [address] [place] [address] Mark Garcia MD [address] [place], [place] [address] documented as of this encounter Procedures Procedure [...] ? Study Date: ??10/12/2023 3:35pm Pat. NO: ??[id number] ?Referring ??MD: NICHOLE GANN Site: ??[facility] ? Stacker Operator: Suzy Hester : ??1995 ?Age: ?? 28 [...] is scheduled to return to [facility] on Wednesday for FGR surveillance. Return to [...] SAINZ Study Date: 10/12/2023 3:35pm Pat. NO: [id number] Referring MD: NICHOLE GANN Site: [facility] Stacker Operator: Suzy Hester RDMS : 1995 Age: 28 [...] is scheduled to return to [facility] on Wednesday for FGRsurveillance. Return to primary [...] Reactive NST without decelerations. Kenton Jasso MD [facility] US ORDERABLE S documented in this encounter Visit Diagnoses Diagnosis growth restriction antepartum documented in this encounter Care Teams Aquaculture Director Relationship Specialty Start Date End Date Cristobal Becerril PA-C [address] [place] [address] PCP - General Family Medicine 06/17/[address] [facility] [place], [place] [address] Barrel Painter Dietitian, Registered 10/29/21 Cristobal Becerril PA-C [address] [place] [address] Assigned PCP 06/27/22 Elisa Yoo MD [address] [address] Assigned OBGYN Provider 09/28/23 documented as of this encounter
--- OUTSIDE RECORDS SUMMARY | 2023-11-05 15:23 | XMS_ITS | Encounter Summary ---
Author Organization [place] Address [facility] [place] [address] Care Team Providers Care Coke Loader Name Role Phone Evi Colmenares RD Unavailable Cristobal Becerril PA-C Primary Care Provider Cristobal Becerril PA-C Unavailable [phone] Elisa Yoo MD Unavailable [phone] Reason for Referral * Consultation (Routine: Next available opening) - Pending Review Specialty Diagnoses / Procedures Referred By Contac t Referred To Contact Diagnoses growth restriction antepartum Mark Garcia MD [address] [place] [address] Referral ID Status Reason Start Date Expiration Date V isits Requested Visits Authorized [id number] Pending Review 10/20/2023 10/19/2024 5 5 Question Answer CTG/NST Yes Comments Estimated Date of Delivery: Dec 25, 2023 For FGR * Diagnostic Imaging Ultrasound (Routine) - Pending Review Specialty Diagnoses / Procedures Referred By Contac t Referred To Contact Radiology. Diagnoses growth restriction antepartum Procedures MFM US OB Limited Single/Multiple Mark Garcia MD [address] [place] [address] Referral ID Status Reason Start Date Expiration Date V isits Requested Visits Authorized [id number] Pending Review 10/20/2023 10/19/2024 1 1 * Diagnostic Imaging Ultrasound (Routine) - Pending Review Specialty Diagnoses / Procedures Referred By Contac t Referred To Contact Radiology. Diagnoses growth restriction antepartum Procedures M US Comprehensive Single F/U Mark Garcia MD [address] [place] [address] Referral ID Status Reason Start Date Expiration Date V isits Requested Visits Authorized [id number] Pending Review 10/20/2023 10/19/2024 1 1 * Diagnostic Imaging Ultrasound (Routine) - Pending Review Specialty Diagnoses / Procedures Referred By Contac t Referred To Contact Radiology. Diagnoses growth restriction antepartum Procedures M US OB Limited Single/Multiple Mark Garcia MD [address] [place] [address] Referral ID Status Reason Start Date Expiration Date V isits Requested Visits Authorized [id number] Pending Review 10/20/2023 10/19/2024 1 1 Reason for Visit * Reason Comments Ultrasound RL2/UAR/NST: g rowth restriciton, elevated UAR's * Consultation (Routine: Next available opening) - Pending Review Specialty Diagnoses / Procedures Referred By Contac t Referred To Contact Diagnoses growth restriction antepartum Elisa Yoo MD [address] [place] [address] Referral ID Status Reason Start Date Expiration Date V isits Requested Visits Authorized [id number] Pending Review 09/10/2023 09/09/2024 5 5 Encounter Details Date Type Department Care Team (Late st Contact Info) Description 10/20/2023 9:00 AM CDT Office Visit [facility] [place] [address] [facility] [address] [place] [address] Elisa Yoo MD [address] [place] [address] Mark Garcia MD [address] [place] [address] growth restriction antepartum (Primary Dx) Social History Tobacco Use Types Packs/Day Years Used Date Smoking Tobacco: Never Passive Smoke Exposure: Never Smokeless Tobacco: Never Alcohol Use Standard Drinks/Week Comments Yes 5 (1 standard drink = 0.6 oz pur e alcohol) PHQ-2 Answer Date Recorded PHQ-2 Score 0 06/17/2022 [place] Depression Scale Answer Date Recorded Last EPDS [...] for details of today's US at the [facility]. Mark Garcia MD Maternal- Medicine documented in this encounter Nursing Notes * Bianca Kimball RN - 10/20/2023 9:00 AM CDT Patient presents to [facility] for RL2/UAR at 30w4d due to growth restriction. Positive movement. Denies LOF, vaginal bleeding or cramping/contractions. SBAR given to [facility] MD, see their note in Epic. NST performed. Dr. Garcia reviewed efm tracing. See NST/BPP Doc Flowsheet tab. documented in this encounter Plan of Treatment Upcoming Encounters Date Type Department Care Team (Late st Contact Info) Description 11/12/2023 10:30 AM CDT Office Visit [facility] Medicine [facility] [address] [facility] [address] [place] [address] Mark Garcia MD [address] [place], [place] [phone] Kenton Jasso MD [address] [place], [place] [address] 11/12/2023 11:00 AM CDT Appointment [facility] Medicine [facility] [address] [facility] [address] [place] [phone] Mark Garcia MD [address] [place], [place] [address] Kenton Jasso MD [address] [place], [place] [address] 11/19/2023 10:30 AM CDT Office Visit [facility] Maternal Medicine [facility] [address] [facility] [address] [place] [phone] Mark Garcia MD [address] [place], [place] [address] 11/19/2023 11:00 AM CDT Appointment [facility] Maternal Medicine [facility] [address] [facility] [address] [place] [phone] Mark Garcia MD [address] [place], [place] [address] Scheduled Orders Name Type Priority Associated Diagnoses Orde r Schedule [facility] US Comprehensive Single F/U Imaging Routine growth [...] ? Study Date: ??11/03/2023 8:01am Pat. NO: ??[id number] ?Referring ??MD: NICHOLE GANN Site: ??[place] ? Signal Engineer: Suzy Hester RDMS : ??1995 ?Age: ?? [...] SAINZ Study Date: 11/03/2023 8:01am Pat. NO: [id number] Referring MD: NICHOLE GANN Site: [facility] Signal Engineer: Suzy Hester RDMS : 1995 Age: 28 [...] for gestational age. Mark Garcia MD IMG [facility] US ORDERABL ES documented in this encounter Visit Diagnoses Diagnosis growth restriction antepartum- Primary growth restriction antepartum documented in this encounter Care Teams Coke Loader Relationship Specialty Start Date End Date Cristobal Becerril PA-C [address] [place] [address] PCP - General Family Medicine 06/17/[address] [facility] [place] [place] [address] Van Driver Helper Dietitian, Registered 10/29/21 Cristobal Becerril PA-C [address] [place] [address] Assigned PCP 06/27/22 Elisa Yoo MD [address] [address] Assigned OBGYN Provider 09/28/23 documented as of this encounter
--- OUTSIDE RECORDS SUMMARY | 2023-11-05 15:23 | XMS_ITS | Encounter Summary ---
Author Organization [place] Address [facility] [place] [address] Care Team Providers Care Hot Air Furnace Installer And Repairer Name Role Phone Evi Colmenares RD Unavailable Cristobal Becerril PA-C Primary Care Provider Cristobal Becerril PA-C Unavailable [phone] Elisa Yoo MD Unavailable [phone] Reason for Referral * Diagnostic Imaging Ultrasound (Routine) - Pending Review Specialty Diagnoses / Procedures Referred By Contac t Referred To Contact Radiology. Diagnoses growth restriction antepartum Procedures [facility] US OB Limited Single/Multiple Elisa Yoo MD [address] [place] [address] Referral ID Status Reason Start Date Expiration Date V isits Requested Visits Authorized [id number] Pending Review 10/01/2023 09/30/2024 1 1 Reason for Visit * Diagnostic Imaging Ultrasound (Routine) - Pending Review Specialty Diagnoses / Procedures Referred By Contac t Referred To Contact Radiology. Diagnoses growth restriction antepartum Procedures [facility] US OB Limited Single/Multiple Elisa Yoo MD [address] [place] [address] Referral ID Status Reason Start Date Expiration Date V isits Requested Visits Authorized [id number] Pending Review 10/01/2023 09/30/2024 1 1 Encounter Details Date Type Department Care Team (Latest Contact Info) Description 10/29/2023 2:31 PM CDT - 10/29/2023 11:59 PM CDT Hospital Encounter [facility] [address] [place] [address] Mike Joseph MD [address] [place] [address] growth restriction antepartum Discharge Disposition: Home or Self Care Social History Tobacco Use Types Packs/Day Years Used Date Smoking Tobacco: Never Passive Smoke Exposure: Never Smokeless Tobacco: Never Alcohol Use Standard Drinks/Week Comments Yes 5 (1 standard drink = 0.6 oz pur e alcohol) PHQ-2 Answer Date Recorded PHQ-2 Score 0 06/17/2022 [place] Depression Scale Answer Date Recorded Last EPDS [...] AM CDT Office Visit [facility] Medicine [place] [address] [facility] [address] [place] [phone] Mark Garcia MD [address] [place], [place] [address] Kenton Jasso MD [address] [place], [place] [address] 11/12/2023 11:00 AM CDT Appointment [facility] Medicine [place] [address] [facility] [address] [place] [phone] Mark Garcia MD [address] [place], [place] [address] [phone] Kenton Jasso MD [address] [place], [place] [address] 11/19/2023 10:30 AM CDT Office Visit [facility] Medicine [place] [address] [facility] [address] [place] [phone] Mark Garcia MD [address] [place], [place] [address] 11/19/2023 11:00 AM CDT Appointment [facility] [place] [address] [facility] [address] [place] [address] Mark Garcia MD [address] [place], [place] [address] documented as of this encounter Procedures Procedure [...] ? Study Date: ??10/29/2023 3:06pm Pat. NO: ??[id number] ?Referring ??MD: NICHOLE GANN Site: ??[place] ? Associate Store Manager: Meg Stallworth RDMS : ??1995 ?Age: ?? [...] SAINZ Study Date: 10/29/2023 3:06pm Pat. NO: [id number] Referring MD: NICHOLE GANN Site: [facility] Associate Store Manager: Meg Stallworth RDMS : 1995 Age: 28 [...] appropriate for gestational age. Elisa Yoo MD [facility] US ORDERABLE S documented in this encounter Visit Diagnoses Diagnosis growth restriction antepartum documented in this encounter Care Teams Hot Air Furnace Installer And Repairer Relationship Specialty Start Date End Date Cristobal Becerril PA-C [address] [place], [place] [id number] PCP - General Family Medicine 06/17/[address] [facility] [place], [place] [address] Food Handler Dietitian, Registered 10/29/21 Cristobal Becerril PA-C [address] [place] [address] Assigned PCP 06/27/22 Elisa Yoo MD [address] [address] Assigned OBGYN Provider 09/28/23 documented as of this encounter
--- OUTSIDE RECORDS SUMMARY | 2023-11-05 15:24 | XMS_ITS | Encounter Summary ---
Author Organization [place] Address [address] [place] [address]. [place] [address] Care Team Providers Care Supervisor Meter Shop Name Role Phone Evi Colmenares RD Unavailable Cristobal Becerril PA-C Primary Care Provider Cristobal Becerril PA-C Unavailable [phone] Elisa Yoo MD Unavailable Encounter Details Date Type Department Care Team (Latest Contact Info) Description 09/28/2023 Travel Social History Tobacco Use Types Packs/Day Years Used Date Smoking Tobacco: Never Passive Smoke Exposure: Never Smokeless Tobacco: Never Alcohol Use Standard Drinks/Week Comments Yes 5 (1 standard drink = 0.6 oz pur e alcohol) PHQ-2 Answer Date Recorded PHQ-2 Score 0 06/17/2022 [place] Depression Scale Answer Date Recorded Last EPDS [...] [facility] Medicine [place] [address] [facility] [address] [place] [phone] Mark Garcia MD [address] [place], [place] [address] [phone] Kenton Jasso MD [address] [place], [place] [address] 11/12/2023 11:00 AM CDT Appointment [facility] Medicine [place] [address] [address] [facility] [address] [place] [phone] Mark Garcia MD [address] [place], [place] [address] [phone] Kenton Jasso MD [address] [place], [place] [address] 11/19/2023 10:30 AM CDT Office Visit [facility] Medicine [place] [address] [facility] [address] [place] [phone] Mark Garcia MD [address] [place], [place] [address] 11/19/2023 11:00 AM CDT Appointment [facility] Medicine [place] [address] [facility] [address] [place] [phone] Mark Garcia MD [address] [place], [place] [address] documented as of this encounter Visit Diagnoses Not on filedocumented in this encounter Care Teams Supervisor Meter Shop Relationship Specialty Start Date End Date Cristobal Becerril PA-C [address] [place] [address] PCP - General Family Medicine 06/17/[address] [place] [address] Operations Expert Dietitian, Registered 10/29/21 Cristobal Becerril PA-C [address] [place] [address] Assigned PCP 06/27/22 Elisa Yoo MD [address] [address]12[address] Assigned OBGYN Provider 09/28/23 documented as of this encounter
--- OUTSIDE RECORDS SUMMARY | 2023-11-05 15:24 | XMS_ITS | Encounter Summary ---
Author Organization [place] Address [address] [place] [address]. [place] [address] Care Team Providers Care Cancer Program Coordinator Name Role Phone DarrianEvi RD Unavailable Cristobal Becerril PA-C Primary Care Provider Cristobal Becerril PA-C Unavailable [phone] Encounter Details Date Type Department Care Team (Latest Contact Info) Description 09/10/2023 Travel Social History Tobacco Use Types Packs/Day Years Used Date Smoking Tobacco: Never Passive Smoke Exposure: Never Smokeless Tobacco: Never Alcohol Use Standard Drinks/Week Comments Yes 5 (1 standard drink = 0.6 oz pur e alcohol) PHQ-2 Answer Date Recorded PHQ-2 Score 0 06/17/2022 [place] Depression Scale Answer Date Recorded Last EPDS [...] AM CDT Office Visit [facility] Maternal Medicine [place] [address] [facility] [address] [place] [phone] Mark Garcia MD [address] [place] [address] Kenton Jasso MD [address] [place], [place] [address] 11/12/2023 11:00 AM CDT Appointment [facility] Medicine [place] [address] [facility] [address] [place] [phone] Mark Garcia MD [address] [place], [place] [address] [phone] Kenton Jasso MD [address] [place], [place] [address] 11/19/2023 10:30 AM CDT Office Visit [facility] Medicine [place] [address] [facility] [address] [place] [phone] Mark Garcia MD [address] [place], [place] [address] 11/19/2023 11:[address] [facility] Maternal Medicine [place] [address] [facility] [address] [place] [phone] Mark Garcia MD [address] [place], [place] [address] documented as of this encounter Visit Diagnoses Not on filedocumented in this encounter Care Teams Cancer Program Coordinator Relationship Specialty Start Date End Date Cristobal Becerril PA-C [address] [address] [place] [address] PCP - General Family Medicine 06/17/[address] [place] [address] Auto Technician Dietitian, Registered 10/29/21 Cristobal Becerril PA-C [address] [address] [place] [address] Assigned PCP 06/27/22 documented as of this encounter
--- OUTSIDE RECORDS SUMMARY | 2023-11-05 15:24 | XMS_ITS | Encounter Summary ---
Author Organization [place] Address [address] [place] [address]. [place] [address] Care Team Providers Care Rock Loader Name Role Phone Evi Colmenares RD Unavailable Cristobal Becerril PA-C Primary Care Provider Cristobal Becerril PA-C Unavailable [phone] Encounter Details Date Type Department Care Team (Late st Contact Info) Description 09/09/2023 Medical Correspondence [facility] [address] [place] [phone] Scan, Non-Provider Social History Tobacco Use Types Packs/Day Years Used Date Smoking Tobacco: Never Passive Smoke Exposure: Never Smokeless Tobacco: Never Alcohol Use Standard Drinks/Week Comments Yes 5 (1 standard drink = 0.6 oz pur e alcohol) PHQ-2 Answer Date Recorded PHQ-2 Score 0 06/17/2022 [place] Depression Scale Answer Date Recorded Last EPDS [...] Description 11/12/2023 10:30 AM CDT Office Visit [facility] Medicine [place] [address] [facility] [address] [place] [phone] Mark Garcia MD [address] [place], [place] [address] Kenton Jasso MD [address] [place], [place] [address] 11/12/2023 11:00 AM CDT Appointment [facility] Medicine [place] [address] [facility] [address] [place] [phone] Mark Garcia MD [address] [place], [place] [address] Kenton aJsso MD [address] [place], [place] [address] 11/19/2023 10:30 AM CDT Office Visit [facility] Medicine [place] [address] [facility] [address] [place] [phone] Mark Garcia MD [address] [place], [place] [address] 11/19/2023 11:00 AM CDT Appointment [facility] Medicine [place] [address] [facility] [address] [place] [phone] Mark Garcia MD [address] [place] [address] documented as of this encounter Visit Diagnoses Not on filedocumented in this encounter Care Teams Rock Loader Relationship Specialty Start Date End Date Cristobal Becerril PA-C [address] [place] [address] PCP - General Family Medicine 06/17/[address] [facility] [place] [address] Ski Edge Painter Dietitian, Registered 10/29/21 Cristobal Becerril PA-C [address] [address] [place] [address] Assigned PCP 06/27/22 documented as of this encounter
--- OUTSIDE RECORDS SUMMARY | 2023-11-05 15:24 | XMS_ITS | Encounter Summary ---
Author Organization [place] Address [address] [place] [address]. [place] [address] Care Team Providers Care Filteration Operator Name Role Phone Mark Garcia MD Unavailable [phone] Unavailable Selma Lomeli APRN EMT DRIVER Primary Care Provider Cristobal Becerril PA-C Primary Care Provider Cristobal Becerril PA-C Unavailable [phone] Elisa Yoo MD Unavailable [phone] Encounter Details Date Type Department Care Team (Late st Contact Info) Description 12/04/2021 External Order Results [facility] [address] [place] [address] Outside, Provider Social History Tobacco Use Types [...] Description 11/12/2023 10:30 AM CDT Office Visit [facility] Medicine [place] [address] [address] [facility] [address] [place] [phone] Mark Garcia MD [address] [place], [place] [address] Kenton Jasso MD [address] [place], [place] [address] 11/12/2023 11:00 AM CDT Appointment [facility] Medicine [place] [address] [address] [facility] [address] [place] [phone] Mark Garcia MD [address] [place], [place] [phone] Kenton Jasso MD [address] [place], [place] [address] 11/19/2023 10:30 AM CDT Office Visit [facility] Medicine [place] [address] [address] [facility] [address] [place] [phone] Mark Garcia MD [address] [place], [place] [address] 11/19/2023 11:00 AM CDT Appointment [facility] Medicine [place] [address] [address] [facility] [address] [place] [phone] Mark Garcia MD [address] [place], [place] [address] documented as of this encounter Procedures Procedure [...] - BLOOD ORDERABL ES Performing Organization Address City/[facility]/ZIP Co de Phone Number BREEZE PFT NON-INTERFACED [...] on filedocumented in this encounter Care Teams Filteration Operator Relationship Specialty Start Date End Date Selma Lomeli APRN CNP [address] [address] PCP - General medicine teacher 12/03/21 06/16/22 Cristobal Becerril PA-C [address] [place] [address] PCP - General Family Medicine 06/17/22 Mark Garcia MD [address] [place], [place] [address] Assigned OBGYN Provider 09/07/[address] [place] [address] Wildland Fire Fighter Specialist Dietitian, Registered 10/29/21 Cristobal Becerril PA-C [address] [place] [address] Assigned PCP 06/27/22 Elisa Yoo MD [address] [place], [place] [address] Assigned OBGYN Provider 09/28/23 documented as of this encounter
--- OUTSIDE RECORDS SUMMARY | 2023-11-05 15:24 | XMS_ITS | Encounter Summary ---
Author Organization [place] Address [address] [place] [address]. [place] [address] Care Team Providers Care Inorganic Chemical Technician Name Role Phone DarrianEvi RD Unavailable Cristobal Becerril PA-C Primary Care Provider Cristobal Becerril PA-C Unavailable [phone] Encounter Details Date Type Department Care Team (Latest Contact Info) Description 09/15/2023 Travel Social History Tobacco Use Types Packs/Day Years Used Date Smoking Tobacco: Never Passive Smoke Exposure: Never Smokeless Tobacco: Never Alcohol Use Standard Drinks/Week Comments Yes 5 (1 standard drink = 0.6 oz pur e alcohol) PHQ-2 Answer Date Recorded PHQ-2 Score 0 06/17/2022 [place] Depression Scale Answer Date Recorded Last EPDS [...] 11/12/2023 10:30 AM CDT Office Visit [facility] Maternal Medicine [place] [address] [address] [facility] [address] [place] [phone] Mark Garcia MD [address] [place] [address] Kenton Jasso MD [address] [place], [place] [address] 11/12/2023 11:[address] [facility] Medicine [place] [address] [address] [facility] [address] [place] [phone] Mark Garcia MD [address] [place], [place] [address]241 [phone] Kenton Jasso MD [address] [place], [place] [address] 11/19/2023 10:30 AM CDT Office Visit [facility] Medicine [place] [address] [address] [facility] [address] [place] [phone] Mark Garcia MD [address] [place], [place] [address] 11/19/2023 11:00 AM CDT Appointment [facility] Maternal Medicine [place] [address] [address] [facility] [address] [place] [phone] Mark Garcia MD [address] [place], [place] [address] documented as of this encounter Visit Diagnoses Not on filedocumented in this encounter Care Teams Inorganic Chemical Technician Relationship Specialty Start Date End Date Cristobal Becerril PA-C [address] [address] [address] PCP - General Family Medicine 06/17/[address] [place] [address] Maternity Floor Supervisor Dietitian, Registered 10/29/21 Cristobal Becerril PA-C [address] [address] [place] [address] Assigned PCP 06/27/22 documented as of this encounter
--- OUTSIDE RECORDS SUMMARY | 2023-11-05 15:24 | XMS_ITS | Encounter Summary ---
Author Organization [facility] Address [address] [place] [address]. [place] [address] Care Team Providers Care Rental Car Porter Name Role Phone Mark Garcia MD Unavailable [phone] Unavailable Selma Lomeli APRN SHADE MAKER Primary Care Provider Cristobal Becerril PA-C Primary Care Provider Cristobal Becerril PA-C Unavailable [phone] Elisa Yoo MD Unavailable [phone] Encounter Details Date Type Department Care Team (Late st Contact Info) Description 12/17/2021 Orders Only [place] Centralized Scheduling [facility] [place] [phone] Amos De Souza MD [address] [place] [address] Encounter for laboratory testing for COVID-19 virus [...] 11/12/2023 10:30 AM CDT Office Visit [facility] Maternal Medicine [place] [address] [facility] [address] [place] [phone] Mark Garcia MD [address] [place], [place] [phone] Kenton Jasso MD [address] [place], [place] [address] 11/12/2023 11:00 AM CDT Appointment [facility] Medicine [place] [address] [facility] [address] [place] [address] [phone] Mark Garcia MD [address] [place], [place] [phone] Kenton Jasso MD [address] [place], [place] [address] 11/19/2023 10:30 AM CDT Office Visit [facility] Medicine [place] [address] [facility] [address] [place] [phone] Mark Garcia MD [address] [place], [place] [address] 11/19/2023 11:[address] [facility] [place] [address] [place] [address] Mark Garcia MD [address] [place] [address] documented as of this encounter [...] COVID-19. This test was validated by the [facility]. This laboratory is certified under the Clinical Laboratory Improvement Amendments of 1988 (CLIA-88) as qualified to perform high and/or moderate complexity laboratory testing. Amos De Souza MD LAB - MICRO GENERAL ORDERABLES [facility] Inf. Diseases Diag. Lab [address] [facility] [place] [address], [facility] [phone] documented in this encounter Visit Diagnoses Diagnosis Encounter for laboratory testing for COVID-19 virus documented in this encounter Care Teams Rental Car Porter Relationship Specialty Start Date End Date Selma Lomeli APRN CNP [address] [place] [id number] PCP - General tubing assembler 12/03/21 06/16/22 Cristobal Becerril PA-C [address] [place] [address] PCP - General Family Medicine 06/17/22 Mark Garcia MD [address] [facility] [address] [place], [place] [address] Assigned OBGYN Provider 09/07/[address] [facility] [address] Manager Mba Dietitian, Registered 10/29/21 Cristobal Becerril PA-C [address] [place] [address] Assigned PCP 06/27/22 Elisa Yoo MD [address] [place], [place] [address]14 Assigned OBGYN Provider 09/28/23 documented as of this encounter
--- OUTSIDE RECORDS SUMMARY | 2023-11-05 15:24 | XMS_ITS | Encounter Summary ---
Author Organization [place] Address [address] [place] [address] Care Team Providers Care Shock Absorption Floor Layer Name Role Phone Reanna Ortega PA-C Primary Care Pr ovider Reanna Ortega PA-C Unavailable Mark Garcia MD Unavailable [phone] Unavailable Selma Lomeli APRN IMPORT COORDINATION AND PRODUCTION HEAD Primary Care Provider Cristobal Becerril PA-C Primary Care Provider Cristobal Becerril PA-C Unavailable [phone] Elisa Yoo MD Unavailable [phone] Reason for Visit * Reason Onset Date Comments Diabetes Education 10/17/2021 Gestational Diabetes 10/17/2021 Encounter Details Date Type Department Care Team (Late st Contact Info) Description 10/17/[address] [address] Dara Tamayo APRN CNM [address] [place] [address] Diabetes Education; Gestational Diabetes Social History Tobacco [...] Miscellaneous Notes * Telephone Encounter - Martin Mathesw - 10/17/2021 9:55 AM CDT Diabetes Education Scheduling Outreach #1: Call to patient to schedule. Left message with phone number to call to schedule. Plan for 2nd outreach attempt within 1 business day. Martin Mathews [facility] Scheduling documented in this encounter Plan of Treatment Upcoming Encounters Date Type Department Care Team (Late st Contact Info) Description 11/12/2023 10:30 AM CDT Office Visit [facility] Maternal Medicine [facility] [address] [facility] [address] [place] [phone] Mark Garcia MD [address] [place], [place] [address] Kenton Jasso MD [address] [place], [place] [address] 11/12/2023 11:00 AM CDT Appointment [facility] Maternal Medicine [facility] [address] [facility] [address] [place] [phone] Mark Garcia MD [address] [place] [address] Kenton Jasso MD [address] [place] [address] 11/19/2023 10:30 AM CDT Office Visit [facility] Maternal Medicine [facility] [address] [facility] [address] [place] [phone] Mark Garcia MD [address] [facility] [address] [place], [place] [address] 11/19/2023 11:00 AM CDT Appointment [facility] Maternal Medicine [facility] [address] [facility] [address] [place] [phone] Mark Garcia MD [address] [facility] 400 [place], [place] [address] documented as of this encounter Visit Diagnoses Not on filedocumented in this encounter Care Teams Shock Absorption Floor Layer Relationship Specialty Start Date End Date Reanna Ortega PA-C [address] [place] [address] PCP - General Physician Suit Attendant 11/01/18 12/02/21 Selma Lomeli APRN CNP [address] [place] [address] PCP - General down filler 12/03/21 06/16/22 Cristobal Becerril PA-C [address] [facility] [place] [address] PCP - General Family Medicine 06/17/22 Reanna Ortega PA-C [address] [place] [address] Assigned PCP 11/06/18 11/07/21 Mark Garcia MD [address] [place] [address] Assigned OBGYN Provider 09/07/[address] [place] [address] Orchestrator Dietitian, Registered 10/29/21 Cristobal Becerril PA-C [address] [place] [address] Assigned PCP 06/27/22 Elisa Yoo MD [address] [place], [place] [address] Assigned OBGYN Provider 09/28/23 documented as of this encounter
--- OUTSIDE RECORDS SUMMARY | 2023-11-05 15:24 | XMS_ITS | Encounter Summary ---
Author Organization [facility] Address [address] [place] [address]. [place] [address] Care Team Providers Care Shell Maker Lockstitch Name Role Phone Reanna Ortega PA-C Primary Care Pr ovider Reanna Ortega PA-C Unavailable Mark Garcia MD Unavailable [phone] Unavailable Selma Lomeli APRN DIRECTOR SALES Primary Care Provider Cristobal Becerril PA-C Primary Care Provider Cristobal Becerril PA-C Unavailable [phone] Elisa Yoo MD Unavailable [phone] Encounter Details Date Type Department Care Team (Late st Contact Info) Description 10/08/2021 External Order Results [facility] [address] [place] [address] Outside, Provider Social History Tobacco Use Types [...] CDT Office Visit [facility] Maternal Medicine [place] [address] [address] [facility] [address] [place] [address] [phone] Mark Garcia MD [address] [place] [address] Kenton Jasso MD [address] [place], [place] [address] 11/12/2023 11:[address] [facility] Medicine [place] [address] [address] [facility] [address] [place] [address] [phone] Mark Garcia MD [address] [place], [place] [phone] Kenton Jasso MD [address] [place], [place] [address]141 [phone] 11/19/2023 10:30 AM CDT Office Visit [facility] Medicine [place] [address] [address] [facility] [address] [place] [address] [phone] Mark Garcia MD [address] [place], [place] [address] 11/19/2023 11:00 AM CDT Appointment [facility] Maternal Medicine [facility] [address] [place] [address] Mark Garcia MD [address] [place] [address] documented as of this encounter [...] Dara Tamayo APRN, CNM LAB - HIM VISCOSE DEPARTMENT WORKER AL RESULT BREEZE PFT NON-INTERFACED (ONBASE SCANS) * Hemoglobin (External Result) (10/08/2021 11:12 AM CDT) Hemoglobin (External) 11.3 11.1 - 15.9 g/dL NON-INTERFACED (ONBASE SCANS) Blood 10/08/2021 11:1 2 AM CDT Narrative BREEZE PFT - 10/17/2021 7:40 AM CDT Verified by Chitra Casanova on 10/17/2021. Dara Tamayo APRN, CNM LAB - HIM VISCOSE DEPARTMENT WORKER AL RESULT Performing Organization Address City/[facility]/ZIP Co de Phone Number BREEZE PFT NON-INTERFACED (ONBASE SCANS) documented in this encounter Visit Diagnoses Not on filedocumented in this encounter Care Teams Shell Maker Lockstitch Relationship Specialty Start Date End Date Reanna Ortega PA-C [address] [place] [address] PCP - General Physician Construction Person 11/01/18 12/02/21 Selma Lomeli APRN CNP [address] [address] PCP - General drywaller 12/03/21 06/16/22 Cristobal Becerril PA-C [address] [facility] [address] PCP - General Family Medicine 06/17/22 Reanna Ortega PA-C [address] [place] [address] Assigned PCP 11/06/18 11/07/21 Mark Garcia MD [address] [place], [place] [address] Assigned OBGYN Provider 09/07/[address]45 [place] [address] Coal Yard Supervisor Dietitian, Registered 10/29/21 Cristobal Becerril PA-C [address] [place] [address] Assigned PCP 06/27/22 Elisa Yoo MD [address] [place], [place] [address] Assigned OBGYN Provider 09/28/23 documented as of this encounter
--- OUTSIDE RECORDS SUMMARY | 2023-11-05 15:24 | XMS_ITS | Encounter Summary ---
Author Organization [place] Address [address] [place] [address]. [place] [address] Care Team Providers Care Wardsperson Name Role Phone Evi Colmenares RD Unavailable Cristobal Becerril PA-C Primary Care Provider Cristobal Becerril PA-C Unavailable [phone] Elisa Yoo MD Unavailable [phone] Encounter Details Date Type Department Care Team (Late st Contact Info) Description 06/29/2022 [facility] [address] [address] Viky Vázquez RN Social History Tobacco Use Types Packs/Day Years Used Date Smoking Tobacco: Never Smokeless Tobacco: Never Alcohol Use Standard Drinks/Week Comments Yes 5 (1 standard drink = 0.6 oz pur e alcohol) PHQ-2 Answer Date Recorded PHQ-2 Score 0 06/17/2022 [place] Depression Scale Answer Date Recorded Last EPDS [...] Coronavirus/COVID-19? No / Unsure 06/17/2022 10:09 AM ASSEMBLY CLEANER documented as of this encounter Plan of Treatment Upcoming Encounters Date Type Department Care Team (Late st Contact Info) Description 11/12/2023 10:30 AM CDT Office Visit [facility] Maternal Medicine [place] [address] [facility] [address] [place] [phone] Mark Garcia MD [address] [place], [place] [phone] Kenton Jasso MD [address] [place], [place] [address] 11/12/2023 11:00 AM CDT Appointment [facility] Medicine [place] [address] [facility] [address] [place] [phone] Mark Garcia MD [address] [place], [place] [address] Kenton Jasso MD [address] [place], [place] [address] 11/19/2023 10:30 AM CDT Office Visit [facility] Medicine [place] [address] [facility] [address] [place] [phone] Mark Garcia MD [address] [place], [place] [address] 11/19/2023 11:00 AM CDT Appointment [facility] Maternal Medicine [place] [address] [address] [facility] [address] [place] [phone] Mark Garcia MD [address] [place], [place] [address] documented as of this encounter Visit Diagnoses Not on filedocumented in this encounter Care Teams Wardsperson Relationship Specialty Start Date End Date Cristobal Becerril PA-C [address] [place] [address] PCP - General Family Medicine 06/17/[address] [place] [address] Heat Treater Helper Dietitian, Registered 10/29/21 Cristobal Becerril PA-C [address] [place] [address] Assigned PCP 06/27/22 Elisa Yoo MD [address] [place], [place] [address] Assigned OBGYN Provider 09/28/23 documented as of this encounter
--- OUTSIDE RECORDS SUMMARY | 2023-11-05 15:24 | XMS_ITS | Encounter Summary ---
Author Organization [place] Address [facility] [place] [address] Care Team Providers Care Wire Brush Operator Name Role Phone Evi Colmenares RD Unavailable Cristobal Becerril PA-C Primary Care Provider Cristobal Becerril PA-C Unavailable [phone] Reason for Referral * Diagnostic Imaging Ultrasound (Routine) - Pending Review Specialty Diagnoses / Procedures Referred By Lulu lozoya Referred To Contact Radiology. Diagnoses growth restriction antepartum Procedures MF US OB Limited Single/Multiple Elisa Yoo MD [address] [place] [address] Referral ID Status Reason Start Date Expiration Date V isits Requested Visits Authorized [id number] Pending Review 09/10/2023 09/09/2024 1 1 Reason for Visit * Diagnostic Imaging Ultrasound (Routine) - Pending Review Specialty Diagnoses / Procedures Referred By Lulu lozoya Referred To Contact Radiology. Diagnoses growth restriction antepartum Procedures MF US OB Limited Single/Elisa Maldonado MD [address] [place] [address] Referral ID Status Reason Start Date Expiration Date V isits Requested Visits Authorized [id number] Pending Review 09/10/2023 09/09/2024 1 1 Encounter Details Date Type Department Care Team (Latest Contact Info) Description 09/15/2023 2:54 PM CDT - 09/15/2023 11:59 PM CDT Hospital Encounter [facility] [place] [address] [place] [address] Mark Garcia MD [address] [place] [address] growth restriction antepartum Discharge Disposition: Home or Self Care Social History Tobacco Use Types Packs/Day Years Used Date Smoking Tobacco: Never Passive Smoke Exposure: Never Smokeless Tobacco: Never Alcohol Use Standard Drinks/Week Comments Yes 5 (1 standard drink = 0.6 oz pur e alcohol) PHQ-2 Answer Date Recorded PHQ-2 Score 0 06/17/2022 [place] Depression Scale Answer Date Recorded Last EPDS [...] Description 11/12/2023 10:30 AM CDT Office Visit [facility] Medicine [place] [address] [facility] [address] [place] [phone] Mark Garcia MD [address] [place], [place] [address] Kenton Jasso MD [address] [place], [place] [address] 11/12/2023 11:00 AM CDT Appointment [facility] Medicine [place] [address] [facility] [address] [place] [phone] Mark Garcia MD [address] [place], [place] [address] [phone] Kenton Jasso MD [address] [place], [place] [address] 11/19/2023 10:30 AM CDT Office Visit [facility] Medicine [place] [address] [facility] [address] [place] [address] [phone] Mark Garcia MD [address] [place], [place] [address] 11/19/2023 11:00 AM CDT Appointment [facility] Maternal Medicine [facility] [address] [place] [address] Mark Garcia MD [address] [place] [address] documented as of this encounter [...] ? Study Date: ??09/15/2023 3:55pm Pat. NO: ??[id number] ?Referring ??MD: NICHOLE GANN Site: ??[facility] ? [place] Physical Therapist Assistant: Janelle Marinelli RDMS : ??1995 ?Age: ?? [...] SAINZ Study Date: 09/15/2023 3:55pm Pat. NO: [id number] Referring MD: NICHOLE GANN Site: [facility] [place] Physical Therapist Assistant: Janelle Marinelli RDMS : 1995 Age: 28 [...] antepartum documented in this encounter Care Teams Wire Brush Operator Relationship Specialty Start Date End Date Cristobal Becerril PA-C [address] [address] PCP - General Family Medicine 06/17/[address] [place] [address] Oil Well Cable Tool Driller Dietitian, Registered 10/29/21 Cristobal Becerril PA-C [address] [address] Assigned PCP 06/27/22 documented as of this encounter
--- OUTSIDE RECORDS SUMMARY | 2023-11-05 15:24 | XMS_ITS | Encounter Summary ---
Author Organization [facility] Address [address] [place] [address] Care Team Providers Care Welder And Fitter Name Role Phone Evi Colmenares RD Unavailable Cristobal Becerril PA-C Primary Care Provider Cristobal Becerril PA-C Unavailable [phone] Reason for Referral * Diagnostic Imaging Ultrasound (Routine) - Pending Review Specialty Diagnoses / Procedures Referred By Lulu lozoya Referred To Contact Radiology. Diagnoses related condition, antepartum Procedures [facility] Ghislaine Arriaga MD [address] [place] [address] Referral ID Status Reason Start Date Expiration Date V isits Requested Visits Authorized [id number] Pending Review 09/08/2023 09/07/2024 1 1 Reason for Visit * Diagnostic Imaging Ultrasound (Routine) - Pending Review Specialty Diagnoses / Procedures Referred By Lulu lozoya Referred To Contact Radiology. Diagnoses related condition, antepartum Procedures [facility] US Ghislaine Arriaga MD [address] [place] [address] Referral ID Status Reason Start Date Expiration Date V isits Requested Visits Authorized [id number] Pending Review 09/08/2023 09/07/2024 1 1 Encounter Details Date Type Department Care Team (Latest Contact Info) Description 09/10/2023 10:57 AM CDT - 09/10/2023 11:59 PM CDT Hospital Encounter [facility] [address] [place] [address] Ghislaine Gann MD [address] [place] [address] Elisa Yoo MD [address] [place] [address] 400 [place] [address] related condition, antepartum Discharge Disposition: Home or Self Care Social History Tobacco Use Types Packs/Day Years Used Date Smoking Tobacco: Never Passive Smoke Exposure: Never Smokeless Tobacco: Never Alcohol Use Standard Drinks/Week Comments Yes 5 (1 standard drink = 0.6 oz pur e alcohol) PHQ-2 Answer Date Recorded PHQ-2 Score 0 06/17/2022 [place] Depression Scale Answer Date Recorded Last EPDS [...] Description 11/12/2023 10:30 AM CDT Office Visit [facility] Medicine [place] [address] [facility] [address] [place] [address] [phone] Mark Garcia MD [address] [place], [place] [address] Kenton Jasso MD [address] [place], [place] [address] 11/12/2023 11:00 AM CDT Appointment [facility] Medicine [place] [address] [facility] [address] [place] [phone] Mark Garcia MD [address] [place], [place] [address] Kenton Jasso MD [address] [place] [address] 11/19/2023 10:30 AM CDT Office Visit [facility] Medicine [place] [address] [facility] [address] [place] [phone] Mark Garcia MD [address] [place], [place] [address] 11/19/2023 11:00 AM CDT Appointment [facility] [place] [address] [facility] [address] [place] [address] Mark Garcia MD [address] [place], [place] [address] documented as of this encounter Procedures Procedure Name Priority Date/Time Associated Diagnosis Comments [facility] US COMPREHENSIVE SINGLE Routine 09/10/2023 12:00 PM CDT related condition, antepartum documented in this encounter Results * [facility] US Comprehensive Single (09/10/2023 12:00 PM [...] ? Study Date: ??09/10/2023 10:59am Pat. NO: ??[id number] ?Referring ??MD: GHISLAINE GANN Site: ??[place] ? Mid Level Practitioner: Margaret Colvin RDMS : ??1995 ?Age: ?? [...] 1 lb 4 ?oz EFW by ?Hadlock ([id number]) Head / Face / Neck Biometry: Fuel Island Attendant ? 7.3 ? mm CM ?5.9 ? [...] / Thorax ?Aortic arch view. 3-vessel view. 2-mxawuy-esljfkx view. Abdomen ? Kidneys. Spine ?Lumbar spine. [...] record, and communicating with other health child caregiver private home and/or care coordination. Please see note for details. Procedure Note Elisa Yoo MD - 09/10/2023 Comprehensive ----- Pat. Name: SANAZ SAINZ Study Date: 09/10/2023 10:59am Pat. NO: [id number] Referring MD: GHISLAINE GANN Site: [facility] Mid Level Practitioner: Margaret Colvin RDMS : 1995 Age: 28 [...] 1 lb 4 oz EFW by Hadlock ([id number]) Head / Face / Neck Biometry: Fuel Island Attendant 7.3 mm CM 5.9 mm Nasal bone [...] Heart / Thorax Aortic arch view. 3-vessel view.5-jdxrde-dlbxgin view. Abdomen Kidneys. Spine Lumbar spine. Sacral [...] detectinganeuploidy and structural abnormalities. Ultrasound can routinely vfryyd57-13% of structural abnormalities. Follow-up has been scheduled [...] medical record, andcommunicating with other health child caregiver private home and/or carecoordination. Please see note for details. [...] antepartum documented in this encounter Care Teams Welder And Fitter Relationship Specialty Start Date End Date Cristobal Becerril PA-C [address] [address] PCP - General Family Medicine 06/17/[address] [place] [address] Information Technology Audit Manager Dietitian, Registered 10/29/21 Cristobal Becerril PA-C [address] [address] Assigned PCP 06/27/22 documented as of this encounter
--- OUTSIDE RECORDS SUMMARY | 2023-11-05 15:24 | XMS_ITS | Encounter Summary ---
Author Organization [place] Address [address] [place] [address]. [place] [address] Care Team Providers Care Toggler Name Role Phone Reanna Ortega PA-C Primary Care Pr ovider Reanna Ortega PA-C Unavailable Mark Garcia MD Unavailable [phone] Unavailable Selma Lomeli APRN SKEIN WINDER Primary Care Provider Cristobal Becerril PA-C Primary Care Provider Cristobal Becerril PA-C Unavailable [phone] Elisa Yoo MD Unavailable [phone] Encounter Details Date Type Department Care Team (Late st Contact Info) Description 10/29/2021 MyC Medical Advice M [facility] [address] [place] [phone] Dinorah Flores Social History Tobacco Use [...] [facility] Maternal Medicine [place] [address] [place] [phone] Mark Garcia MD [address] [place], [place] [address] Kenton Jasso MD [address] [place], [place] [address] 11/12/2023 11:00 AM CDT Appointment [facility] Maternal Medicine [place] [address] [place] [phone] Mark Garcia MD [address] [place], [place] [address] Kenton Jasso MD [address] [place], [place] [address] 11/19/2023 10:30 AM CDT Office Visit [facility] Maternal Medicine [place] [address] [place] [phone] Mark Garcia MD [address] [place] [address] 11/19/2023 11:00 AM CDT Appointment [facility] Maternal Medicine [place] [address] [place] [phone] Mark Garcia MD [address] [place] [address] 400 [place], [place] [address]894 documented as of this encounter Visit Diagnoses Not on filedocumented in this encounter Care Teams Toggler Relationship Specialty Start Date End Date Reanna Ortega PA-C [address] [place] [address] PCP - General Physician Nursing Clerk 11/01/18 12/02/21 [place] Lomeli APRN CNP [address] [facility] [address] [place] [address] PCP - General claims examiner 12/03/21 06/16/22 Cristobal Becerril PA-C [address] [place] [address] PCP - General Family Medicine 06/17/22 Reanna Ortega PA-C [address] [place] [address] Assigned PCP 11/06/18 11/07/21 Mark Garcia MD [address] 400 [place] [address] Assigned OBGYN Provider 09/07/[address] [place] [address] Police Patrol Lieutenant Dietitian, Registered 10/29/21 Cristobal Becerril PA-C [address] [place] [address] Assigned PCP 06/27/22 Elisa Yoo MD [address] [facility] 400 [place] [address] Assigned OBGYN Provider 09/28/23 documented as of this encounter
--- OUTSIDE RECORDS SUMMARY | 2023-11-05 15:24 | XMS_ITS | Encounter Summary ---
Author Organization [place] Address [facility] [address] Care Team Providers Care Load Builder Name Role Phone DarrianIsa chaidezmichael LOWERY Unavailable Cristobal Becerril PA-C Primary Care Provider Cristobal Becerril PA-C Unavailable [phone] Reason for Visit * Reason Comments Ultrasound NST/Limited/UAR-FGR * Consultation (Routine: Next available opening) - Pending Review Specialty Diagnoses / Procedures Referred By Contray t Referred To Contact Diagnoses growth restriction antepartum Elisa Yoo MD [address] [place] [address] Referral ID Status Reason Start Date Expiration Date V isits Requested Visits Authorized [id number] Pending Review 09/10/2023 09/09/2024 5 5 Encounter Details Date Type Department Care Team (Late st Contact Info) Description 09/15/2023 3:00 PM CDT Office Visit [facility] [place] [address] [facility] [address] [place] [address] Mark Garcia MD [address] [place] [address] growth restriction antepartum (Primary Dx) Social History Tobacco Use Types Packs/Day Years Used Date Smoking Tobacco: Never Passive Smoke Exposure: Never Smokeless Tobacco: Never Alcohol Use Standard Drinks/Week Comments Yes 5 (1 standard drink = 0.6 oz pur e alcohol) PHQ-2 Answer Date Recorded PHQ-2 Score 0 06/17/2022 [place] Depression Scale Answer Date Recorded Last EPDS [...] for details of today's US at the [facility]. Mark Garcia MD Maternal- Medicine documented [...] CDT Office Visit [facility] [place] [address] [facility] [address] [place] [phone] Mark Garcia MD [address] [place], [place] [address] Kenton Jasso MD [address] [place], [place] [address] 11/12/2023 11:00 AM CDT Appointment [facility] [place] [address] [facility] [address] [place] [phone] Mark Garcia MD [address] [place], [place] [address] [phone] Kenton Jasso MD [address] [place], [place] [address] 11/19/2023 10:30 AM CDT Office Visit [facility] [place] [address] [facility] [address] [place] [phone] Mark Garcia MD [address] [place] [address] 11/19/2023 11:00 AM CDT Appointment [facility] [place] [address] [facility] [address] [place] [phone] Mark Garcia MD [address] [place] [address] documented as of this encounter Visit Diagnoses Diagnosis growth restriction antepartum- Primary documented in this encounter Care Teams Load Builder Relationship Specialty Start Date End Date Cristobal Becerril PA-C [address] [address] [place] [address] PCP - General Family Medicine 06/17/[address] [facility] [place] [address] Authorization Nurse Dietitian, Registered 10/29/21 Cristobal Becerril PA-C [address] [address] [place] [address] Assigned PCP 06/27/22 documented as of this encounter
--- OUTSIDE RECORDS SUMMARY | 2023-11-05 15:24 | XMS_ITS | Encounter Summary ---
Author Organization [place] Address [facility]0 [facility] [place] [address] Care Team Providers Care Home Theater Installer Name Role Phone DarrianEvi RD Unavailable Cristobal Becerril PA-C Primary Care Provider Cristobal Becerril PA-C Unavailable [phone] Reason for Referral * Consultation (Routine: Next available opening) - Pending Review Specialty Diagnoses / Procedures Referred By Lulu lozoya Referred To Contact Diagnoses growth restriction antepartum Elisa Yoo MD [address] [place] [address] Referral ID Status Reason Start Date Expiration Date V isits Requested Visits Authorized [id number] Pending Review 09/10/2023 09/09/2024 5 5 Question Answer CTG/NST Yes * Diagnostic Imaging Ultrasound (Routine) - Pending Review Specialty Diagnoses / Procedures Referred By Lulu lozoya Referred To Contact Radiology. Diagnoses growth restriction antepartum Procedures [facility] US OB Limited Single/Multiple Elisa Yoo MD [address] [place] [address] Referral ID Status Reason Start Date Expiration Date V isits Requested Visits Authorized [id number] Pending Review 09/10/2023 09/09/2024 1 1 * Diagnostic Imaging Ultrasound (Routine) - Pending Review Specialty Diagnoses / Procedures Referred By Contac t Referred To Contact Radiology. Diagnoses growth restriction antepartum Procedures [facility] US Comprehensive Single F/U Elisa Yoo MD [address] [place] [address] Referral ID Status Reason Start Date Expiration Date V isits Requested Visits Authorized [id number] Pending Review 09/10/2023 09/09/2024 1 1 * Diagnostic Imaging Ultrasound (Routine) - Pending Review Specialty Diagnoses / Procedures Referred By Contac t Referred To Contact Radiology. Diagnoses growth restriction antepartum Procedures [facility] US OB Limited Single/Multiple Elisa Yoo MD [address] [place] [address] Referral ID Status Reason Start Date Expiration Date V isits Requested Visits Authorized [id number] Pending Review 09/10/2023 09/09/2024 1 1 * Diagnostic Imaging Ultrasound (Routine) - Pending Review Specialty Diagnoses / Procedures Referred By Contac t Referred To Contact Radiology. Diagnoses growth restriction antepartum Procedures [facility] US OB Limited Single/Multiple Elisa Yoo MD [address] [place] [address] Referral ID Status Reason Start Date Expiration Date V isits Requested Visits Authorized [id number] Pending Review 09/10/2023 09/09/2024 1 1 Reason for Visit * Reason Comments Ultrasound L2: growth res triction on outside US Encounter Details Date Type Department Care Team (Late st Contact Info) Description 09/10/2023 11:30 AM CDT Office Visit [facility] M[facility] Medicine Center [address] [place] [address] Ghislaine Encinas MD [address] [place], [place] [address] Elisa Yoo MD [address] [place] [address] 400 [place] [address] growth restriction antepartum (Primary Dx) Social History Tobacco Use Types Packs/Day Years Used Date Smoking Tobacco: Never Passive Smoke Exposure: Never Smokeless Tobacco: Never Alcohol Use Standard Drinks/Week Comments Yes 5 (1 standard drink = 0.6 oz pur e alcohol) PHQ-2 Answer Date Recorded PHQ-2 Score 0 06/17/2022 [place] Depression Scale Answer Date Recorded Last EPDS [...] in the Maternal- Medicine Center at the [facility] today. For a detailed report of the ultrasound examination, please see the ultrasound report whichcan be found under the imaging tab. If you have questions regarding today's evaluation or if we can be of further service, please contact the Maternal- Medicine Center. Elisa Yoo MD Electronics Detail Draftsperson, PHARMACY ANCILLARY Maternal- Medicine [phone] (Pager) documented in this encounter Nursing Notes * Bianca Kimball RN - 09/10/2023 11:30 AM CDT Patient presents to [facility] for L2US at 24w6d due to growth restriction on outside US. Positive movement. Denies LOF, vaginal bleeding or cramping/contractions. SBAR given to M MD, see their note in Epic. NST performed due to newly diagnosed growth restriction with our M office. Dr. Yoo reviewed efm tracing. See NST/BPP Doc Flowsheet tab. Will start weekly surveillance with [facility]. documented in this encounter Plan of Treatment Upcoming Encounters Date Type Department Care Team (Late st Contact Info) Description 11/12/2023 10:30 AM CDT Office Visit [facility] Medicine [facility] [address] [facility] [address] [place] [phone] Mark Garcia MD [address] [place], [place] [address] Kenton Jasso MD [address] [place], [place] [address] 11/12/2023 11:00 AM CDT Appointment [facility] Medicine [facility] [address] [facility] [address] [place] [phone] Mark Garcia MD [address] [place] [address] Kenton Jasso MD [address] [place], [place] [address] 11/19/2023 10:30 AM CDT Office Visit [facility] Maternal Medicine [facility] [address] [facility] [address] [place] [phone] Mark Garcia MD [address] [place], [place] [address] 11/19/2023 11:[address] [facility] Maternal Medicine [facility] [address] [facility] [address] [place] [phone] Mark Garcia MD [address] [place], [place] [address] Scheduled Orders Name Type Priority Associated Diagnoses [...] ? Study Date: ??10/08/2023 7:57am Pat. NO: ??[id number] ?Referring ??MD: GHISLAINE ENCINAS Site: ??[facility] ? Tar Leveler: Meg Stallworth RDMS : ??1995 ?Age: ?? [...] the patient (reviewing medical records/tests), in direct qtly-qr-hepp contact with the patient during her visit with the majority spent counseling and discussing the plan of care and documenting the visit in the electronic medical record. Please see note for details. Procedure Note Kenton Jasso MD - 10/08/2023 Limited ----- Pat. Name: SANAZ SAINZ Study Date: 10/08/2023 7:57am Pat. NO: [id number] Referring MD: GHISLAINE ENCINAS Site: [facility] Tar Leveler: Meg Stallworth RDMS : 1995 Age: 28 [...] see the patient (reviewing medical records/tests), in jclvprcvgj-vs-qtua contact with the patient during her visit with the majority spent counseling and discussingthe plan of care and documenting the visit in the electronic medicalrecord. Please see note for details. IMPRESSION ----- 1) Springer intrauterine at 28w 6d gestational age. 2) The NST is reactive. 3) The amniotic fluid volume appeared normal. 4) The UA Doppler demonstrates increased resistance to flow. Elisa oYo MD [facility] US ORDERABLE S * [facility] US Comprehensive Single F/U (10/01/2023 4:11 PM [...] ? Study Date: ??10/01/2023 3:24pm Pat. NO: ??[id number] ?Referring ??MD: GHISLAINE ENCINAS Site: ??[facility] ? Tar Leveler: Miky Malone RDMS : ??1995 ?Age: ?? [...] 2 lb 0 ?oz EFW by ?Hadlock ([id number]) Head / Face / Neck Biometry: Bead Cutter ? 3.6 ? mm CM ?6.3 ? [...] / Thorax ?Aortic arch view. 3-vessel view. 9-yacipa-pmszpbw view. ? Diaphragm. Abdomen ? Stomach. Kidneys. [...] SAINZ Study Date: 10/01/2023 3:24pm Pat. NO: [id number] Referring MD: GHISLAINE ENCINAS Site: [facility] Tar Leveler: Miky Malone RDMS : 1995 Age: 28 [...] 2 lb 0 oz EFW by Hadlock ([id number]) Head / Face / Neck Biometry: Bead Cutter 3.6 mm CM 6.3 mm Extremities / Bony Struc Biometry: Radius 33.6 mm7% Thomas Ulna 37.9 mm<1% Thomas Tibia 39.0 mm1% Thomas Fibula 37.9 mm5% Thomas ANATOMY ----- The following structures appear normal: Head / Neck Cranium. Head size. Head shape.Lateral ventricles. Midline falx. Cavum septi pellucidi. Cerebellum.Cisterna magna. Thalami. Heart / Thorax Aortic arch view. 3-vessel view.8-ehkqco-bjadnux view. Diaphragm. Abdomen Stomach. Kidneys. Bladder. Spine [...] for gestational age andoverall reassuring. Elisa OSBORN [facility] US ORDERABLE S * [facility] US OB Limited Single/Multiple (09/22/2023 2:13 PM CDT) Anatomical Region Laterality Modality Ultrasound 09/22/2023 1:40 PM CDT Impressions 09/22/2023 2:56 PM CDT IMPRESSION ----- 1) Normal amniotic fluid volume. 2) Normal UAR doppler PI. 3) tracing with a single deceleration. Narrative 09/22/2023 2:56 PM CDT ?Limited ----- Pat. Name: SANAZ SAINZ ? Study Date: ??09/22/2023 1:40pm Pat. NO: ??[id number] ?Referring ??MD: GHISLAINE ENCINAS Site: ??[facility] ? Tar Leveler: Richa Shaw RDMS : ??1995 ?Age: ?? [...] SAINZ Study Date: 09/22/2023 1:40pm Pat. NO: [id number] Referring MD: GHISLAINE ENCINAS Site: [facility] Tar Leveler: Richa Shaw RDMS : 1995 Age: 28 [...] with a single deceleration. Elisa Yoo MD [facility] US ORDERABLE S * [facility] US OB Limited Single/Multiple (09/15/2023 4:05 PM CDT) Anatomical Region Laterality Modality Ultrasound 09/15/2023 3:55 PM CDT Impressions 09/15/2023 4:17 PM CDT IMPRESSION ----- 1) Normal amniotic fluid volume. 2) Normal UAR doppler PI. 3) monitoring without repetitive decelerations. Narrative 09/15/2023 4:17 PM CDT ?Limited ----- Pat. Name: SANAZ SAINZ ? Study Date: ??09/15/2023 3:55pm Pat. NO: ??[id number] ?Referring ??MD: GHISLAINE ENCINAS Site: ??[facility] ? Tar Leveler: Janelle Marinelli RDMS : ??1995 ?Age: ?? [...] SAINZ Study Date: 09/15/2023 3:55pm Pat. NO: [id number] Referring MD: GHISLAINE ENCINAS Site: [facility] Tar Leveler: Janelle Marinelli RDMS : 1995 Age: 28 [...] monitoring without repetitive decelerations. Elisa Yoo MD [facility] US ORDERABLE S documented in this encounter Visit Diagnoses Diagnosis growth restriction antepartum- Primary growth restriction antepartum growth restriction antepartum growth restriction antepartum growth restriction antepartum documented in this encounter Care Teams Home Theater Installer Relationship Specialty Start Date End Date Cristobal Becerril PA-C [address] [address] PCP - General Family Medicine 06/17/[address] [place] [address] Corporate Travel Consultant Dietitian, Registered 10/29/21 Cristobal Becerril PA-C [address] [address] [address] Assigned PCP 06/27/22 documented as of this encounter
--- OUTSIDE RECORDS SUMMARY | 2023-11-05 15:24 | XMS_ITS | Encounter Summary ---
Author Organization [place] Address [address] [place] [address]. [place] [address] Care Team Providers Care Delivery Representative Name Role Phone DarrianEvi RD Unavailable Cristobal Becerril PA-C Primary Care Provider Cristobal Becerril PA-C Unavailable [phone] Encounter Details Date Type Department Care Team (Latest Contact Info) Description 09/22/2023 Travel Social History Tobacco Use Types Packs/Day Years Used Date Smoking Tobacco: Never Passive Smoke Exposure: Never Smokeless Tobacco: Never Alcohol Use Standard Drinks/Week Comments Yes 5 (1 standard drink = 0.6 oz pur e alcohol) PHQ-2 Answer Date Recorded PHQ-2 Score 0 06/17/2022 [place] Depression Scale Answer Date Recorded Last EPDS [...] Description 11/12/2023 10:30 AM CDT Office Visit [facility] Maternal Medicine [place] [address] [facility] [address] [place] [phone] Mark Garcia MD [address] [place] [address] Kenton Jasso MD [address] [place], [place] [address] 11/12/2023 11:00 AM CDT Appointment [facility] Medicine [place] [address] [facility] [address] [place] [phone] Mark Garcia MD [address] [place], [place] [address] [phone] Kenton Jasso MD [address] [place], [place] [id number] 11/19/2023 10:30 AM CDT Office Visit [facility] Medicine [place] [address] [facility] [address] [place] [phone] Mark Garcia MD [address] [place], [place] [address] 11/19/2023 11:00 AM CDT Appointment [facility] Maternal Medicine [place] [address] [facility] [address] [place] [phone] Mark Garcia MD [address] [place], [place] [address] documented as of this encounter Visit Diagnoses Not on filedocumented in this encounter Care Teams Delivery Representative Relationship Specialty Start Date End Date Cristobal Becerril PA-C [address] [address] [address] PCP - General Family Medicine 06/17/[address] [place] [id number] Cushion Sewer Dietitian, Registered 10/29/21 Cristobal Becerril PA-C [address] [address] [address] Assigned PCP 06/27/22 documented as of this encounter
--- OUTSIDE RECORDS SUMMARY | 2023-11-05 15:24 | XMS_ITS | Encounter Summary ---
Author Organization [place] Address [address] [place] [address]. [place] [address] Care Team Providers Care Title Inspector Name Role Phone Evi Colmenares RD Unavailable Cristobal Becerril PA-C Primary Care Provider Cristobal Becerril PA-C Unavailable [phone] Reason for Referral * Diagnostic Imaging Ultrasound (Routine) - Pending Review Specialty Diagnoses / Procedures Referred By Lulu lozoya Referred To Contact Radiology. Diagnoses related condition, antepartum Procedures [facility] US Comprehensive [facility] Ghislaine Gann MD [address] [place] [address] Referral ID Status Reason Start Date Expiration Date V isits Requested Visits Authorized [id number] Pending Review 09/08/2023 09/07/2024 1 1 * Consultation (Routine: Next available opening) - Pending Review Specialty Diagnoses / Procedures Referred By Lulu lozoya Referred To Contact Diagnoses related condition, antepartum Ghislaine Gann MD [address] [place] [address] [address]aternal Med [address] [place] [phone] Referral ID Status Reason Start Date Expiration Date V isits Requested Visits Authorized [id number] Pending Review 09/08/2023 09/07/2024 1 1 Question Answer Preferred Location: [facility] [place] 12/25/2023 Ultrasound Comprehensive US (>than 18 weeks GA) US PROC NONE MFM Issue Abnormal Ultrasound Findings (enter details in Comments) - severe IUGR-less than 3% MFM MD Consultation (unrelated to Ultrasound findings): No Chronic Kidney Disease: Joint MFM and Nephrology Consultation No Genetic Counseling Consultation: No fax [facility] Ghislaine Colby [phone] Comments There is no height or weight [...] (Latest Contact Info) Description 09/08/2023 Transcribe Orders [facility] [address] [place] [address] Ghislaine Gann MD [address] [place] [address] [phone] related condition, antepartum (Primary Dx) Social History Tobacco Use Types Packs/Day Years Used Date Smoking Tobacco: Never Passive Smoke Exposure: Never Smokeless Tobacco: Never Alcohol Use Standard Drinks/Week Comments Yes 5 (1 standard drink = 0.6 oz pur e alcohol) PHQ-2 Answer Date Recorded PHQ-2 Score 0 06/17/2022 [place] Depression Scale Answer Date Recorded Last EPDS [...] CDT Office Visit [facility] [place] [address] [place] [phone] Mark Garcia MD [address] [place], [place] [address] Kenton Jasso MD [address] [place], [place] [address] 11/12/2023 11:00 AM CDT Appointment [facility] Medicine [place] [address] [place] [phone] Mark Garcia MD [address] [place], [place] [address] Kenton Jasso MD [address] [place], [place] [address] 11/19/2023 10:30 AM CDT Office Visit [facility] [place] [address] [place] [phone] Mark Garcia MD [address] [place], [place] [address] 11/19/2023 11:00 AM CDT Appointment [facility] [place] [address] [place] [phone] Mark Garcia MD [address] [place] [address] Scheduled Referrals Name Type Priority Associated Diagnoses Orde r Schedule Mat Med Ctr Referral - Referral Routine: Next available opening related condition, antepartum Expected: 09/10/2023 (Approximate), Expires: 03/06/2024 documented as of this encounter Results * [facility] US Comprehensive Single (09/10/2023 12:00 PM [...] ? Study Date: ??09/10/2023 10:59am Pat. NO: ??[id number] ?Referring ??MD: GHISLAINE GANN Site: ??[place] ? Linoleum Tile Floor Layer: Margaret Colvin RDMS : ??1995 ?Age: ?? [...] 1 lb 4 ?oz EFW by ?Hadlock ([id number]) Head / Face / Neck Biometry: Hygiene Teacher ? 7.3 ? mm CM ?5.9 ? [...] / Thorax ?Aortic arch view. 3-vessel view. 3-ofyrwk-atalcnp view. Abdomen ? Kidneys. Spine ?Lumbar spine. [...] medical record, and communicating with other health primary care nurse practitioner and/or care coordination. Please see note for details. Procedure Note Elisa Yoo MD - 09/10/2023 Comprehensive ----- Pat. Name: SANAZ SAINZ Study Date: 09/10/2023 10:59am Pat. NO: [id number] Referring MD: GHISLAINE GANN Site: [facility] Linoleum Tile Floor Layer: Margaret Colvin RDMS : 1995 Age: 28 [...] 1 lb 4 oz EFW by Hadlock ([id number]-HT-FL) Head / Face / Neck Biometry: Hygiene Teacher 7.3 mm CM 5.9 mm Nasal bone [...] Heart / Thorax Aortic arch view. 3-vessel view.1-vxnopu-omczlsg view. Abdomen Kidneys. Spine Lumbar spine. Sacral [...] detectinganeuploidy and structural abnormalities. Ultrasound can routinely -81% of structural abnormalities. Follow-up has been scheduled [...] electronic medical record, andcommunicating with other health primary care nurse practitioner and/or carecoordination. Please see note for details. [...] rate monitoring was appropriate for gestational age. hGislaine Gann MD IMG MFM US O BC documented in this encounter Visit Diagnoses Diagnosis related condition, antepartum- Primary related condition, antepartum documented in this encounter Care Teams Title Inspector Relationship Specialty Start Date End Date Cristobal Becerril PA-C [address] [address] PCP - General Family Medicine 06/17/[address] [address] Tool Machine Shop Supervisor Dietitian, Registered 10/29/21 Cristobal Becerril PA-C [address] [address] [address] Assigned PCP 06/27/22 documented as of this encounter
--- OUTSIDE RECORDS SUMMARY | 2023-11-05 15:24 | XMS_ITS | Encounter Summary ---
Author Organization [place] Address [facility] [place] [address] Care Team Providers Care Pedicurist Name Role Phone DarrianIsa chaidezmichael LOWERY Unavailable Cristobal Becerril PA-C Primary Care Provider Cristobal Becerril PA-C Unavailable [phone] Reason for Visit * Reason Comments Ultrasound NST/Limited/UAR-FGR * Consultation (Routine: Next available opening) - Pending Review Specialty Diagnoses / Procedures Referred By Contray t Referred To Contact Diagnoses growth restriction antepartum Elisa Yoo MD [address] [place] [address] Referral ID Status Reason Start Date Expiration Date V isits Requested Visits Authorized [id number] Pending Review 09/10/2023 09/09/2024 5 5 Encounter Details Date Type Department Care Team (Late st Contact Info) Description 09/22/2023 1:45 PM CDT Office Visit [facility] [place] [address] [facility] [address] [place] [address] Mark Garcia MD [address] [place] [address] growth restriction antepartum (Primary Dx) Social History Tobacco Use Types Packs/Day Years Used Date Smoking Tobacco: Never Passive Smoke Exposure: Never Smokeless Tobacco: Never Alcohol Use Standard Drinks/Week Comments Yes 5 (1 standard drink = 0.6 oz pur e alcohol) PHQ-2 Answer Date Recorded PHQ-2 Score 0 06/17/2022 [place] Depression Scale Answer Date Recorded Last EPDS [...] for details of today's US at the [facility]. Mark Garcia MD Maternal- Medicine documented [...] 11/12/2023 10:30 AM CDT Office Visit [facility] Medicine [place] [address] [place] [phone] Mark Garcia MD [address] [place], [place] 5823[address] Kenton Jasso MD [address] [place], [place] [address] 11/12/2023 11:[address] [facility] Medicine [place] [address] [place] [phone] Mark Garcia MD [address] [place], [place] [address]453 [phone] Kenton Jasso MD [address] [place], [place] [address] 11/19/2023 10:30 AM CDT Office Visit [facility] Maternal Medicine [place] [address] [place] [phone] Mark Garcia MD [address] [place] [address] 11/19/2023 11:[address] [facility]aternal Medicine [place] [address] [place] [phone] Mark Garcia MD [address] 829194 documented as of this encounter Visit Diagnoses Diagnosis growth restriction antepartum- Primary documented in this encounter Care Teams Pedicurist Relationship Specialty Start Date End Date Cristobal Becerril PA-C [address] [address] [address] PCP - General Family Medicine 06/17/[address] [facility] [place] [address] Quality Compliance Coordinator Dietitian, Registered 10/29/21 Cristobal Becerril PA-C [address] [address] Assigned PCP 06/27/22 documented as of this encounter
--- OUTSIDE RECORDS SUMMARY | 2023-11-05 15:24 | XMS_ITS | Encounter Summary ---
Author Organization [place] Address [address] [place] [address]. [place] [address] Care Team Providers Care Scouts Name Role Phone DarrianEvi RD Unavailable Cristobal Becerril PA-C Primary Care Provider Cristobal Becerril PA-C Unavailable [phone] Reason for Visit * Reason Comments Ultrasound L2: FGR seen on outs anahi US Encounter Details Date Type Department Care Team (Late st Contact Info) Description 09/09/2023 PRE VISIT [facility] [address] [phone] Bianca Kimball RN Ultrasound (L2: FGR seen on outside US) Social History Tobacco Use Types Packs/Day Years Used Date Smoking Tobacco: Never Passive Smoke Exposure: Never Smokeless Tobacco: Never Alcohol Use Standard Drinks/Week Comments Yes 5 (1 standard drink = 0.6 oz pur e alcohol) PHQ-2 Answer Date Recorded PHQ-2 Score 0 06/17/2022 [place] Depression Scale Answer Date Recorded Last EPDS [...] Description 11/12/2023 10:30 AM CDT Office Visit [facility] Maternal Medicine [facility] [address] [place] [phone] Mark Garcia MD [address] [place], [place] [phone] Kenton Jasso MD [address] [place] [phone] 11/12/2023 11:00 AM CDT Appointment [facility]aternal Medicine [place] [address] [place] [phone] Mark Garcia MD [address] [place], [place] [address] Kenton Jasso MD [address] [place], [place] [address] 11/19/2023 10:30 AM CDT Office Visit [facility] Maternal Medicine [place] [address] [place] [phone] Mark Garcia MD [address] [place] [address] [phone] 11/19/2023 11:00 AM CDT Appointment [facility] Maternal Medicine [facility] [address] [place] [phone] Mark Garcia MD [address] [id number] documented as of this encounter Visit Diagnoses Not on filedocumented in this encounter Care Teams Scouts Relationship Specialty Start Date End Date Cristobal Becerril PA-C [address] [place] [address] PCP - General Family Medicine 06/17/[address] [facility] [address] Silk Screen Repairer Dietitian, Registered 10/29/21 Cristobal Becerril PA-C [address] [place] [address] Assigned PCP 06/27/22 documented as of this encounter
--- OUTSIDE RECORDS SUMMARY | 2023-11-05 15:24 | XMS_ITS | Encounter Summary ---
Author Organization [place] Address [facility] [place] [address] Care Team Providers Care Film Cleaner Name Role Phone Evi Colmenares RD Unavailable Cristobal Becerril PA-C Primary Care Provider Cristobal Becerril PA-C Unavailable [phone] Reason for Referral * Diagnostic Imaging Ultrasound (Routine) - Pending Review Specialty Diagnoses / Procedures Referred By Lulu lozoya Referred To Contact Radiology. Diagnoses growth restriction antepartum Procedures MF US OB Limited Single/Multiple Elisa Yoo MD [address] [place] [address] Referral ID Status Reason Start Date Expiration Date V isits Requested Visits Authorized [id number] Pending Review 09/10/2023 09/09/2024 1 1 Reason for Visit * Diagnostic Imaging Ultrasound (Routine) - Pending Review Specialty Diagnoses / Procedures Referred By Lulu lozoya Referred To Contact Radiology. Diagnoses growth restriction antepartum Procedures MF US OB Limited Single/Multiple Elisa Yoo MD [address] [place] [address] Referral ID Status Reason Start Date Expiration Date V isits Requested Visits Authorized [id number] Pending Review 09/10/2023 09/09/2024 1 1 Encounter Details Date Type Department Care Team (Latest Contact Info) Description 09/22/2023 1:42 PM CDT - 09/22/2023 11:59 PM CDT Hospital Encounter [facility] M[facility] [place] [address] [facility] [address] [place] [address] Mark Garcia MD [address] [facility] [address] [facility] [address] [place] [address] growth restriction antepartum Discharge Disposition: Home or Self Care Social History Tobacco Use Types Packs/Day Years Used Date Smoking Tobacco: Never Passive Smoke Exposure: Never Smokeless Tobacco: Never Alcohol Use Standard Drinks/Week Comments Yes 5 (1 standard drink = 0.6 oz pur e alcohol) PHQ-2 Answer Date Recorded PHQ-2 Score 0 06/17/2022 [place] Depression Scale Answer Date Recorded Last EPDS [...] Description 11/12/2023 10:30 AM CDT Office Visit [facility] Medicine [place] [address] [facility] [address] [place] [phone] Mark Garcia MD [address] [place], [place] [address] Kenton Jasso MD [address] [place], [place] [address] 11/12/2023 11:00 AM CDT Appointment [facility] Medicine [place] [address] [facility] [address] [place] [phone] Mark Garcia MD [address] [place] [phone] Kenton Jasso MD [address] [place], [place] [address] 11/19/2023 10:30 AM CDT Office Visit [facility] Medicine [place] [address] [address] [facility] [address] [place] [phone] Mark Garcia MD [address] [place] [phone] 11/19/2023 11:00 AM CDT Appointment [facility] Maternal Medicine [facility] [address] [facility] [address] [place] [address] Mark Garcia MD [address] [place] [address] documented as of this encounter [...] ? Study Date: ??09/22/2023 1:40pm Pat. NO: ??[id number] ?Referring ??MD: NICHOLE GANN Site: ??[place] ? Painting Machine Operator: Richa Shaw RDMS : ??1995 ?Age: ?? [...] SAINZ Study Date: 09/22/2023 1:40pm Pat. NO: [id number] Referring MD: NICHOLE GANN Site: [facility] Painting Machine Operator: Richa Shaw RDMS : 1995 Age: 28 [...] with a single deceleration. Elisa Yoo MD [facility] US ORDERABLE S documented in this encounter Visit Diagnoses Diagnosis growth restriction antepartum documented in this encounter Care Teams Film Cleaner Relationship Specialty Start Date End Date Cristobal Becerril PA-C [address] [address] PCP - General Family Medicine 06/17/[address] [address] Extractions Technologist Dietitian, Registered 10/29/21 Cristobal Bceerril PA-C [address] [address] [address] Assigned PCP 06/27/22 documented as of this encounter
--- OUTSIDE RECORDS SUMMARY | 2023-11-05 15:25 | XMS_ITS ---
Author Organization [place] Address [address] [place] [address]. [place] [address] Care Team Providers Care Loss Prevention Leader Name Role Phone Evi Colmenares RD Unavailable Cristobal Becerril PA-C Primary Care Provider Cristobal Becerril PA-C Unavailable [phone] Elisa Yoo MD Unavailable [phone] Diabetes Self-Management Education Status:Enrolled (Active) Start date:10/29/2021 Enrollment date:10/29/2021 Case Team Name Relationship Phone Evi Colmenares RD Fermenter(Responsible Staff) [phone] Continued Care and Services Coordination
--- OUTSIDE RECORDS SUMMARY | 2023-11-05 15:25 | XMS_ITS | Clinical Summary ---
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 [employer] Pulse 84 07/01/2022 12:44 PM [employer] Temperature 36.2 ??C (97.2 ??F) 05/28/2021 8:35 AM CS T Respiratory Rate 16 12/11/2019 1:50 PM CDT Oxygen Saturation 98% 04/01/2022 1:41 PM CDT Inhaled Oxygen Concentration - - Weight 100.2 kg (221 lb) 07/01/2022 12:44 PM [employer] Height 160 cm (5' 2.99) 07/01/2022 12:44 PM [employer]PER[employer] Body Mass Index 39.16 07/01/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 Case: [id number] ? Authorizing Provider: ??Yusuf Hwang, ?Collected: ? 09/30/2020 1030 ? CNM ? Ordering Location: ? [facility] Received: ?09/30/2020 1417 ? Clinic ? First Screen: ?Kip Sue ? Specimen: ?MARKETING TECHNOLOGIST ThinPrep Vial Screening, Cervical ? 10/09/2020 11:[address] [facility] INTERPRETATION/ RESULT NEGATIVE FOR INTRAEPITHELIAL LESION OR MALIGNANCY (NIL) (none) 10/09/2020 11:19 AM CDT [facility] EN[facility]AL LAB[facility] IMEN ADEQUACY Satisfactory for evaluation Endocervical component present 10/09/2020 11:19 AM CDT [facility] EN[facility]AL LAB[facility] HPV REQUEST HPV if ASCUS 10/09/2020 11:19 AM CDT [facility] ENTRAL LABORATORY Date of LMP 09/23/2020 10/09/2020 11:19 AM CDT [facility] Last Pap Date 2018 10/09/2020 11:19 AM CDT [facility] EN[facility]AL LAB[facility]ATORY Last Pap Result NIL 11:19 AM CDT [facility] EN[facility] LAB[facility] Abnormal Pap or [place] Bx in last 5 years No 10/09/2020 11:19 AM CDT [facility] Menstrual Status Regular Periods 10/09/2020 11:19 AM CDT [facility] EN[facility]AL LAB[facility] [place] Bx Done Today No 10/09/2020 11:19 AM CDT [facility] EN[facility]AL LAB[facility] Additional Information None given 10/09/2020 11:19 AM CDT [facility] EN[facility]AL LABORATORY Comment: Cytology is screened at [facility] [employer], Central Laboratory - [address], [place] [address] and [facility] - [address] [place] [address] and [facility] - [address] [place] [address] Interpreted at [facility] [employer], Central Laboratory - [address], [place] [address] Automated Review Successful 10/09/2020 11:[address] [facility] Comment:Specimen processed s uccessfully by automated claims collector device, [employer] System, [employer] Note The pap test is a [...] and malignant lesions. 10/09/2020 11:[address] Other (Cervical) Non-Blood / Unknown 09/30/2020 10:30 AM CDT 09/30/2020 2:17 PM CDT Yusuf Hwang CNM PATHOLOGY/CYTO [facility]Y [facility] [address] [place] [address], from Last 3 Months or Most Recently Relevant to Health Maintenance Care Teams Engine Maintenance Mechanic Relationship Specialty [place] [address] [place] [address] PCP - General Family Practice 05/03/23
--- OUTSIDE RECORDS SUMMARY | 2023-11-05 15:25 | XMS_ITS | Encounter Summary ---
Author Organization [place] Address [address] [place] [address]. [place] [address] Care Team Providers Care Jewelry Designer Name Role Phone Reanna Ortega PA-C Primary Care Pr ovider Reanna Ortega PA-C Unavailable Mark Garcia MD Unavailable [phone] Unavailable Selma Lomeli APRN PIPE CHANGER Primary Care Provider Cristobal Becerril PA-C Primary Care Provider Cristobal Becerril PA-C Unavailable [phone] Elisa Yoo MD Unavailable [phone] Encounter Details Date Type Department Care Team (Late st Contact Info) Description 06/18/2021 External Order Results [facility] [address] [place] [address] Outside, Provider Social History Tobacco Use Types [...] Description 11/12/2023 10:30 AM CDT Office Visit [facility] [place] [address] [facility] [facility] [address] [place] [phone] Mark Garcia MD [address] [place], [place] [phone] Kenton Jasso MD [address] [place], [place] [id number] 11/12/2023 11:00 AM CDT Appointment [facility] [place] [address] [facility] [address] [place] [phone] Mark Garcia MD [address] [place], [place] [address] Kenton Jasso MD [address] [place], [place] [address] 11/19/2023 10:30 AM CDT Office Visit [facility] Maternal [facility] [place] [address] [place] [phone] Mark Garcia MD [address] [place], [place] [address] 11/19/2023 11:00 AM CDT Appointment [facility] [place] [address] [place] [phone] Mark Garcia MD [address] [facility] [address] [place] [address] documented as of this encounter Procedures Procedure Name Priority Date/Time Associated Diagnosis Comments URINE CULTURE (OB EXTERNAL RESULT) Routine 06/18/2021 10:45 AM GRINDER CHIPPER GONORRHEA (EXTERNAL RESULT) Routine 06/18/2021 10:45 AM GRINDER CHIPPER CHLAMYDIA TRACHOMATIS PCR (EXTERNAL RESULT) Routine 06/18/2021 10:45 AM GRINDER CHIPPER HEPATITIS C ANTIBODY Routine 06/18/2021 10:45 AM GRINDER CHIPPER GLUCOSE Routine 06/18/2021 10:45 AM GRINDER CHIPPER TREPONEMA PALLIDUM ANTIBODY (RPR) (EXTERNAL RESULT) Routine 06/18/2021 10:43 AM GRINDER CHIPPER RUBELLA ANTIBODY IGG (EXTERNAL RESULT) Routine 06/18/2021 10:43 AM GRINDER CHIPPER HIV ANTIGEN ANTIBODY COMBO Routine 06/18/2021 10:43 AM GRINDER CHIPPER CBC WITH PLATELETS & DIFFERENTIAL Routine 06/18/2021 10:43 AM GRINDER CHIPPER HEPATITIS B SURFACE ANTIGEN Routine 06/18/2021 10:43 AM GRINDER CHIPPER ABO AND RH Routine 06/18/2021 10:43 AM GRINDER CHIPPER documented in this encounter Results * Gonorrhea (External Result) (06/18/2021 10:45 AM GRINDER CHIPPER) N Gonorrhea PCR Negative Negative NON-INTERFACE D (ONBASE SCANS) 06/18/2021 10:4 5 AM GRINDER CHIPPER Triny GARLAND PFT - 06/29/2021 10:26 AM GRINDER CHIPPER Verified by Sarah Johns on 06/29/2021. Patient Reported LAB - HIM EXTERNAL R ESULT Performing Organization Address [facility]/ZIP Co de Phone Number BREEZE PFT NON-INTERFACED (ONBASE SCANS) * Chlamydia Trachomatis PCR (External Result) (06/18/2021 10:45 AM GRINDER CHIPPER) Chlamydia Trachomatis PCR Negative Negative NON-INTERFAC E D (ONBASE SCANS) 06/18/2021 10:4 5 AM GRINDER CHIPPER Narrative BREEZE PFT - 06/29/2021 10:26 AM GRINDER CHIPPER Verified by Sarah Johns on 06/29/2021. Patient Reported LAB - HIM EXTERNAL R ESULT Performing Organization Address [facility] de Phone Number BREEZE PFT NON-INTERFACED (ONBASE SCANS) * Glucose (06/18/2021 10:45 AM GRINDER CHIPPER) Glucose (External) 120 65 - 139 mg/dL NON-INTERFACED (ONBASE SCANS) Comment:GESTATIONAL DIABETES SCREEN Blood 06/18/2021 10:4 5 AM GRINDER CHIPPER Narrative BREEZE PFT - 06/29/2021 10:26 AM GRINDER CHIPPER Verified by Sarah Johns on 06/29/2021. Patient Reported LAB - BLOOD ORDERABL ES Performing Organization Address [facility] de Phone Number BREEZE PFT NON-INTERFACED (ONBASE SCANS) * Urine Culture (OB External Result) (06/18/2021 10:45 AM GRINDER CHIPPER) Urine Culture OB Nurse Interpretation (External Result) Mixed urogenital carla NON-INTERFAC ED (ONBASE SCANS) 06/18/2021 10:4 5 AM GRINDER CHIPPER Narrative BREEZE PFT - 06/29/2021 10:25 AM GRINDER CHIPPER Verified by Sarah Johns on 06/29/2021. Patient Reported LAB - HIM EXTERNAL R ESULT Performing Organization Address [facility] Co de Phone Number BREEZE PFT NON-INTERFACED (ONBASE SCANS) * Hepatitis C antibody (06/18/2021 10:45 AM GRINDER CHIPPER) Hepatitis C Antibody (External) <0.1 0.0 - 0.9 Ratio NON-INTERFACED (ONBASE SCANS) Blood 06/18/2021 10:4 5 AM GRINDER CHIPPER Narrative DADA PFT - 06/29/2021 10:25 AM GRINDER CHIPPER Verified by Sarah Johns on 06/29/2021. Patient Reported LAB - BLOOD ORDERABL ES DADA PFT NON-INTERFACED (ONBASE SCANS) * CBC with Platelets & Differential (06/18/2021 10:43 AM GRINDER CHIPPER) Pathologist [facility] WBC Count (External) 8.5 3.4 - 10.8 [...] (ONBASE SCANS) Blood 06/18/2021 10:4 3 AM GRINDER CHIPPER Narrative BREEZE PFT - 06/29/2021 10:33 AM GRINDER CHIPPER Verified by Sarah Johns on 06/29/2021. Patient Reported LAB - BLOOD ORDERABL ES BREEZE PFT NON-INTERFACED (ONBASE SCANS) * HIV Antigen Antibody Combo (06/18/2021 10:43 AM GRINDER CHIPPER) HIV 1&2 Antibody (External) Non Reactive Non Reactive NON-INTERFAC ED (ONBASE SCANS) Blood 06/18/2021 10:4 3 AM GRINDER CHIPPER Narrative BREEZE PFT - 06/29/2021 10:33 AM GRINDER CHIPPER Verified by Sarah Johns on 06/29/2021. Patient Reported LAB - BLOOD ORDERABL ES BREEZE PFT NON-INTERFACED (ONBASE SCANS) * ABO and Rh (06/18/2021 10:43 AM GRINDER CHIPPER) ABO (External) A NON-I NTERFACE D (ONBASE SCANS) Rh (External) Positive NON-IN TERFACE D (ONBASE SCANS) Scan Lab Results (External) See Scanned Report NON-INTERFACE D (ONBASE SCANS) Comment:ANTIBODY SCREEN Nega tive Blood BLOOD SPECIMEN / Unknown 06/18/2021 10:43 AM GRINDER CHIPPER Narrative BREEZE PFT - 06/29/2021 10:33 AM GRINDER CHIPPER Verified by Sarah Johns on 06/29/2021. Patient Reported LAB - BLOOD BANK CELINE T ORDER BREEZE PFT NON-INTERFACED (ONBASE SCANS) * Treponema Pallidum Antibody (RPR) (External Result) (06/18/2021 10:43 AM GRINDER CHIPPER) Treponema Palldum Antibody (External) Non Reactive NON REACTIVE NON-INTERFAC ED (ONBASE SCANS) 06/18/2021 10:4 3 AM GRINDER CHIPPER Narrative BREEZE PFT - 06/29/2021 10:33 AM GRINDER CHIPPER Verified by Sarah Johns on 06/29/2021. Patient Reported LAB - HIM EXTERNAL R ESULT Performing Organization Address [facility] Co de Phone Number BREEZE PFT NON-INTERFACED (ONBASE SCANS) * Rubella Antibody IgG (External Result) (06/18/2021 10:43 AM GRINDER CHIPPER) Rubella Antibody IgG (External) 1.73 Immune>0.9 9 index NON-INTERFACED (ONBASE SCANS) 06/18/2021 10:4 3 AM GRINDER CHIPPER Narrative BREEZE PFT - 06/29/2021 10:33 AM GRINDER CHIPPER Verified by Sarah Johns on 06/29/2021. Patient Reported LAB - HIM EXTERNAL R ESULT Performing Organization Address [facility]/ZIP Co de Phone Number BREEZE PFT NON-INTERFACED (ONBASE SCANS) * Hepatitis B surface antigen (06/18/2021 10:43 AM GRINDER CHIPPER) Hep B Surface Agn (External) Negative Negative NON-INTERFACE D (ONBASE SCANS) Blood 06/18/2021 10:4 3 AM GRINDER CHIPPER Narrative DADA PFT - 06/29/2021 10:33 AM GRINDER CHIPPER Verified by Sarah Johns on 06/29/2021. Patient Reported LAB - BLOOD ORDERABL ES DADA PFT NON-INTERFACED (ONBASE SCANS) documented in this encounter Visit Diagnoses Not on filedocumented in this encounter Care Teams Jewelry Designer Relationship Specialty Start Date End Date Reanna Ortega PA-C [address] [place] [address] PCP - General Physician Corporate Manager 11/01/18 12/02/21 Selma Lomeli APRN CNP [address] [facility] [address] [place] [address] PCP - General corporate statistical financial analyst 12/03/21 06/16/22 Cristobal Becerril PA-C [address] [place] [address] PCP - General Family Medicine 06/17/22 Reanna Ortega PA-C [address] [place] [address] Assigned PCP 11/06/18 11/07/21 Mark Garcia MD [address] [facility] [address] [place], [place] [address] Assigned OBGYN Provider 09/07/[address] [place] [address] Disease Intervention Specialist Dietitian, Registered 10/29/21 Cristobal Becerril, EVELINAC [address] [address] Assigned PCP 06/27/22 Elisa Yoo MD [address] [facility] [address] [place], [place] [address] Assigned OBGYN Provider 09/28/23 documented as of this encounter
[2023-11-05] MEDS: BETAMETHASONE SOD PHOS/ACETATE 6 MG/ML ML 12 MG IM (15:35)
[2023-11-05] MEDS: LACTATED RINGERS 1000 ML 1,000 ML IV (15:44)
--- NOTE | 2023-11-05 16:30 | W.PM.OBO ---
OB Outpatient HPI History of Present Illness Date Seen: 11/05/23 History of Present Illness: 28 year old at 32 6/7 weeks gestation by LMP, CLARIBEL 12/25/2023, presents with non reactive NST and BPP 4/8. Patient seen for routine care appointment. BP in clinic slightly elevated and recommendation was given to perform NST, order preeclampsia labs. NST in clinic non reactive and followed by BPP. BPP minus 2 points for breathing and gross movements. Normal amount of amniotic fluid. Patient sees MFM due to diagnosis of severe IUGR, elevated SD ratio at umbilical Doppler. Specific Issues/Plans # Severe growth restriction at 24 weeks. -F/U due to missed anatomy on FAS 09/08/23: EFW: Less than the 3rd percentile. Abdominal circumference less than the 3rd percentile. Umbilical artery SD ratio: 3.5-normal. BPP6/8, adequate for GA NST in clinic. -Cell free DNA testing on 06/16/23: Low risk, female -MFM consult JAMEY ordered and scheduled for Wednesday09/10/23: EFW: Percentile, abdominal circumference 4th percentile. Single deepest pocket of amniotic fluid 5.6 cm, normal umbilical artery Dopplers. Recommendation for surveillance: Growth ultrasounds every 3 weeks, weekly UA Dopplers-these have been scheduled with MFM. #Gestational Diabetes: - Dx given her history of GDMA2 and 1 hour GTT of 192. Deferred 3 hour GTT. - [x] Nutrition consult and GDM supplies - Insulin start on 10/17 - 6u NPH BID (all fastings elevated, 2 hour PP about 20% elevated), with twice weekly portal updates to titrate further *VERY likely to need titration but started low* -11/04:Continue 6 units NPH in the morning, increase to 18 units NPH at bedtime. #Hx of CDx1 - 12/23/2021 at 38 weeks 5 days. Fetus was 5 lb 9 oz. - indication: Nonreassuring heart tracing remote from delivery - Two layer closure - Chance of success: 45.1%. Undecided on TOLAC vs repeat CD. Planning repeat CD . Hx of genital HSV - valacyclovir prescription refilled for p.r.n. 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 She notes this was attempted to be removed via HSC at outside facility without success. Thought it would come out during labor but had C/S with first delivery, plans repeat. Recommend reassessment . Ultrasounds: 08/11/2023: Anterior placenta, three-vessel umbilical cord with marginal insertion, single deepest pocket of amniotic fluid 4.1 cm, EFW 315g, 13 percentile, abdominal circumference 38 percentile, cervical length 4.5 cm. Some limited views of anatomy recommend follow-up. 09/08/2023:Breech, EFW: Less than the 3rd percentile.Abdominal circumference less than the 3rd percentile. Single deepest pocket of amniotic fluid 4.6 cm. Marginal cord insertion. Umbilical artery SD ratio: 3.5-normal. BPP6/8, adequate for GA NST in clinic. 09/10/2023: [facility] level 2 ultrasound: Anterior placenta, not previa, three-vessel umbilical cord, single deepest pocket of amniotic fluid 5.6 cm. Abdominal circumference for percentile, EFW 571 g, 3rd percentile. Normal UA Dopplers. 09/15/2023: Single deepest pocket of amniotic fluid 7.2 cm. Normal umbilical artery Dopplers, monitoring without repetitive decelerations. Continue with weekly surveillance. 09/22/2023: Cephalic, single deepest pocket of amniotic fluid 5.5 cm. NST: Appropriate for gestational age. Normal umbilical artery Dopplers. 10/01/23: EFW 894g, 3%ile with AC 3%ile. SDP 5.5cm. Appropriate interval growth. Normal dopplers. 10/08/23: Abnormal dopplers, elevated S/D ratio but no absent/reversed flow 10/19: EFW 1351g, 8%ile. Elevated S/D ratio but no absent/reversed flow. 11/03/2023: Breech, single deepest pocket of amniotic fluid: 8.6 cm. AVIVA: 20.6cm. Elevated PI but no evidence of absent or reverse diastolic flow. Tdap: 10/18/23 Baby moving naturally: Yes Bleeding: No Contractions: No Leaking fluid: No Discharge: No Heartburn: No Back pain: No Meds Home Medications and Allergies Home Medications ?Medication ?Instructions ?Recorded ?Confirmed ?Type acetaminophen 500 mg tablet 500 mg PO Q6H PRN 06/16/23 11/05/23 History (Tylenol Extra Strength) clobetasol 0.05 % scalp solution 1 applic topical DAILY PRN 06/16/23 11/05/23 History desonide 0.05 % topical cream 1 applic topical QDAY 06/16/23 11/05/23 History ketoconazole 2 % shampoo topical DAILY PRN 06/16/23 11/05/23 History vits no.126-ferrous fum tab PO QDAY 06/16/23 11/05/23 History 28 mg iron-folic acid 800 mcg tablet (Classic ) triamcinolone acetonide 0.1 % 1 applic topical BID PRN 06/16/23 11/05/23 History topical cream Allergies Allergy/AdvReac Type Severity Reaction Status Date / Time No Known Drug Allergies Allergy Verified 11/05/23 12:55 [facility] Medical History (Updated 11/05/23 @ 16:45 by Ghislaine Encinas MD) GDM (gestational diabetes mellitus) ?O24.419 - Gestational diabetes mellitus in , unspecified control (ICD-10) Social History What is your current living situation?: I presently have a place to live Problems where you live: no known problems In the past 12 months, utilities in danger of being shut off: no In past 12 months, lack of transportation kept you from medical appts, meetings, work, or getting things needed for daily living: no In the past 12 mos, have been you worried that your food would run out before you had money to buy more?: never true In the past 12 mos, the food you bought just didn't last and you didn't have money to buy more?: never true Smoking Status: Never smoker How often does anyone, including family, friends and others, physically hurt you: never How often does anyone, including family, friends and others, insult or talk down to you: never How often does anyone, including family, friends and others, threaten you with harm: never How often does anyone, including family, friends and others, scream or curse at you: never Little interest or pleasure in doing things: not at all Feeling down, depressed, or hopeless: not at all History History 2 Elective abortions Para 1 Spontaneous abortions Hx # Term Pregnancies Ectopic pregnancies Hx # Pregnancies Multiple births Number of Living Children 1 Past Pregnancies Del. 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 diabetes Delivery Date: 12/23/21 Last Updated by: Samina Velasquez ~ [place] growth restriction, GDM, baby 0 tolerate labor/induction meds OB - H&P: Exam Physical Exam Vital signs: Temp Pulse Resp BP Pulse Ox 98.7 F 82 18 133/72 99 11/05/23 16:13 11/05/23 16:26 11/05/23 16:13 11/05/23 16:26 11/05/23 15:44 Narrative: NST: 130bpm/ moderate variability/ only 10x10 accelerations/no significant decelerations/ no uterine contractions BPP: 4/8, minus 2 points for breathing and gross movements Assessment and Plan Assessment and plan (1) IUGR (intrauterine growth restriction): Problem comment: BPP 4/8 and non reactive NST on 11/05/23. Status: Acute Assessment and Plan: Case discussed with MFM at [place] Dr. Mike Joseph. In the setting of IUGR abnormal dopplers (elevated SD ratio) and abnormal testing today recommendation for further monitoring and possible delivery should be considered at this time. First dose of betamethasone given at 1535. Since NST at the moment is w/o significant decelerations, patient is stable for transfer to a higher level of care for NICU access. Patients preference is [facility] and they do have NICU space. Case discussed with Dr. Barron Edger Runner personal consultant who has reviewed the case with me and has accepted transfer. (2) GDM (gestational diabetes mellitus): Problem comment: Insulin dependent Status: Acute Assessment and Plan: Utilizing 6 units of NPH in the morning and 18 units of NPH at bedtime. Patient ate a granola bar at around noon today, has been kept NPO while in observation due to concerns about needing to be delivered. BS level in the unit today 77. (3) Elevated blood pressure complicating in third trimester, antepartum: Status: Acute Plan 2 elevated blood pressures in clinic today, not 4 hours apart does not meet criteria for GHTN at the moment. Preeclampsia labs were collected this afternoon. No evidence of proteinuria, ALT slightly elevated at 36, otherwise normal labs. Blood pressures at labor and delivery so far normal.
[2023-11-05] MEDS: LACTATED RINGERS 1000 ML 1,000 ML 125 ML IV (16:44)
--- NOTE | 2023-11-05 21:58 | PC.OBNST ---
NST Note NST Note Start: 11/05/23 15:25 Freq: ONCE Status: Active Protocol: Document 11/05/23 19:00 KRISTALLouise (Rec: 11/05/23 21:58 MEENAKSHICOURTNEY [id number]) NST Note 2 Para (# of births) 1 EDC 12/25/23 Gestational Age In Weeks & Days 32 Weeks & 6 Days High Risk Factors Diabetes - Gestational Insulin Patient Presented with Complaint(s) of Other Other Complaints Pt. has severe growth restriction and was seen in clinic for routine visit. Non reactive NST and BPP 09/12. Consult with [facility], transport arrangements made for accepting physician Dr. Mas at [facility] Reactive Yes Appropriate for Gestational Age Yes ESSENCE Morrell Date 11/05/23 Reactive Yes ESSENCE Nieves RN Date 11/05/23 OB NST charge Yes Complete NST Note via Write Note Yes The provider's electronic signature indicates the NST is reactive/appropriate for gestational age. *Note to provider: If an addendum is required, open the patient's chart and click on the note under the Nurse/Allied Health tab.
--- NOTE | 2023-11-25 12:53 | PC.OBNST ---
NST Note NST Note Start: 11/05/23 15:25 Freq: ONCE Status: Discharge Protocol: Document 11/05/23 19:00 KENYA (Rec: 11/05/23 21:58 MEENAKSHITAYLORLouise [id number]) NST Note 2 Para (# of births) 1 EDC 12/25/23 Gestational Age In Weeks & Days 32 Weeks & 6 Days High Risk Factors Diabetes - Gestational Insulin Patient Presented with Complaint(s) of Other Other Complaints Pt. has severe growth restriction and was seen in clinic for routine visit. Non reactive NST and BPP 09/12. Consult with [facility], transport arrangements made for accepting physician Dr. Mas at [facility] Reactive Yes Appropriate for Gestational Age Yes ESSENCE Morrell Date 11/05/23 Reactive Yes ESSENCE Nieves RN Date 11/05/23 OB NST charge Yes Complete NST Note via Write Note Yes The provider's electronic signature indicates the NST is reactive/appropriate for gestational age. *Note to provider: If an addendum is required, open the patient's chart and click on the note under the Nurse/Allied Health tab.
== END 2023-11-05 19:17 | disposition other institution (70) ==
LOC: OB OUT 15:21 → OB 15:21
PROVIDERS: Visit Provider Obstetrics & Gynecology
DX: O24.419 Gestational diabetes mellitus in pregnancy, unspecified control (principal); O16.3 Unspecified maternal hypertension, third trimester; Z3A.32 32 weeks gestation of pregnancy
CPT/HCPCS: 59025; G0463; A0425; A0429; J0702; J7120